=== PATIENT | female | born 1970 ===

== ENCOUNTER → 2021-08-04 15:43 | Outpatient (BNVA) | payer OTHER, SELFPAY | PROVIDERS: PCP Registered Nurse; Visit Provider Nurse Practitioner Family | DX: M79.7 Fibromyalgia (principal); M47.816 Spondylosis without myelopathy or radiculopathy, lumbar region; G89.4 Chronic pain syndrome; E66.01 Morbid (severe) obesity due to excess calories; Z68.41 Body mass index [BMI] 40.0-44.9, adult | CPT/HCPCS: 99202 ==

== ENCOUNTER 2022-01-05 15:53 | Outpatient (REF) | payer OTHER, SELFPAY ==
--- NOTE | ~2022-01-05 | XR_ITS ---
EXAMINATION: XR ABDOMEN CLINICAL INDICATION: Z01.818 - Encounter for other preprocedural examination COMPARISON: None TECHNIQUE: Supine x3 and upright x2 views of the abdomen are obtained for a total of 5 views. FINDINGS: There is no gaseous dilatation of bowel, differential air-fluid levels, or free air. The lung bases are clear. There is no pneumatosis or abnormal collections of gas. Moderate stool is present right colon. No rectal fecal impaction. No visible renal or abdominal ureteral calculi. There are a few calcified phleboliths in the pelvis. No acute bony abnormality. XR/XR abdomen w decubitus IMPRESSION: -No gaseous dilatation of bowel, differential air-fluid levels, or free air. -Moderate stool right colon. -Lung bases clear.
[2022-01-05 17:24] LABS: MANUAL DIFF FLAG NO
[2022-01-05 17:49] LABS: Basophils Percent Auto 0.5 % (0-2); Eosinophils Absolute Auto 0.1 X10*3/uL (0.0-0.4); Eosinophils Percent Auto 1.4 % (0-4); Hematocrit 42.6 % (37.0-47.0); Hemoglobin 13.7 g/dl (12.0-16.0); Imm Gran Abs Auto 0.02 X10*3/uL (0.00-0.03); Imm Gran Pct Auto 0.3 % (0.0-0.4); Lymphocytes Absolute Auto 2.1 X10*3/uL (1.2-4.9); Lymphocytes Percent Auto 34.3 % (20-40); Mean Corpuscular HGB Conc 32.2 g/dl (31.0-35.0); Mean Corpuscular Hemoglobin 27.9 pg (27.0-33.0); Mean Corpuscular Volume 86.8 fL (80.0-98.0); Mean Platelet Volume 9.1 fL (9.4-12.3); Monocytes Absolute Auto 0.4 X10*3/uL (0.1-1.2); Monocytes Percent Auto 7.1 % (2-11); Neutrophils Absolute Auto 3.5 x10*3/uL (2.0-8.3); Neutrophils Percent Auto 56.4 % (45-73); Platelet Count 301 X10*3/uL (160-400); Red Blood Count 4.91 X10*6/uL (4.20-5.50); Red Cell Distribution Width 12.7 % (11.0-16.0); White Blood Count 6.2 X10*3/uL (4.8-10.8)
[2022-01-05 18:11] LABS: Alanine Aminotransferase 19 U/L (0-31); Albumin Level 4.3 g/dL (3.5-5.0); Alkaline Phosphatase 82 U/L (39-117); Anion Gap 13 (12-20); Aspartate Amino Transferase 15 U/L (5-31); Bilirubin Total 0.7 mg/dL (0.0-1.0); Blood Urea Nitrogen 14 mg/dL (9-16); Calcium 9.5 mg/dL (8.4-10.2); Carbon Dioxide 26 mmol/L (22-29); Chloride 109 mmol/L (96-108); Estimated Glomerular Filt Rate 51; Glucose Random 80 mg/dL (60-115); Potassium 4.6 mmol/L (3.3-5.1); Sodium 143 mmol/L (135-145); Total Protein 7.5 g/dL (6.5-8.0)
[2022-01-05 18:31] LABS: TSH reflex Free T4 0.27 uIU/mL (0.32-4.0)
[2022-01-05 19:07] LABS: Free T4 (Free Thyroxine) 1.02 ng/dL (0.71-1.85)
== END 2022-01-05 15:54 | disposition home or self-care (01) ==
LOC: HO.XRAY 15:53
PROVIDERS: PCP Registered Nurse; Visit Provider Nurse Practitioner
DX: Z01.818 Encounter for other preprocedural examination (principal); K62.5 Hemorrhage of anus and rectum; K59.04 Chronic idiopathic constipation
CPT/HCPCS: 36415; 74021; 80053; 84439; 84443; 85025; 99202; 99212

== ENCOUNTER 2022-04-12 10:03 | Day surgery (SDC) | payer OTHER, SELFPAY ==
--- NOTE | 2022-04-11 10:20 | P.CONAN_ITS ---
HPI - Anesthesia Eval Consult details Narrative: 51yo F for Colonoscopy *Multiple Med Allergies* PMFSH Active Problems Active Problems: All Active Problems (Updated 04/09/22 @ 11:14 by Nichole Valencia RN) Lumbar spondylosis (Acute) Prolonged QT interval (Acute) Skin ulcer (Acute) Irritable bowel syndrome with diarrhea (Acute) Preop examination (Acute) Rectal bleeding (Acute) Chronic idiopathic constipation (Acute) Morbid obesity (Acute) Chronic pain syndrome (Acute) Fibromyalgia (Acute) Past Medical History Medical History (Updated 04/09/22 @ 11:14 by Nichole Valencia RN) Anxiety disorder Asthma Bipolar disorder Chronic pain syndrome Depression Drug allergy Fibromyalgia History of MRSA infection Kidney failure Mood disorder Morbid obesity Obstructive sleep apnea Psychosomatic pain Stress incontinence Suicide attempt Surgical History Surgical History (Updated 04/09/22 @ 11:13 by Nichole Valencia RN) H/O abdominoplasty H/O bilateral oophorectomy H/O colonoscopy H/O laparoscopy H/O: hysterectomy History of lumpectomy of left breast Hx of section Social History Social History Patient Tobacco Use Status: Former Tobacco user Quit Date: age 20's Substance Use Type: Marijuana Meds Allergies Allergy/AdvReac Type Severity Reaction Status Date / Time aluminum hydroxide Allergy Severe Anaphylaxis Verified 04/09/22 11:16 [From Mylanta] calcium carbonate Allergy Severe Anaphylaxis Verified 04/09/22 11:16 [From Mylanta] magnesium [From Mylanta] Allergy Severe Anaphylaxis Verified 04/09/22 11:16 magnesium hydroxide Allergy Severe Anaphylaxis Verified 04/09/22 11:16 [From Mylanta] magnesium hydroxide Allergy Severe Anaphylaxis Verified 04/09/22 11:16 [From Milk of Magnesia] simethicone [From Mylanta] Allergy Severe Anaphylaxis Verified 04/09/22 11:16 acetaminophen [From Tylenol] Allergy Unknown Unknown Verified 04/09/22 11:16 aspirin Allergy Unknown Unknown Verified 04/09/22 11:16 codeine Allergy Unknown Unknown Verified 04/09/22 11:16 morphine Allergy Unknown Unknown Verified 04/09/22 11:16 oxycodone [From Percocet] Allergy Unknown Unknown Verified 04/09/22 11:16 Penicillins Allergy Unknown Unknown Verified 04/09/22 11:16 pseudoephedrine Allergy Unknown Unknown Verified 04/09/22 11:16 [From Sudafed] propoxyphene Allergy Anaphylaxis Verified 04/12/22 11:08 [From [facility]-N 100] Home Medications Medication Instructions Recorded Confirmed Last Taken Type albuterol sulfate 90 mcg/actuation 0 mcg inhalation 08/04/21 Unknown History aerosol inhaler blood sugar diagnostic (FreeStyle #10 ea 08/04/21 Unknown History Test strips) bupropion HCl 300 mg 24 hr tablet, 300 mg PO BEDTIME 08/04/21 04/09/22 Unknown History extended release cetirizine 10 mg tablet 10 mg PO DAILY 08/04/21 04/09/22 Unknown History chlorhexidine gluconate 0.12 % ml PO 08/04/21 Unknown History mouthwash cholecalciferol (vitamin D3) 50 50 mcg PO DAILY 08/04/21 04/09/22 Unknown History mcg (2,000 unit) capsule (Vitamin D3) diclofenac sodium 1 % topical gel 4 g topical QID 08/04/21 04/09/22 Unknown History fluoxetine 20 mg capsule 20 mg PO DAILY 08/04/21 04/09/22 Unknown History hydroxyzine HCl 50 mg tablet 50 mg PO BID 08/04/21 04/09/22 Unknown History levalbuterol HCl 0.63 mg/3 mL mg inhalation 08/04/21 Unknown History solution for nebulization magnesium oxide 400 mg (241.3 mg 400 mg PO DAILY 08/04/21 04/09/22 Unknown History magnesium) tablet mometasone-formoterol HFA 100 2 puff inhalation BID 08/04/21 04/09/22 Unknown History mcg-5 mcg/actuation aerosol inhaler (Dulera) ondansetron HCl 4 mg tablet 4 mg PO TID PRN nausea 08/04/21 04/09/22 Unknown History oxybutynin chloride 15 mg 15 mg PO DAILY 08/04/21 04/09/22 Unknown History tablet,extended release 24 hr pen needle, diabetic 31 gauge x #1,200 ea 08/04/21 Unknown History 09/25 ([facility]acare Pen Needle) promethazine 25 mg tablet 25 mg PO BID PRN Nausea 08/04/21 04/09/22 Unknown History rosuvastatin 10 mg tablet 10 mg PO BEDTIME 08/04/21 04/09/22 Unknown History semaglutide 0.25 mg or 0.5 mg (2 mg subcut 08/04/21 Unknown History mg/1.5 mL) subcutaneous pen injector (Ozempic) bisacodyl 10 mg rectal suppository 10 mg MI DAILY 01/05/22 Unknown History buprenorphine HCl 300 mcg buccal 300 mcg buccal BID 01/05/22 04/09/22 Unknown History film (Belbuca) epinephrine 0.3 mg/0.3 mL IM DIRECTED anaphylaxis 01/05/22 Unknown History injection, auto-injector gabapentin 400 mg capsule 800 mg PO TID 01/05/22 04/09/22 Unknown History melatonin 5 mg tablet 5 mg PO BEDTIME 01/05/22 04/09/22 Unknown History mineral oil (Obmgo-Ex-Gwj Enema ml MI 01/05/22 Unknown History (mineral oil)) omeprazole 20 mg capsule,delayed 20 mg PO DAILY 01/05/22 04/09/22 Unknown History release sennosides 8.6 mg tablet (senna) 17.2 mg PO DAILY 01/05/22 04/09/22 Unknown History simethicone 80 mg chewable tablet 0 mg PO 01/05/22 Unknown History (Gas Relief (simethicone)) sodium phosphates 19 gram-7 ml MI 01/05/22 Unknown History gram/118 mL enema (Enema Disposable) topiramate 200 mg tablet 200 mg PO BEDTIME 01/05/22 04/09/22 Unknown History buprenorphine HCl 300 mcg buccal 1 strip buccal BID 04/12/22 04/12/22 Unknown History film (Belbuca) buprenorphine HCl 450 mcg buccal mcg buccal DAILY 04/12/22 04/12/22 Unknown History film (Belbuca) Exam Exam Date and Time: April 11, 2022 1020 Pertinent Lab Results Pertinent Lab Results: Laboratory Tests 01/05/22 01/05/22 17:23 17:23 WBC 6.2 Hgb 13.7 Hct 42.6 Plt Count 301 Sodium 143 Potassium 4.6 Chloride 109 H Carbon Dioxide 26 BUN 14 Creatinine 1.12 Assessment and Plan Assessment Anesthesia Assessment: Chart Reviewed
[2022-04-12 10:57] VITALS: BP 126/87; PULSE 88; RESP 18; TEMP 37.2; O2SAT 98; BMI 35.6
[2022-04-12] MEDS: Lactated Ringers 1,000 ML 100 ML IVCONT (11:29)
--- NOTE | 2022-04-12 11:46 | MHC.SHP ---
Pre-Procedural Eval Section A Date of Service: 04/12/22 Section B Chief Complaint: screening Details of Present Illness: Prev had issues with abd pain, constipation and rectal bleeding but that has all resolved per her report. Relevant Family History (Specify if Yes): No Present Medications: see Short Stay Collaborative assessment Medical History: Significant History (Morbid obesity, chronic pain, fibromyalgia ) Allergies: Allergies Allergy/AdvReac Type Severity Reaction Status Date / Time aluminum hydroxide Allergy Severe Anaphylaxis Verified 04/09/22 11:16 [From Mylanta] calcium carbonate Allergy Severe Anaphylaxis Verified 04/09/22 11:16 [From Mylanta] magnesium [From Mylanta] Allergy Severe Anaphylaxis Verified 04/09/22 11:16 magnesium hydroxide Allergy Severe Anaphylaxis Verified 04/09/22 11:16 [From Mylanta] magnesium hydroxide Allergy Severe Anaphylaxis Verified 04/09/22 11:16 [From Milk of Magnesia] simethicone [From Mylanta] Allergy Severe Anaphylaxis Verified 04/09/22 11:16 acetaminophen [From Tylenol] Allergy Unknown Unknown Verified 04/09/22 11:16 aspirin Allergy Unknown Unknown Verified 04/09/22 11:16 codeine Allergy Unknown Unknown Verified 04/09/22 11:16 morphine Allergy Unknown Unknown Verified 04/09/22 11:16 oxycodone [From Percocet] Allergy Unknown Unknown Verified 04/09/22 11:16 Penicillins Allergy Unknown Unknown Verified 04/09/22 11:16 pseudoephedrine Allergy Unknown Unknown Verified 04/09/22 11:16 [From Sudafed] propoxyphene Allergy Anaphylaxis Verified 04/12/22 11:08 [From Darvocet-N 100] Review of Systems Review of Systems Comment: 10 point ROS negative except as above Exam Exam Comment: Gen appear: No acute distress, well nourished HEENT: no icterus Chest: No overt resp distress Abd: soft, nontender, nondistended Psych: Stable affect, answering questions appropriately Neuro: A/Ox3 noted to move all extremities spontaneously Ext: no peripheral edema Plan Diagnosis/Plan: Unchanged I have reviewed the history and physical and performed a pertinent physical examination on my patient. No changes have occurred unless specified.
--- NOTE | 2022-04-12 11:59 | P.OP_ITS ---
Operative Note Operative Note Date of Service: 04/12/22 Narrative: Procedure: Colonoscopy Indication: Screening Endoscopist: Frances Pickens MD Anesthesia Provider: Dr Reji Lobo Anesthesia type: MAC Instrument: Olympus [id number]-H190L Consent: Indication, risks vs benefits, and alternatives were discussed with the patient who gave written informed consent to proceed. EKG, pulse, pulse oximetry and blood pressure were monitored throughout the procedure. Please see anesthesia flowsheet. Procedure: The patient was brought to the procedure room and placed in the left lateral decubitus position. IV medications were administered by the anesthesia provider in attendance. A digital rectal exam was performed which was normal. The colonoscope was then inserted through the anus and advanced through the colon to the cecum at 70 cm,and terminal ileum. Mucosa was carefully examined under high definition white light as the instrument was slowly withdrawn in a retrograde panoramic fashion. Retroflexion was performed in ascending colon and rectum. The procedure was not difficult. There were no immediate obvious complications. The quality of the prep was BBPS: 3+2+2 = adequate Withdrawal time 12 minutes. Limitations: No limitations. Findings: Mucosa: Normal to cecum and terminal ileum. Protruding lesions: * Medium internal hemorrhoids without stigmata of recent bleeding. Impression: 1. Normal colon and terminal ileum mucosa 2. Internal hemorrhoids Recommendations: - Repeat colonoscopy in 10 years for colorectal cancer screening
[2022-04-12 12:36] VITALS: BP 109/54; PULSE 78; RESP 16; TEMP 36.3; O2SAT 97
[2022-04-12 12:51] VITALS: BP 121/67; PULSE 70; RESP 16; TEMP 36.3; O2SAT 98
== END 2022-04-12 13:32 | disposition home or self-care (01) ==
PROVIDERS: PCP Registered Nurse; Visit Provider Internal Medicine
PROC: 0DJD8ZZ Inspection of Lower Intestinal Tract, Via Natural or Artificial Opening Endoscopic (ICD-10-PCS; CPT 45378; principal; 2022-04-12 11:20)
DX: Z12.11 Encounter for screening for malignant neoplasm of colon (principal); K64.8 Other hemorrhoids; K58.0 Irritable bowel syndrome with diarrhea; K59.04 Chronic idiopathic constipation; M79.7 Fibromyalgia; G89.29 Other chronic pain; R94.31 Abnormal electrocardiogram [ECG] [EKG]; E66.01 Morbid (severe) obesity due to excess calories; Z68.37 Body mass index [BMI] 37.0-37.9, adult; Z79.899 Other long term (current) drug therapy; Z88.0 Allergy status to penicillin; Z88.8 Allergy status to other drugs, medicaments and biological substances; Z87.891 Personal history of nicotine dependence; F12.90 Cannabis use, unspecified, uncomplicated
CPT/HCPCS: G0121

== ENCOUNTER 2022-05-03 12:41 | Outpatient (REF) | payer OTHER, SELFPAY | END 2022-05-03 12:42 | disposition home or self-care (01) | LOC: HO.LAB 12:41 | PROVIDERS: PCP Registered Nurse; Visit Provider Nurse Practitioner | DX: K86.89 Other specified diseases of pancreas (principal); K58.0 Irritable bowel syndrome with diarrhea | CPT/HCPCS: 36415; 86003; 99212 ==

== ENCOUNTER → 2022-08-14 08:56 | Outpatient (BNVA) | payer OTHER, SELFPAY | PROVIDERS: PCP Registered Nurse; Visit Provider Nurse Practitioner | DX: Z01.818 Encounter for other preprocedural examination (principal); K86.89 Other specified diseases of pancreas; K58.0 Irritable bowel syndrome with diarrhea; K04.7 Periapical abscess without sinus | CPT/HCPCS: 99212 ==

== ENCOUNTER 2022-08-22 09:53 | Outpatient (REF) | payer OTHER, SELFPAY ==
[2022-08-22 11:54] LABS: C Reactive Protein 0.11 mg/dL (< or = 0.50)
[2022-08-22 12:12] LABS: TSH reflex Free T4 0.69 uIU/mL (0.32-4.0)
== END 2022-08-22 09:54 | disposition home or self-care (01) ==
LOC: HO.LAB 09:53
PROVIDERS: Visit Provider Nurse Practitioner
DX: R19.7 Diarrhea, unspecified (principal)
CPT/HCPCS: 36415; 84443; 86140

== ENCOUNTER → 2023-06-19 13:50 | Outpatient (BNVA) | payer OTHER, SELFPAY | PROVIDERS: PCP Registered Nurse; Visit Provider Surgery ==

== ENCOUNTER 2023-07-11 10:06 | Outpatient (AMB) | payer OTHER, SELFPAY ==
[2023-07-11 10:12] VITALS: BP 99/62; PULSE 90; BMI 40.6
--- NOTE | 2023-07-11 10:12 | A.OFFVIS_ITS ---
Intake Vital Signs 3 07/11/23 10:12 Height 5 ft 5.5 in Weight 247 lb 12.793 oz BMI 40.6 BP 99/62 Blood Pressure Location Lt brachial Position Sitting Pulse 90 Intake Visit Reasons: Gastroesophageal reflux disease (GERD) Intake Note: Patient presents to the office today for a follow-up of GERD. CC: Patient c/o pain and pressure from her esophagus and something comes up and she feels like chocking because it states in her throat and she is not able to vomit or spit it out. She describes the pain as very intense and cramping pain from her esophagus. Her PCP did an EKG and it was normal. Neck and chest area sensitive and painful to the touch. She also c/o constipation and occasional blood when she wipes. She tried something natural off [employer] and was able to have a bowel movement but abdominal cramps were too strong. She also c/o lower mid abdominal pain. 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: No Accompanied by: security intern Allergies aluminum hydroxide [From Mylanta] Allergy (Severe, Verified 07/11/23 10:22) Anaphylaxis calcium carbonate [From Mylanta] Allergy (Severe, Verified 07/11/23 10:22) Anaphylaxis magnesium [From Mylanta] Allergy (Severe, Verified 07/11/23 10:22) Anaphylaxis magnesium hydroxide [From Mylanta] Allergy (Severe, Verified 07/11/23 10:22) Anaphylaxis magnesium hydroxide [From Milk of Magnesia] Allergy (Severe, Verified 07/11/23 10:22) Anaphylaxis simethicone [From Mylanta] Allergy (Severe, Verified 07/11/23 10:22) Anaphylaxis acetaminophen [From Tylenol] Allergy (Unknown, Verified 07/11/23 10:22) Unknown aspirin Allergy (Unknown, Verified 07/11/23 10:22) Unknown codeine Allergy (Unknown, Verified 07/11/23 10:22) Unknown dextromethorphan [From NyQuil] Allergy (Unknown, Verified 07/11/23 10:22) Anaphylaxis doxylamine [From NyQuil] Allergy (Unknown, Verified 07/11/23 10:22) Anaphylaxis morphine Allergy (Unknown, Verified 07/11/23 10:22) Unknown oxycodone [From Percocet] Allergy (Unknown, Verified 07/11/23 10:22) Unknown Penicillins Allergy (Unknown, Verified 07/11/23 10:22) Unknown pseudoephedrine [From Sudafed] Allergy (Unknown, Verified 07/11/23 10:22) Unknown propoxyphene [From Darvocet-N 100] Allergy (Verified 07/11/23 10:22) Anaphylaxis Medication List - Last Reconciled 07/11/23 by DENISE Lazo albuterol sulfate 90 mcg/actuation 2 inhalations inhalation blood sugar diagnostic (FreeStyle Test strips) As directed bupropion HCl (Wellbutrin XL) 300 mg PO QAM bupropion HCl (Wellbutrin XL) 150 mg PO QAM cholecalciferol (vitamin D3) (Vitamin D3) 50 mcg PO DAILY cyclobenzaprine 10 mg PO BEDTIME diclofenac sodium 1% 4 grams topical QID dicyclomine 40 mg (2 x 20 mg) PO QID 30 days epinephrine IM DIRECTED fluoxetine 40 mg PO DAILY gabapentin 800 mg PO TID hydroxyzine HCl 50 mg PO BID lancets (Pure Comfort Safety Lancets) As directed levalbuterol HCl mg inhalation mometasone-formoterol 100-5 mcg/actuation (Dulera) 2 puffs inhalation BID ondansetron HCl 4 mg PO TID PRN oxybutynin chloride ER 20 mg PO BEDTIME pen needle, diabetic (Ultracare Pen Needle) As directed rosuvastatin 10 mg PO DAILY semaglutide (Ozempic) mg subcut QWEEK sodium phosphates 19-7 gram/118 mL (Enema Disposable) mL [place] topiramate (Topamax) 200 mg PO BEDTIME [tramadol PO BEDTIME] zaleplon 10 mg PO BEDTIME PRN HPI Gastroesophageal reflux disease (GERD) 2 HPI0 Details Assessment & Plan (1) Irritable bowel syndrome with diarrh ea: ?Code(s): K58.0 - Irritable bowel syndrome with diarrhea ?Plan: She continues with severe diarrhea, it has taken over my life! She also has severe belching and explosive gas. She will have severe cramping and at times have a vasovagal response with sweating and near syncope. She admits that her sx are very driven by her emotional state as well. But in the past she had CIC alt with diarrhea, but now she has had straight diarrhea for a couple of months. She has fears of going into the constipation phase. Worse, she has 2 tooth infections and an upcoming root canal AND THE ER PUT HER ON CLINDAMYCIN!!? I wanted to stop this and will put her on Zithromax instead since she has a penicillin allergy. Hx of? being on xanax in the past but psych took her off and she does not feel her anxiety is being addressed. Sx all worse at night, interferes with sleep. No help with Zenpep and Bentyl at 20mg - not helping.? She is also on Belbuca sublingually for chronic pain but she feels that the taste of it also makes her vomit.? Apparently she is allergic to the adhesive patch. Will increase to 2 bentyl qid, and add carafate 2 tabs qhs and get blood for CRP, stool for GI panel and fecal calp, fecal pancreatic elastase.? We will stop the Zenpep since it did not help.? I tried it also because she has a history of pancreatitis and I was uncertain if there was an element of chronic pancreatitis contributing to her symptoms. She wants an EGD for PUD upper abd pain. There are no prior problems with anesthesia or sedation.? She has obstructive sleep apnea and denies any cardiac problems.? There are no infectious disease problems. RoV 2 weeks.? I will also see her after the endoscopy but that likely will be many months out. (2) Pancreatic insufficiency: ?Code(s): K86.89 - Other specified diseases of pancreas (3) Acute diarrhea: ?Code(s): R19.7 - Diarrhea, unspecified (4) Dental infection: ?Code(s): K04.7 - Periapical abscess without sinus (5) Preop examination: ?Code(s): Z01.818 - Encounter for other preprocedural examination ? ? ? Orders: Orders DC Reactive Protein A Today R19.7 - Diarrhea, unspecified ? DTSH reflex Free T4 A Today R19.7 - Diarrhea, unspecified ? DCDiff Gene PCR Today R19.7 - Diarrhea, unspecified ? DGI Panel Today R19.7 - Diarrhea, unspecified ? DCalprotectin, Feca l Today R19.7 - Diarrhea, unspecified ? Medications: New Cazithromycin 500 mg? PO DAILY 1 0 days 10 tabs 0RF K04.7 - Periapical abscess without s inus ? Csucralfate (Carafa te) 2 grams (2 x 1 gra m) PO BEDTIME 60 t abs 3RF K58.0 - Irritable bowel syndrome wit h diarrhea ? Cdicyclomine 40 mg (2 x 20 mg) PO QID 30 days 240 tabs 3RF ? ? Cpromethazine 25 mg? PO BID PRN 60 tabs 3RF Nausea ? ? Discontinued Ohgkmuh-jusjtkru-dg ylase 36,000-114,0 00- 180,000 unit ( Creon) ?? administ er with meals and/ or snacks ?? Disco ntinued Reason:? C hange Referral Typ e 1 cap? PO QID 120 caps 6RF ? ? Hdicyclomine ?? Dis continued Reason:? Doctor's Order 20 mg? PO QID 30 d ays 120 tabs 3RF K58.0 - Irritable bowel syndrome wit h diarrhea ? LABS: Laboratory Tests 08/22/22 10:01 C-Reactive Protein 0.11 TSH 0.69 STOOL TESTING NOT OBTAINED EGD NOT YET SCHEDULED BIOPSY CORRESPONDENCE On 07/05/22 @ 12:52 Prosper Posey Wrote To FrancoisAugust Patient states she will start dicyclomine today because it gets delivered to her today.? Denies getting fevers.? She states she was having diarrhea last night and her stomach was very irritable .? She was advise per message below to go to the ER if symptoms get worse but she stated she will give it some more time because her opioid medication has been adjusted d/t pharmacy giving her the wrong dosage. On 07/03/22 @ 12:12 Suzanne Parrish Wrote To Prosper Posey I am sending dicyclomine. Have any of her medications changed?? Does she have any fevers? If this gets worse she may need to go to the ER.... On 07/03/22 @ 11:57 Prosper Posey Wrote To Francois,August Patient called with c/o abdominal pain, diarrhea, nausea. and bloating. She states the abdominal cramps are horrible and similar to when she had her period. She is requesting something for pain and states is concerns for ulcers. She also states when she gets upset or very stressed that triggers her symptoms. Please adv TODAY'S VISIT Pt has not been seen since 08/2022. She paused some of her medications r/t pill burden. She has severe CIC, pain in the lower abdomen and distention.She has been having CP and has to sleep propped up. She is not feeling acid brash, she is feeling a twisting pain with pressure. It is sensitive to touch and radiates up to her throat/jaw. She has the feeling that she is limited in what she can eat because the food feels like it gets stuck in the upper pharyngeal area. She will have to hold her throat to facilitate swallowing and she has a constant globus sensation. The pain and swallowing is worse at night, and happens every night. She will have random times when she will be very hungry and then can only eat a couple of bites because of odynophagia and she will have to wait for this to pass somewhat. She had a normal EKG but no stress test and she does have high cholesterol and is under a lot of stress. I will refer her for cardiology assessment. She also has FMS and is being tx'ed by chiropractor for neck pain. She will be starting wt mgmt soon. She has strong FHX of cardiac disease. At this point it sounds like she is describing esophageal spasm but the spasm could be caused by untreated or undertreated GERD with acid splashing the distal esophagus. All this was explained to her. Because she has a problem with too much of a pill burden I will reinstate the dicyclomine and will try getting her Linzess for her severe constipation. She is agreeable to trying these 2 medications. I am also ordering a barium swallow and reordering the EGD. There are no prior problems with anesthesia or sedation. She denies any cardiac or respiratory problems. There are no infectious disease problems. Return office visit in 4 weeks to evaluate her response to the medications. [facility] Medical History (Updated 07/11/23 @ 11:16 by DENISE Lazo) Chronic idiopathic constipation Acute diarrhea Pancreatic insufficiency Irritable bowel syndrome with diarrhea Chronic pain syndrome Drug allergy Mood disorder Kidney failure History of MRSA infection Stress incontinence Psychosomatic pain Obstructive sleep apnea Anxiety disorder Morbid obesity Fibromyalgia Bipolar disorder Suicide attempt Depression Asthma Surgical History Hx of section H/O colonoscopy H/O abdominoplasty History of lumpectomy of left breast H/O bilateral oophorectomy H/O: hysterectomy H/O laparoscopy Social History Patient Tobacco Use Status: Former Tobacco user Quit Date: age 20's Substance Use Type: Marijuana Review of Systems Const Denies fatigue, Denies fever(s), Denies night sweats, Denies poor appetite and Denies weight loss ENT Reports Normal hearing present, Denies dental pain, Reports dysphagia, Denies hearing loss, Denies mouth pain, Reports neck pain, Reports odynophagia, Denies throat swelling, Denies tongue swelling and Reports other (Dentition adequate) Card Reports chest pain Resp Reports no additional complaints GI Details: Denies abdominal pain, Denies melena, Reports bloating, Denies hematochezia, Reports constipation, Denies GI cramping, Reports dysphagia, Denies excessive flatus, Denies early satiety, Denies heartburn, Denies diarrhea, Denies nausea, Reports odynophagia, Denies vomiting and Denies hematemesis Musc Reports neck pain Skin/Breast Denies pruritus, Denies lesions, Denies rash and Denies jaundice Neuro Reports Normal hearing present and Denies Abnormal speech present Psych Reports anxiety Endo Denies fatigue Aller/Immun Denies throat swelling and Denies tongue swelling Physical Exam Vital Signs: Last Vital Signs Pulse 90 07/11/23 10:12 BP 99/62 07/11/23 10:12 BMI result Body Mass Index 40.6 Const General: cooperative, no acute distress, well developed and well groomed Nutritional Appearance: well nourished and obese Orientation/consciousness: oriented to person, oriented to place and oriented to time Limitations: No language barrier HEENT Head: Yes normocephalic and Yes atraumatic Eyes General: appearance normal, both eyes and all related structures Pupils: Equal, round and reactive pupils present Neck Neck: Yes no lymphadenopathy Thyroid: diffusely enlarged Resp Effort & Inspection: normal respiratory effort and able to speak in complete sentences Auscultation: clear to auscultation bilaterally Cardio Rate: regular rate Rhythm: regular rhythm Heart sounds: Normal, physiologic split S2 sound present Peripheral pulses: radial pulses present and posterior tibial pulses present GI Inspection: No distended, Yes Abdominal panniculus present and Yes obesity Palpation (GI): Soft to palpation, nontender, no guarding, not rigid and No hepatosplenomegaly present Percussion: Yes normal to percussion Auscultation: normal bowel sounds Rectal Exam - Female: deferred Abdomen image: 2 1. surgical scar Skin General skin exam: turgor normal, dry skin (marshal on hands), Excoriation (scratching over upper abdomen), no jaundice, No spider nevi and no striae Rashes: no rashes Nails: normal Neuro General: oriented to person, oriented to place and oriented to time Cranial nerves: Yes Equal, round and reactive pupils present and Yes Normal hearing present Speech: No Abnormal speech present Extrem General: Yes normal to inspection, No clubbing, No cyanosis and No edema Psych Appearance: grossly normal and well kempt Mental Status: mental status grossly normal Speech and movement: Pressured speech present Affect: Anxious affect present Attitude: cooperative Thought process: Normal thought process present and not confabulating Thought content: Normal thought content present Insight: Limited insight present (Psych) Judgement: Limited judgement present (Psych) Assessment & Plan Assessment & Plan (1) Chronic idiopathic constipation: Code(s): K59.04 - Chronic idiopathic constipation (2) Esophageal spasm: Code(s): K22.4 - Dyskinesia of esophagus Plan Pt has not been seen since 08/2022. She paused some of her medications r/t pill burden. She has severe CIC, pain in the lower abdomen and distention.She has been having CP and has to sleep propped up. She is not feeling acid brash, she is feeling a twisting pain with pressure. It is sensitive to touch and radiates up to her throat/jaw. She has the feeling that she is limited in what she can eat because the food feels like it gets stuck in the upper pharyngeal area. She will have to hold her throat to facilitate swallowing and she has a constant globus sensation. The pain and swallowing is worse at night, and happens every night. She will have random times when she will be very hungry and then can only eat a couple of bites because of odynophagia and she will have to wait for this to pass somewhat. She had a normal EKG but no stress test and she does have high cholesterol and is under a lot of stress. I will refer her for cardiology assessment. She also has FMS and is being tx'ed by chiropractor for neck pain. She will be starting wt mgmt soon. She has strong FHX of cardiac disease. At this point it sounds like she is describing esophageal spasm but the spasm could be caused by untreated or undertreated GERD with acid splashing the distal esophagus. All this was explained to her. Because she has a problem with too much of a pill burden I will reinstate the dicyclomine and will try getting her Linzess for her severe constipation. She is agreeable to trying these 2 medications. I am also ordering a barium swallow and reordering the EGD. There are no prior problems with anesthesia or sedation. She denies any cardiac or respiratory problems. There are no infectious disease problems. Return office visit in 4 weeks to evaluate her response to the medications. BARIUM SWALLOW EGD NOT YET SCHEDULED BIOPSY Orders: Orders 2 FL barium swallow Today F39 - Unspecified mood [affective] disorder EGD with [facility] - GI Use Only Today F39 - Unspecified mood [affective] disorder Referrals 2 Cardiology Referral K22.4 - Dyskinesia of esophagus Medications: Changed 2 From dicyclomine 40 mg (2 x 20 mg) PO QID 30 days 240 tabs 3RF K22.4 - Dyskinesia of esophagus To dicyclomine 20 mg PO BID 30 days 60 tabs 3RF K22.4 - Dyskinesia of esophagus Discontinued 2 promethazine Discontinued Reason: Doctor's Order 25 mg PO BID PRN 60 tabs 3RF Nausea On Hold 2 linaclotide (Linzess) Hold Comment: Doctor's Order 72 mcg PO QAM 30 caps 6RF K59.04 - Chronic idiopathic constipation Coding Level of Care Code Est Pt Level 4 (79909) Diagnoses Chronic idiopathic constipation K59.04 Esophageal spasm K22.4
== END 2023-07-11 11:28 | disposition home or self-care (01) ==
PROVIDERS: PCP Registered Nurse; Visit Provider Nurse Practitioner
DX: K59.04 Chronic idiopathic constipation (principal); K22.4 Dyskinesia of esophagus
CPT/HCPCS: 99214

== ENCOUNTER → 2023-07-11 10:06 | Outpatient (BNVA) | payer OTHER, SELFPAY | PROVIDERS: PCP Registered Nurse; Visit Provider Nurse Practitioner | DX: K59.04 Chronic idiopathic constipation (principal); K22.4 Dyskinesia of esophagus | CPT/HCPCS: 99212 ==

== ENCOUNTER 2023-07-22 08:10 | Outpatient (AMB) | payer OTHER, SELFPAY ==
--- NOTE | 2023-07-22 13:24 | A.OFFVIS_ITS ---
Intake VS Expanded 07/22/23 14:02 Height 5 ft 5.5 in Weight 246 lb 2 oz BMI 40.3 Body Fat % 47.2 Body Fat Mass 116.2 Fat Free Mass 129.8 Visceral Fat Rating 14 Body Water % 37.5 Body Water Mass 92.4 Basal Metabolic Rate/Score 1,835 Intake Visit Reasons: [employer] SOFTWARE P[employer]ER SWL BMI 40.4 Allergies aluminum hydroxide [From Mylanta] Allergy (Severe, Verified 07/22/23 13:26) Anaphylaxis calcium carbonate [From Mylanta] Allergy (Severe, Verified 07/22/23 13:26) Anaphylaxis magnesium [From Mylanta] Allergy (Severe, Verified 07/22/23 13:26) Anaphylaxis magnesium hydroxide [From Mylanta] Allergy (Severe, Verified 07/22/23 13:26) Anaphylaxis magnesium hydroxide [From Milk of Magnesia] Allergy (Severe, Verified 07/22/23 13:26) Anaphylaxis simethicone [From Mylanta] Allergy (Severe, Verified 07/22/23 13:26) Anaphylaxis acetaminophen [From Tylenol] Allergy (Unknown, Verified 07/22/23 13:26) Unknown aspirin Allergy (Unknown, Verified 07/22/23 13:26) Unknown codeine Allergy (Unknown, Verified 07/22/23 13:26) Unknown dextromethorphan [From NyQuil] Allergy (Unknown, Verified 07/22/23 13:26) Anaphylaxis doxylamine [From NyQuil] Allergy (Unknown, Verified 07/22/23 13:26) Anaphylaxis morphine Allergy (Unknown, Verified 07/22/23 13:26) Unknown oxycodone [From Percocet] Allergy (Unknown, Verified 07/22/23 13:26) Unknown Penicillins Allergy (Unknown, Verified 07/22/23 13:26) Unknown pseudoephedrine [From Sudafed] Allergy (Unknown, Verified 07/22/23 13:26) Unknown propoxyphene [From Darvocet-N 100] Allergy (Verified 07/22/23 13:26) Anaphylaxis Medication List - Last Reconciled 07/22/23 by Prakash Adams MD albuterol sulfate 90 mcg/actuation 2 inhalations inhalation blood sugar diagnostic (FreeStyle Test strips) As directed bupropion HCl (Wellbutrin XL) 300 mg PO QAM bupropion HCl (Wellbutrin XL) 150 mg PO QAM cholecalciferol (vitamin D3) (Vitamin D3) 50 mcg PO DAILY cyclobenzaprine 10 mg PO BEDTIME diclofenac sodium 1% 4 grams topical QID dicyclomine 40 mg (2 x 20 mg) PO BID 30 days epinephrine IM DIRECTED fluoxetine 40 mg PO DAILY gabapentin 800 mg PO TID lancets (Pure Comfort Safety Lancets) As directed levalbuterol HCl mg inhalation mometasone-formoterol 100-5 mcg/actuation (Dulera) 2 puffs inhalation BID ondansetron HCl 4 mg PO TID PRN oxybutynin chloride ER 20 mg PO BEDTIME pen needle, diabetic (Ultracare Pen Needle) As directed rosuvastatin 10 mg PO DAILY semaglutide (Ozempic) mg subcut QWEEK sodium phosphates 19-7 gram/118 mL (Enema Disposable) mL [place] topiramate (Topamax) 200 mg PO BEDTIME [tramadol PO BEDTIME] zaleplon 10 mg PO BEDTIME PRN HPI [employer] SOFTWARE P[employer]ER SWL BMI 40.4 HPI Details Start time: 1.30pm, End time: 2.30pm ?I spent 50 minutes speaking with the patient on the phone plus an additional 10 minutes reviewing and updating records for a total of 60 minutes HPI Comments History of Present Illness Details Previous weight loss efforts: Latrellempic lost 75lbs Wakes up: 8.30am, Sleeps: 10pm Breakfast: skips Lunch: 3pm (sandwich or chicken salad) Dinner: 6.30pm (chicken, rice, beans) Snacks: 9pm (can nuts) Exercise: none Fluids: Coffee (none), tea: none, soda: Gingerale regular occasionally, juice: occasionally, ETOH: none PFSH Medical History (Updated 07/22/23 @ 13:43 by Prakash Adams MD) Hyperlipidemia Chronic idiopathic constipation Acute diarrhea Pancreatic insufficiency Irritable bowel syndrome with diarrhea Chronic pain syndrome Drug allergy Mood disorder Kidney failure History of MRSA infection Stress incontinence Psychosomatic pain Obstructive sleep apnea Anxiety disorder Morbid obesity Fibromyalgia Bipolar disorder Suicide attempt Depression Asthma Surgical History Hx of section H/O colonoscopy H/O abdominoplasty History of lumpectomy of left breast H/O bilateral oophorectomy H/O: hysterectomy H/O laparoscopy Social History Patient Tobacco Use Status: Former Tobacco user Quit Date: age 20's Substance Use Type: Marijuana Physical Exam Vital Signs: BMI result Body Mass Index 40.3 Assessment & Plan Assessment & Plan (1) Morbid obesity: Code(s): E66.01 - Morbid (severe) obesity due to excess calories Plan: 1.? Plan for lap sleeve gastrectomy. If diaphragmatic or ventral hernias are present at time of surgery, these will be repaired laparoscopically as well. Risks and complications were discussed in detail including possible conversion to an open procedure, anastomotic leak, bleeding requiring transfusion, small bowel obstruction, , DVT and pulmonary embolism, cardiac, or pulmonary complications, as shelter complications such as anastomotic ulcer, insufficient weight loss and vitamin deficiencies. I emphasized the importance of close follow-up, adherence to instructions and good communication. 2. Nutritional counseling. Start with 2 Isopure protein (buy at [employer]) shakes (HALF scoop EACH in 8oz water each) at 9am-11am and 12pm-2pm, 1 protein bar (Zone Perfect protein bars, buy at [employer], ?[employer], [facility], or [employer]) at 3pm-5pm, dinner at 6pm (8 forks of protein and 8 forks of salad/vegetables) and one more Zone Perfect protein bar after dinner at 8pm-10pm. So you do 2 protein shakes, 2.5 protein bars and one meal per day. Meal to include lean meat (beef, fish, pork, turkey, chicken), or occitan yogurt, or egg whites, or beans with a salad with olive oil and fruits (berries, pears, apples, kiwi). Avoid salt, breads, potatoes, rice, pasta, desserts. 3. Each shake would be drunk slowly, like coffee in a period of 2 hours. 4. Cut each bar in 4 pieces and eat each piece in 30min ?to make each bar last 2 hours. 5. I emphasized the importance of measuring accurately the food portion and measure it when serving the food in plate 6. The meal portions include 8 full-size forks of meat and 8 full-size forks of salad. You always eat the meat portion but you can replace up to 4 forks for salad/vegetables with rice, potatoes or pasta, or a fruit ?if you like. The less you do it the better weight loss will be. 7. One full-size fork is what it can be scooped on the fork without falling aside and not what can be bit with the fork. Use regular forks like those you find in a typical restaurant. 8.? Please send me weight measurements as soon as possible and then once a week. Always include your diet and exercise plan. 9. The best choice would be to purchase a stationary bike at home that can track calories. Let me know if you do so I can give you an exercise plan. 10.?Goal is to lose at least 1.5-2lbs per week 11. Goal to lose 10% of your weight before surgery, which is about 24lbs. Ultimate weight goal: 222lbs before surgery 12. Please follow the diet plan exactly without any change. If you don't like something about the plan or you feel hungry you need to communicate with me so I can help you revise the plan. You should not change the plan yourself. Telehealth Telehealth Location of provider rendering services: practice address Location of patient: address on file Patient Identification confirmed using: Name, : Yes Telehealth method: voice only Patient verbally consented to treatment: Yes Patient verbally consented to billing insurance company: Yes Patient informed of any privacy concerns related to visit: Yes Minutes spent on Phone/Video with Pt.: 60 Coding Level of Care Code Tele New Pt Level 5 (24582) Diagnoses Morbid obesity E66.01 Time Spent (min) 60
[2023-07-22 14:02] VITALS: BMI 40.3
== END 2023-07-22 16:47 | disposition home or self-care (01) ==
LOC: HO.HBS 08:10
PROVIDERS: PCP Registered Nurse; Visit Provider Surgery
DX: E66.01 Morbid (severe) obesity due to excess calories (principal); Z68.41 Body mass index [BMI] 40.0-44.9, adult
CPT/HCPCS: 99443

== ENCOUNTER → 2023-07-22 08:10 | Outpatient (BNVA) | payer OTHER, SELFPAY | PROVIDERS: PCP Registered Nurse; Visit Provider Surgery ==

== ENCOUNTER → 2023-08-09 12:48 | Outpatient (BNVA) | payer OTHER, SELFPAY | PROVIDERS: PCP Registered Nurse; Visit Provider Nurse Practitioner | DX: K22.4 Dyskinesia of esophagus (principal); K58.1 Irritable bowel syndrome with constipation; K59.04 Chronic idiopathic constipation; Z79.899 Other long term (current) drug therapy | CPT/HCPCS: 99212 ==

== ENCOUNTER 2023-08-09 12:49 | Outpatient (AMB) | payer OTHER, SELFPAY ==
--- NOTE | 2023-08-09 12:54 | MHC.OFFVIS ---
Intake Vital Signs 08/09/23 12:56 Height 5 ft 7 in Weight 239 lb BMI 37.4 BP 105/74 Blood Pressure Location Lt brachial Position Sitting Pulse 97 Intake Visit Reasons: 4 week folow up Intake Note: Agnes presents in the office as a 4 week follow up. CC: took of dicyclomine and then spasms came back. She wants to know about the weight loss program. She feels like underlying issues are not being taken care. Allergies aluminum hydroxide [From Mylanta] Allergy (Severe, Verified 08/09/23 12:57) Anaphylaxis calcium carbonate [From Mylanta] Allergy (Severe, Verified 08/09/23 12:57) Anaphylaxis magnesium [From Mylanta] Allergy (Severe, Verified 08/09/23 12:57) Anaphylaxis magnesium hydroxide [From Mylanta] Allergy (Severe, Verified 08/09/23 12:57) Anaphylaxis magnesium hydroxide [From Milk of Magnesia] Allergy (Severe, Verified 08/09/23 12:57) Anaphylaxis simethicone [From Mylanta] Allergy (Severe, Verified 08/09/23 12:57) Anaphylaxis acetaminophen [From Tylenol] Allergy (Unknown, Verified 08/09/23 12:57) Unknown aspirin Allergy (Unknown, Verified 08/09/23 12:57) Unknown codeine Allergy (Unknown, Verified 08/09/23 12:57) Unknown dextromethorphan [From NyQuil] Allergy (Unknown, Verified 08/09/23 12:57) Anaphylaxis doxylamine [From NyQuil] Allergy (Unknown, Verified 08/09/23 12:57) Anaphylaxis morphine Allergy (Unknown, Verified 08/09/23 12:57) Unknown oxycodone [From Percocet] Allergy (Unknown, Verified 08/09/23 12:57) Unknown Penicillins Allergy (Unknown, Verified 08/09/23 12:57) Unknown pseudoephedrine [From Sudafed] Allergy (Unknown, Verified 08/09/23 12:57) Unknown propoxyphene [From Darvocet-N 100] Allergy (Verified 08/09/23 12:57) Anaphylaxis Medication List - Last Reconciled 08/09/23 by DENISE Lazo albuterol sulfate 90 mcg/actuation 2 inhalations inhalation blood sugar diagnostic (FreeStyle Test strips) As directed bupropion HCl (Wellbutrin XL) 300 mg PO QAM bupropion HCl 150 mg PO DAILY cholecalciferol (vitamin D3) (Vitamin D3) 50 mcg PO DAILY cyclobenzaprine 10 mg PO BEDTIME diclofenac sodium 1% 4 grams topical QID dicyclomine 40 mg (2 x 20 mg) PO BID 30 days epinephrine IM DIRECTED fluoxetine 40 mg PO DAILY gabapentin 800 mg PO TID lancets (Pure Comfort Safety Lancets) As directed levalbuterol HCl mg inhalation mometasone-formoterol 100-5 mcg/actuation (Dulera) 2 puffs inhalation BID ondansetron HCl 4 mg PO TID PRN oxybutynin chloride ER 20 mg PO BEDTIME pen needle, diabetic (Ultracare Pen Needle) As directed plecanatide (Trulance) 3 mg PO DAILY rosuvastatin 20 mg PO BEDTIME semaglutide (Ozempic) mg subcut sodium phosphates 19-7 gram/118 mL (Enema Disposable) mL NV topiramate (Topamax) 200 mg PO BEDTIME [tramadol PO BEDTIME] zaleplon 10 mg PO BEDTIME PRN HPI 4 week folow up HPI Details Assessment & Plan (1) Chronic idiopathic constipation: Code(s): K59.04 - Chronic idiopathic constipation (2) Esophageal spasm: Code(s): K22.4 - Dyskinesia of esophagus Plan Pt has not been seen since 08/2022. She paused some of her medications r/t pill burden. She has severe CIC, pain in the lower abdomen and distention.She has been having CP and has to sleep propped up. She is not feeling acid brash, she is feeling a twisting pain with pressure. It is sensitive to touch and radiates up to her throat/jaw. She has the feeling that she is limited in what she can eat because the food feels like it gets stuck in the upper pharyngeal area. She will have to hold her throat to facilitate swallowing and she has a constant globus sensation. The pain and swallowing is worse at night, and happens every night. She will have random times when she will be very hungry and then can only eat a couple of bites because of odynophagia and she will have to wait for this to pass somewhat. She had a normal EKG but no stress test and she does have high cholesterol and is under a lot of stress. I will refer her for cardiology assessment. She also has FMS and is being tx'ed by chiropractor for neck pain. She will be starting wt mgmt soon. She has strong FHX of cardiac disease. At this point it sounds like she is describing esophageal spasm but the spasm could be caused by untreated or undertreated GERD with acid splashing the distal esophagus. All this was explained to her. Because she has a problem with too much of a pill burden I will reinstate the dicyclomine and will try getting her Linzess for her severe constipation. She is agreeable to trying these 2 medications. I am also ordering a barium swallow and reordering the EGD. There are no prior problems with anesthesia or sedation. She denies any cardiac or respiratory problems. There are no infectious disease problems. Return office visit in 4 weeks to evaluate her response to the medications. BARIUM SWALLOW EGD NOT YET SCHEDULED BIOPSY Orders: Orders FL barium swallow Today F39 - Unspecified mood [affective] d isorder EGD with [facility] - G I Use Only Today F39 - Unspecified mood [affective] d isorder Referrals Cardiology Referra l K22.4 - Dyskinesia of esophagus Medications: Changed From dicyclomine 40 mg (2 x 20 mg) PO QID 30 days 240 tabs 3RF K22.4 - Dyskinesia of esophagus To dicyclomine 20 mg PO BID 30 d ays 60 tabs 3RF K22.4 - Dyskinesia of esophagus Discontinued promethazine Di scontinued Reason: Doctor's Order 25 mg PO BID PRN 60 tabs 3RF Nausea On Hold linaclotide (Linze ss) Hold Commen t: Doctor's Order 72 mcg PO QAM 30 caps 6RF K59.04 - Chronic i diopathic constipa tion EGD ? does she have date yet? BIOPSY BARIUM SWALLOW She needs to rescheudle as won't be in 07/25 CORRESPONDENCE (Trulance and) On 07/11/23 @ 14:04 Prosper Posey Wrote To Preferred meds are Trulance and Amitiza. On 07/11/23 @ 11:18 ParrishAugust Wrote To Prosper Posey Please see what the preferred med is between Linzess, Trulance and AMitiza TODAY'S VISIT She is taking Trulance but still is not moving her bowels regularly. So this is clearly not working and we will try to progress to Linzess and start at 145mcg. She has many questions regarding a possible gastric sleeve, as she is feeling rushed by the surgeon. She is very fearful because she had severe sepsis after a hysterectomy in the past and she knows she has yet undiagnosed GI problems that we are working on. She has an upcoming EGD and a stress test pending. Her psychiatrist is not recommending it at this time r/t her anxiety and hx. She does not know if she can put off seeing wt [facility] for a time if she will lose her spot. He wanted her to stop the bentyl which was for dysphagia and was helping her. She still has the episodes of feeling choked and sensitive in seema upper throat and will wake up in the middle of the night and I feel afraid I will of a heart attack. She feels she has body wide inflammation and sensitivity. She feels like her mouth and tongue is swollen and sensitive. ROV 4 weeks. [facility] Medical History (Updated 07/22/23 @ 13:43 by Prakash Adams MD) Hyperlipidemia Chronic idiopathic constipation Acute diarrhea Pancreatic insufficiency Irritable bowel syndrome with diarrhea Chronic pain syndrome Drug allergy Mood disorder Kidney failure History of MRSA infection Stress incontinence Psychosomatic pain Obstructive sleep apnea Anxiety disorder Morbid obesity Fibromyalgia Bipolar disorder Suicide attempt Depression Asthma Surgical History Hx of section H/O colonoscopy H/O abdominoplasty History of lumpectomy of left breast H/O bilateral oophorectomy H/O: hysterectomy H/O laparoscopy Social History Patient Tobacco Use Status: Former Tobacco user Quit Date: age 20's Substance Use Type: Marijuana Review of Systems Const Denies fatigue, Denies fever(s), Denies night sweats, Denies poor appetite and Denies weight loss ENT Reports Normal hearing present, Denies dental pain, Reports dysphagia, Denies hearing loss, Denies mouth pain, Denies odynophagia, Denies throat swelling, Denies tongue swelling and Reports other (Dentition adequate) Card Reports orthopnea and Reports paroxysmal nocturnal dyspnea Resp Reports no additional complaints GI Details: Denies abdominal pain, Denies melena, Reports bloating, Denies hematochezia, Reports constipation, Denies GI cramping, Reports dysphagia, Denies excessive flatus, Denies early satiety, Reports heartburn, Denies diarrhea, Denies nausea, Denies odynophagia, Denies vomiting and Denies hematemesis Musc Reports back pain and Reports myalgias Skin/Breast Denies pruritus, Denies lesions, Denies rash and Denies jaundice Neuro Reports Normal hearing present and Denies Abnormal speech present Psych Reports anxiety Endo Denies fatigue Aller/Immun Denies throat swelling and Denies tongue swelling Physical Exam Vital Signs: Last Vital Signs Pulse 97 08/09/23 12:56 BP 105/74 08/09/23 12:56 BMI result Body Mass Index 37.4 Const General: cooperative, no acute distress, well developed and well groomed Nutritional Appearance: well nourished and obese Orientation/consciousness: oriented to person, oriented to place and oriented to time Limitations: No language barrier HEENT Head: Yes normocephalic and Yes atraumatic Eyes General: appearance normal, both eyes and all related structures Pupils: Equal, round and reactive pupils present Neck Neck: Yes normal visual inspection and Yes no lymphadenopathy Thyroid: Thyroid normal Resp Effort & Inspection: normal respiratory effort and able to speak in complete sentences Auscultation: clear to auscultation bilaterally Cardio Rate: regular rate Rhythm: regular rhythm Heart sounds: Normal, physiologic split S2 sound present Peripheral pulses: radial pulses present and posterior tibial pulses present GI Inspection: No distended, No Abdominal panniculus present and Yes obesity Palpation (GI): Soft to palpation, nontender, no guarding, not rigid and No hepatosplenomegaly present Percussion: Yes normal to percussion Auscultation: normal bowel sounds Rectal Exam - Female: deferred Skin General skin exam: no rashes or lesions noted, turgor normal, skin not dry, no jaundice, No spider nevi and no striae Rashes: no rashes Nails: normal Neuro General: oriented to person, oriented to place and oriented to time Cranial nerves: Yes Equal, round and reactive pupils present and Yes Normal hearing present Speech: No Abnormal speech present Extrem General: Yes normal to inspection, No clubbing, No cyanosis and No edema Psych Appearance: grossly normal and well kempt Mental Status: mental status grossly normal Speech and movement: Normal speech and movement present Affect: normal affect Attitude: cooperative Thought process: Normal thought process present and not confabulating Thought content: Normal thought content present Insight: Limited insight present (Psych) Judgement: Limited judgement present (Psych) Assessment & Plan Assessment & Plan (1) Chronic idiopathic constipation: Code(s): K59.04 - Chronic idiopathic constipation (2) Esophageal spasm: Code(s): K22.4 - Dyskinesia of esophagus Plan She is taking Trulance but still is not moving her bowels regularly. So this is clearly not working and we will try to progress to [facility] and start at 145mcg. She has many questions regarding a possible gastric sleeve, as she is feeling rushed by the surgeon. She is very fearful because she had severe sepsis after a hysterectomy in the past and she knows she has yet undiagnosed GI problems that we are working on. She has an upcoming EGD and a stress test pending. Her psychiatrist is not recommending it at this time r/t her anxiety and hx. She does not know if she can put off seeing wt mgmt for a time if she will lose her spot. He wanted her to stop the bentyl which was for dysphagia and was helping her. She still has the episodes of feeling choked and sensitive in seema upper throat and will wake up in the middle of the night and I feel afraid I will of a heart attack. She feels she has body wide inflammation and sensitivity. She feels like her mouth and tongue is swollen and sensitive. ROV 4 weeks. EGD ? does she have date yet? BIOPSY BARIUM SWALLOW She needs to rescheudle as won't be in 07/25 Medications: New linaclotide (Linzess) Take first thing in the morning with a full glass of water. 145 mcg PO QAM 30 caps 3RF K58.1 - Irritable bowel syndrome with constipation Coding Level of Care Code Est Pt Level 3 (21414) Diagnoses Chronic idiopathic constipation K59.04 Esophageal spasm K22.4
[2023-08-09 12:56] VITALS: BP 105/74; PULSE 97; BMI 37.4
== END 2023-08-09 14:05 | disposition home or self-care (01) ==
PROVIDERS: PCP Registered Nurse; Visit Provider Nurse Practitioner
DX: K59.04 Chronic idiopathic constipation (principal); K22.4 Dyskinesia of esophagus
CPT/HCPCS: 99213

== ENCOUNTER 2023-09-20 11:23 | Outpatient (AMB) | payer OTHER, SELFPAY ==
[2023-09-20 11:33] VITALS: BP 118/66; PULSE 90; BMI 38.0
--- NOTE | 2023-09-20 11:33 | A.OFFVIS_ITS ---
Vital Signs 09/20/23 11:33 Height 5 ft 7 in Weight 242 lb 15.19 oz BMI 38.0 BP 118/66 Blood Pressure Location Lt brachial Position Sitting Pulse 90 Intake Visit Reasons: Follow up Intake Note: Patient here for f/u stomach issues. Reports relief with Linzess. Patient c/o: abd pain, nausea, bloated, constant burping, esophagus spasms. 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 Accompanied by: Self / Same As Patient Allergies aluminum hydroxide [From Mylanta] Allergy (Severe, Verified 09/20/23 11:40) Anaphylaxis calcium carbonate [From Mylanta] Allergy (Severe, Verified 09/20/23 11:40) Anaphylaxis magnesium [From Mylanta] Allergy (Severe, Verified 09/20/23 11:40) Anaphylaxis magnesium hydroxide [From Mylanta] Allergy (Severe, Verified 09/20/23 11:40) Anaphylaxis magnesium hydroxide [From Milk of Magnesia] Allergy (Severe, Verified 09/20/23 11:40) Anaphylaxis simethicone [From Mylanta] Allergy (Severe, Verified 09/20/23 11:40) Anaphylaxis acetaminophen [From Tylenol] Allergy (Unknown, Verified 09/20/23 11:40) Unknown aspirin Allergy (Unknown, Verified 09/20/23 11:40) Unknown codeine Allergy (Unknown, Verified 09/20/23 11:40) Unknown dextromethorphan [From NyQuil] Allergy (Unknown, Verified 09/20/23 11:40) Anaphylaxis doxylamine [From NyQuil] Allergy (Unknown, Verified 09/20/23 11:40) Anaphylaxis morphine Allergy (Unknown, Verified 09/20/23 11:40) Unknown oxycodone [From Percocet] Allergy (Unknown, Verified 09/20/23 11:40) Unknown Penicillins Allergy (Unknown, Verified 09/20/23 11:40) Unknown pseudoephedrine [From Sudafed] Allergy (Unknown, Verified 09/20/23 11:40) Unknown propoxyphene [From Darvocet-N 100] Allergy (Verified 09/20/23 11:40) Anaphylaxis HPI HPI Follow up: Details: Assessment & Plan (1) Chronic idiopathic constipation: Code(s): K59.04 - Chronic idiopathic constipation (2) Esophageal spasm: Code(s): K22.4 - Dyskinesia of esophagus Plan She is taking Trulance but still is not moving her bowels regularly. So this is clearly not working and we will try to progress to Linzess and start at 145mcg. She has many questions regarding a possible gastric sleeve, as she is feeling rushed by the surgeon. She is very fearful because she had severe sepsis after a hysterectomy in the past and she knows she has yet undiagnosed GI problems that we are working on. She has an upcoming EGD and a stress test pending. Her psychiatrist is not recommending it at this time r/t her anxiety and hx. She does not know if she can put off seeing wt mgmt for a time if she will lose her spot. He wanted her to stop the bentyl which was for dysphagia and was helping her. She still has the episodes of feeling choked and sensitive in seema upper throat and will wake up in the middle of the night and I feel afraid I will of a heart attack. She feels she has body wide inflammation and sensitivity. She feels like her mouth and tongue is swollen and sensitive. ROV 4 weeks. Medications: New linaclotide (Linzess) Take first thing in the morning with a full glass of water. 145 mcg PO QAM 30 caps 3RF K58.1 - Irritable bowel syndrome with constipation EGD 11/06/2023 BIOPSY BARIUM SWALLOW 10/03/2023 TODAY'S VISIT She is now on Linzess 145mcg and famotidine. Alexia ramos. She feels the Linzess dose is appropriate. She still feels horrible with bloating, nausea, severe belching and a know over the suprepubic area. She notices that this increases with her personal stress and she has been stressed recently over financial issues. She is also having severe esophageal spasms. Her burps are foul. She also had an onset of asthma that she did not recognize as such because it was only as a cough, so she seems also susceptible to bronchial spasms. She also had severe lymphadema recently - a known problem. She missed the barium swallow because she was told to be here at 10am and then when she came said it was 8am! Appears to have been rescheduled to 10/02 I will also get an US to assess GB with the bloating Will get RUQ pain but uses a massage gun with some relief. Has FMS as well. Underlying agorophobia - uncertain what I can do to effect how anxiety is effecting the GI system. She sees psychiatry. On Wellbutrin and Prozac. Will increase bentyl 2 tabs qid (from bid) awaiting testing results. ROV after barium swallow 10/02 [facility] Medical History (Updated 09/20/23 @ 12:02 by DENISE Lazo) Hyperlipidemia Chronic idiopathic constipation Acute diarrhea Pancreatic insufficiency Chronic pain syndrome Drug allergy Mood disorder Kidney failure History of MRSA infection Stress incontinence Psychosomatic pain Obstructive sleep apnea Anxiety disorder Morbid obesity Fibromyalgia Bipolar disorder Suicide attempt Depression Asthma Surgical History Hx of section H/O colonoscopy H/O abdominoplasty History of lumpectomy of left breast H/O bilateral oophorectomy H/O: hysterectomy H/O laparoscopy Social History Patient Tobacco Use Status: Former Tobacco user Substance Use Type: Marijuana Review of Systems Const Denies fatigue, Denies fever(s), Denies night sweats, Denies poor appetite and Denies weight loss ENT Reports Normal hearing present, Denies dental pain, Denies dysphagia, Denies hearing loss, Denies mouth pain, Denies odynophagia, Denies throat swelling, Denies tongue swelling and Reports other (Dentition adequate) Card Reports no additional complaints and Reports dyspnea on exertion Resp Reports dyspnea on exertion GI Details: Reports abdominal pain, Denies melena, Reports bloating, Denies hematochezia, Reports constipation, Denies GI cramping, Denies dysphagia, Denies excessive flatus, Denies early satiety, Reports heartburn, Denies diarrhea, Reports nausea, Denies odynophagia, Denies vomiting and Denies hematemesis Musc Reports myalgias Skin/Breast Denies pruritus, Denies lesions, Denies rash and Denies jaundice Neuro Reports Normal hearing present and Denies Abnormal speech present Psych Reports anxiety Endo Denies fatigue Aller/Immun Denies throat swelling and Denies tongue swelling Physical Exam Vital Signs: Last Vital Signs Pulse 90 09/20/23 11:33 BP 118/66 09/20/23 11:33 BMI result Body Mass Index 38.0 Const General: cooperative, no acute distress, well developed and well groomed Nutritional Appearance: well nourished and obese Orientation/consciousness: oriented to person, oriented to place and oriented to time Limitations: No language barrier HEENT Head: Yes normocephalic and Yes atraumatic Eyes General: appearance normal, both eyes and all related structures Pupils: Equal, round and reactive pupils present Neck Neck: Yes normal visual inspection and Yes no lymphadenopathy Thyroid: Thyroid normal Resp Effort & Inspection: normal respiratory effort and able to speak in complete sentences Auscultation: clear to auscultation bilaterally Cardio Rate: regular rate Rhythm: regular rhythm Heart sounds: Normal, physiologic split S2 sound present Peripheral pulses: radial pulses present and posterior tibial pulses present GI Inspection: No distended, Yes Abdominal panniculus present and Yes obesity Palpation (GI): Soft to palpation, Tenderness to palpation present (GI) in the epigastrum and periumbilically, no guarding, not rigid and No hepatosplenomegaly present Percussion: Yes normal to percussion Auscultation: normal bowel sounds Rectal Exam - Female: deferred Skin General skin exam: no rashes or lesions noted, turgor normal, skin not dry, no jaundice, No spider nevi and no striae Rashes: no rashes Nails: normal Neuro General: oriented to person, oriented to place and oriented to time Cranial nerves: Yes Equal, round and reactive pupils present and Yes Normal hearing present Speech: No Abnormal speech present Extrem General: Yes normal to inspection, No clubbing, No cyanosis and Yes edema Psych Appearance: grossly normal and well kempt Mental Status: mental status grossly normal Speech and movement: Normal speech and movement present Affect: normal affect Attitude: cooperative Thought process: Normal thought process present and not confabulating Thought content: Normal thought content present Insight: Limited insight present (Psych) Judgement: Limited judgement present (Psych) Assessment & Plan Assessment & Plan (1) Chronic idiopathic constipation: Code(s): K59.04 - Chronic idiopathic constipation Category: Medical (2) GERD (gastroesophageal reflux disease): Code(s): K21.9 - Gastro-esophageal reflux disease without esophagitis Category: Medical (3) Upper abdominal pain: Code(s): R10.10 - Upper abdominal pain, unspecified Category: Medical Plan She is now on Linzess 145mcg and famotidine. Ans richard. She feels the Linzess dose is appropriate. She still feels horrible with bloating, nausea, severe belching and a knaw over the suprepubic area. She notices that this increases with her personal stre ss and she has been stressed recently over financial issues. She is also having severe esophageal spasms. Her burps are foul. She also had an onset of asthma that she did not recognize as such because it was only as a cough, so she seems also susceptible to bronchial spasms. She also had severe lymphadema recently - a known problem. She missed the barium swallow because she was told to be here at 10am and then when she came said it was 8am! Appears to have been rescheduled to 10/02 I will also get an US to assess GB with the bloating Will get RUQ pain but uses a massage gun with some relief. Has FMS as well. Underlying agoraphobia - uncertain what I can do to effect how anxiety is effecting the GI system. She sees psychiatry. On Wellbutrin and Prozac. Will increase bentyl 2 tabs qid (from bid) awaiting testing results. ROV after barium swallow 10/02 EGD 11/06/2023 BIOPSY BARIUM SWALLOW 10/03/2023 Orders: Orders US abdomen complete 09/26/23 R10.10 - Upper abdominal pain, unspecified Medications: Changed From dicyclomine 40 mg (2 x 20 mg) PO BID 30 days 120 tabs 3RF K22.4 - Dyskinesia of esophagus To dicyclomine 40 mg (2 x 20 mg) PO QID 240 tabs 3RF 30 days K22.4 - Dyskinesia of esophagus Coding Level of Care Code Est Pt Level 3 (16750) Diagnoses Chronic idiopathic constipation K59.04 GERD (gastroesophageal reflux disease) K21.9 Upper abdominal pain R10.10
== END 2023-09-20 12:08 | disposition home or self-care (01) ==
PROVIDERS: PCP Registered Nurse; Visit Provider Nurse Practitioner
DX: K59.04 Chronic idiopathic constipation (principal); K21.9 Gastro-esophageal reflux disease without esophagitis; R10.10 Upper abdominal pain, unspecified
CPT/HCPCS: 99213

== ENCOUNTER → 2023-09-20 11:23 | Outpatient (BNVA) | payer OTHER, SELFPAY | PROVIDERS: PCP Registered Nurse; Visit Provider Nurse Practitioner | DX: K59.04 Chronic idiopathic constipation (principal); K22.4 Dyskinesia of esophagus; K21.9 Gastro-esophageal reflux disease without esophagitis; R10.10 Upper abdominal pain, unspecified; Z79.899 Other long term (current) drug therapy | CPT/HCPCS: 99212 ==

== ENCOUNTER 2023-09-26 08:24 | Outpatient (REF) | payer OTHER, SELFPAY ==
--- NOTE | ~2023-09-26 | US_ITS ---
EXAMINATION: US ABDOMEN COMPLETE CLINICAL INFORMATION: Upper abdominal pain, unspecified. COMPARISON: X-ray abdomen 01/05/2022. TECHNIQUE: Real-time imaging of the abdominal viscera. FINDINGS: PANCREAS: The pancreas appears unremarkable, without masses or ductal dilatation, with the exception of the tail which is obscured by bowel gas. ABDOMINAL AORTA: The proximal, mid, and distal segments are normal in caliber. INFERIOR VENA CAVA: Visualized portions are normal. LIVER: Normal. The liver is normal in size. The liver contour is normal. Parenchymal echogenicity is normal. No focal hepatic lesion. There is no intrahepatic biliary duct dilatation seen. GALLBLADDER: Normal. The gallbladder is physiologically distended without evidence of stones, sludge, polyps, wall thickening or pericholecystic fluid. COMMON BILE DUCT: Normal in caliber measuring 0.3 cm in diameter. RIGHT KIDNEY: Normal. No hydronephrosis. No renal calculi or focal parenchymal lesions. The kidney measures 11.0 cm in maximum dimension. LEFT KIDNEY: Normal. No hydronephrosis. No renal calculi or focal parenchymal lesions. The kidney measures 10.4 cm in maximum dimension. SPLEEN: Normal. The spleen measures 10.6 cm in maximum dimension. FREE FLUID: None. US/US abdomen complete IMPRESSION: Negative exam. A cause for the patient's upper abdominal pain has not been found.
== END 2023-09-26 08:25 | disposition home or self-care (01) ==
LOC: HO.US 08:24
PROVIDERS: PCP Registered Nurse; Visit Provider Nurse Practitioner
DX: R10.10 Upper abdominal pain, unspecified (principal)
CPT/HCPCS: 76700

== ENCOUNTER 2023-11-06 11:07 | Day surgery (SDC) | payer OTHER, SELFPAY ==
[2023-11-05 08:24] VITALS: BMI 38.1
[2023-11-05 09:01] VITALS: BMI 39.0
--- NOTE | 2023-11-05 09:04 | HO.ANESPROP2 ---
Documented by User: Chelsi Naranjo NP 11/05/23 09:06 HPI - Anesthesia Eval Consult details Narrative: 53yo F for Upper Endoscopy *Multiple Med Allergies* Anesthesia Pre-Procedure Meds Is the patient on any of the following meds?: GLP1/DPP4 PMFSH Active Problems Active Problems: All Active Problems Upper abdominal pain (Acute) GERD (gastroesophageal reflux disease) (Acute) Paroxysmal nocturnal dyspnea (Acute) Hyperlipidemia (Acute) Obstructive sleep apnea (Acute) Anxiety disorder (Acute) Bipolar disorder (Acute) Depression (Acute) Stress incontinence (Acute) Esophageal spasm (Acute) Chronic idiopathic constipation (Acute) Mood disorder (Acute) Dental infection (Acute) Lumbar spondylosis (Acute) Prolonged QT interval (Acute) Skin ulcer (Acute) Preop examination (Acute) Rectal bleeding (Acute) Morbid obesity (Acute) Chronic pain syndrome (Acute) Fibromyalgia (Acute) Past Medical History Medical History Hyperlipidemia Acute diarrhea Pancreatic insufficiency Chronic idiopathic constipation Chronic pain syndrome Drug allergy Mood disorder Kidney failure History of MRSA infection (~2010) Stress incontinence Psychosomatic pain Obstructive sleep apnea Anxiety disorder Morbid obesity Fibromyalgia Bipolar disorder Suicide attempt Depression Asthma Surgical History Surgical History Hx of section H/O colonoscopy H/O abdominoplasty History of lumpectomy of left breast H/O bilateral oophorectomy H/O: hysterectomy H/O laparoscopy Social History Social History (Updated 11/05/23 @ 09:06 by Radha Perez RN) Patient Tobacco Use Status: Never used Tobacco Use of substances other than those prescribed or required for medical reasons: No Substance Use Frequency: Occasionally Have you been hit, kicked, punched, or otherwise hurt by someone within the past year? If so, by whom?: No Are you DNR?: No Advance Directives: No Advance Directives Information Provided: Yes Advance Directives on File: No Recently lost weight without trying: No Nutrition Risks: No Nutritional Risk Poor oral hygiene: No Meds Allergies Allergy/AdvReac Type Severity Reaction Status Date / Time acetaminophen [From Tylenol] Allergy Severe Anaphylaxis Verified 11/05/23 08:39 aluminum hydroxide Allergy Severe Anaphylaxis Verified 11/05/23 08:39 [From Mylanta] aspirin Allergy Severe Anaphylaxis Verified 11/05/23 08:39 calcium carbonate Allergy Severe Anaphylaxis Verified 11/05/23 08:39 [From Mylanta] codeine Allergy Severe Anaphylaxis Verified 11/05/23 08:39 dextromethorphan Allergy Severe Anaphylaxis Verified 11/05/23 08:39 [From NyQuil] doxylamine [From NyQuil] Allergy Severe Anaphylaxis Verified 11/05/23 08:39 magnesium [From Mylanta] Allergy Severe Anaphylaxis Verified 11/05/23 08:39 magnesium hydroxide Allergy Severe Anaphylaxis Verified 11/05/23 08:39 [From Mylanta] magnesium hydroxide Allergy Severe Anaphylaxis Verified 11/05/23 08:39 [From Milk of Magnesia] morphine Allergy Severe Anaphylaxis Verified 11/05/23 08:39 oxycodone [From Percocet] Allergy Severe Anaphylaxis Verified 11/05/23 08:39 Penicillins Allergy Severe Anaphylaxis Verified 11/05/23 08:39 propoxyphene Allergy Severe Anaphylaxis Verified 11/05/23 08:39 [From Darvocet-N 100] pseudoephedrine Allergy Severe Anaphylaxis Verified 11/05/23 08:39 [From Sudafed] simethicone [From Mylanta] Allergy Severe Anaphylaxis Verified 11/05/23 08:39 Home Medications ?Medication ?Instructions ?Recorded ?Confirmed ?Last Taken ?Type blood sugar diagnostic (FreeStyle #10 ea 08/04/21 08/09/23 Unknown History Test strips) cholecalciferol (vitamin D3) 50 50 mcg PO DAILY 08/04/21 11/05/23 Unknown History mcg (2,000 unit) capsule (Vitamin D3) diclofenac sodium 1 % topical gel 4 g topical QID 08/04/21 11/05/23 Unknown History levalbuterol HCl 0.63 mg/3 mL mg inhalation 08/04/21 08/09/23 Unknown History solution for nebulization mometasone-formoterol HFA 100 2 puff inhalation BID 08/04/21 11/05/23 Unknown History mcg-5 mcg/actuation aerosol inhaler (Dulera) ondansetron HCl 4 mg tablet 4 mg PO TID PRN nausea 08/04/21 11/05/23 Unknown History pen needle, diabetic 31 gauge x #1,200 ea 08/04/21 08/09/23 Unknown History 5/16 (Ultracare Pen Needle) epinephrine 0.3 mg/0.3 mL IM DIRECTED anaphylaxis 01/05/22 08/09/23 Unknown History injection, auto-injector gabapentin 400 mg capsule 800 mg PO TID 01/05/22 11/05/23 Unknown History sodium phosphates 19 gram-7 ml NV 01/05/22 08/09/23 Unknown History gram/118 mL enema (Enema Disposable) lancets 30 gauge (Pure Comfort #100 ea 05/03/22 08/09/23 Unknown History Safety Lancets) zaleplon 10 mg capsule 10 mg PO BEDTIME PRN Insomnia 05/03/22 11/05/23 Unknown History albuterol sulfate 90 mcg/actuation 2 inh inhalation 07/11/23 08/09/23 Unknown History aerosol inhaler bupropion HCl 300 mg 24 hr tablet, 300 mg PO QAM 07/11/23 11/05/23 Unknown History extended release (Wellbutrin XL) cyclobenzaprine 5 mg tablet 10 mg PO BEDTIME 07/11/23 11/05/23 Unknown History fluoxetine 20 mg capsule 40 mg PO DAILY 07/11/23 11/05/23 Unknown History oxybutynin chloride 10 mg 20 mg PO BEDTIME 07/11/23 11/05/23 Unknown History tablet,extended release 24 hr topiramate 200 mg tablet (Topamax) 200 mg PO BEDTIME 07/11/23 11/05/23 Unknown History tramadol PO BEDTIME 07/11/23 08/09/23 Unknown History bupropion HCl 150 mg tablet,12 hr 150 mg PO DAILY 08/09/23 11/05/23 Unknown History sustained-release rosuvastatin 20 mg tablet 20 mg PO BEDTIME 08/09/23 11/05/23 Unknown History semaglutide 2 mg/dose (8 mg/3 mL) mg subcut 08/09/23 08/09/23 Unknown History subcutaneous pen injector (Ozempic) Exam Height,Weight and Vital Signs: Height 5 ft 7 in Weight 110.223 kg Assessment and Plan Assessment Anesthesia Assessment: Chart Reviewed Documented by User: Sloane Campa MD 11/06/23 13:08 PMF Past Medical History Medical History Hyperlipidemia Acute diarrhea Pancreatic insufficiency Chronic idiopathic constipation Chronic pain syndrome Drug allergy Mood disorder Kidney failure History of MRSA infection (~2010) Stress incontinence Psychosomatic pain Obstructive sleep apnea Anxiety disorder Morbid obesity Fibromyalgia Bipolar disorder Suicide attempt Depression Asthma Family History Family history of problems with anesthesia: No Surgical History Surgical History Hx of section H/O colonoscopy H/O abdominoplasty History of lumpectomy of left breast H/O bilateral oophorectomy H/O: hysterectomy H/O laparoscopy History of Problems with Anesthesia: No Social History Social History (Updated 11/05/23 @ 09:06 by Radha Perez RN) Patient Tobacco Use Status: Never used Tobacco Use of substances other than those prescribed or required for medical reasons: No Substance Use Frequency: Occasionally Have you been hit, kicked, punched, or otherwise hurt by someone within the past year? If so, by whom?: No Are you DNR?: No Advance Directives: No Advance Directives Information Provided: Yes Advance Directives on File: No Recently lost weight without trying: No Nutrition Risks: No Nutritional Risk Poor oral hygiene: No Meds Allergies Allergy/AdvReac Type Severity Reaction Status Date / Time acetaminophen [From Tylenol] Allergy Severe Anaphylaxis Verified 11/05/23 08:39 aluminum hydroxide Allergy Severe Anaphylaxis Verified 11/05/23 08:39 [From Mylanta] aspirin Allergy Severe Anaphylaxis Verified 11/05/23 08:39 calcium carbonate Allergy Severe Anaphylaxis Verified 11/05/23 08:39 [From Mylanta] codeine Allergy Severe Anaphylaxis Verified 11/05/23 08:39 dextromethorphan Allergy Severe Anaphylaxis Verified 11/05/23 08:39 [From NyQuil] doxylamine [From NyQuil] Allergy Severe Anaphylaxis Verified 11/05/23 08:39 magnesium [From Mylanta] Allergy Severe Anaphylaxis Verified 11/05/23 08:39 magnesium hydroxide Allergy Severe Anaphylaxis Verified 11/05/23 08:39 [From Mylanta] magnesium hydroxide Allergy Severe Anaphylaxis Verified 11/05/23 08:39 [From Milk of Magnesia] morphine Allergy Severe Anaphylaxis Verified 11/05/23 08:39 oxycodone [From Percocet] Allergy Severe Anaphylaxis Verified 11/05/23 08:39 Penicillins Allergy Severe Anaphylaxis Verified 11/05/23 08:39 propoxyphene Allergy Severe Anaphylaxis Verified 11/05/23 08:39 [From Darvocet-N 100] pseudoephedrine Allergy Severe Anaphylaxis Verified 11/05/23 08:39 [From Sudafed] simethicone [From Mylanta] Allergy Severe Anaphylaxis Verified 11/05/23 08:39 Home Medications ?Medication ?Instructions ?Recorded ?Confirmed ?Last Taken ?Type blood sugar diagnostic (FreeStyle #10 ea 08/04/21 08/09/23 Unknown History Test strips) cholecalciferol (vitamin D3) 50 50 mcg PO DAILY 08/04/21 11/05/23 Unknown History mcg (2,000 unit) capsule (Vitamin D3) diclofenac sodium 1 % topical gel 4 g topical QID 08/04/21 11/05/23 Unknown History levalbuterol HCl 0.63 mg/3 mL mg inhalation 08/04/21 08/09/23 Unknown History solution for nebulization mometasone-formoterol HFA 100 2 puff inhalation BID 08/04/21 11/05/23 Unknown History mcg-5 mcg/actuation aerosol inhaler (Dulera) ondansetron HCl 4 mg tablet 4 mg PO TID PRN nausea 08/04/21 11/05/23 Unknown History pen needle, diabetic 31 gauge x #1,200 ea 08/04/21 08/09/23 Unknown History 5/16 (Ultracare Pen Needle) epinephrine 0.3 mg/0.3 mL IM DIRECTED anaphylaxis 01/05/22 08/09/23 Unknown History injection, auto-injector gabapentin 400 mg capsule 800 mg PO TID 01/05/22 11/05/23 Unknown History sodium phosphates 19 gram-7 ml NV 01/05/22 08/09/23 Unknown History gram/118 mL enema (Enema Disposable) lancets 30 gauge (Pure Comfort #100 ea 05/03/22 08/09/23 Unknown History Safety Lancets) zaleplon 10 mg capsule 10 mg PO BEDTIME PRN Insomnia 05/03/22 11/05/23 Unknown History albuterol sulfate 90 mcg/actuation 2 inh inhalation 07/11/23 08/09/23 Unknown History aerosol inhaler bupropion HCl 300 mg 24 hr tablet, 300 mg PO QAM 07/11/23 11/05/23 Unknown History extended release (Wellbutrin XL) cyclobenzaprine 5 mg tablet 10 mg PO BEDTIME 07/11/23 11/05/23 Unknown History fluoxetine 20 mg capsule 40 mg PO DAILY 07/11/23 11/05/23 Unknown History oxybutynin chloride 10 mg 20 mg PO BEDTIME 07/11/23 11/05/23 Unknown History tablet,extended release 24 hr topiramate 200 mg tablet (Topamax) 200 mg PO BEDTIME 07/11/23 11/05/23 Unknown History tramadol PO BEDTIME 07/11/23 08/09/23 Unknown History bupropion HCl 150 mg tablet,12 hr 150 mg PO DAILY 08/09/23 11/05/23 Unknown History sustained-release rosuvastatin 20 mg tablet 20 mg PO BEDTIME 08/09/23 11/05/23 Unknown History semaglutide 2 mg/dose (8 mg/3 mL) mg subcut 08/09/23 08/09/23 Unknown History subcutaneous pen injector (Ozempic) Exam Airway Mallampati Class: II TM Dist: >3cm Neck ROM: Full Heart: rrr Lungs: cta Assessment and Plan Assessment Anesthesia Assessment: Anesthesia Plan Discussed Final Anesthetic Review Family History of Problems with Anesthesia: No History of Problems with Anesthesia: No NPO: Yes ASA Class: III Final Preanesthetic Review: No Changes in Pt Med Stat, Meds/Allgs Chart Reviewed and Consent Obtained/Reviewed Patient Risk: Low Procedure Risk: Intermediate Anesthetic Plan Anesthetic Plan: MAC: Disposition: Standard PACU
[2023-11-06 12:30] LABS: Glucose, Whole Blood 78 mg/dL (60-115)
[2023-11-06 12:36] VITALS: BP 97/63; PULSE 79; RESP 18; TEMP 36.6; O2SAT 98
--- NOTE | 2023-11-06 13:45 | MHC.SHP ---
Pre-Procedural Eval Section A - 24 Hr Update-Section A only Date of Service: 11/06/23 Section B - Complete if H&P > 30 days Chief Complaint: Dyskinesia of esophagus Relevant Family History (Specify if Yes): No Relevant Social History: None Present Medications: see Short Stay Collaborative assessment Medical History: Significant History (Hyperlipidemia Acute diarrhea Pancreatic insufficiency Chronic idiopathic constipation Chronic pain syndrome Drug allergy Mood disorder Kidney failure History of MRSA infection (~2010) Stress incontinence Psychosomatic pain Obstructive sleep apnea Anxiety disorder Morbid obesity Fibromyalgia Bipolar) History of Previous Operations: Relevant previous surgery/procedure and date(s) (Hx of section H/O colonoscopy H/O abdominoplasty History of lumpectomy of left breast H/O bilateral oophorectomy H/O: hysterectomy H/O laparoscopy) Allergies: Allergies Allergy/AdvReac Type Severity Reaction Status Date / Time acetaminophen [From Tylenol] Allergy Severe Anaphylaxis Verified 11/05/23 08:39 aluminum hydroxide Allergy Severe Anaphylaxis Verified 11/05/23 08:39 [From Mylanta] aspirin Allergy Severe Anaphylaxis Verified 11/05/23 08:39 calcium carbonate Allergy Severe Anaphylaxis Verified 11/05/23 08:39 [From Mylanta] codeine Allergy Severe Anaphylaxis Verified 11/05/23 08:39 dextromethorphan Allergy Severe Anaphylaxis Verified 11/05/23 08:39 [From NyQuil] doxylamine [From NyQuil] Allergy Severe Anaphylaxis Verified 11/05/23 08:39 magnesium [From Mylanta] Allergy Severe Anaphylaxis Verified 11/05/23 08:39 magnesium hydroxide Allergy Severe Anaphylaxis Verified 11/05/23 08:39 [From Mylanta] magnesium hydroxide Allergy Severe Anaphylaxis Verified 11/05/23 08:39 [From Milk of Magnesia] morphine Allergy Severe Anaphylaxis Verified 11/05/23 08:39 oxycodone [From Percocet] Allergy Severe Anaphylaxis Verified 11/05/23 08:39 Penicillins Allergy Severe Anaphylaxis Verified 11/05/23 08:39 propoxyphene Allergy Severe Anaphylaxis Verified 11/05/23 08:39 [From Darvocet-N 100] pseudoephedrine Allergy Severe Anaphylaxis Verified 11/05/23 08:39 [From Sudafed] simethicone [From Mylanta] Allergy Severe Anaphylaxis Verified 11/05/23 08:39 Review of Systems Sugical H&P ROS: Negative: Constitution, Cardiovascular, Respiratory, Neurological, Psychiatric, Hem-Onc, Allergic/Immunologic, Gastrointestinal, Genitourinary, Musculoskeletal, Integumentary, Endocrine and Eyes/Ears/Nose/Throat Exam Surgical H&P Exam: Normal: HEENT, Normal: Heart, Normal: Lungs, Normal: Extremities, Normal: Abdomen, Normal: Skin and Normal: Neurological Plan Diagnosis/Plan: Unchanged I have reviewed the history and physical and performed a pertinent physical examination on my patient. No changes have occurred unless specified. Time Spent With Patient Time: Total time managing care of this patient today ____ minutes.
--- NOTE | 2023-11-06 14:09 | W.PM.OPN ---
Operative Note Operative Note Date of Service: 11/06/23 Narrative: Procedure Description: EGD Indication: dyskinesia and esophageal spasm Anesthesia: MAC FLEXIBLE TRANSORAL UPPER GASTROINTESTINAL ENDOSCOPY UPPER ENDOSCOPY Consent: Indications for the procedure and potential complications of bleeding, perforation, reaction to medications and missed diagnosis were discussed with the patient and informed consent was obtained. Instrument: Olympus GIF H 190 J mid size upper endoscope Monitoring: Vital signs and clinical assessment, continuous EKG monitoring, Pulse oximetry, Carbon Dioxide monitoring and blood pressure monitoring were done throughout the procedure. Procedure: The patient was placed in the left lateral decubitis position and pre-procedure medications were administered and a bite block was placed. The endoscope was inserted into the mouth and advanced under direct vision to the third part of duodenum. A careful inspection was made as the upper endoscope was withdrawn including a retroflexed examination of the proximal stomach; Findings and interventions are described below. Findings: Larynx:normal Esophagus: GE junction at 38 cm, diaphragm hiatus at 40 cm, with erosive esophagitis noted at GEJ with bogginess and swelling, schatzki ring noted with 2 cm sliding hiatal hernia and lax LES. Balloon dilation done to 18 mm, at UES and LEs, no tears seen Stomach: mild erythema . Biopsies were obtained. Grade 2 flap valve on retroflexed examination of the cardia. Duodenum: Normal bulb and descending duodenum, Intervention: Biopsies as noted above, balloon dilation Impression/Findings: erosive esophagitis patulous GEJ schatzki ring hiatal hernia PLAN: stop famotidine and use PPI, try to limit use of tramadol GERD precautions
[2023-11-06 14:20] VITALS: BP 99/65; PULSE 82; RESP 16; TEMP 36.1; O2SAT 95
[2023-11-06 14:35] VITALS: BP 115/59; PULSE 79; RESP 16; TEMP 36.3; O2SAT 98
== END 2023-11-06 15:03 | disposition home or self-care (01) ==
PROVIDERS: PCP Registered Nurse; Visit Provider Internal Medicine Gastroenterology
PROC: 0DJ08ZZ Inspection of Upper Intestinal Tract, Via Natural or Artificial Opening Endoscopic (ICD-10-PCS; CPT 43235; principal; 2023-11-06 13:20)
DX: K22.4 Dyskinesia of esophagus (principal); K20.80 Other esophagitis without bleeding; K22.2 Esophageal obstruction; R10.10 Upper abdominal pain, unspecified; K44.9 Diaphragmatic hernia without obstruction or gangrene; K21.9 Gastro-esophageal reflux disease without esophagitis; R14.2 Eructation; K86.89 Other specified diseases of pancreas; R14.0 Abdominal distension (gaseous); K59.04 Chronic idiopathic constipation; K58.1 Irritable bowel syndrome with constipation; G89.4 Chronic pain syndrome; M79.7 Fibromyalgia; F41.9 Anxiety disorder, unspecified; F31.9 Bipolar disorder, unspecified; I89.0 Lymphedema, not elsewhere classified; G47.33 Obstructive sleep apnea (adult) (pediatric); J45.909 Unspecified asthma, uncomplicated; Z79.899 Other long term (current) drug therapy; Z88.0 Allergy status to penicillin; Z88.5 Allergy status to narcotic agent; Z88.8 Allergy status to other drugs, medicaments and biological substances; Z98.890 Other specified postprocedural states; Z87.891 Personal history of nicotine dependence
CPT/HCPCS: 43249; 43239; 82947; 88305; 88313; 88342; C1726; J1100; J2704

== ENCOUNTER → 2023-11-06 11:07 | Outpatient (BNV) | payer OTHER, SELFPAY | PROVIDERS: PCP Registered Nurse; Visit Provider Internal Medicine Gastroenterology | DX: K22.4 Dyskinesia of esophagus (principal); K22.2 Esophageal obstruction; K20.90 Esophagitis, unspecified without bleeding | CPT/HCPCS: 43239; 43249 ==

== ENCOUNTER 2023-11-12 10:32 | Outpatient (AMB) | payer OTHER, SELFPAY ==
[2023-11-12 10:43] VITALS: BP 148/77; PULSE 90; BMI 39.1
--- NOTE | 2023-11-12 10:43 | A.OFFVIS_ITS ---
Vital Signs 11/12/23 10:43 Height 5 ft 7 in Weight 249 lb 9.012 oz BMI 39.1 BP 148/77 H Blood Pressure Location Lt brachial Position Sitting Pulse 90 Intake Visit Reasons: s/p EGD Intake Note: Agnes presents to in office visit today s/p EGD. CC: Patient states that at night the acid reflux comes up and the vomit comes out her nose. She also c/o abdominal distension. Per patient Dr. Patterson prescribed Pantoprazole but she never received it. She also c/o spasms from her throat. 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 Accompanied by: Self / Same As Patient Allergies acetaminophen [From Tylenol] Allergy (Severe, Verified 11/12/23 10:52) Anaphylaxis aspirin Allergy (Severe, Verified 11/12/23 10:52) Anaphylaxis codeine Allergy (Severe, Verified 11/12/23 10:52) Anaphylaxis dextromethorphan [From NyQuil] Allergy (Severe, Verified 11/12/23 10:52) Anaphylaxis doxylamine [From NyQuil] Allergy (Severe, Verified 11/12/23 10:52) Anaphylaxis magnesium hydroxide [From Milk of Magnesia] Allergy (Severe, Verified 11/12/23 10:52) Anaphylaxis morphine Allergy (Severe, Verified 11/12/23 10:52) Anaphylaxis oxycodone [From Percocet] Allergy (Severe, Verified 11/12/23 10:52) Anaphylaxis Penicillins Allergy (Severe, Verified 11/12/23 10:52) Anaphylaxis propoxyphene [From Darvocet-N 100] Allergy (Severe, Verified 11/12/23 10:52) Anaphylaxis pseudoephedrine [From Sudafed] Allergy (Severe, Verified 11/12/23 10:52) Anaphylaxis HPI HPI s/p EGD: Details: She is now on Linzess 145mcg and famotidine. Ans bentyhl. She feels the Linzess dose is good. She still feels horrible with bloating, nausea, severe belching and a know over seema suprepubic area. She notices that this increases with her personal stress and she has been stressed recently over financial issues. She is also having severe esophageal spasms. Her burps are foul. She also had an onset of asthma that she did not recongnize as such because it was only as a cough, so she seems also susceptible to bronchial spasms. SHe also had severe lymphadema recently - a known problem. She missed the barium swallow because she was told to be herer at 10am and then when she came said it was 8am! Appears to have been rescheduled to 10/02 I will also get an US to assess GB with the bloating Will get RUQ pain but uses a massage gun with some relief. Has FMS as well. Underlaying agorophobia - uncertain what I can do to effect how anxiety is effecting the GI system. She sees psychiatry. On well butrin, prozac. Will increase bentyl 2 tabs qid (from bid) awaiting testing results. ROV after barium swallow 10/02 EGD 11/07/23 Findings: Larynx:normal Esophagus: GE junction at 38 cm, diaphragm hiatus at 40 cm, with erosive esophagitis noted at GEJ with bogginess and swelling, schatzki ring noted with 2 cm sliding hiatal hernia and lax LES. Balloon dilation done to 18 mm, at UES and LEs, no tears seen Stomach: mild erythema . Biopsies were obtained. Grade 2 flap valve on retroflexed examination of the cardia. Duodenum: Normal bulb and descending duodenum, Intervention: Biopsies as noted above, balloon dilation Impression/Findings: erosive esophagitis patulous GEJ schatzki ring hiatal hernia PLAN: stop famotidine and use PPI, try to limit use of tramadol BIOPSY Received: 11/07/23 Diagnosis Stomach, biopsy: Oxyntic mucosa with mild chronic inactive inflammation; no Helicobacter organisms seen BARIUM SWALLOW Was scheduled for 10/03/2023 but not in the computer? CORRESPONDENCE On 09/20/23 @ 11:59 Mitul Waters Wrote To Francois,August certainly possible. She should just let Dr Adams know out of courtesy. On 09/20/23 @ 11:54 Suzanne Parrish Wrote To Mitul Waters This pt also sees me and your department, but she feels she needs to pause her wt loss journey because she is having worsening GI problems and lymphadema etc. Is this possible TODAY'S VISIT She had a horrible time after the EGD as she had perceived pain and swelling in the laryngeal area. She also had very severe acid reflux with acid coming up through her nose. The EGD showed a lax esophageal sphincter along with a sliding hiatal hernia and erosive esophagitis. Obviously this is very concerning. She had a conversation with Dr. Khan son and he advised that she would be a better candidate for gastric bypass rather than a gastric sleeve as a gastric sleeve likely would worsen her reflux problems. She also may need a fundoplication for repair of the hiatal hernia and the lax lower esophageal sphincter. With this in mind I will refer her again to bariatric so that Dr. Adams can consider going this route and helping her fix her problem with erosive esophagitis. She was changed to pantoprazole from omeprazole by Dr. Khan son however she has not received yet from the pharmacy. I am uncertain why but if she does not get the next couple days I want her to call me as it may need a prior approval through insurance. I would like for her to be on this twice a day. In the meantime I would also like to put her temporarily on Carafate because we really need to heal some of this erosion in her esophagus in order to promote comfort and to protect her against esophageal cancer. She does have esophageal cancer in her family. I cancel the barium swallow as this does not seem to be dyskinesia of the esophagus. MONIQUE quiroz 12/18 appt [facility] Medical History (Reviewed 11/12/23 @ 10:58 by Prosper Farrar [facility]) Hyperlipidemia Acute diarrhea Pancreatic insufficiency Chronic idiopathic constipation Chronic pain syndrome Drug allergy Mood disorder Kidney failure History of MRSA infection (~2010) Stress incontinence Psychosomatic pain Obstructive sleep apnea Anxiety disorder Morbid obesity Fibromyalgia Bipolar disorder Suicide attempt Depression Asthma Surgical History History of esophagogastroduodenoscopy (EGD) Hx of section H/O colonoscopy H/O abdominoplasty History of lumpectomy of left breast H/O bilateral oophorectomy H/O: hysterectomy H/O laparoscopy Social History Patient Tobacco Use Status: Never used Tobacco Review of Systems Const Denies fatigue, Denies fever(s), Denies night sweats, Denies poor appetite and Denies weight loss ENT Reports Normal hearing present, Denies dental pain, Denies dysphagia, Denies hearing loss, Denies mouth pain, Denies odynophagia, Reports throat swelling, Denies tongue swelling and Reports other (Dentition adequate) Card Reports no additional complaints Resp Reports no additional complaints GI Details: Denies abdominal pain, Denies melena, Denies bloating, Denies hematochezia, Reports constipation, Denies GI cramping, Denies dysphagia, Denies excessive flatus, Denies early satiety, Reports heartburn, Denies diarrhea, Denies nausea, Denies odynophagia, Denies vomiting and Denies hematemesis Musc Reports arthralgias Skin/Breast Denies pruritus, Denies lesions, Denies rash and Denies jaundice Neuro Reports Normal hearing present and Denies Abnormal speech present Endo Denies fatigue Aller/Immun Reports throat swelling and Denies tongue swelling Physical Exam Vital Signs: Last Vital Signs Pulse 90 11/12/23 10:43 BP 148/77 H 11/12/23 10:43 BMI result Body Mass Index 39.1 Const General: cooperative, no acute distress, well developed and well groomed Nutritional Appearance: well nourished and obese Orientation/consciousness: oriented to person, oriented to place and oriented to time Limitations: No language barrier HEENT Head: Yes normocephalic and Yes atraumatic Eyes General: appearance normal, both eyes and all related structures Pupils: Equal, round and reactive pupils present Neck Neck: Yes normal visual inspection and Yes no lymphadenopathy Thyroid: Thyroid normal Resp Effort & Inspection: normal respiratory effort and able to speak in complete sentences Auscultation: clear to auscultation bilaterally Cardio Rate: regular rate Rhythm: regular rhythm Heart sounds: Normal, physiologic split S2 sound present Peripheral pulses: radial pulses present and posterior tibial pulses present GI Inspection: No distended, Yes Abdominal panniculus present and Yes obesity Palpation (GI): Soft to palpation, nontender, no guarding, not rigid and No hepatosplenomegaly present Percussion: Yes normal to percussion Auscultation: normal bowel sounds Rectal Exam - Female: deferred Skin General skin exam: no rashes or lesions noted, turgor normal, skin not dry, no jaundice, No spider nevi and no striae Rashes: no rashes Nails: normal Neuro General: oriented to person, oriented to place and oriented to time Cranial nerves: Yes Equal, round and reactive pupils present and Yes Normal hearing present Speech: No Abnormal speech present Extrem General: Yes normal to inspection, No clubbing, No cyanosis and No edema Psych Appearance: grossly normal and well kempt Mental Status: mental status grossly normal Speech and movement: Normal speech and movement present Affect: normal affect Attitude: cooperative Thought process: Normal thought process present and not confabulating Thought content: Normal thought content present Insight: Fair insight present (Psych) and Limited insight present (Psych) Judgement: Fair judgement present (Psych) and Limited judgement present (Psych) Results Reviewed Results Reviewed: EGD 11/07/23 Findings: Larynx:normal Esophagus: GE junction at 38 cm, diaphragm hiatus at 40 cm, with erosive esophagitis noted at GEJ with bogginess and swelling, schatzki ring noted with 2 cm sliding hiatal hernia and lax LES. Balloon dilation done to 18 mm, at UES and LEs, no tears seen Stomach: mild erythema . Biopsies were obtained. Grade 2 flap valve on retroflexed examination of the cardia. Duodenum: Normal bulb and descending duodenum, Intervention: Biopsies as noted above, balloon dilation Impression/Findings: erosive esophagitis patulous GEJ schatzki ring hiatal hernia PLAN: stop famotidine and use PPI, try to limit use of tramadol BIOPSY Received: 11/07/23 Diagnosis Stomach, biopsy: Oxyntic mucosa with mild chronic inactive inflammation; no Helicobacter organisms seen BARIUM SWALLOW Was scheduled for 10/03/2023 but not in the computer? Assessment & Plan Assessment & Plan (1) GERD (gastroesophageal reflux disease): Code(s): K21.9 - Gastro-esophageal reflux disease without esophagitis Category: Medical (2) Upper abdominal pain: Code(s): R10.10 - Upper abdominal pain, unspecified Category: Medical (3) Esophageal spasm: Code(s): K22.4 - Dyskinesia of esophagus Category: Medical (4) Chronic idiopathic constipation: Code(s): K59.04 - Chronic idiopathic constipation Category: Medical (5) Erosive esophagitis: Code(s): K22.10 - Ulcer of esophagus without bleeding Category: Medical (6) Hiatal hernia: Code(s): K44.9 - Diaphragmatic hernia without obstruction or gangrene Category: Medical Plan She had a horrible time after the EGD as she had perceived pain and swelling in the laryngeal area. She also had very severe acid reflux with acid coming up th rough her nose. The EGD showed a lax esophageal sphincter along with a sliding hiatal hernia and erosive esophagitis. Obviously this is very concerning. She had a conversation with Dr. Erin hanson and he advised that she would be a better candidate for gastric bypass rather than a gastric sleeve as a gastric sleeve likely would worsen her reflux problems. She also may need a fundoplication for repair of the hiatal hernia and the lax lower esophageal sphincter. With this in mind I will refer her again to bariatric so that Dr. Adams can consider going this route and helping her fix her problem with erosive esophagitis. She was changed to pantoprazole from omeprazole by Dr. Khan son however she has not received yet from the pharmacy. I am uncertain why but if she does not get the next couple days I want her to call me as it may need a prior approval through insurance. I would like for her to be on this twice a day. In the meantime I would also like to put her temporarily on Carafate because we really need to heal some of this erosion in her esophagus in order to promote comfort and to protect her against esophageal cancer. She does have esophageal cancer in her family. I cancel the barium swallow as this does not seem to be dyskinesia of the esophagus. ROV keep 12/18 appt Orders: Referrals Bariatric Surgery Referral K22.10 - Ulcer of esophagus without bleeding, K44.9 - Diaphragmatic hernia without obstruction or gangrene Medications: New simethicone 125 mg PO QID 120 tabs 6RF abdominal distention sucralfate (Carafate) 20 mL PO QNOON 1,000 mL 1RF K22.10 - Ulcer of esophagus without bleeding Changed From pantoprazole 40 mg PO DAILY 60 tabs 2RF To pantoprazole 40 mg PO BID 60 tabs 2RF Discontinued dicyclomine Discontinued Reason: Doctor's Order 40 mg (2 x 20 mg) PO QID 30 days 240 tabs 3RF K22.4 - Dyskinesia of esophagus Coding Level of Care Code Est Pt Level 3 (62435) Diagnoses GERD (gastroesophageal reflux disease) K21.9 Upper abdominal pain R10.10 Esophageal spasm K22.4 Chronic idiopathic constipation K59.04 Erosive esophagitis K22.10 Hiatal hernia K44.9
== END 2023-11-12 11:42 | disposition home or self-care (01) ==
PROVIDERS: PCP Registered Nurse; Visit Provider Nurse Practitioner
DX: K21.9 Gastro-esophageal reflux disease without esophagitis (principal); R10.10 Upper abdominal pain, unspecified; K22.4 Dyskinesia of esophagus; K59.04 Chronic idiopathic constipation; K22.10 Ulcer of esophagus without bleeding; K44.9 Diaphragmatic hernia without obstruction or gangrene
CPT/HCPCS: 99213

== ENCOUNTER → 2023-11-12 10:32 | Outpatient (BNVA) | payer OTHER, SELFPAY | PROVIDERS: PCP Registered Nurse; Visit Provider Nurse Practitioner | DX: K21.9 Gastro-esophageal reflux disease without esophagitis (principal); R10.10 Upper abdominal pain, unspecified; K22.10 Ulcer of esophagus without bleeding; K22.4 Dyskinesia of esophagus; K59.04 Chronic idiopathic constipation; K44.9 Diaphragmatic hernia without obstruction or gangrene | CPT/HCPCS: 99212 ==

== ENCOUNTER 2023-12-17 10:02 | Outpatient (AMB) | payer OTHER, SELFPAY ==
[2023-12-17 10:22] VITALS: BP 90/60; PULSE 91; BMI 39.5
--- NOTE | 2023-12-17 10:22 | A.OFFVIS_ITS ---
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 (rs) Bead Inspector Required: No Accompanied by: Self / Same As Patient Allergies acetaminophen [From Tylenol] Allergy (Severe, Verified 11/12/23 10:52) Anaphylaxis aspirin Allergy (Severe, Verified 11/12/23 10:52) Anaphylaxis codeine Allergy (Severe, Verified 11/12/23 10:52) Anaphylaxis dextromethorphan [From NyQuil] Allergy (Severe, Verified 11/12/23 10:52) Anaphylaxis doxylamine [From NyQuil] Allergy (Severe, Verified 11/12/23 10:52) Anaphylaxis magnesium hydroxide [From Milk of Magnesia] Allergy (Severe, Verified 11/12/23 10:52) Anaphylaxis morphine Allergy (Severe, Verified 11/12/23 10:52) Anaphylaxis oxycodone [From Percocet] Allergy (Severe, Verified 11/12/23 10:52) Anaphylaxis Penicillins Allergy (Severe, Verified 11/12/23 10:52) Anaphylaxis propoxyphene [From Darvocet-N 100] Allergy (Severe, Verified 11/12/23 10:52) Anaphylaxis pseudoephedrine [From Sudafed] Allergy (Severe, Verified 11/12/23 10:52) Anaphylaxis Medication List - Last Reconciled 12/17/23 by Daryl Awad MD albuterol sulfate 90 mcg/actuation 2 inhalations inhalation blood sugar diagnostic (FreeStyle Test strips) As directed bupropion HCl SR 150 mg PO DAILY bupropion HCl XL (Wellbutrin XL) 300 mg PO QAM cholecalciferol (vitamin D3) (Vitamin D3) 50 mcg PO DAILY cyclobenzaprine 10 mg PO BEDTIME diclofenac sodium 1% 4 grams topical QID epinephrine IM DIRECTED fluoxetine 40 mg PO DAILY gabapentin 800 mg PO TID lancets (Pure Comfort Safety Lancets) As directed levalbuterol HCl mg inhalation linaclotide (Linzess) 145 mcg PO QAM mometasone-formoterol 100-5 mcg/actuation (Dulera) 2 puffs inhalation BID ondansetron HCl 4 mg PO TID PRN oxybutynin chloride ER 20 mg PO BEDTIME pantoprazole 40 mg PO BID pen needle, diabetic (Ultracare Pen Needle) As directed rosuvastatin 20 mg PO BEDTIME semaglutide (Ozempic) mg subcut QWEEK simethicone 125 mg PO QID sodium phosphates 19-7 gram/118 mL (Enema Disposable) mL NC sucralfate (Carafate) 20 mL PO QNOON topiramate (Topamax) 200 mg PO BEDTIME tramadol 50 mg PO TID PRN zaleplon 10 mg PO BEDTIME PRN HPI Comments Details: Agnes is here for consultation regarding chest pains. It seems that she gets chest pain frequently. Can happen any time. When I questioned her what provokes it, it seems sometimes exertion but can essentially happen any time. She is also known to have some esophageal issues. Per PCP note, LDL cholesterol was more than 200 and hence there is a concern for coronary disease. It also seems that she may need some orthopedic surgery in the future. Hence she has been referred here. Patient herself does not recall any history of cardiac issues in the past. Otherwise, she also gets short of breath and more so when lying down. Many comorbidities. [facility] Medical History Hyperlipidemia Acute diarrhea Pancreatic insufficiency Chronic idiopathic constipation Chronic pain syndrome Drug allergy Mood disorder Kidney failure History of MRSA infection (~2010) Stress incontinence Psychosomatic pain Obstructive sleep apnea Anxiety disorder Morbid obesity Fibromyalgia Bipolar disorder Suicide attempt Depression Asthma Surgical History History of esophagogastroduodenoscopy (EGD) Hx of section H/O colonoscopy H/O abdominoplasty History of lumpectomy of left breast H/O bilateral oophorectomy H/O: hysterectomy H/O laparoscopy Family History (Updated 12/17/23 @ 10:30 by Afia Bess CMA) Mother Stroke Social History (Updated 12/17/23 @ 10:30 by Afia Bess CMA) Alcohol intake: never Patient Tobacco Use Status: Never used Tobacco Review of Systems Const Denies chills, Denies daytime sleepiness, Reports fatigue, Denies fever(s), Denies poor appetite, Denies snoring, Denies stops breathing during sleep, Denies weakness, Denies weight gain and Denies weight loss Eyes Denies loss of vision ENT Denies dizziness and Denies hearing loss Card Denies chest pain, Denies irregular heart rhythm, Denies claudication, Reports leg edema, Denies lightheadedness, Denies palpitations, Denies dyspnea on exertion and Denies orthopnea Resp Denies cough, Denies excessive phlegm production, Denies dyspnea on exertion, Denies snoring and Denies wheezing GI Denies abdominal pain, Denies hematochezia, Denies change in bowel habits, Denies nausea and Denies vomiting Denies urinary frequency and Denies dysuria Musc Denies arthralgias, Denies muscle weakness, Denies numbness and Denies other Skin/Breast Denies nail changes and Denies rash Neuro Denies Abnormal speech present, Denies dizziness, Denies loss of vision, Denies memory loss, Denies numbness and Denies weakness Psych Denies depression and Denies memory loss Endo Reports fatigue and Denies palpitations Gerson/Lymph Denies easy bruising Aller/Immun Denies wheezing Physical Exam Vital Signs: Last Vital Signs Pulse 91 12/17/23 10:22 BP 90/60 12/17/23 10:22 BMI result Body Mass Index 39.5 Const General: comfortable and no acute distress Orientation/consciousness: patient oriented x3 HEENT Other: Unremarkable Head: Yes normal to inspection Neck Neck: Yes normal visual inspection Chest Chest palpation & inspection: normal inspection of the chest Resp Auscultation: clear to auscultation bilaterally Cardio Palpation: normal PMI Heart sounds: S1 normal heart sound present, S2 normal heart sound present, no gallops, no murmurs and no rubs GI Palpation (GI): Soft to palpation Back/Spine/Pelvis Other: unremarkable Skin General skin exam: no rashes or lesions noted Neuro General: patient oriented x3 Speech: No Abnormal speech present Extrem General: Yes normal to inspection Psych Mental Status: mental status grossly normal Assessment & Plan Assessment & Plan (1) Precordial chest pain: Code(s): R07.2 - Precordial pain Category: Medical Plan EKG from [facility] with underlying sinus rhythm at 80/Min; no significant ST-T changes and otherwise unremarkable. Normal NC and corrected QT. Myocardial perfusion imaging study from [facility], 10/31/2023 with a fixed anterior defect thought to be artifactual or scar. Looking at her body habitus, more so artifact. Due to continued chest pain symptoms, we will get a coronary CTA for further evaluation. Due to shortness of breath, obtain echocardiogram for cardiac function. Follow-up after the above. Orders: Orders CA echo transthoracic complete Today R07.2 - Precordial pain CT Cardiac Coronary Angio Today I25.10 - Atherosclerotic heart disease of [place]qu[place] coronary artery without angina pectoris, R07.2 - Precordial pain Basic Metabolic Panel Today R07.2 - Precordial pain Coding Level of Care Code New Pt Level 4 (66817) Diagnoses Precordial chest pain R07.2
== END 2023-12-17 10:56 | disposition home or self-care (01) ==
PROVIDERS: PCP Registered Nurse; Visit Provider Internal Medicine
DX: R07.2 Precordial pain (principal)
CPT/HCPCS: 99204

== ENCOUNTER → 2023-12-17 10:02 | Outpatient (BNVA) | payer OTHER, SELFPAY | PROVIDERS: PCP Registered Nurse; Visit Provider Internal Medicine | DX: R07.2 Precordial pain (principal); I25.10 Atherosclerotic heart disease of native coronary artery without angina pectoris | CPT/HCPCS: 99202 ==

== ENCOUNTER → 2024-02-05 14:03 | Outpatient (REF) | payer OTHER, SELFPAY ==
--- NOTE | 2024-02-05 14:08 | CA_ITS ---
Transthoracic Echocardiogram Patient (Last, First, Middle): Agnes Milligan S Gender: Female Date of : 1970 Age: 53 Procedure Date: 02/05/2024 Procedure Type: Transthoracic Echocardiogram Location: OP Height: 170.18 cm Weight: 109.77 kg BSA: 2.19 m2 Heart Rate: bpm BP: 110 / 72 mmHg Child Care Nurse: TO Referring MD: Daryl Awad MD Symptoms: R07.2 - Precordial pain Study Quality: Fair/unable to tolerate ECG Rhythm: Sinus Conclusions: - The left ventricular systolic function is normal. The calculated ejection fraction is 59% by biplane method. - No obvious valvular pathology seen on this study. - There is mild dilatation of the ascending aorta measuring 4.10 cm. Findings Procedure Information The study quality is limited by the patients inability to tolerate the test. Left Ventricle Normal left ventricular cavity size. There is normal left ventricular wall thickness. The left ventricular systolic function is normal. The calculated ejection fraction is 59% by biplane method. There is no evidence of regional wall motion abnormalities. Diastolic function is normal for age. Right Ventricle Normal right ventricular cavity size and systolic function. Atria Both atria are normal in size. Aortic Valve There is a normal trileaflet aortic valve. There is no aortic valve stenosis. There is no aortic valve regurgitation. Mitral Valve The mitral valve appears normal. There is trace mitral valve regurgitation. There is no mitral valve stenosis. Pulmonic Valve The pulmonic valve is likely normal. Tricuspid Valve There is trace tricuspid valve regurgitation. There is no evidence of pulmonary hypertension. Great Vessels There is mild dilatation of the ascending aorta measuring 4.10 cm. Venous The inferior vena cava is normal in size and collapses greater than 50% with inspiration. Pericardium/Pleural There is no evidence of pericardial effusion. Prior Study Comparison No prior study available for comparison. Recommendations, Care & Conclusions No obvious valvular pathology seen on this study. Measurements 2D Linear Measurements IVSd: 0.85 0.6-0.9/0.6-1.0 cm LVIDd: 4.56 3.9-5.3/4.2-5.9 cm LVIDd Index: 2.08 2.4-3.2/2.2-3.1 cm/m2 LVIDs: 3.01 2.0-3.6 cm LVPWd: 0.79 0.7-1.1 cm LA Diam: 3.70 2.7-3.8/3.0-4.0 cm LAIDs Index: 1.69 1.5-2.3 cm/m2 LV Mass: 148.41 67-162/88-224 g LV Mass Index: 67.77 43-95/49-115 g/m2 LVOT Diam: 2.30 3.0+(-)1.3 cm 2D Systolic Function EF 4C: 64.20 >55% EF 2C: 56.40 >55% EF BiP: 58.60 >55% Mitral Valve MV Pk E: 0.90 MV PK A: 0.64 MV Decel Time: 185.00 E/A: 1.40 E'Lateral: 8.38 E'Medial: 9.03 E/E' Med: 9.90 E/E' Lat: 10.70 PHT: 54.00 MVA PHT: 4.07 Decel [place]: 4.84 Aortic Valve AoV Pk Artur: 1.46 AoV Mn Artur: 1.02 AoV VTI: 0.29 AoV Pk Grad: 9.00 Aov Mn Grad: 5.00 ROSELINE Cont.VTI: 3.44 LVOT LVOT Pk Artur: 1.19 LVOT Mn Artur: 0.78 LVOT VTI: 0.24 LVOT Pk Grad: 6.00 LVOT Mn Grad: 3.00 LVOT Diam: 2.30 LVOT Area: 4.15 Diastolic Function MV Pk E: 0.90 MV Pk A: 0.64 E/A: 1.40 E'Medial: 9.03 E/E' Med: 9.90 E' Laterial: 8.38 E/E' Lat: 10.70 Right Ventricle TAPSE (mm): 26.20 TVS' Artur: 12.90 Tricuspid Valve RA Press: 3.00 Great Vessels Aorta Sinus of Valsalva: 3.44 2.0-3.5 cm Ao Asc: 4.10 2.1-3.4 cm Ao Arch: 3.20 Updated in Other Vendor System with Status of Final Daryl Awad MD electronically signed on 02/07/2024 8:42:34 AM with status of Final
== END ==
LOC: HO.CARD 14:03
PROVIDERS: PCP Registered Nurse; Visit Provider Internal Medicine
DX: R07.2 Precordial pain (principal)
CPT/HCPCS: 93306

== ENCOUNTER → 2024-02-05 14:08 | Outpatient (BNV) | payer OTHER, SELFPAY | PROVIDERS: PCP Registered Nurse; Visit Provider Internal Medicine | DX: R07.2 Precordial pain (principal); I77.810 Thoracic aortic ectasia | CPT/HCPCS: 93306 ==

== ENCOUNTER 2024-02-19 15:48 | Outpatient (AMB) | payer OTHER, SELFPAY ==
--- NOTE | 2024-02-19 16:02 | MHC.OFFVIS ---
Vital Signs 02/19/24 16:07 Height 5 ft 7 in Weight 249 lb 1.957 oz BMI 39.0 BP 141/90 H Blood Pressure Location Lt brachial Position Sitting Pulse 86 Intake Visit Reasons: Follow up Gerd Intake Note: Agnes presents to in office visit today in follow up of GERD. CC: Per patient she went to see cardio and had an echo done that showed dilation of the ascending aorta. Allergies acetaminophen [From Tylenol] Allergy (Severe, Verified 04/20/24 15:43) Anaphylaxis aspirin Allergy (Severe, Verified 04/20/24 15:43) Anaphylaxis codeine Allergy (Severe, Verified 04/20/24 15:43) Anaphylaxis dextromethorphan [From NyQuil] Allergy (Severe, Verified 04/20/24 15:43) Anaphylaxis doxylamine [From NyQuil] Allergy (Severe, Verified 04/20/24 15:43) Anaphylaxis magnesium hydroxide [From Milk of Magnesia] Allergy (Severe, Verified 04/20/24 15:43) Anaphylaxis morphine Allergy (Severe, Verified 04/20/24 15:43) Anaphylaxis oxycodone [From Percocet] Allergy (Severe, Verified 04/20/24 15:43) Anaphylaxis Penicillins Allergy (Severe, Verified 04/20/24 15:43) Anaphylaxis propoxyphene [From Darvocet-N 100] Allergy (Severe, Verified 04/20/24 15:43) Anaphylaxis pseudoephedrine [From Sudafed] Allergy (Severe, Verified 04/20/24 15:43) Anaphylaxis HPI HPI Follow up Gerd: Details: Assessment & Plan (1) GERD (gastroesophageal reflux disease): Code(s): K21.9 - Gastro-esophageal reflux disease without esophagitis Category: Medical (2) Upper abdominal pain: Code(s): R10.10 - Upper abdominal pain, unspecified Category: Medical (3) Esophageal spasm: Code(s): K22.4 - Dyskinesia of esophagus Category: Medical (4) Chronic idiopathic constipation: Code(s): K59.04 - Chronic idiopathic constipation Category: Medical (5) Erosive esophagitis: Code(s): K22.10 - Ulcer of esophagus without bleeding Category: Medical (6) Hiatal hernia: Code(s): K44.9 - Diaphragmatic hernia without obstruction or gangrene Category: Medical Plan She had a horrible time after the EGD as she had perceived pain and swelling in the laryngeal area. She also had very severe acid reflux with acid coming up through her nose. The EGD showed a lax esophageal sphincter along with a sliding hiatal hernia and erosive esophagitis. Obviously this is very concerning. She had a conversation with Dr. Khan son and he advised that she would be a better candidate for gastric bypass rather than a gastric sleeve as a gastric sleeve likely would worsen her reflux problems. She also may need a fundoplication for repair of the hiatal hernia and the lax lower esophageal sphincter. With this in mind I will refer her again to bariatric so that Dr. Adams can consider going this route and helping her fix her problem with erosive esophagitis. She was changed to pantoprazole from omeprazole by Dr. Khan son however she has not received yet from the pharmacy. I am uncertain why but if she does not get the next couple days I want her to call me as it may need a prior approval through insurance. I would like for her to be on this twice a day. In the meantime I would also like to put her temporarily on Carafate because we really need to heal some of this erosion in her esophagus in order to promote comfort and to protect her against esophageal cancer. She does have esophageal cancer in her family. I cancel the barium swallow as this does not seem to be dyskinesia of the esophagus. ROV keep 12/18 appt Orders: Referrals Bariatric Surgery Referral K22.10 - Ulcer of esophagus without bleeding, K44.9 - Diaphragmatic hernia without obstruction or gangrene Medications: New simethicone 125 mg PO QID 120 tabs 6RF abdominal distention sucralfate (Carafate) 20 mL PO QNOON 1,000 mL 1RF K22.10 - Ulcer of esophagus without bleeding Changed From pantoprazole 40 mg PO DAILY 60 tabs 2RF To pantoprazole 40 mg PO BID 60 tabs 2RF Discontinued dicyclomine Discontinued Reason: Doctor's Order 40 mg (2 x 20 mg) PO QID 30 days 240 tabs 3RF K22.4 - Dyskinesia of esophagus CORRESPONDENCE On 12/26/23 @ 17:53 Prosper Posey Wrote To Patient notified per message below, she is asking if you could send another medications in the meantime. On 12/23/23 @ 19:23 Suzanne Parrish Wrote To Prosper Posey THIS WOULD BE VERY UNUSUAL SO IF SHE FEELS LIKE she wants to she can stop it and we will discuss it at her next appointment On 12/19/23 @ 13:48 Prosper Posey Wrote To FrancoisAugust Please refer to message and advise. On 12/19/23 @ 07:52 Anupama Mireles Wrote To FrancoisAugust (2) Called to reschedule appt today she state that she has been having what she thinks is side effects to the protonix = she states she is having abdominal pains, very fatigued and nausea. TODAY'S VISIT She thanks me for referring her to cardiology, apparently the echo found a 4.2cm descending aortic aneurism. She had to put off her left knee surgery r/t the above, she will be h aving a CT to better assess the aneurism. She also needs to consider fundoplication for severe HH/GERD. She could not tolerate the pantoprazole as it seemed to cause her nausea and stomach pain. She stopped it and she felt better but now she is having severe burning and spasming feeling in the upper esophageal/laryngeal area. I think we need to get her on the appropriate acid reduction therapy. Clearly she did not processed the pantoprazole well and because she has chronic kidney disease with a mildly decreased GFR I think will move her to lansoprazole. She is concerned that she has had trouble in with her liver in the past so we will get a comprehensive metabolic panel and some other labs just to check her general state of health. She did not have any elevation of her transaminases about a year ago anyway. She continues with her mysterious and unexplained lymphedema. She really could not manage the compression stockings which is common and it could be that they were too aggressive a compression. She is trying to wear 2 pairs leg and this seems to help somewhat. She has difficulty getting up and down to the toilet because of her knee which will give out on her. She is right now using a walker. Of course it is difficult because when she elevates her leg she has to urinate more frequently as her body clears the edema and this causes her to have to get up and down more. They finally got her commode because apparently they are stairs involved in getting to her bathroom which is what caused her falls in the past. She continues on her LInzess, simethicone and carfate. ROV 6 weeks to evaluate her response to lansoprazole and review labs. [facility] Medical History Mood disorder Dental infection Preop examination Hyperlipidemia Acute diarrhea Pancreatic insufficiency Chronic idiopathic constipation Chronic pain syndrome Drug allergy Kidney failure History of MRSA infection (~2010) Stress incontinence Psychosomatic pain Obstructive sleep apnea Anxiety disorder Morbid obesity Fibromyalgia Bipolar disorder Suicide attempt Depression Asthma Surgical History History of esophagogastroduodenoscopy (EGD) Hx of section H/O colonoscopy H/O abdominoplasty History of lumpectomy of left breast H/O bilateral oophorectomy H/O: hysterectomy H/O laparoscopy Family History Mother Stroke Social History Alcohol intake: never Patient Tobacco Use Status: Never used Tobacco Review of Systems Const Denies fatigue, Denies fever(s), Denies night sweats, Denies poor appetite and Denies weight loss ENT Reports Normal hearing present, Denies dental pain, Denies dysphagia, Denies hearing loss, Denies mouth pain, Denies odynophagia, Denies throat swelling, Denies tongue swelling and Reports other (Dentition adequate) Card Reports no additional complaints Resp Reports no additional complaints GI Details: Denies abdominal pain, Denies melena, Denies bloating, Denies hematochezia, Reports constipation, Denies GI cramping, Denies dysphagia, Denies excessive flatus, Denies early satiety, Reports heartburn, Denies diarrhea, Denies nausea, Denies odynophagia, Denies vomiting and Denies hematemesis Skin/Breast Denies pruritus, Denies lesions, Denies rash and Denies jaundice Neuro Reports Normal hearing present and Denies Abnormal speech present Endo Denies fatigue Aller/Immun Denies throat swelling and Denies tongue swelling Physical Exam Vital Signs: Last Vital Signs Pulse 86 02/19/24 16:07 BP 141/90 H 02/19/24 16:07 BMI result Body Mass Index 39.0 Const General: cooperative, no acute distress, well developed and well groomed Nutritional Appearance: well nourished and obese Orientation/consciousness: oriented to person, oriented to place and oriented to time Limitations: No language barrier HEENT Head: Yes normocephalic and Yes atraumatic Eyes General: appearance normal, both eyes and all related structures Pupils: Equal, round and reactive pupils present Neck Neck: Yes normal visual inspection and Yes no lymphadenopathy Thyroid: Thyroid normal Resp Effort & Inspection: normal respiratory effort and able to speak in complete sentences Auscultation: clear to auscultation bilaterally Cardio Rate: regular rate Rhythm: regular rhythm Heart sounds: Normal, physiologic split S2 sound present Peripheral pulses: radial pulses present and posterior tibial pulses present GI Inspection: No distended and No Abdominal panniculus present Palpation (GI): Soft to palpation, nontender, no guarding, not rigid and No hepatosplenomegaly present Percussion: Yes normal to percussion Auscultation: normal bowel sounds Rectal Exam - Female: deferred Skin General skin exam: no rashes or lesions noted, turgor normal, skin not dry, no jaundice, No spider nevi and no striae Rashes: no rashes Nails: normal Neuro General: oriented to person, oriented to place and oriented to time Cranial nerves: Yes Equal, round and reactive pupils present and Yes Normal hearing present Speech: No Abnormal speech present Extrem General: Yes normal to inspection, No clubbing, No cyanosis and No edema Psych Appearance: grossly normal and well kempt Mental Status: mental status grossly normal Speech and movement: Normal speech and movement present Affect: normal affect Attitude: cooperative Thought process: Normal thought process present and not confabulating Thought content: Normal thought content present Insight: Limited insight present (Psych) Judgement: Limited judgement present (Psych) Assessment & Plan Assessment & Plan (1) GERD (gastroesophageal reflux disease): Code(s): K21.9 - Gastro-esophageal reflux disease without esophagitis Category: Medical (2) Upper abdominal pain: Code(s): R10.10 - Upper abdominal pain, unspecified Category: Medical (3) Erosive esophagitis: Code(s): K22.10 - Ulcer of esophagus without bleeding Category: Medical (4) Chronic idiopathic constipation: Code(s): K59.04 - Chronic idiopathic constipation Category: Medical (5) Esophageal spasm: Code(s): K22.4 - Dyskinesia of esophagus Category: Medical (6) Chronic kidney disease (CKD) stage G3a/A1, moderately decreased glomerular filtration rate (GFR) between 45-59 mL/min/1.73 square meter and albuminuria creatinine ratio less than 30 mg/g: Code(s): N18.31 - Chronic kidney disease, stage 3a Category: Medical (7) Hyperlipidemia: Code(s): E78.5 - Hyperlipidemia, unspecified Category: Medical Plan She thanks me for referring her to cardiology, apparently the echo found a 4.2cm descending aortic aneurism. She had to put off her left knee surgery r/t the above, she will be h aving a CT to better assess the aneurism. She also needs to consider fundoplication for severe HH/GERD. She could not tolerate the pantoprazole as it seemed to cause her nausea and stomach pain. She stopped it and she felt better but now she is having severe burning and spasming feeling in the upper esophageal/laryngeal area. I think we need to get her on the appropriate acid reduction therapy. Clearly she did not processed the pantoprazole well and because she has chronic kidney disease with a mildly decreased GFR I think will move her to lansoprazole. She is concerned that she has had trouble in with her liver in the past so we will get a comprehensive metabolic panel and some other labs just to check her general state of health. She did not have any elevation of her transaminases about a year ago anyway. She continues with her mysterious and unexplained lymphedema. She really could not manage the compression stockings which is common and it could be that they were too aggressive a compression. She is trying to wear 2 pairs leg and this seems to help somewhat. She has difficulty getting up and down to the toilet because of her knee which will give out on her. She is right now using a walker. Of course it is difficult because when she elevates her leg she has to urinate more frequently as her body clears the edema and this causes her to have to get up and down more. They finally got her commode because apparently they are stairs involved in getting to her bathroom which is what caused her falls in the past. She continues on her LInzess, simethicone and carfate. ROV 6 weeks to evaluate her response to lansoprazole and review labs. Orders: Orders Basic Metabolic Panel 02/19/24 R07.2 - Precordial pain, N18.31 - Chronic kidney disease, stage 3a, E78.5 - Hyperlipidemia, unspecified C Reactive Protein 02/19/24 E66.01 - Morbid (severe) obesity due to excess calories, E78.5 - Hyperlipidemia, unspecified, N18.31 - Chronic kidney disease, stage 3a Complete Blood Count Auto Diff 02/19/24 E66.01 - Morbid (severe) obesity due to excess calories, E78.5 - Hyperlipidemia, unspecified, N18.31 - Chronic kidney disease, stage 3a Comprehensive Met. Panel 02/19/24 N18.31 - Chronic kidney disease, stage 3a, E78.5 - Hyperlipidemia, unspecified Ferritin 02/19/24 E66.01 - Morbid (severe) obesity due to excess calories, E78.5 - Hyperlipidemia, unspecified, N18.31 - Chronic kidney disease, stage 3a TSH reflex Free T4 02/19/24 E66.01 - Morbid (severe) obesity due to excess calories, E78.5 - Hyperlipidemia, unspecified, N18.31 - Chronic kidney disease, stage 3a Lipid Panel 02/19/24 E66.01 - Morbid (severe) obesity due to excess calories, E78.5 - Hyperlipidemia, unspecified, N18.31 - Chronic kidney disease, stage 3a Medications: New lansoprazole 30 mg PO DAILY 30 caps 6RF K22.10 - Ulcer of esophagus without bleeding, N18.31 - Chronic kidney disease, stage 3a Discontinued pantoprazole Discontinued Reason: Doctor's Order 40 mg PO BID 60 tabs 2RF Coding Level of Care Code Est Pt Level 3 (26462) Diagnoses GERD (gastroesophageal reflux disease) K21.9 Upper abdominal pain R10.10 Erosive esophagitis K22.10 Chronic idiopathic constipation K59.04 Esophageal spasm K22.4 Chronic kidney disease (CKD) stage G3a/A1, moderately decreased glomerular filtration rate (GFR) between 45-59 mL/min/1.73 square meter and albuminuria creatinine ratio less than 30 mg/g N18.31 Hyperlipidemia E78.5
[2024-02-19 16:07] VITALS: BP 141/90; PULSE 86; BMI 39.0
== END 2024-02-19 17:27 | disposition home or self-care (01) ==
PROVIDERS: PCP Registered Nurse; Visit Provider Nurse Practitioner
DX: K21.9 Gastro-esophageal reflux disease without esophagitis (principal); R10.10 Upper abdominal pain, unspecified; K22.10 Ulcer of esophagus without bleeding; K59.04 Chronic idiopathic constipation; K22.4 Dyskinesia of esophagus; N18.31 Chronic kidney disease, stage 3a; E78.5 Hyperlipidemia, unspecified
CPT/HCPCS: 99213

== ENCOUNTER → 2024-02-19 15:48 | Outpatient (BNVA) | payer OTHER, SELFPAY | PROVIDERS: PCP Registered Nurse; Visit Provider Nurse Practitioner | DX: K21.9 Gastro-esophageal reflux disease without esophagitis (principal); K22.4 Dyskinesia of esophagus; K59.04 Chronic idiopathic constipation; K22.10 Ulcer of esophagus without bleeding; K44.9 Diaphragmatic hernia without obstruction or gangrene; R10.10 Upper abdominal pain, unspecified; E78.5 Hyperlipidemia, unspecified; R07.2 Precordial pain; E66.01 Morbid (severe) obesity due to excess calories; N18.31 Chronic kidney disease, stage 3a | CPT/HCPCS: 99212 ==

== ENCOUNTER 2024-02-28 13:30 | Outpatient (REF) | payer OTHER, SELFPAY ==
--- NOTE | ~2024-02-28 | XR_ITS ---
EXAMINATION: XR CHEST 2 VIEWS CLINICAL INFORMATION: Morbid (severe) obesity due to excess calories E66.01. COMPARISON: None available TECHNIQUE: 2 views of the chest were obtained. FINDINGS: The lungs are moderately expanded. No focal consolidation. No pleural effusion. Cardiac silhouette is within normal limits. XR/XR chest 2V IMPRESSION: No acute abnormality. Electronically signed by: Teddy Verma MD 04/23/2024 01:53 PM [facility]
--- NOTE | 2024-02-28 13:36 | ECG_ITS ---
Test Reason : E66.01 - Morbid (severe) obesity due to excess calories Blood Pressure : / mmHG Vent. Rate : 085 BPM Atrial Rate : 085 BPM P-R Int : 154 ms QRS Dur : 074 ms QT Int : 390 ms P-R-T Axes : 044 022 042 degrees QTc Int : 464 ms Normal sinus rhythm Normal ECG No previous ECGs available Referred By: Prakash Adams Electronically Signed By:JUSTYNA FERGUSON
[2024-02-28 14:58] LABS: Estimated Average Glucose 108 mg/dL; Hemoglobin A1C 125.9218 umol/L; Hemoglobin A1c % 5.4 % (<6.0); Total Hemoglobin (HGBA1C) 3548.6741 umol/L
[2024-02-28 15:23] LABS: Insulin 9 uU/mL (2-29); Iron 48 mcg/dL (30-160); Percent Iron Saturation 16 % (15-50); Total Iron Binding Capacity 301 mcg/dL (228-428); Unsaturated Iron Binding 253 ug/dL; Vitamin D 25-OH Total 26.9 ng/mL (>30)
[2024-02-28 16:10] LABS: Vitamin B12 374 pg/mL (200-900)
[2024-03-03 16:54] LABS: Zinc 67 mcg/dL (60-130)
[2024-03-05 16:23] LABS: Vitamin B1 13 nmol/L (8-30)
[2024-03-07 13:13] LABS: Vitamin A 57 mcg/dL (38-98)
== END 2024-02-28 13:31 | disposition home or self-care (01) ==
LOC: HO.XRAY 13:30
PROVIDERS: Surgery; Absent Provider Internal Medicine; PCP Registered Nurse; Visit Provider Nurse Practitioner
DX: E66.01 Morbid (severe) obesity due to excess calories (principal); E78.5 Hyperlipidemia, unspecified; Z13.1 Encounter for screening for diabetes mellitus
CPT/HCPCS: 36415; 71046; 82306; 82607; 82746; 83036; 83525; 83540; 84425; 84590; 84630; 93005

== ENCOUNTER → 2024-02-28 13:36 | Outpatient (BNV) | payer OTHER, SELFPAY | PROVIDERS: Absent Provider Internal Medicine; PCP Registered Nurse; Visit Provider Internal Medicine | DX: E78.5 Hyperlipidemia, unspecified (principal); E66.01 Morbid (severe) obesity due to excess calories | CPT/HCPCS: 93010 ==

== ENCOUNTER 2024-03-02 13:03 | Outpatient (REF) | payer OTHER, SELFPAY ==
[2024-03-02 13:49] LABS: MANUAL DIFF FLAG NO
[2024-03-02 14:05] LABS: Basophils Percent Auto 0.5 % (0-2); Eosinophils Absolute Auto 0.1 X10*3/uL (0.0-0.4); Eosinophils Percent Auto 0.8 % (0-4); Hematocrit 43.1 % (37.0-47.0); Imm Gran Abs Auto 0.04 X10*3/uL (0.00-0.03); Imm Gran Pct Auto 0.5 % (0.0-0.4); Lymphocytes Absolute Auto 1.7 X10*3/uL (1.2-4.9); Lymphocytes Percent Auto 22.9 % (20-40); Mean Corpuscular HGB Conc 32.5 g/dl (31.0-35.0); Mean Corpuscular Hemoglobin 28.5 pg (27.0-33.0); Mean Corpuscular Volume 87.6 fL (80.0-98.0); Mean Platelet Volume 8.9 fL (9.4-12.3); Monocytes Absolute Auto 0.4 X10*3/uL (0.1-1.2); Monocytes Percent Auto 5.1 % (2-11); Neutrophils Absolute Auto 5.1 x10*3/uL (2.0-8.3); Neutrophils Percent Auto 70.2 % (45-73); Platelet Count 307 X10*3/uL (160-400); Red Blood Count 4.92 X10*6/uL (4.20-5.50); Red Cell Distribution Width 12.9 % (11.0-16.0); White Blood Count 7.3 X10*3/uL (4.8-10.8)
[2024-03-02 15:22] LABS: Alanine Aminotransferase 21 U/L (0-31); Albumin Level 4.4 g/dL (3.5-5.0); Alkaline Phosphatase 86 U/L (39-117); Anion Gap 11 (12-20); Aspartate Amino Transferase 22 U/L (5-31); Blood Urea Nitrogen 14 mg/dL (9-16); C Reactive Protein 0.16 mg/dL (< or = 0.50); Calcium 9.7 mg/dL (8.4-10.2); Carbon Dioxide 25 mmol/L (22-29); Chloride 111 mmol/L (96-108); Cholesterol 211 mg/dL (<200); Estimated Glomerular Filt Rate 48; Glucose Random 94 mg/dL (60-115); HDL Cholesterol 67 mg/dL (>40); LDL Cholesterol Calculated 124 mg/dL (<100); Potassium 3.7 mmol/L (3.3-5.1); Sodium 143 mmol/L (135-145); Total Protein 7.8 g/dL (6.5-8.0); Triglycerides 104 mg/dL (<150)
[2024-03-02 15:26] LABS: Ferritin 163 ng/mL (10-250); TSH reflex Free T4 0.56 uIU/mL (0.32-4.0)
== END 2024-03-02 13:04 | disposition home or self-care (01) ==
LOC: HO.LAB 13:03
PROVIDERS: Absent Provider Nurse Practitioner; PCP Registered Nurse; Visit Provider Internal Medicine
DX: N18.31 Chronic kidney disease, stage 3a (principal); E66.01 Morbid (severe) obesity due to excess calories; E78.5 Hyperlipidemia, unspecified
CPT/HCPCS: 36415; 80053; 80061; 82728; 84443; 85025; 86140

== ENCOUNTER 2024-04-20 15:20 | Outpatient (AMB) | payer OTHER, SELFPAY ==
--- NOTE | 2024-04-20 15:39 | MHC.OFFVIS ---
Vital Signs 04/20/24 15:40 Height 5 ft 7 in Weight 236 lb 5.369 oz BMI 37.0 BP 90/62 Blood Pressure Location Lt brachial Position Sitting Pulse 98 Pulse Source Pulse Oximeter Intake Visit Reasons: Discuss CTA [employer] Leader Required: No Allergies acetaminophen [From Tylenol] Allergy (Severe, Verified 04/20/24 15:43) Anaphylaxis aspirin Allergy (Severe, Verified 04/20/24 15:43) Anaphylaxis codeine Allergy (Severe, Verified 04/20/24 15:43) Anaphylaxis dextromethorphan [From NyQuil] Allergy (Severe, Verified 04/20/24 15:43) Anaphylaxis doxylamine [From NyQuil] Allergy (Severe, Verified 04/20/24 15:43) Anaphylaxis magnesium hydroxide [From Milk of Magnesia] Allergy (Severe, Verified 04/20/24 15:43) Anaphylaxis morphine Allergy (Severe, Verified 04/20/24 15:43) Anaphylaxis oxycodone [From Percocet] Allergy (Severe, Verified 04/20/24 15:43) Anaphylaxis Penicillins Allergy (Severe, Verified 04/20/24 15:43) Anaphylaxis propoxyphene [From Darvocet-N 100] Allergy (Severe, Verified 04/20/24 15:43) Anaphylaxis pseudoephedrine [From Sudafed] Allergy (Severe, Verified 04/20/24 15:43) Anaphylaxis Medication List - Last Reconciled 04/20/24 by Mai Goins METALLURGICAL SPECIALIST-C albuterol sulfate 90 mcg/actuation 2 inhalations inhalation blood sugar diagnostic (FreeStyle Test strips) As directed bupropion HCl SR 150 mg PO DAILY bupropion HCl XL (Wellbutrin XL) 300 mg PO QAM cholecalciferol (vitamin D3) (Vitamin D3) 50 mcg PO DAILY cyclobenzaprine 10 mg PO BEDTIME diclofenac sodium 1% 4 grams topical QID epinephrine IM DIRECTED fluoxetine 40 mg PO DAILY gabapentin 800 mg PO TID lancets (Pure Comfort Safety Lancets) As directed lansoprazole 30 mg PO DAILY levalbuterol HCl mg inhalation linaclotide (Linzess) 145 mcg PO QAM mometasone-formoterol 100-5 mcg/actuation (Dulera) 2 puffs inhalation BID ondansetron HCl 4 mg PO TID PRN oxybutynin chloride ER 20 mg PO BEDTIME pen needle, diabetic (Ultracare Pen Needle) As directed rosuvastatin 40 mg PO BEDTIME semaglutide (Ozempic) mg subcut QWEEK simethicone 125 mg PO QID sodium phosphates 19-7 gram/118 mL (Enema Disposable) mL MI sucralfate (Carafate) 20 mL PO QNOON topiramate (Topamax) 200 mg PO BEDTIME tramadol 50 mg PO TID PRN zaleplon 10 mg PO BEDTIME PRN HPI HPI Discuss CTA: Details: Agnes is a 53-year-old female with past medical history morbid obesity, sleep apnea, hyperlipidemia, CKD who was recently evaluated for chest discomfort and now presents for follow-up after recent CTA of the coronary arteries. Today she reports that she does get intermittent episodes of squeezing in her chest. She now believes this is esophageal spasm. She describes having hiatal hernia and difficulty swallowing at times. He is following with GI and will be having an upper endoscopy in the near future. She has no chest discomfort brought on by physical activity. No shortness of breath, PND, orthopnea or edema. No lightheadedness, presyncope, syncope, falls. She is working on weight loss. She may be undergoing bariatric surgery in the future. She has issues with knee pain and ambulates with a cane. She is compliant with her medications. [facility] Medical History Mood disorder Dental infection Preop examination Hyperlipidemia Acute diarrhea Pancreatic insufficiency Chronic idiopathic constipation Chronic pain syndrome Drug allergy Kidney failure History of MRSA infection (~2010) Stress incontinence Psychosomatic pain Obstructive sleep apnea Anxiety disorder Morbid obesity Fibromyalgia Bipolar disorder Suicide attempt Depression Asthma Surgical History History of esophagogastroduodenoscopy (EGD) Hx of section H/O colonoscopy H/O abdominoplasty History of lumpectomy of left breast H/O bilateral oophorectomy H/O: hysterectomy H/O laparoscopy Family History Mother Stroke Social History Alcohol intake: never Patient Tobacco Use Status: Never used Tobacco Review of Systems Const All systems reviewed & are unremarkable except as noted in HPI and below ENT Denies dizziness Card Details: esophageal spasm Denies chest pain, Denies chest pain at rest, Denies chest pain with activity, Denies rapid heart rate, Denies pedal edema, Denies edema, Denies leg edema, Denies lightheadedness, Denies palpitations, Denies dyspnea, Denies dyspnea on exertion and Denies orthopnea Resp Denies cough, Denies dyspnea and Denies dyspnea on exertion GI Denies hematochezia and Denies change in stool character Musc Reports abnormal gait, Reports limited range of motion (knee pains), Reports muscle cramps, Denies muscle weakness, Denies numbness, Denies radiating pain into limb, Denies stiffness and Denies tingling Neuro Reports abnormal gait, Denies dizziness, Denies numbness and Denies tingling Endo Denies palpitations Physical Exam Vital Signs: Last Vital Signs Pulse 98 04/20/24 15:40 BP 90/62 04/20/24 15:40 BMI result Body Mass Index 37.0 Const General: cooperative, healthy appearing, comfortable and no acute distress Orientation/consciousness: patient oriented x3 HEENT Head: Yes normal to inspection Chest Chest palpation & inspection: normal inspection of the chest Resp Effort & Inspection: normal respiratory effort Auscultation: clear to auscultation bilaterally, no rales, no rhonchi and no wheezes Cardio Rate: regular rate Rhythm: regular rhythm Heart sounds: S1 normal heart sound present, S2 normal heart sound present, no murmurs and no rubs Peripheral pulses: Peripheral pulses 2+ throughout Neuro General: patient oriented x3 Extrem General: Yes normal to inspection, No no pedal edema and No calf tenderness Psych Appearance: grossly normal Mental Status: mental status grossly normal Speech and movement: Normal speech and movement present Assessment & Plan Assessment & Plan (1) Precordial chest pain: Code(s): R07.2 - Precordial pain Category: Medical Plan: Reports of nonexertional chest discomfort. Cardiac risk factors of obesity, hyperlipidemia, CKD. Nuclear stress test done at [facility] on 10/17/2023 shows a fixed defect, small in size, mild intensity in the anterior wall, likely secondary to artifact or scar. EKG done on 02/28/2024 showed sinus rhythm, no acute ST or T-wave abnormalities, rate 85. Echocardiogram done 02/05/2024 showed EF 59%, no valve abnormalities, ascending aorta 4.1 cm, no regional wall motion abnormalities. A CTA of the coronary arteries done on 03/05/2024 shows no evidence of hemodynamically significant coronary artery disease. Minimal proximal LAD stenosis, ascending aorta 4 cm. Test results reviewed with her in detail. She now believes her symptom is esophageal spasm and is undergoing GI evaluation. No evidence that her symptoms are cardiac in nature. Continue with risk factor modification. Benefits a weight loss reviewed. Continue with good cholesterol control and physical activity as tolerated. Signs and symptoms of true angina reviewed. (2) Ascending aorta dilation: Code(s): I77.810 - Thoracic aortic ectasia Category: Medical Plan: Echocardiogram and CTA of the coronaries do show dilated ascending aorta, 4.1 and 4.0 respectively. This finding was reviewed with her. Her blood pressure is normally well controlled. Today it is on the low side. Will plan for a repeat echocardiogram in 1 year followed by cardiology follow-up visit. (3) Hyperlipidemia: Code(s): E78.5 - Hyperlipidemia, unspecified Category: Medical Plan: [place] LDL goal less than 100. Continue rosuvastatin. Labs followed by PCP. (4) Morbid obesity: Code(s): E66.01 - Morbid (severe) obesity due to excess calories Category: Medical Plan: Following with the bariatric program. Plan Time spent on chart review, documentation, interview and assessment Orders: Orders CA echo transthoracic complete 1 Year I77.810 - Thoracic aortic ectasia, R07.2 - Precordial pain Coding Level of Care Code Est Pt Level 4 (46133) Complex EM visit Add On G2211 Diagnoses Precordial chest pain R07.2 Ascending aorta dilation I77.810 Hyperlipidemia E78.5 Morbid obesity E66.01 Time Spent (min) 30
[2024-04-20 15:40] VITALS: BP 90/62; PULSE 98; BMI 37.0
== END 2024-04-20 16:18 | disposition home or self-care (01) ==
PROVIDERS: PCP Registered Nurse; Visit Provider Nurse Practitioner Family
DX: R07.2 Precordial pain (principal); I77.810 Thoracic aortic ectasia; E78.5 Hyperlipidemia, unspecified; E66.01 Morbid (severe) obesity due to excess calories
CPT/HCPCS: 99214; G2211

== ENCOUNTER → 2024-04-20 15:20 | Outpatient (BNVA) | payer OTHER, SELFPAY | PROVIDERS: PCP Registered Nurse; Visit Provider Nurse Practitioner Family | DX: R07.2 Precordial pain (principal); I77.810 Thoracic aortic ectasia; E78.5 Hyperlipidemia, unspecified; E66.01 Morbid (severe) obesity due to excess calories; Z68.37 Body mass index [BMI] 37.0-37.9, adult | CPT/HCPCS: 99212 ==

== ENCOUNTER 2024-05-11 09:16 | Outpatient (AMB) | payer OTHER, SELFPAY ==
--- OUTSIDE RECORDS SUMMARY | 2024-05-11 09:20 | XMS_ITS | Continuity of Care Document ---
Author Organization [facility] [place] [facility] Address [address] [place] [phone] Care Team Providers Care Housing Director Name Role Phone HIM CCA OTHER Assessment Encounter Date Assessment Date Assessment LastModified by Organization Details LastModified Time 05/10/2024 05/10/2024 I provided real -time medical direction via phone for this encounter and was available for additional phone-based assistance as needed. I have reviewed and agree with the Assessment and Plan as documented by the Tax Services Manager. Patient given the opportunity to ask questions. Our service contacted for an assessment of: URI symptoms As per above, patient with approximately 24 hours of increasing nasal congestion, low-grade temperature, feeling very nauseated. Patient also with dry nonproductive cough. Feeling generally speaking unwell with myalgias and arthralgias. Wanted to be tested for COVID and flu. Per ultimate hoops scoreboard operator on the scene, vital signs are stable and patient has a low-grade temp of a 100??. Nontoxic in appearance. COVID is positive and flu is negative. Impression: COVID-19 Plan: Appears patient does have GI symptoms. She would like a prescription and to be treated for this. She has responded very well to Reglan. 10 mg given in the field and a short course called in to the pharmacy of her choice. Additionally the patient requested IV fluids and lactated Ringer's 500 cc was given x1. The patient requested or was interested in taking Paxlovid however medication list uploaded and patient is on 13 medications many with drug interactions. Additionally she has 9 medications that she states she is allergic to with anaphylaxis being her primary concern. After discussion with medic, we elected to forego treatment. Discussed that patient, if her symptoms progress, may be a candidate for IV remdesivir. Red flags discussed as to when to seek a higher level of care or recall this service. She can trial [id number] medications for the cold and flu-like symptoms. Can take Tylenol for myalgias and arthralgias. Allergies: Reviewed PCP f/u: We discussed the diagnostic uncertainty of home visits and the risk associated with this. In this case, the patient and I felt this to be an acceptable and reasonable amount of risk given the benefit of avoiding an ED visit. We discussed the need to seek care urgently/emergen tly in the setting of any new or worsening serious symptoms, particularly fever [place] [id number] Not available 05/10/2024 15:16:24 Plan of Treatment Reminders Order Date Submit Date Provider Last Modified By Organization Details Last Modified Time Details Appointments None recorded. Lab rapid SARS CoV 2 Ag, QL IA, respiratory specimen [address], [phone], 4 15:12:46 rapid flu (A+B) [address], [phone], 4 15:12:46 Referral None recorded. Procedures None recorded. Surgeries None recorded. Imaging None recorded. Medication Orders lactated Ringers intravenous solution [address] [facility], [address] [place] [address], [id number], 4 15:12:46 Reglan 10 mg tablet 2023 024 [id number], [address] [place], [id number], 4 15:12:47 Reglan 10 mg tablet [address], [address] [place] [address], [id number], 4 15:21:08 Patient TargetsNo targets recorded. Patient InstructionsNo instructions recorded. Reason for Referral None Reported. Results Created Date Observation Date Name Description Value Unit Range Abnormal Flag Note LastModifiedBy Organization Detail LastModifiedTime 05/10/20 24 05/10/2024 rapid flu (A+B) Flu negati ve Not Available [facility] ed [address] [place] [address], [phone], 05/10/2024 15:09:40 05/10/20 24 05/10/2024 rapid SARS CoV 2 Ag, QL IA, respi rator y speci men rapid SARS CoV 2 Ag, QL IA, respiratory specimen positi ve Not Available [facility] ed [address] [place] [address], [id number], 05/10/2024 15:09:38 Result Notes None recorded. Medical Equipment None Reported. Allergies Allergen ID Allergen Name Allergen Category Reaction Reaction Severity Criticality Documentation Date Start Date Code Code System Note Provider Name and Address Organization Details Recorded Time 57423 acetamino phen medicatio n Not available Not available Not available 05/10/2024 161 RxNorm Not Available [facility] - production 4 10:53:36 1596 Medicinal product containin g penicilli n and acting as antibacte rial agent (product) medicatio n Not available Not available Not available 05/04/2022 89087 05 SNOMED Not Available [facility] - [facility] 4 03:41:04 1597 acetamino phen / oxycodone medicatio n Not available Not available Not available 05/04/[address] MD [address] [place] [address],[address], [place], [phone] [place] [address] - [facility] 2 21:31:45 1598 codeine medicatio n Not available Not available Not available 05/04/2022 2670 RxNorm Not Available [facility] - production 4 10:53:36 1599 morphine medicatio n Not available Not available Not available 05/04/2022 7052 RxNorm Not Available [facility] - production 03:41:04 1600 Sudafed medicatio n Not available Not available Not available 05/04/2022 55767 2 RxNorm Not Available [facility] - production 4 10:53:36 1601 acetamino phen / dextromet horphan / doxylamin e / pseudoeph edrine medicatio n Not available Not available Not available 05/04/[address] MD [address] [facility],[address], [place], [phone], [facility] 2 21:32:45 1602 MILK OF MAGNESIA medicatio n Not available Not available Not available 05/04/[address] MD [address] [facility],[address], [place], [phone], [place] [facility] 2 21:33:01 7970 aspirin medicatio n Not available Not available Not available 03/10/2024 1191 RxNorm Not Available [facility] - production 4 03:41:04 Medications Name Sig Start Date Stop Date Status Note LastModified by Organization Details LastModified Time comfort tch mis lanc 30g active Not Available Not Available Not Available comfrt touch pad alc prep eaches USE DIRECTED NEEDED FOR 50 DAYS active Not Available Not Available No t Available comfrt touch pad alc prep active Not Available Not Available Not Available poise*pads active Not Available Not Av ailable Not Available med sync [facility] active Not Available Not Available Not Available hydroxyzine pamoate 100 mg capsule TAKE 1 CAPSULE (100 MG) BY MOUTH DAILY NEEDED active Not Available Not Available No t Available prednisone 10 mg tablet TAKE 4 TABS FOR 2 DAYS THEN 3 TABS FOR 2 DAYS THEN 2 TABS FOR 2 DAYS THEN 1 TABLET FOR 2 DAYS AND STOP ORALLY ONCE A DAY 8 DAY(S) active Not Available Not Available No t Available oxybutynin chloride ER 15 mg tablet,exten ded release 24 hr TAKE 1 TABLET ORALLY ONCE A DAY 28 active Not Available Not Available No t Available metocloprami de 5 mg/mL injection solution 10 mg iv slowly 2021 active Not Available Not Available Not Avai lable clindamycin HCl 300 mg capsule TAKE 1 CAPSULE BY MOUTH EVER 12 HOURS UNTILL FINISHED active Not Available Not Available No t Available cetirizine 10 mg tablet TAKE 1 TABLET BY MOUTH EVERY DAY active Not Available Not Available No t Available oxybutynin chloride ER 10 mg tablet,exten ded release 24 hr active Not Available Not Available Not Available levalbuterol 0.63 mg/3 mL solution for nebulization USE 1 VIAL NEBULIZER EVERY 8 HOURS active Not Available Not Available No t Available senna 8.6 mg tablet active Not Available Not Available Not Available ondansetron HCl 4 mg tablet TAKE 1 TABLET ORALLY THREE TIMES A DAY NEEDED FOR NAUSEA 5 DAYS active Not Available Not Available No t Available gabapentin 400 mg capsule TAKE 2 CAPSULES (800 MG) BY MOUTH 3 TIMES PER DAY active Not Available Not Available No t Available hydroxyzine HCl 50 mg tablet active Not Available Not Available Not Available Enema Disposable 19 gram-7 gram/118 mL active Not Available Not Available Not Available Reglan 10 mg tablet Take 1 tablet 4 times a day by oral route for 10 days. 2023 active Not Available Not Available Not Avai lable magnesium oxide 400 mg (241.3 mg magnesium) tablet TAKE 1 TABLET BY MOUTH EVERY DAY active Not Available Not Available No t Available dicyclomine 20 mg tablet active Not Available Not Available Not Available bisacodyl 10 mg rectal suppository active Not Available Not Available Not Available Gas Relief (simethicone ) 80 mg chewable tablet active Not Available Not Available Not Available promethazine 25 mg tablet TAKE 1 TABLET BY MOUTH EVERY 12 HOURS NEEDED active Not Available Not Available No t Available lidocaine HCl 2 % mucosal solution active Not Available Not Available Not Available omeprazole 20 mg capsule,yamilex yed release active Not Available Not Available Not Available topiramate 200 mg tablet TAKE 1 TABLET (200 MG) BY MOUTH DAILY AT BEDTIME active Not Available Not Available N ot Available mupirocin 2 % topical ointment APPLY TO AFFECTED AREA TWICE DAILY FOR 5 DAYS. active Not Available Not Available No t Available zaleplon 10 mg capsule TAKE 1 CAPSULE (10 MG) BY MOUTH DAILY AT BEDTIME NEEDED active Not Available Not Available No t Available sodium chloride 0.9 % intravenous solution 1 l iv infusion 2021 active Not Available Not Available Not Avai lable epinephrine 0.3 mg/0.3 mL injection, auto-injecto r USE DIRECTED INJECTION NEEDED FOR SIGNS OF ANAPHYLAXIS , CALL 911 IF USED active Not Available Not Available No t Available estradiol 0.01% (0.1 mg/gram) vaginal cream active Not Available Not Available Not Available albuterol sulfate HFA 90 mcg/actuatio n aerosol inhaler INHALE 2 PUFFS NEEDED INHALATION EVERY 6 HOURS active Not Available Not Available No t Available ondansetron 4 mg disintegrati ng tablet active Not Available Not Available No t Available fluoxetine 20 mg capsule TAKE 2 CAPSULES (40 MG) BY MOUTH DAILY active Not Available Not Available Not Available Txydl-Zv-Eae Enema (mineral oil) active Not Available Not Available Not Available dextrose 10 % in water (D10W) intravenous solution 250 ml iv infusion 2021 active Not Available Not Available Not Avai lable cyclobenzapr ine 5 mg tablet TAKE 1 TABLET BY MOUTH EVERY DAY AT BEDTIME NEEDED FOR 30 DAYS active Not Available Not Available No t Available Premarin 0.625 mg/gram vaginal cream active Not Available Not Available Not Available rosuvastatin 10 mg tablet TAKE 1 TABLET ONCE A DAY ORALLY 28 DAYS active Not Available Not Available No t Available bupropion HCl XL 300 mg 24 hr tablet, extended release TAKE 1 TABLET (300 MG) BY MOUTH DAILY IN THE MORNING active Not Available Not Available No t Available glycerin (adult) rectal suppository active Not Available Not Available Not Available pregabalin 100 mg capsule active Not Available Not Available Not Available chlorhexidin e gluconate 0.12 % mouthwash SWISH AND SPIT 15 ML (ONE TABLESPOON) UNDILUTED FOR 30 SECONDS AFTER BREAKFAST AND BEFORE BEDTIME active Not Available Not Available No t Available ondansetron HCl (PF) 4 mg/2 mL injection solution 4 mg iv x 1 2021 active Not Available Not Available Not Avai lable FreeStyle Lite Strips USE DIRECTED ONCE A DAY NEEDED active Not Available Not Available No t Available Tegaderm Frame Style 4 X 4 3/4 bandage active Not Available Not Available Not Available diclofenac 1 % topical gel 4 GRAMS TO AFFECTED AREA EXTERNALLY FOUR TIMES A DAY 30 DAYS active Not Available Not Available No t Available melatonin 5 mg tablet active Not Available Not Available No t Available GaviLyte-G 236 gram-22.74 gram-6.74 gram-5.86 gram oral solution MIX AND DRINK EVERY 10 MINUTES FOR 1 DAY; UNTIL FECAL EFFLUENT IS CLEAR; DO NOT EXCEED A TOTAL VOLUME OF 2,000 ML (1/2 JUG) active Not Available Not Available No t Available Creon 24,000-76,00 0-120,000 unit capsule,yamilex yed release active Not Available Not Available Not Available Dulera 100 mcg-5 mcg/actuatio n HFA aerosol inhaler INHALE 2 PUFFS INHALATION TWICE A DAY active Not Available Not Available Not Available buprenorphin e 2 mg-naloxone 0.5 mg sublingual film active Not Available Not Available Not Available Butrans 20 mcg/hour transdermal patch APPLY 1 PATCH TOPICALLY TO THE SKIN 1 TIME A WEEK FOR 7 DAYS active Not Available Not Available No t Available buprenorphin e 5 mcg/hour weekly transdermal patch active Not Available Not Available Not Available buprenorphin e 10 mcg/hour weekly transdermal patch active Not Available Not Available Not Available Vitamin D3 50 mcg (2,000 unit) capsule TAKE 1 CAPSULE ONCE A DAY 28 active Not Available Not Available No t Available Konsyl (sugar) 3.4 gram oral powder packet active Not Available Not Available Not Available Belbuca 300 mcg buccal film active Not Available Not Available Not Available Belbuca 450 mcg buccal film TAKE 1 FILM BUCALLY IN THE EVENING, 12 HOURS AFTER TAKING 300 MCG FILM IN THE MORNING 28 DAYS active Not Available Not Available No t Available Trulance 3 mg tablet active Not Available Not Available No t Available Ozempic 1 mg/dose (2 mg/1.5 mL) subcutaneous pen injector active Not Available Not Available Not Available Ozempic 0.25 mg or 0.5 mg (2 mg/1.5 mL) subcutaneous pen injector INJECT 0.5MG INTO THE SKIN ONCE A WEEK active Not Available Not Available Not Available Ultracare Pen Needle 31 gauge x 5/16 DIRECTED ONCE A DAY SUBCUTANEOU SLY 50 DAYS active Not Available Not Available Not Available Pure Comfort Safety Lancets 30 gauge USE DIRECTED NEEDED EVERY DAY FOR 90 DAYS active Not Available Not Available Not Available Ozempic 1 mg/dose (4 mg/3 mL) subcutaneous pen injector INJECT 1 MG SUBCUTANEOU S ONCE A WEEK active Not Available Not Available No t Available Flowflex COVID-19 Antigen Home Test kit REFER TO MANUFACTURE R INSTRUCTION S INCLUDED IN PACKAGING active Not Available Not Available No t Available Ozempic 2 mg/dose (8 mg/3 mL) subcutaneous pen injector INJECT 2MG SUBCUTANEOU SLY ONCE A WEEK active Not Available Not Available No t Available Vitals Date Recorded Body temperature Heart rate Oxygen saturation Oxygen saturation in Arterial blood by Pulse oximetry Respiratory rate Systolic blood pressure Diastolic blood pressure Systolic blood pressure Diastolic blood pressure Provider Name and Address Organization Details Last Updated DateTime 100.1 [degF] 93 /min 97 % 97 % 16 /min 120 mm[Hg] 74 mm[Hg] 117 mm[Hg] 80 mm[Hg] Not Available [facility] - production 13:26:47 Social History None recorded. Functional Status None recorded. Mental Status None recorded. Family History Nothing Reported. Medical History No medical history recorded. Gynecological HistoryNo gynecological history recorded. Obstetrics History GPAL:G 0 P 0 0 0 0 Past Encounters Encounter ID Performer Location Encounter Start Date Encounter Closed Date Diagnosis/Indication Diagnosis SNOMED-CT Code Diagnosis ICD10 Code [id number] Yari Gonzalez MD [facility] - [facility] [address] [place] [address] 05/10/2024 13:26:45 05/10/2024 15:17:14 COVID-19 288662386 U07.1 Nausea 659858108 R11.0 Health Concerns Section Related Observation LastModified by Organization Detai ls LastModified Time None Recorded Concern Status LastModified by Organization Details LastModified Time None Recorded Payers Encounter Date Sequence Insurance Name Policy Number Policy Kahn Covered Member ID Kahn Member ID Guarantor Name 05/10/2024 1 FORMERLY [facility] - DOS ON OR AFTER 2022 - DUAL ELIGIBLE - SKILLED NURSING OPTIONS AND ONE CARE (MEDICARE REPLACEMENT/ADV ANTAGE - HMO) Agnes Vilchis [id number] Agnes Vilchis Notes Date Note Type Note Provider Name and Address Organization Details Recorded Time 05/10/2024 text/html HPI: Call to patient, she was gagging on phone but able to discuss her symptoms. She states that she started feeling sick last night with a + cough, ear ache and sore throat. Her sister recently tested positive and recommended patient also test with her current sx. Patient test positive for COVID last night- 05/09/24. Today she has been nauseous and vomiting, increased coughing and starting to feel short of breath. She also reports feeling dizzy as though she might pass out.Reviewed patient's medical history- as follows- 53 year old female with chronic pain, fibromyalgia, osteoarthritis, chronic fatigue, obesity, prediabetes, HLD, stage 3a CKD, depression, anxiety, chronic PTSD, insomnia, GERD, IBS with constipation, asthma/COPD, DEBBI, skin-picking disorder, lymphedema, allergic rhinitis, overactive bladder, and recently discovered thoracic aortic ectasia. Advised patient present to the emergency room for further management of her symptoms. Patient did not feel her symptoms were severe enough to warrant the hospital and really prefers to stay home. During our conversation she was speaking in full sentences and did not sound short of breath. Patient feels she is stable enough to wait a few hours for ultimate hoops scoreboard operator visit to assess her current clinical presentation and ability to be managed as an outpatient. [facility] request submitted for urgent in home assessment. .................... .................... .................... .................... .................... .................... .................... . [facility] Nurse Triage Notes (Mark Hinojosa - RN): Chief Complaints: Cough, Earache, Vomiting PMH: Hypertension, COPD/Asthma Comments: Reviewed HPI .................... .................... .................... .................... .................... .................... .................... . Tax Services Manager Note From Edmund Blackwell: This 53-year-old female with a history including but not limited to chronic pain, fibromyalgia, OA, fatigue, obesity, prediabetes, HLD, stage III CKD, depression, PTSD, GERD, IBS, COPD, lymphedema, overactive bladder requested a visit today because she tested positive for COVID last night. Patient complains of dry cough, rhinorrhea, mild shortness of breath, mild dizziness and poor appetite. Patient also states she is nauseous and vomited twice last night. Patient states Reglan works best for her Zofran usually does not work. Patient states she's hydrating well and does not like to use any mine-kqz-omxiwcr's due to allergies.Patient presents awake and alert, in no acute distress, speaking full sentences. Her vital signs are stable, not orthostatic and temp is 100.1. Nonfocal neurological exam. Normal gait. Lungs are clear throughout auscultation. Abdomen is soft, nontender, nondistended. No lower extremity edema.Due to the patient? s medication list I explained that Paxlovid would not be a good option for her. I treated her with lactated ringers 500 ML IV and the metoclopramide 10 mg IVP. I recommend she follows up with her primary care physician tomorrow morning and continue to stay well hydrated. I instructed her to present to the emergency department for any new or worsening severe symptoms such as chest pain, severe shortness of breath, high fever, altered mental status. The patient was given the opportunity to ask questions and is agreeable to this plan. .................... .................... .................... .................... .................... .................... .................... . [facility] [place] Consulted: Yari Gonzalez .................... .................... .................... .................... .................... .................... .................... . Disposition: Fulfilled Yari Gonzalez MD [address] [place] [address],[address], [place], [address], [facility] - [facility] 05/10/2024 15:22:05 OBGyn Episode No OBEpisode recorded.
[2024-05-11 10:11] VITALS: BMI 36.2
--- NOTE | 2024-05-11 10:11 | A.OFFVIS_ITS ---
VS Expanded 05/11/24 10:11 Height 5 ft 7 in Weight 231 lb BMI 36.2 Intake Visit Reasons: TV Sliding Hiatal Hernia - Dr. Patterson Ref. Allergies acetaminophen [From Tylenol] Allergy (Severe, Verified 05/11/24 10:14) Anaphylaxis aspirin Allergy (Severe, Verified 05/11/24 10:14) Anaphylaxis codeine Allergy (Severe, Verified 05/11/24 10:14) Anaphylaxis dextromethorphan [From NyQuil] Allergy (Severe, Verified 05/11/24 10:14) Anaphylaxis doxylamine [From NyQuil] Allergy (Severe, Verified 05/11/24 10:14) Anaphylaxis magnesium hydroxide [From Milk of Magnesia] Allergy (Severe, Verified 05/11/24 10:14) Anaphylaxis morphine Allergy (Severe, Verified 05/11/24 10:14) Anaphylaxis oxycodone [From Percocet] Allergy (Severe, Verified 05/11/24 10:14) Anaphylaxis Penicillins Allergy (Severe, Verified 05/11/24 10:14) Anaphylaxis propoxyphene [From Darvocet-N 100] Allergy (Severe, Verified 05/11/24 10:14) Anaphylaxis pseudoephedrine [From Sudafed] Allergy (Severe, Verified 05/11/24 10:14) Anaphylaxis Medication List - Last Reconciled 05/11/24 by Prakash Adams MD albuterol sulfate 90 mcg/actuation 2 inhalations inhalation blood sugar diagnostic (FreeStyle Test strips) As directed bupropion HCl SR 150 mg PO DAILY bupropion HCl XL (Wellbutrin XL) 300 mg PO QAM cholecalciferol (vitamin D3) (Vitamin D3) 50 mcg PO DAILY cyclobenzaprine 10 mg PO BEDTIME diclofenac sodium 1% 4 grams topical QID epinephrine IM DIRECTED fluoxetine 40 mg PO DAILY gabapentin 800 mg PO TID lancets (Pure Comfort Safety Lancets) As directed lansoprazole 30 mg PO DAILY levalbuterol HCl mg inhalation linaclotide (Linzess) 145 mcg PO QAM mometasone-formoterol 100-5 mcg/actuation (Dulera) 2 puffs inhalation BID ondansetron HCl 4 mg PO TID PRN oxybutynin chloride ER 20 mg PO BEDTIME pen needle, diabetic (Ultracare Pen Needle) As directed rosuvastatin 40 mg PO BEDTIME semaglutide (Ozempic) mg subcut QWEEK simethicone 125 mg PO QID sodium phosphates 19-7 gram/118 mL (Enema Disposable) mL FL sucralfate (Carafate) 20 mL PO QNOON topiramate (Topamax) 200 mg PO BEDTIME tramadol 50 mg PO TID PRN zaleplon 10 mg PO BEDTIME PRN HPI HPI TV Sliding Hiatal Hernia - Dr. Patterson Ref.: Details: Start time: 10.01am, End time: 11.01am ?I spent 50 minutes speaking with the patient on the phone plus an additional 10 minutes reviewing and updating records for a total of 60 minutes HPI Comments Details: Was in the program a few months ago. Was told by Ms Parrish to discontinue the program due to the ongoing GERD, esophageal spasms and nausea. The patient has been on Ozempic for 3 years which is a long time. According to the [facility] [place] has lost 33lbs in 3 years on Ozempic. Is on several medications with unclear benefit and potential side-effects. Tests reviewed: EGD 11/03 (Leonardo: 2cm sliding HH, H pylori negative, no GEJ biopsies done) CTA 03/05 (Rakel: no CAD, small HH) adenosine stress test (03/05: normal with a fixed defect probably an artifact) Echo (02/03: normal) EKG: (03/05: normal) CXR: (03/05: normal) Abdominal US: (10/03: normal) [facility] Medical History Mood disorder Dental infection Preop examination Hyperlipidemia Acute diarrhea Pancreatic insufficiency Chronic idiopathic constipation Chronic pain syndrome Drug allergy Kidney failure History of MRSA infection (~2010) Stress incontinence Psychosomatic pain Obstructive sleep apnea Anxiety disorder Morbid obesity Fibromyalgia Bipolar disorder Suicide attempt Depression Asthma Surgical History History of esophagogastroduodenoscopy (EGD) Hx of section H/O colonoscopy H/O abdominoplasty History of lumpectomy of left breast H/O bilateral oophorectomy H/O: hysterectomy H/O laparoscopy Family History Mother Stroke Social History Alcohol intake: never Patient Tobacco Use Status: Never used Tobacco Telehealth Telehealth Telehealth Platform: Telephone Location of provider rendering services: practice address Location of patient: address on file Patient Identification confirmed using: Name, : Yes Telehealth method: voice only Patient verbally consented to treatment: Yes Patient verbally consented to billing insurance company: Yes Patient informed of any privacy concerns related to visit: Yes Minutes spent on Phone/Video with Pt.: 60 Assessment & Plan Assessment & Plan (1) Obesity: Code(s): E66.9 - Obesity, unspecified Category: Medical Qualifiers: Obesity type: due to excess calories Obesity classification: adult class 2 (BMI 35 - 39.9) Serious obesity comorbidity presence: with serious comorbidity Body mass index: BMI 37.0-37.9 Qualified Code(s): E66.812 - Obesity, class 2; E66.01 - Morbid (severe) obesity due to excess calories; Z68.37 - Body mass index [BMI] 37.0-37.9, adult Plan: We had an extensive discussion. My recommendation is to stop the Ozempic which maybe the cause of multiple of her symptoms. Hopefully she could be off the Zofran, Simethicone, Linzess). I would also stop the Cyclobenzaprine. We discussed about stopping the Gabapentin but she believes it helps her to be more mobile. I also told her that I don't think repairing the small hiatal hernia alone would solve her problems. Instead, besides stopping the above medications, I recommended that she stays in the program and work with me on a proper lifestyle intervention program and additionally begin the process for bariatric surgery, if she does not do well enough first with only the lifestyle program. If we decide to proceed with bariatric surgery, I would assess and possibly repair the hiatal hernia then. Also if she sees improvement with the lifestyle program but the GERD does not improve at all in a period of 2-3 months, which I doubt, we could then discuss the possibility of repairing only the hernia. She will consider all the above and I urged them to discuss them with Parrish and her PCP. She will get back to me after the speaks to them. She is in agreement with the plan.
== END 2024-05-11 11:02 | disposition home or self-care (01) ==
LOC: HO.HBS 09:16
PROVIDERS: PCP Registered Nurse; Visit Provider Surgery
DX: E66.812 Obesity, class 2 (principal); E66.01 Morbid (severe) obesity due to excess calories; Z68.37 Body mass index [BMI] 37.0-37.9, adult
CPT/HCPCS: 99205

== ENCOUNTER → 2024-05-11 09:16 | Outpatient (BNVA) | payer OTHER, SELFPAY | PROVIDERS: PCP Registered Nurse; Visit Provider Surgery ==

== ENCOUNTER 2024-06-23 10:06 | Outpatient (REF) | payer OTHER, SELFPAY ==
--- OUTSIDE RECORDS SUMMARY | 2024-06-23 12:42 | XMS_ITS | Continuity of Care Document ---
Author Organization [facility] Address [address] [place] [id number]- Care Team Providers Care Remnant Sorter Name Role Phone Anupama Felix MD Primary Care Physician Encounter [facility] [id number] Date(s): 06/04/24 - 06/11/24 [facility] [address] [place] [id number] Attending Physician: Anupama Felix MD Encounter Type: Office Visit Allergies, Adverse Reactions, Alerts Substance Criticality Severity Reaction Reaction Severity Status codeine Active aspirin Active morphine Active NyQuil D Difficulty abner thing Redness Hives Swelling of body structure Active Darvocet A500 Active penicillins Active Percocet 7.5/325 Act asya Zofran Active Tylenol Active Sudafed Redness Hives Difficulty breathing Active Immunizations Given and Recorded Vaccine Date Status Refusal Reason influenza virus vaccine, inactivated 03/19/19 Give n tetanus/diphtheria/pertussis, acel(Tdap) 09/05/17 Given Medications 1 each 1 each, See Instructions, # 1 each, Refills 0, Tot. Refills 0, Maintenance, Bilateral heating pad for legs, 03/30/19 8:33:25 PM EST, Compound Start Date: 03/30/19 Status: Ordered Quantity: 1.0 Unit: each Repeat number: 1 1 each 1 each, See Instructions, # 1 each, Refills 0, Tot. Refills 0, Maintenance, Cane, 03/30/19 8:34:55 PM EST, Compound Start Date: 03/30/19 Status: Ordered Quantity: 1.0 Unit: each Repeat number: 1 4 x 4 gauze 4 x 4 gauze, See Instructions, # 60 units, Refills 0, Tot. Refills 0, Maintenance, Apply to affected area 2 times daily., 06/20/18 10:10:25 AM EST, Can be exchanged for larger size if 4x4 is unavailable., Compound Start Date: 06/20/18 Status: Ordered Quantity: 60.0 Unit: Units Repeat number: 1 Abdominal binder Abdominal binder, See Instructions, # 1 units, Refills 0, Tot. Refills 0, Maintenance, Apply as needed for relief in symptoms., 09/10/17 6:50:56 AM EDT, Compound Start Date: 09/10/17 Status: Ordered Quantity: 1.0 Unit: Units Repeat number: 1 Aerochamber Spacer to be used with inahlers Aerochamber Spacer to be used with inahlers, See Instructions, # 1 each, Refills 0, Tot. Refills 0,Maintenance, use spacer with inhalers, 12/04/18 10:16:51 AM EDT, Asthma J45.90, Compound Start Date: 12/04/18 Status: Ordered Quantity: 1.0 Unit: each Repeat number: 1 albuterol 0.083% inhalation solution 3 mL = 2.5 mg, Inhalation, Every 6 hours, PRN for wheezing, # 25 each, 0 Refills, Maintenance, 02/25/19 3:11:16 PM EDT, [facility] Start Date: 02/25/19 Status: Ordered Quantity: 25.0 Unit: each Repeat number: 1 albuterol-ipratropium 3 mg-0.5 mg/3 ml inhalation solution 3 mL, Neb, 3 times a day, PRN Dyspnea, # 90 mL, 2 Refills, Maintenance, 02/20/19 10:35:15 AM EDT, [facility], asthma j45.90, 3 mL Neb 3 times a day,x30 days,PRN:Dyspnea Start Date: 02/20/19 Stop Date: 05/21/19 Status: Ordered Quantity: 90.0 Unit: mL Repeat number: 3 atorvastatin 80 mg oral tablet 1 tablet = 80 mg, By Mouth, Daily, # 30 tablet, 5 Refills, Maintenance, 02/20/19 10:31:26 AM EDT, Tablet, [facility] Start Date: 02/20/19 Stop Date: 08/19/19 Status: Ordered Quantity: 30.0 Unit: tablet Repeat number: 6 Bilateral knee brace Bilateral knee brace, See Instructions, # 2 each, Refills 0, Tot. Refills 0, Maintenance, b/l knee braces, 04/07/19 9:31:34 AM EST, Compound Start Date: 04/07/19 Status: Ordered Quantity: 2.0 Unit: each Repeat number: 1 Bilateral LE CC 2 custom thigh-high stockings Bilateral LE CC 2 custom thigh-high stockings, See Instructions, # 2 kit, Refills 2, Tot. Refills 2, Maintenance, Dx:: LE Edema. Venous insufficiency., 11/03/20 12:08:00 PM EDT, Compound Start Date: 11/03/20 Status: Ordered Quantity: 2.0 Unit: kit Repeat number: 3 Compression- Upper Extremity See Instructions, # 2 kit, Refills 3, Tot. Refills 3, Maintenance, Right cc1 compression sleeve without glove, 11/03/20 12:08:00 PM EDT, Supply Start Date: 11/03/20 Status: Ordered Quantity: 2.0 Unit: kit Repeat number: 4 CPAP Machine AutoCPAP 8-20, Maintenance, 07/03/17 6:25:44 PM EST, Compound Start Date: 07/03/17 Status: Ordered Repeat number: 1 Dulera 100 mcg-5 mcg/inh inhalation aerosol 0 Refills, Maintenance, 07/04/23 12:39:00 PM EST, Partial fill upon patient request if the prescription is for a schedule II opioid drug. Start Date: 07/04/23 Status: Ordered Repeat number: 1 Estrace Vaginal Cream 0.1 mg/g = 1 Gm, Vaginally, Every Saturday and , # 42.5 Gm, 4 Refills, Maintenance, 12/22/19 12:57:00 PM EDT, [facility], 167.64, cm, 10/19/19 10:36:00 EDT, Height, 123, kg, 10/06/19 14:12:00 EDT, Dry Weight Start Date: 12/22/19 Status: Ordered Quantity: 42.5 Unit: g Repeat number: 5 Flonase 50 mcg/inh nasal spray 1 sprays, Nares, Both, 2 times a day, # 16 Gm, 0 Refills, Maintenance, 10/27/18 3:19:50 PM EDT, [place], [facility], 1 sprays Nares, Both 2 times a day Start Date: 10/27/18 Status: Ordered Quantity: 16.0 Unit: g Repeat number: 1 Flovent HFA 110 mcg/inh inhalation aerosol 2 puffs, Inhalation, 2 times a day, Rinse mouth and throat after use. start after finishing the prednisone, # 12 Gm, 1 Refills, Maintenance, 02/25/19 3:11:24 PM EDT, Aerosol, [facility] Start Date: 02/25/19 Status: Ordered Quantity: 12.0 Unit: g Repeat number: 2 Indication: Unspecified asthma, uncomplicated gabapentin 300 mg oral capsule 900 mg, 3, capsule, By Mouth, 3 times a day, # 270 capsule, Refills 11, Tot. Refills 11, Maintenance, 06/20/18 10:17:10 AM EST, Route to Pharmacy Electronically, [facility] Start Date: 06/20/18 Stop Date: 06/15/19 Status: Ordered Quantity: 270.0 Unit: capsule Repeat number: 12 hydrOXYzine hydrochloride 10 mg oral tablet 1 tablet = 10 mg, By Mouth, Daily, PRN for panic attacks, # 20 tablet, 2 Refills, Maintenance, 02/25/19 3:11:11 PM EDT, Tablet, [facility] Start Date: 02/25/19 Status: Ordered Quantity: 20.0 Unit: tablet Repeat number: 3 Juzo Sensation, Marli Shorts Juzo Sensation, Marli Shorts, See Instructions, # 1 kit, Refills 0, Tot. Refills 0, Maintenance, Dx: Lyipoedema, Marli shorts, 06/04/24 10:55:00 AM EST, Supply Start Date: 06/04/24 Status: Ordered Quantity: 1.0 Unit: kit Repeat number: 1 Indication: Edema, unspecified Left Upper Extremity Compression sleeve, Class I (20-30mmHg) Left Upper Extremity Compression sleeve, Class I (20-30mmHg), See Instructions, # 2 kit, Refills 2,Tot. Refills 2, Maintenance, Dx: Lipoedema, 06/04/24 10:53:00 AM EST, Supply Start Date: 06/04/24 Status: Ordered Quantity: 2.0 Unit: kit Repeat number: 3 melatonin 10 mg oral capsule 1 capsule = 10 mg, By Mouth, Daily at bedtime, # 90 capsule, 1 Refills, Maintenance, 02/27/18 12:46:06 PM EDT, [facility] Start Date: 02/27/18 Status: Ordered Quantity: 90.0 Unit: capsule Repeat number: 2 Nebulizer to be used with inhaler Nebulizer to be used with inhaler, See Instructions, PRN Wheezing/Shortness of Breath, # 1 units, Refills 0, Tot. Refills 0, Maintenance, nebulizer, 01/05/19 10:00:27 PM EDT, Compound Start Date: 01/05/19 Status: Ordered Quantity: 1.0 Unit: Units Repeat number: 1 Nebulizer/Compressor See Instructions, # 1 units, Maintenance, Use up to 4x daily as needed for wheezing/shortness of breath. Dx Asthma, 09/24/18 10:14:00 AM EDT, Compound Start Date: 09/24/18 Status: Ordered Quantity: 1.0 Unit: Units Repeat number: 1 NIFEdipine (Eqv-Adalat CC) 30 mg oral tablet, extended release 1 tablet = 30 mg, By Mouth, Daily, # 30 tablet, 0 Refills, Maintenance, 07/04/23 12:44:00 PM EST, ERTablet, Partial fill upon patient request if the prescription is for a schedule II opioid drug. Start Date: 07/04/23 Status: Ordered Quantity: 30.0 Unit: tablet Repeat number: 1 OXcarbazepine 300 mg oral tablet 300 mg, 1, tablet, By Mouth, 2 times a day, # 60 tablet, Refills 2, Tot. Refills 2, Maintenance, 03/24/19 1:08:59 PM EST, Route to Pharmacy Electronically, [facility], Please discard oxcarbazepine 600mg BID. She should take 300mg BID. Start Date: 03/24/19 Status: Ordered Quantity: 60.0 Unit: tablet Repeat number: 3 oxybutynin 10 mg/24 hr oral tablet, extended release 1 tablet = 10 mg, By Mouth, Daily, 0 Refills, Maintenance, 09/29/19 11:02:00 AM EDT Start Date: 09/29/19 Status: Ordered Repeat number: 1 Ozempic 8 mg/3 mL (2 mg dose) subcutaneous solution 0 Refills, Maintenance, 07/04/23 12:39:00 PM EST, Partial fill upon patient request if the prescription is for a schedule II opioid drug. Start Date: 07/04/23 Status: Ordered Repeat number: 1 Premarin Vaginal 0.625 mg/gm cream with applicator = 1 Gm, Vaginally, Every Saturday and Saturday, # 30 Gm, 2 Refills, Maintenance, 10/06/19 1:34:00 PM EDT, [facility], 1 Gm Vaginally Every Saturday and Saturday,x120 days, 167.64, cm, 03/30/19 9:25:00 EST, Height, 128.63, kg, 12/30/18 13:31:00 EDT, Dry Weight Start Date: 10/06/19 Stop Date: 09/30/20 Status: Ordered Quantity: 30.0 Unit: g Repeat number: 3 promethazine 25 mg oral tablet 0 Refills, Maintenance, 07/04/23 12:45:00 PM EST, Partial fill upon patient request if the prescription is for a schedule II opioid drug. Start Date: 07/04/23 Status: Ordered Repeat number: 1 PROzac 40 mg oral capsule 1 capsule = 40 mg, By Mouth, 2 times a day, # 60 capsule, 11 Refills, Maintenance, 09/04/18 8:37:05 AM EDT, Capsule, [facility] Start Date: 09/04/18 Status: Ordered Quantity: 60.0 Unit: capsule Repeat number: 12 Right Upper Extremity Compression sleeve, Class I (20-30mmHg) Right Upper Extremity Compression sleeve, Class I (20-30mmHg), See Instructions, # 2 kit, Refills 2, Tot. Refills 2, Maintenance, Dx: Lipoedema, 06/04/24 10:52:00 AM EST, Supply Start Date: 06/04/24 Status: Ordered Quantity: 2.0 Unit: kit Repeat number: 3 See instructions See instructions, See Instructions, # 1 each, Refills 0, Tot. Refills 0, Maintenance, Air purifier,01/09/19 9:09:55 PM EDT, Compound Start Date: 01/09/19 Status: Ordered Quantity: 1.0 Unit: each Repeat number: 1 silver sulfADIAZINE 1% topical cream 1 application, Topically, 2 times a day, # 85 Gm, 0 Refills, Maintenance, 07/04/18 10:01:12 AM EST, Cream, [facility], substitution allowed for mininmum co-pay, 1 application Topically 2 times a day Start Date: 07/04/18 Status: Ordered Quantity: 85.0 Unit: g Repeat number: 1 tegaderm 4x4 tegaderm 4x4, See Instructions, # 60 film, Refills 0, Tot. Refills 0, Maintenance, Larger size can be substituted if 4x4 is not available., 06/20/18 10:06:59 AM EST, Compound Start Date: 06/20/18 Status: Ordered Quantity: 60.0 Unit: film Repeat number: 1 topiramate 100 mg oral capsule, extended release 1 capsule = 100 mg, By Mouth, Daily, # 30 capsule, 3 Refills, Maintenance, 05/22/19 2:38:00 PM EST, ER Capsule, [facility], 167.64, cm, 03/30/19 9:25:00 EST, Height, 128.63, kg, 12/30/18 13:31:00 EDT, Dry Weight Start Date: 05/22/19 Stop Date: 09/19/19 Status: Ordered Quantity: 30.0 Unit: capsule Repeat number: 4 Ventolin HFA 108 mcg/inh inhalation aerosol with adapter 1 puffs, Inhalation, 4 times a day, PRN for wheezing, # 18 Gm, 0 Refills, Maintenance, 02/25/19 3:11:19 PM EDT, Aerosol, [facility] Start Date: 02/25/19 Status: Ordered Quantity: 18.0 Unit: g Repeat number: 1 Wellbutrin By Mouth, 0 Refills, Maintenance, 11/03/20 10:57:00 AM EDT, Partial fill upon patient request if theprescription is for a schedule II opioid drug. Start Date: 11/03/20 Status: Ordered Repeat number: 1 Wheelchair See Instructions, # 1 each, Maintenance, manual wheelchair dx Fibromyalgia body stiffness Lifetime Ht:5'7 Wt:285.12 lbs, 07/15/17 11:37:27 AM EST, Compound Start Date: 07/15/17 Status: Ordered Quantity: 1.0 Unit: each Repeat number: 1 Zofran 4 mg oral tablet 1 tablet = 4 mg, By Mouth, Every 8 hours, PRN as needed for nausea/vomiting, # 10 tablet, 0 Refills, Maintenance, 12/08/18 1:52:05 PM EDT, Tablet, [facility], please confirm that patient does not have an allergy to this. listed as side effect but says she has tolerated in the past. Start Date: 12/08/18 Status: Ordered Quantity: 10.0 Unit: tablet Repeat number: 1 Problem List Condition Confirmation Course Effective Dates Status H ealth Status Informant Atrophy of ear Confirmed Active Bipolar disorder Confirmed Active Morbid obesity with BMI of 40.0-44.9, adult Confirmed Active COVID-19 1 Confirmed 05/17/24 Active Fibromyalgia Confirmed Active Generalized anxiety disorder Confirmed Active HH (hiatus hernia) Confirmed Active HLD (hyperlipidemia) Confirmed Active Lymphedema Confirmed Active Mixed incontinence Confirmed Active Obstructive sleep apnea Confirmed Active *[id number]- 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 Nataliya Henry Confirmed Active Depression, major, recurrent Confirmed Active Severe obesity (BMI 35.0-39.9) with comorbidity Confirmed Active Psychosomatic pain Confirmed Active Arm swelling Confirmed Active Vulvovaginal pain Confirmed Active 1Problem added by Discern Expert Vital Signs Most recent to oldest [Reference Range]: 1 Height 170 cm (06/04/24 10:22 AM) Weight 103.1 kg (06/04/24 10:22 AM) Oxygen Saturation [94-100 %] 98 % (06/04/24 10:22 AM) Pulse Rate [55-90 bpm] 99 bpm *H* (06/04/24 10:22 AM) Body Mass Index [18.5-24.99 kg/m2] 35.67 kg/m2 *>HHI* (06/04/24 10:22 AM) Blood Pressure [90-138/55-84 mm Hg] 91/5 9mm Hg (06/04/24 10:22 AM) Mode of Delivery (Oxygen) Room air (06/04/24 10:22 AM) Blood pressure sites Arm, left (06/04/24 10:22 AM) Social History Social History Type Response Smoking Status Never (less than 100 in lifetime) entered on: 09/29/19 Sex Sex Representation Female (finding) Patient Care team information Care Team Personnel Name: Anupama Felix MD Position: S Physician - Primary Care Member Role: PCP Address: [address] [place] [address] Telecom: Care Team Related Persons Name: JOY BANEGAS Name: PATRICE RICHARD Name: ANUPAMA JOSEPH Insurance Providers Guarantor name: CHERYL CROUCH Health Plan Information #: 1 Payer: [facility] [employer] Member Number: [id number] Policy Number: NA Group Number: [facility] Health Plan Information #: 2 Payer: [facility] Member Number: [id number] Policy Number: NA Group Number: NA
[2024-06-23 12:57] LABS: Alanine Aminotransferase 21 U/L (0-31); Albumin Level 4.4 g/dL (3.5-5.0); Alkaline Phosphatase 83 U/L (39-117); Aspartate Amino Transferase 32 U/L (5-31); Bilirubin Direct 0.2 mg/dL (0.0-0.5); Bilirubin Total 0.9 mg/dL (0.0-1.0); Lipase 26 U/L (8-78); Total Protein 8.7 g/dL (6.5-8.0)
[2024-06-23 13:11] LABS: Folate 8.6 ng/mL (> or = 4.0); Vitamin B12 295 pg/mL (200-900)
[2024-06-23 13:15] LABS: TSH reflex Free T4 1.01 uIU/mL (0.32-4.0)
[2024-06-26 18:28] LABS: Transglutaminase IgA <1.0 U/mL
[2024-06-28 14:44] LABS: Vitamin D 25-OH, D2 <4 ng/mL; Vitamin D 25-OH, D3 33 ng/mL; Vitamin D 25-OH, Total 33 ng/mL (30-100)
== END 2024-06-23 10:07 | disposition home or self-care (01) ==
LOC: HO.LAB 10:06
PROVIDERS: PCP Registered Nurse; Visit Provider Nurse Practitioner Family
DX: R74.01 Elevation of levels of liver transaminase levels (principal); E55.9 Vitamin D deficiency, unspecified; R10.10 Upper abdominal pain, unspecified; K21.9 Gastro-esophageal reflux disease without esophagitis; K59.01 Slow transit constipation; K52.9 Noninfective gastroenteritis and colitis, unspecified; R14.0 Abdominal distension (gaseous); R10.13 Epigastric pain
CPT/HCPCS: 36415; 80076; 82306; 82607; 82746; 83690; 84443; 86364; 99212

== ENCOUNTER 2024-08-28 11:33 | Outpatient (AMB) | payer OTHER, SELFPAY ==
[2024-08-28 11:36] VITALS: BP 112/72; PULSE 92; O2SAT 97; BMI 35.4
--- NOTE | 2024-08-28 11:36 | MHC.OFFVIS ---
Vital Signs 08/28/24 11:36 Height 5 ft 7 in Weight 226 lb BMI 35.4 BP 112/72 Blood Pressure Location Rt brachial Position Sitting Pulse 92 Pulse Source Pulse Oximeter Pulse Oximetry (%) 97 Oxygen Delivery Method Room Air Intake Visit Reasons: 2 mo f/u Intake Note: ESTABLISHED PATIENT for mgmt of fecal abn + GERD. Labs done. Imaging scheduled. Chief Complaint; C/O diarrhea frequency. Pt recently discovered that she believes her emotions have a strong influence on her BMs. Pt has been switching medications lately for weight management and has been dealing with frequency regardless of which medications she has been on. Pt denies any signs of hemorrhoids or additional sx at this time. Pt has surgery planned next week (knee). Fixed Capital Clerk Required: No Accompanied by: Self / Same As Patient Allergies acetaminophen [From Tylenol] Allergy (Severe, Verified 09/04/24 14:36) Anaphylaxis aspirin Allergy (Severe, Verified 09/04/24 14:36) Anaphylaxis codeine Allergy (Severe, Verified 09/04/24 14:36) Anaphylaxis dextromethorphan [From NyQuil] Allergy (Severe, Verified 09/04/24 14:36) Anaphylaxis doxylamine [From NyQuil] Allergy (Severe, Verified 09/04/24 14:36) Anaphylaxis magnesium hydroxide [From Milk of Magnesia] Allergy (Severe, Verified 09/04/24 14:36) Anaphylaxis morphine Allergy (Severe, Verified 09/04/24 14:36) Anaphylaxis oxycodone [From Percocet] Allergy (Severe, Verified 09/04/24 14:36) Anaphylaxis Penicillins Allergy (Severe, Verified 09/04/24 14:36) Anaphylaxis propoxyphene [From Darvocet-N 100] Allergy (Severe, Verified 09/04/24 14:36) Anaphylaxis pseudoephedrine [From Sudafed] Allergy (Severe, Verified 09/04/24 14:36) Anaphylaxis HPI HPI 2 mo f/u: Details: LAST VISIT Upper abdominal pain GERD (gastroesophageal reflux disease) Constipation Postprandial diarrhea Postprandial abdominal bloating Postprandial epigastric pain Plan Patient will hold off on taking Linzess. Discussed with patient to try to get [id number] Benefiber with pre and probiotic. Patient will start taking Dulcolax at bedtime. Increase fluid intake and activity to promote better bowel motility. Will check for celiac, check liver panel. Will stop sucralfate as that is constipating and is not helping her. She can start famotidine in addition to lansoprazole. Take it at night time. Will rule out malabsorption, thyroid study. Patient will be sent for upper GI with barium swallow. I recommend that patient stops Ozempic as this is mostly causing her symptoms. Lost 30 lb in 3 years which is not that significant. Patient can be tried on Zepbound however we have to rule out any family history of thyroid cancer. Patient is on multiple medications that could be slowing down her motility. Continue lansoprazole. Avoid dietary triggers and late night snacking. Discussed with patient low FODMAP diet. List of food recommended as well as list of food to avoid given to patient. Patient will follow-up in 2 months, sooner on as needed basis. She is agreeable to this plan and verbalizes understanding of instructions. She was given the opportunity to ask questions and all questions answered. Patient will be booked for upper endoscopy to re-evaluate treatment. ? Thank you for allowing me to participate in her care Orders Orders Transglutaminase IgA Today R10.9 Vitamin B12 and Folate Today R19.7 Liver Panel Today R74.01 FL upper GI w Ba Swallow Today K21.9 Vitamin D 25-OH (D2 and D3) Today E55.9 Lipase Today R10.9 TSH reflex Free T4 Today K59.00 Medications New bisacodyl (Dulcolax (bisacodyl)) 10 mg (2 x 5 mg) PO BEDTIME 180 tabs 4RF famotidine 40 mg PO BEDTIME 30 tabs 3RF K21.9 Discontinued sucralfate (Carafate) Discontinued Reason: Doctor's Order 20 mL PO QNOON 1,000 mL 1RF K22.10 On Hold linaclotide (Linzess) Hold Comment: Doctor's Order 145 mcg PO QAM 28 caps 3RF K58.1 TODAY'S VISIT Patient is here today for follow-up and to discuss lab results. Patient has upper GI series scheduled for September 10 and upper endoscopy is scheduled end of September. Patient continues to have epigastric pain, however she reports that her symptoms are suppressed for the most part with management of lansoprazole and famotidine combination. Patient is taking lansoprazole in the morning and famotidine at bedtime. For the most part patient reports that she is trying to avoid dietary triggers. Trying to avoid eating late at night. Patient reports that she change her diet. However patient still is struggling with postprandial loose stools. Patient does not believe that it is related to Linzess as when she was holding Linzess for few weeks she continued with symptoms. She noticed that her symptoms are worse when she is under stress and upset. Patient reports it is hard to control that as she is dealing with personal issues sometimes and is hard for her to control her emotions. Lab results discussed with patient. [facility] Medical History Mood disorder Dental infection Preop examination Hyperlipidemia Acute diarrhea Pancreatic insufficiency Chronic idiopathic constipation Chronic pain syndrome Drug allergy Kidney failure History of MRSA infection (~2010) Stress incontinence Psychosomatic pain Obstructive sleep apnea Anxiety disorder Morbid obesity Fibromyalgia Bipolar disorder Suicide attempt Depression Asthma Surgical History History of esophagogastroduodenoscopy (EGD) Hx of section H/O colonoscopy H/O abdominoplasty History of lumpectomy of left breast H/O bilateral oophorectomy H/O: hysterectomy H/O laparoscopy Family History Mother Stroke Social History Alcohol intake: never Patient Tobacco Use Status: Never used Tobacco Review of Systems Const Denies weight gain and Denies weight loss ENT Reports no additional complaints, Denies dysphagia and Denies odynophagia Card Reports no additional complaints Resp Reports no additional complaints GI Reports abdominal pain, Denies belching, Denies melena, Reports bloating, Denies change in bowel habits, Reports constipation, Denies dysphagia, Denies excessive flatus, Denies dyspepsia, Reports heartburn, Denies diarrhea, Reports loose stools, Denies nausea, Denies odynophagia and Denies vomiting Reports no additional complaints Musc Reports no additional complaints Neuro Reports no additional complaints Psych Reports no additional complaints Endo Reports no additional complaints Physical Exam Vital Signs: Last Vital Signs Pulse 92 08/28/24 11:36 BP 112/72 08/28/24 11:36 Pulse Ox 97 08/28/24 11:36 Oxygen Delivery Method Room Air 08/28/24 11:36 BMI result Body Mass Index 35.4 Const General: healthy appearing and no acute distress Nutritional Appearance: obese Orientation/consciousness: patient oriented x3 Neck Neck: Yes normal visual inspection, Yes full ROM and Yes trachea midline Thyroid: Thyroid normal Resp Effort & Inspection: normal respiratory effort, able to speak in complete sentences, no tracheal deviation and symmetric chest movement Auscultation: clear to auscultation bilaterally Cardio Rate: regular rate GI Inspection: Yes normal to inspection, No distended and Yes obesity Palpation (GI): Soft to palpation, not firm, nontender and No hepatosplenomegaly present Auscultation: normal bowel sounds General: Yes no CVA tenderness Back/Spine/Pelvis Back: no CVA tenderness Skin General skin exam: elasticity normal, turgor normal and dry skin Neuro General: patient oriented x3 Psych Appearance: grossly normal Mental Status: mental status grossly normal Results Reviewed Results Reviewed: Laboratory Tests 06/23/24 11:34 AST 32 H ALT 21 Alkaline Phosphatase 83 Lipase 26 Vitamin B12 295 25-OH Vitamin D Total 33 Folate 8.6 TSH 1.01 Tiss Transglutamin IgA <1.0 Assessment & Plan Assessment & Plan (1) Upper abdominal pain: Code(s): R10.10 - Upper abdominal pain, unspecified Category: Medical (2) GERD (gastroesophageal reflux disease): Code(s): K21.9 - Gastro-esophageal reflux disease without esophagitis Category: Medical Qualifiers: Esophagitis presence: esophagitis presence not specified Qualified Code(s): K21.9 - Gastro-esophageal reflux disease without esophagitis (3) Constipation: Code(s): K59.00 - Constipation, unspecified Qualifiers: Constipation type: slow transit constipation Qualified Code(s): K59.01 - Slow transit constipation (4) Postprandial diarrhea: Code(s): K52.9 - Noninfective gastroenteritis and colitis, unspecified (5) Postprandial abdominal bloating: Code(s): R14.0 - Abdominal distension (gaseous) (6) Postprandial epigastric pain: Code(s): R10.13 - Epigastric pain Plan Patient can continue taking lansoprazole every morning half an hour before breakfast. Avoid dietary triggers and late night snacking. Continue working on diet and weight loss. Patient was encouraged to increase fiber intake in the morning and take Linzess to help with bowel movement. Encouraged patient trying stress reduction techniques. Patient has been following up with her therapist. Continue to do so. Patient will return to the office after her procedure. Patient has upper endoscopy scheduled for October 08. Patient will call our office if she will have any GI concerning symptoms. She is agreeable to this plan and verbalizes understanding of instructions. She was given the opportunity to ask questions and all questions answered. 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
--- OUTSIDE RECORDS SUMMARY | 2024-08-28 12:39 | XMS_ITS | Data Portability ---
Author Organization [email or web address] Address [address] [place] [phone] Care Team Providers Care Technical Sales Support Manager Name Role Phone HIM CCA OTHER Assessment Encounter Date Assessment Date Assessment LastModified by Organization Details LastModified Time 05/04/2022 05/04/2022 I provided real -time medical direction via phone for this encounter, and was available for additional phone based assistance as needed. I have reviewed and agree with the Assessment and Plan as documented by the Poultry Grader. Patient given the opportunity to ask questions. reassured labs/ ekg look excellent- not dehydrated hypokalemic and BS is nl- patient c/o dizziness felt her sugar was going to drop again- given small amt D10 to prevent hypoglycemia over night- reassure ok that FS was sl high s/p-reinforce po hydration- clear liquids for 24 hrs- should have some carbohydrates- toast/ crackers- apple juice to prevent hypoglycemia- will RX reglan although patient wanted 1 more dose of zofran before medic left- felt somewhat better after ivf and meds Advised if develops recurrent CP/SOB/turning blue/uncontrolled n/v or black/bloody emesis or stool/ AMS/ syncope/ hi fever un responsive to APAP to call 911- verbalized understanding of instructions- also aware [facility]- Patient would benefit from having a continuous glucose monitor- she is very frustrated / anxious with multiple sticks to check BS daily and concern for reported recurrent hypoglycemia- would be able to better follow sugars and prevent hypoglycemia with CGM- would reduce anxiety and stress over this issue- pat requested I rx CGM- I explained that it would require a PA and I do not have the ability to do PAs/ should f/u with pcp re same. [email or web address] Not available 05/04/2022 22:38:57 03/04/2023 03/04/2023 52 yo F with recent COVID exposure, called for COVID testing. VSS. Asymptomatic. Rapid COVID neg. Pt has precautions for callback vs ED. Has PCP visit tomorrow for chronic pain f/up. [email or web address] Not available 03/04/2023 22:11:38 09/13/2023 09/13/2023 service called f or asymmetric LE edema found 53 william with obesity, asthma, depression c/o acute onset LLE swelling, engorgement of veins in setting of travel denies trauma VS: elev BP, borderline tachycardiac, O2sat maintained reported exam LLE enlarged, increased temp compared to right #Asymmetric LE edema very concerning for acute DVT refer to ED for assessment [email or web address] Not available 09/13/2023 18:52:38 05/10/2024 05/10/2024 I provided real -time medical direction via phone for this encounter and was available for additional phone-based assistance as needed. I have reviewed and agree with the Assessment and Plan as documented by the Poultry Grader. Patient given the opportunity to ask questions. Our service contacted for an assessment of: URI symptoms As per above, patient with approximately 24 hours of increasing nasal congestion, low-grade temperature, feeling very nauseated. Patient also with dry nonproductive cough. Feeling generally speaking unwell with myalgias and arthralgias. Wanted to be tested for COVID and flu. Per artificial leather calender operator on the scene, vital signs are stable and patient has a low-grade temp of a 100? ? ?. Nontoxic in appearance. COVID is positive and [...] or recall this service. She can trial [id number] medications for the cold and flu-like symptoms. [...] We discussed the need to seek care urgently/emergentl y in the setting of any new or worsening serious symptoms, particularly fever chills [email or web address] Not available 05/10/2024 15:16:24 05/11/2024 05/11/2024 Evaluation in th e field was performed by my artificial leather calender operator colleague, as noted above, I provided real-time direction and supervision for this visit. This is a 53yo F with asthma/COPD presenting at the request of her PCP for evaluation. Pt was seen yesterday and diagnosed with COVID. She is not a candidate for Paxlovid. She checked in with her PCP today who requested we come out to give her a neb treatment, refill her neb prescription, and perhaps give her Toradol (per triage note). Pt states she is still coughing and feels the same as yesterday. She doesn't currently have any of her neb medications. She reports allergy to tylenol and also that she can't take NSAIDs due to CKD. PE: General: Awake & alert, NAD Respiratory: CTAB. Chest rise equal bilat, no increased wob CV: Regular rate, normal peripheral perfusion Impression: COVID 19 virus infection Plan: -VSS, afebrile, O2 97% on room air -Appears well. No new complaints. -Lungs are clear but she would like a neb treatment. She says she usually has levalbuterol at home but has taken albuterol in the past. Does not have afib or other cardiac arrhythmia that she knows of. -Will give one albuterol neb on scene as medics don't carry levalbuterol. -I have sent a refill prescription for levalbuterol. -Toradol contraindicated in this case of pt with CKD. Disposition: Remain at home We discussed the diagnostic uncertainty of home visits and the risk associated with this. In this case, the patient and I felt this to be an acceptable and reasonable amount of risk given the benefit of avoiding an ED visit. We discussed the need to seek care urgently/emergentl y in the setting of any new or worsening serious symptoms. [email or web address] Not available 05/11/2024 20:55:41 Plan of Treatment Reminders Order Date Submit Date Provider Last Modified By Organization Details Last Modified Time Details Appointments None recorded. Lab rapid SARS CoV 2 Ag, QL IA, respiratory specimen 2023 [email or web address] Main - [facility], [address] [place] [address], [address] [place] [address] 4 15:12:46 rapid flu (A+B) 2023 [email or web address] Main - [facility], [address] [place] [address], [address] [place] [address] 4 15:12:46 rapid flu (A+B) 2021 022 [email or web address] 0 Main - [facility], [address] [place] [address], [address] [place] [address] 2 22:39:07 rapid SARS CoV 2 Ag, QL IA, respiratory specimen 2021 [email or web address] Main - [facility], [address] [place] [address], [address] [place] [address] 2 22:39:07 BMP, serum or plasma 2021 022 [email or web address] 0 Main - [facility], [address] [place] [address], [address] [place] [address] 2 22:39:06 glucose, fingerstick , blood 2021 [email or web address] Main - [facility], [address] [place] [address], [address] [place] [address] 2 22:39:07 Referral None recorded. Procedures None recorded. Surgeries None recorded. Imaging electrocard iogram 2021 [email or web address] 0 Main - [facility], [address] [place] [address] 2 22:39:07 Medication Orders albuterol sulfate 2.5 mg/3 mL (0.083 %) solution for nebulizatio n 2023 024 [email or web address] [id number], [address] [place], [address], 4 20:31:38 levalbutero l 0.63 mg/3 mL solution for nebulizatio n 2023 024 [id number] [address] [place], [address], 4 20:33:44 lactated Ringers intravenous solution [address] [facility], [address] [place] [address], [id number], 4 15:12:46 Reglan 10 mg tablet 2023 024 [id number] [address] [place], [address], 4 15:12:47 Reglan 10 mg tablet [address] [facility], [address] [place] [address], [id number], 4 15:21:08 sodium chloride 0.9 % intravenous solution 2021 022 [email or web address] 0 Not available 2 22:39:07 ondansetron HCl (PF) 4 mg/2 mL injection solution 2021 022 [email or web address] 0 Not available 2 22:39:07 metoclopram ladonna 5 mg/mL injection solution 2021 022 [email or web address] 0 Not available 2 22:39:07 metoclopram ladonna 10 mg tablet 2021 022 [facility], [address] [place] [address], [id number], 2 22:43:22 dextrose 10 % in water (D10W) intravenous solution 2021 022 [email or web address] 0 Not available 22:39:07 Patient TargetsNo targets recorded. Patient Instructions Encounter Date Encounter Id Patient Instructions Last Modified By Organization Details Last Modified Time 05/04/2022 [id number] orthostatic vitals* [email or web address] Not available 05/04/2022 22:39:07 IV lock, initiate* [email or web address] Not available 05/04/2022 22:39:07 Reason for Referral None Reported. Results Created Date Observation Date Name Description Value Unit Range Abnormal Flag Note LastModifiedBy Organization Detail LastModifiedTime 05/04/20 22 05/04/2022 BMP, serum or plasm a BUN 18 Not Available Main - [facility] [address], [address] 05/04/2022 22:25:46 05/04/20 22 05/04/2022 BMP, serum or plasm a Ca I Ca 1.27 Not Available Main - [address], [address] 05/04/2022 22:25:46 05/04/20 22 05/04/2022 BMP, serum or plasm a CI- 104 Not Available Main - [facility] [address], [address] 05/04/2022 22:25:46 05/04/20 22 05/04/2022 BMP, serum or plasm a CRE 1 Not Available [facility] - [facility] [address], [address] 05/04/2022 22:25:46 05/04/20 22 05/04/2022 BMP, serum or plasm a GLU 113 Not Available Main - [facility] [address], [address] 05/04/2022 22:25:46 05/04/20 22 05/04/2022 BMP, serum or plasm a K+ 3.7 Not Available Main - [facility] [address], [address] 05/04/2022 22:25:46 05/04/20 22 05/04/2022 BMP, serum or plasm a Na+ 140 Not Available Main - [facility] [address], [address] 05/04/2022 22:25:46 05/04/20 22 05/04/2022 BMP, serum or plasm a tCO2 26 Not Available Main - [facility] [address] [place] [address], [phone] 05/04/2022 22:25:46 05/04/20 22 05/04/2022 gluco se, corriee rstic k, blood Blood Glucose: mg/dl [address] [facility] [address] [place] [address], [phone] 05/04/2022 22:29:47 05/04/20 22 05/04/2022 rapid SARS CoV 2 Ag, QL IA, respi rator y speci men rapid SARS CoV 2 Ag, QL IA, respiratory specimen negati ve Not Available [facility] [address] [place] [address], [phone] 05/04/2022 22:22:42 05/04/20 22 05/04/2022 rapid flu (A+B) Flu negati ve Not Available [facility] [address] [place] [address], [phone] 05/04/2022 22:22:40 05/10/20 24 05/10/2024 rapid flu (A+B) Flu negati ve Not Available Main - [facility] [address] [place] [address], [phone] 05/10/2024 15:09:40 05/10/20 24 05/10/2024 rapid SARS CoV 2 Ag, QL IA, respi rator y speci men rapid SARS CoV 2 Ag, QL IA, respiratory specimen positi ve Not Available [facility] [address] [place] [address], [phone] 05/10/2024 15:09:38 05/04/20 22 05/04/2022 cynthia [email or web address] am No observ ation record ed. [email or web address] [address], [address] 05/04/2022 22:39:12 Result Notes None recorded. Procedures Surgical History None recorded. Imaging Results Imaging Date Name Status LastModified by Organization Details LastModified Time 05/04/2022 electrocardiogram completed [email or web address] [address], [address] 05/04/2022 22:39:12 Procedure Notes None recorded. Medical Equipment None Reported. Allergies Allergen ID Allergen Name Allergen Category Reaction Reaction Severity Criticality Documentation Date Start Date Code Code System Note Provider Name and Address Organization Details Recorded Time 01907 acetamino phen medicatio n Not available Not available Not available 05/10/2024 161 RxNorm Not Available [facility] 4 10:53:36 11408 Tylenol medicatio n Not available Not available Not available 05/11/2024 52075 3 RxNorm Not Available [facility] 4 12:59:50 1596 Product containin g penicilli n (product) medicatio n Not available Not available Not available 05/04/2022 23266 8001 SNOMED Not Available [facility] 4 03:41:04 1597 acetamino phen / oxycodone medicatio n Not available Not available Not available 05/04/2022 38634 3 RxNorm Not Available [facility] 4 12:59:50 1598 codeine medicatio n Not available Not available Not available 05/04/2022 2670 RxNorm Not Available [facility] 4 10:53:36 1599 morphine medicatio n Not available Not available Not available 05/04/2022 7052 RxNorm Not Available [facility] 4 03:41:04 1600 Sudafed medicatio n Not available Not available Not available 05/04/202247494 2 RxNorm Not Available [facility] 4 10:53:36 1601 acetamino phen / dextromet horphan / doxylamin e / pseudoeph edrine medicatio n Not available Not available Not available 05/04/[address] MD [address] [facility],[address], [place], [phone], [place] [employer] [facility] [employer] 2 21:32:45 1602 MILK OF MAGNESIA medicatio n Not available Not available Not available 05/04/[address] MD [address] [facility],[address], [place], [address], [place] [employer] [facility] 2 21:33:01 7970 aspirin medicatio n Not available Not available Not available 03/10/2024 1191 RxNorm Not Available [facility] - [facility] 4 03:41:04 Medications Name Sig Start Date Stop Date Status Note LastModified by Organization Details LastModified Time comfort tch mis lanc 30g active Not Available Not Available Not Available comfrt touch pad alc prep active Not Available Not Available Not Available poise*pads active Not Available Not Av ailable Not Available comfrt touch pad alc prep eaches USE DIRECTED NEEDED FOR 50 DAYS active Not Available Not Available No t Available med sync [place] active Not Available Not Available Not Available hydroxyzine pamoate 100 mg capsule TAKE 1 CAPSULE (100 MG) BY MOUTH DAILY NEEDED active Not Available Not Available No t Available bupropion HCl SR 150 mg tablet,12 hr sustained-re lease TAKE 1 TABLET BY MOUTH EVERY DAY IN THE MORNING active Not Available Not [...] Not Available Not Available No t Available albuterol sulfate 2.5 mg/3 mL (0.083 %) solution for nebulization Inhale 3 mL by nebulizatio n route. 2023 active Not Available Not Available Not Avai lable cetirizine 10 mg tablet TAKE 1 TABLET BY MOUTH EVERY DAY active Not Available Not Available No t Available oxybutynin chloride ER 10 mg tablet,exten ded release 24 hr TAKE 2 TABLETS BY MOUTH EVERY DAY active Not Available Not Available No t Available azithromycin 250 mg tablet TAKE 2 TABLETS ON THE FIRST DAY THEN TAKE 1 TABLET EVERY DAY FOR 5 DAYS active Not Available Not Available N ot Available levalbuterol 0.63 mg/3 mL solution for nebulization INHALE 3 ML BY NEBULIZATIO N EVERY 4 HOURS NEEDED FOR 30 DAYS active Not Available Not Available No t Available senna 8.6 mg tablet active Not Available Not Available Not Available sucralfate 100 mg/mL oral suspension active Not Available Not Available N ot Available meloxicam 15 mg tablet active Not Available Not Available No t Available sucralfate 1 gram tablet active Not Available Not Available Not Available ondansetron HCl 4 mg tablet TAKE 1 TABLET ORALLY THREE TIMES A DAY NEEDED FOR NAUSEA 5 DAYS active Not Available Not Available No t Available famotidine 40 mg tablet active Not Available Not Available Not Available gabapentin 400 mg capsule TAKE 2 CAPSULES BY MOUTH 3 TIMES A DAY active Not Available Not Available Not Available hydroxyzine HCl 50 mg tablet active Not Available Not Available Not Available Enema Disposable 19 gram-7 gram/118 mL active Not Available Not Available Not Available nifedipine ER 30 mg tablet,exten ded release active Not Available Not Available Not Available sulfamethoxa zole 800 mg-trimethop rim 160 mg tablet TAKE 1 TABLET BY MOUTH TWICE A DAY FOR 3 DAYS active Not Available Not Available No t Available tramadol 50 mg tablet TAKE 1 TABLET NEEDED FOR PAIN ORALLY TWICE A DAY 28 DAYS active Not Available Not Available No t Available hydromorphon e 2 mg tablet TAKE 1-2 TABLETS EVERY 6 HOURS NEEDED (3 DAY SCRIPT) active Not Available Not Available Not Available magnesium oxide 400 mg (241.3 mg magnesium) tablet TAKE 1 TABLET BY MOUTH EVERY DAY active Not Available Not Available No t Available dicyclomine 20 mg tablet TAKE 2 TABLETS BY MOUTH 4 TIMES A DAY active Not Available Not Available Not Available bisacodyl 10 mg rectal suppository active Not Available Not Available Not Available pantoprazole 40 mg tablet,delay ed release active Not Available Not Available N ot Available Gas Relief (simethicone ) 80 mg chewable tablet active Not Available Not Available Not Available lansoprazole 30 mg capsule,yamilex yed release TAKE 1 CAPSULE BY MOUTH EVERY DAY active Not Available Not Available No t Available promethazine 25 mg tablet TAKE 1 TABLET BY MOUTH EVERY 12 HOURS NEEDED FOR 30 DAYS active Not Available Not Available No t Available oxybutynin chloride ER 5 mg tablet,exten ded release 24 hr TAKE 1 TABLET (5 MG) BY MOUTH DAILY WITH TWO 10 MG TABLETS FOR A TOTAL DAILY DOSE OF 25 MG. active Not Available Not Available No t Available lidocaine HCl 2 % mucosal solution active Not Available Not Available Not Available omeprazole 20 mg capsule,yamilex yed release active Not Available Not Available Not Available topiramate 200 mg tablet TAKE 2 TABLETS BY MOUTH EVERY DAY AT BEDTIME active Not Available Not Available No t Available mupirocin 2 % topical ointment APPLY [...] Not Available Not Available Not Avai lable lorazepam 1 mg tablet active Not Available Not Available No t Available epinephrine 0.3 mg/0.3 mL injection, auto-injecto r USE DIRECTED INJECTION NEEDED FOR SIGNS OF ANAPHYLAXIS , CALL 911 IF USED active Not Available Not Available No t Available estradiol 0.01% (0.1 mg/gram) vaginal cream active Not Available Not Available Not Available albuterol sulfate HFA 90 mcg/actuatio n aerosol inhaler INHALE 2 PUFFS NEEDED INHALATION EVERY 6 HOURS 30 DAYS active Not Available Not Available No t Available ondansetron 4 mg disintegrati ng tablet active Not Available Not Available No t Available fluoxetine 20 mg capsule TAKE 2 CAPSULES BY MOUTH AFTER BREAKFAST active Not Available Not Available No t Available metocloprami de 10 mg tablet TAKE 1 TABLET BY MOUTH FOUR TIMES A DAY FOR 10 DAYS active Not Available Not Available Not Available Jnzal-Hg-Utr Enema (mineral oil) active Not Available Not Available Not Available dextrose 10 % in water (D10W) intravenous solution 250 ml iv infusion 2021 active Not Available Not Available Not Avai lable cyclobenzapr ine 5 mg tablet TAKE 1 TABLET BY MOUTH EVERY DAY AT BEDTIME NEEDED active Not Available Not Available No t Available Premarin 0.625 mg/gram vaginal cream active Not Available Not Available Not Available rosuvastatin 10 mg tablet TAKE 1 TABLET ONCE A DAY ORALLY 28 DAYS active Not Available Not Available No t Available rosuvastatin 20 mg tablet TAKE 1 TABLET BY MOUTH EVERY DAY active Not Available Not Available No t Available rosuvastatin 40 mg tablet TAKE 1 TABLET BY MOUTH EVERY DAY FOR 30 DAYS active Not Available Not Available No t Available bupropion HCl XL 300 mg 24 hr tablet, extended release TAKE 1 TABLET BY MOUTH EVERY DAY IN THE MORNING active Not Available Not Available No t Available glycerin (adult) rectal suppository active Not Available Not Available Not Available Gas Relief Extra Strength 125 mg chewable tablet CHEW 1 TABLET ORALLY FOUR TIMES A DAY FOR ABOMDINAL DISTENSION active Not Available Not Available N ot Available pregabalin 100 mg capsule active Not [...] Not Available Not Available No t Available cholecalcife rol (vitamin D3) 50 mcg (2,000 unit) capsule TAKE 1 CAPSULE BY MOUTH EVERY DAY active Not Available [...] active Not Available Not Available Not Available Linzess 145 mcg capsule TAKE 1 CAPSULE BY MOUTH FIRST THING IN THE MORNING WITH A FULL GLASS OF WATER. active Not Available Not Available No t Available Konsyl (sugar) 3.4 gram oral powder packet active Not Available Not Available Not Available Belbuca 300 mcg buccal film active Not Available Not Available Not Available Belbuca 150 mcg buccal film active Not Available Not Available Not Available Belbuca 75 mcg buccal film active Not Available Not Available Not Available Belbuca 450 mcg buccal film TAKE 1 FILM BUCALLY IN THE EVENING, 12 HOURS AFTER TAKING 300 MCG FILM IN THE MORNING 28 DAYS active Not Available Not Available No t Available OneTouch Verio Flex Meter DIRECTED active Not Available Not Available Not Available Trulance 3 mg tablet active Not [...] INJECT 2MG SUBCUTANEOU SLY ONCE A WEEK 28 DAYS active Not Available Not Available No t Available OneTouch UltraSoft 2 Lancet 30 gauge DIRECTED TO SKIN ONCE DAILY NEEDED active Not Available Not Available No t Available Vitals Date Recorded Body temperature Oxygen saturation Oxygen saturation in Arterial blood by Pulse oximetry Heart rate Respiratory rate Systolic blood pressure Diastolic blood pressure Provider Name and Address Organization Details Last Updated DateTime 3 98.8 [degF] 98 % 98 % 84 /min 16 /min 121 mm[Hg] 79 mm[Hg] Not Available [facility] 3 20:00:54 Date Recorded Body temperature Respiratory rate Oxygen saturation Oxygen saturation in Arterial blood by Pulse oximetry Heart rate Systolic blood pressure Diastolic blood pressure Provider Name and Address Organization Details Last Updated DateTime 4 98.3 [degF] 20 /min 99 % 99 % 98 /min 180 mm[Hg] 115 mm[Hg] Not Available [facility] [employer] 4 18:45:53 Date Recorded Body temperature Heart rate Oxygen saturation Oxygen saturation in Arterial blood by Pulse oximetry Respiratory rate Systolic blood pressure Diastolic blood pressure Systolic blood pressure Diastolic blood pressure Provider Name and Address Organization Details Last Updated DateTime 4 100.1 [degF] 93 /min 97 % 97 % 16 /min 120 mm[Hg] 74 mm[Hg] 117 mm[Hg] 80 mm[Hg] Not Available [employer] 4 13:26:47 Date Recorded Respiratory rate Body temperature Heart rate Oxygen saturation Oxygen saturation in Arterial blood by Pulse oximetry Systolic blood pressure Diastolic blood pressure Provider Name and Address Organization Details Last Updated DateTime 4 16 /min 98 [degF] 84 /min 97 % 97 % 107 mm[Hg] 68 mm[Hg] Not Available [facility] [employer] 4 20:24:24 Date Recorded Body temperature Oxygen saturation Oxygen saturation in Arterial blood by Pulse oximetry Respiratory rate Heart rate Systolic blood pressure Diastolic blood pressure Provider Name and Address Organization Details Last Updated DateTime 2 98.1 [degF] 99 % 99 % 16 /min 85 /min 119 mm[Hg] 66 mm[Hg] Not Available [employer] 2 19:11:38 Date Recorded Body height Body mass index (BMI) Body weight Provider Name and Address Organization Details Last Updated DateTime 05/04/2022 170.18 cm 35.7 kg/m2 610389.[address] MD [address] [place] [address],[address], [place], [address] [address] [facility] 05/04/2022 19:33:34 Social History None recorded. Functional Status None recorded. Mental Status None recorded. Family History Nothing Reported. Medical History No medical history recorded. Gynecological HistoryNo gynecological history recorded. Obstetrics History GPAL:G 0 P 0 0 0 0 Past Encounters Encounter ID Performer Location Encounter Start Date Encounter Closed Date Diagnosis/Indication Diagnosis SNOMED-CT Code Diagnosis ICD10 Code Diagnosis Note [id number] [facility]kel Armstrong [facility] [address] [place] [phone] 08/26/2021 10:13:05 01/12/2022 14:53:52 Abdominal pain 49708893 R10.9 [id number] Mykel Armstrong MD [facility] - [facility] [address] [place] [phone] 09/27/2021 16:35:43 01/12/2022 15:32:12 Malaise and fatigue [id number] R53.81 [id number] Kishan Yin MD [facility] - [facility] [address] [place] [phone] 10/19/2021 20:40:34 10/20/2021 17:52:41 [id number] Anjel Roberts MD [facility] - [facility] [address] [place] [phone] 11/10/2021 10:39:03 02/13/2022 11:15:10 Nausea [id number] R11.0 Diarrhea [id number] R19.7 2522 Mykel Armstrong MD Main - [facility] [address] [place] [address] [phone] 11/14/2021 09:25:02 01/16/2022 12:16:38 Low blood pressure [id number] I95.9 3310 Starr Gutierrez MD Main - [facility] [address] [place] [address] [phone] 12/22/2021 19:52:11 01/11/2022 12:05:12 Abdominal pain [id number] R10.[address] MD Main - [facility] [address] [place] [address] [phone] 05/04/2022 19:11:29 05/07/2022 14:16:26 Nausea, vomiting and diarrhea [id number] R19.7 R11.2 declined loperamide or any antidiarrh eal - does not want to be over constipate d- advised need to f/u with GI and PCP after Nirali- beginning next week [id number] KELSEA PURVIS MD Main - [facility] [address] [place] [address] [phone] 03/04/2023 20:00:52 03/05/2023 09:44:33 Exposure to SARS-CoV-2 [id number] Z20.822 [id number] Nga Escalona MD Main - [facility] [address] [place] [address] [phone] 09/13/2023 18:45:46 09/15/2023 12:31:39 Edema of left lower limb [id number] R60.0 [id number] Yari Gonzalez MD Main - [facility] [address] [place] [address] [phone] 05/10/2024 13:26:45 05/12/2024 21:02:20 COVID-19 [id number] U07.1 [facility] [id number] R11.0 60138 Maribell Bernardo MD Main - [facility] [address] [place] [address] [phone] 05/11/2024 20:24:22 05/12/2024 21:50:15 COVID-19 [id number] U07.1 Health Concerns Section Related Observation LastModified by Organization Detai ls LastModified Time None Recorded Concern Status LastModified by Organization Details LastModified Time None Recorded Advance Directives Directive None Recorded Payers Encounter Date Sequence Insurance Name Policy Number Policy Kahn Covered Member ID Kahn Member ID Guarantor Name 05/04/2022 1 [facility] [employer] - DOS PRIOR TO 2022 - DUAL ELIGIBLE (MEDICARE REPLACEMENT/ADV ANTAGE - HMO) Agnes Vilchis [id number] Agnes Milligan 03/04/2023 1 [employer] - DOS ON OR AFTER 2022 - DUAL ELIGIBLE - SENIOR LIVING OPTIONS AND ONE CARE (MEDICARE REPLACEMENT/ADV ANTAGE - HMO) Agnse Milligan [id number] Agnes Milligan 09/13/2023 [facility] AFTER [facility]22 - DUAL ELIGIBLE - SENIOR LIVING OPTIONS AND ONE CARE (MEDICARE REPLACEMENT/ADV ANTAGE - HMO) Agnes Milligan [id number] Agnes Milligan 05/10/2024 1 [facility] CARE ALLI[employer] - DOS ON OR AFTER 2022 - DUAL ELIGIBLE - SENIOR LIVING OPTIONS AND ONE CARE (MEDICARE REPLACEMENT/ADV ANTAGE - HMO) Agnes Milligan [id number] Agnes Milligan 05/11/2024 1 [facility] DOS ON OR AFTER 2022 - DUAL ELIGIBLE - SENIOR LIVING OPTIONS AND ONE CARE (MEDICARE REPLACEMENT/ADV ANTAGE - HMO) Agnes Milligan [id number] Agnes Milligan Notes Date Note Type Note Provider Name and Address Organization Details Recorded Time 05/04/2022 text/html HPI: mbr with complaints of Dizziness/lightheaded/ weakness/diaphoretic, has been experiencing symptoms all day. states Blood sugar have been fluctuating, POC 50-180 currently 120. Poor PO intake. requesting [facility] visit Protocol Used: Vomiting Protocol-Based Disposition: Consider instED, TECHNICAL SERVICE REPRESENTATIVE, MD/REGIONAL AIRLINE PILOT triage, PCP, or ED /Urgent Care Visit now Positive Triage Questions: * [1] MODERATE vomiting (e.g., 3 - 5 times/day) AND [2] age > 60 years * High-risk adult (e.g., diabetes mellitus, brain tumor, V-P shunt, hernia) * [1] Drinking very little AND [2] dehydration suspected (e.g., no urine > 12 hours, very dry mouth, very lightheaded) Negative Triage Question: * Shock suspected (e.g., cold/pale/clammy skin, too weak to stand, low BP, rapid pulse) ...................... ...................... ...................... ...................... ...................... ...................... ......... CRC Nursing Assessment: Comments: CRC RN attempted to contact requestor @ [phone] regarding member's condition- no answer. Left message for member @ [phone] SEGMD: Pat recently had colonoscopy for IBS- gets diarrhea alternating w/ constipation. Supposed to be taking medication to prevent that and prevent the bloating RX by GI, but having issue as insurance has reportedly refused to cover the meds. Has hematochezia after having BM- states GI is aware. Had 2 BM yesterday- soft/loose /not black- sl blood after defecation- no BM today. Patient reports she has vomited everything she has tried to eat- denies hematemesis. Pat. reports she feels too weak and dizzy to sit up.Pat feels all her s/s are due to hypoglycemia- BS dropped to 50 earlier- only got diaphoretic w/ hypoglycemia/ BS bouncing up and down all day. She also states had some lower CP after vomiting- none now- is on ozempic weekly for her DM- has been on it for > 1 yr- states her physicians have ruled the drug as a cause of her GI s/s. Had 1 dose zofran this am- last pill- states only works partially would like something else.................. ...................... ...................... ...................... ...................... ...................... .............. Poultry Grader Note: Called to home for N/V. Patient had hypoglycemic episode earlier today and has since had N/v. Pt has also had IBS with diarrhea for the past couple days. Doctor ordered orthostatic V/S, EKG, POC, labs, 1 L NS, 250 ML D 10%, 25 mg , 20 mg Reglan and 4 mg Zofran. ...................... ...................... ...................... ...................... ...................... ...................... ......... Disposition: Fulfilled Tonia Lane MD [address] [facility],[address], [place], [phone], [employer] 05/04/2022 22:39:24 03/04/2023 text/html HPI: 52 y.o. F reports exposure to a person tested positive for COVID-19 yesterday, 03/03. The affected person was staying overnight w/ mbr in her room from 02/25-03/03 before this test result. Mbr is c/o severe body aches making it hard to get upstairs to the attic where she stays. She also c/o extreme fatigue and intermittent sob in the past few days, causing her to use her asthma pump more than usual. Resps unlabored w/ prolonged speech during call and no audible wheezing or stridor. No known fevers or recent cough. Mbr c/o swelling in hands and knees worse than usual x 4 days. She c/o waking w/ hands and feet feeling numb recently. Mbr has virtual appt w/ Dr Felix tomorrow about increased pain and new numbness. She would like [facility] muniz for COVID testing, stating she is trying to limit exposure to her elderly parents who live in the house, because her siblings from COVID and they are afraid to contract it. Mbr was encouraged to rest, stay conscious of hydration and to call the CRU back for worsening s/sx. PMHx includes DEBBI, fibromyalgia, borderline personality disorder. ...................... ...................... ...................... ...................... ...................... ...................... ......... CRC Nursing Assessment: Comments: CRC RN did not require any additional information to process this visit. ...................... ...................... ...................... ...................... ...................... ...................... ......... Poultry Grader Note From Edmund Blackwell: Pt reports ongoing joint pain s/t fibromyalgia. Pt has PCP appointment in the AM to address pain management because of her vast allergy list. Pt was concerned that she may have covid because someone who was staying with her tested positive yesterday. Pt is alert, NAD, speaking full sentences with no dyspnea. VSS. Afebrile. Neuro exam and gait normal. Lungs CTA. Benign ABD exam. No JUSTYNA. Rapid covid and flu negative. Pt reassured and encouraged to keep PCP appointment. Pt advised to retest in 48 hours. ...................... ...................... ...................... ...................... ...................... ...................... ......... Disposition: Fulfilled KELSEA PURVIS MD [address] [facility],[address], [place], [phone], [employer] 03/04/2023 22:11:51 09/13/2023 text/html HPI: 53 yo female w chronic pain and perceived inflammation, HLD, depression, PTSD, insomnia, migraine, DEBBI, obesity, asthma, allergies, osteoarthritis, CKD 3, IBS with constipation and diarrhea, prediabetes, and low blood sugars. Agnes states she was in [place] when a friend's daughter who is a nurse noticed she had bulging leg veins, the left more than the right . She said this happened a few days ago but is calling now for an apt. I am sending [employer] for pictures of her leg and to eval in person if she needs to go to the ER for R/O DVT/PE. She states when she goes upstairs she gets short of breath and she las pain in her left calf more so than her right and is elevating her legs. She denies redness and can move/flex/extend her toes. She said she will send pictures that her friends daughter took to [facility] images ...................... ...................... ...................... ...................... ...................... ...................... ......... 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 [facility] request submitted for urgent in home assessment. ...................... ...................... ...................... ...................... ...................... ...................... ......... CRC Nurse Triage Notes (Mark Hinojosa - RN): Chief Complaints: Cough, Earache, Vomiting PMH: Hypertension, COPD/Asthma Comments: Reviewed HPI ...................... ...................... ...................... ...................... ...................... ...................... ......... Poultry Grader Note From Edmund Blackwell: This 53-year-old female [...] and does not like to use any [id number]-lwm-rumroiq's due to allergies.Patient presents awake and alert, [...] questions and is agreeable to this plan. ...................... ...................... ...................... ...................... ...................... ...................... ......... [facility] Consulted: Yari Gonzalez ...................... ...................... ...................... ...................... ...................... ...................... ......... Disposition: Fulfilled Yari Gonzalez MD [address] [facility],[address], [place], [phone], [employer] 05/10/2024 15:22:05 05/11/2024 text/html HPI: 53 year old female with chronic pain, fibromyalgia, osteoarthritis, chronic fatigue, obesity, prediabetes, HLD, stage 3a CKD, depression, anxiety, chronic PTSD, insomnia, GERD, IBS with constipation, asthma/COPD, DEBBI, skin-picking disorder, lymphedema, allergic rhinitis, overactive bladder, and recently discovered thoracic aortic ectasia. She is COVID+, not a Paxlovid candidate. She has been having abd pain from coughing so hard, and she fell yesterday from going to the bathroom. Sending insted for a neb treatment and Toradol inj per pcp recommendation. If she responds well to neb, please send rx for neb if she responds well ...................... ...................... ...................... ...................... ...................... ...................... ......... CRC Nurse Triage Notes (Megan Sam - RN): Chief Complaints: Abdominal pain, Cough PMH: Hypertension, COPD/Asthma, Chronic Pain, Fibromyalgia, Post-Traumatic Stress Disorder (PTSD), Gastroesophageal Reflux Disease (GERD), Irritable Bowel Syndrome (IBS), Sleep Apnea Comments: CRC RN did not require any additional information to process this visit. ...................... ...................... ...................... ...................... ...................... ...................... ......... Poultry Grader Note From Edmund Blackwell: This 53-year-old female with a history including but not limited to chronic pain, fibromyalgia, OA, fatigue, obesity, prediabetes, HLD, stage III CKD, depression, PTSD, GERD, IBS, COPD, lymphedema, overactive bladder. I visited this pt yesterday because she tested positive for COVID the night before. The patient states she contacted her primary care office this morning and they sent a referral to [facility] to have us come out and prescribed more nebulizer medication and to give her a Toradol injection. The patient states she is allergic to aspirin and has been told numerous times to avoid NSAIDs such as ibuprofen due to her CKD.The patient presents awake and alert, in no acute distress. Her vital signs are reasonably stable and she is afebrile. Nonfocal neurological exam. Normal gait. Lungs are clear throughout auscultation. Abdomen is soft, nontender, nondistended. No lower extremity edema.I explained to the patient that Toradol is in NSAID and it would be inappropriate to treat her with Toradol. I contacted the [facility] who will send nebulizer solution to her pharmacy and I left her with an albuterol nebulizer to this evening. I recommend that she continue with her tramadol for pain and to follow up with her primary care office in the morning to discuss tonight's visit. I instructed her to present to the emergency department for any new or worsening severe symptoms such as chest pain, shortness of breath, high fever, altered mental status. The patient was given the opportunity to ask questions and is agreeable to this plan. ...................... ...................... ...................... ...................... ...................... ...................... ......... [facility] Consulted: Maribell Bernardo ...................... ...................... ...................... ...................... ...................... ...................... ......... Disposition: Fulfilled Maribell Bernardo MD [address] [facility],[address] [facility], [place], [address], [employer] [facility] 05/11/2024 20:57:54 OBGyn Episode No OBEpisode recorded.
== END 2024-08-28 12:38 | disposition home or self-care (01) ==
LOC: HO.HGI 11:33
PROVIDERS: PCP Registered Nurse; Visit Provider Nurse Practitioner Family
DX: R10.10 Upper abdominal pain, unspecified (principal); K21.9 Gastro-esophageal reflux disease without esophagitis; K59.01 Slow transit constipation; K52.9 Noninfective gastroenteritis and colitis, unspecified; R14.0 Abdominal distension (gaseous); R10.13 Epigastric pain
CPT/HCPCS: 99214; G2211

== ENCOUNTER → 2024-08-28 11:33 | Outpatient (BNVA) | payer OTHER, SELFPAY | PROVIDERS: PCP Registered Nurse; Visit Provider Nurse Practitioner Family | DX: K21.9 Gastro-esophageal reflux disease without esophagitis (principal); K59.01 Slow transit constipation; K52.9 Noninfective gastroenteritis and colitis, unspecified; K58.1 Irritable bowel syndrome with constipation; R10.10 Upper abdominal pain, unspecified; R14.0 Abdominal distension (gaseous); R10.13 Epigastric pain; N18.31 Chronic kidney disease, stage 3a | CPT/HCPCS: 99212 ==

== ENCOUNTER 2024-09-04 14:28 | Outpatient (AMB) | payer OTHER, SELFPAY ==
[2024-09-04 14:32] VITALS: BP 112/72; PULSE 84; BMI 36.3
--- NOTE | 2024-09-04 14:32 | A.OFFVIS_ITS ---
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 Allergies acetaminophen [From Tylenol] Allergy (Severe, Verified 09/04/24 14:36) Anaphylaxis aspirin Allergy (Severe, Verified 09/04/24 14:36) Anaphylaxis codeine Allergy (Severe, Verified 09/04/24 14:36) Anaphylaxis dextromethorphan [From NyQuil] Allergy (Severe, Verified 09/04/24 14:36) Anaphylaxis doxylamine [From NyQuil] Allergy (Severe, Verified 09/04/24 14:36) Anaphylaxis magnesium hydroxide [From Milk of Magnesia] Allergy (Severe, Verified 09/04/24 14:36) Anaphylaxis morphine Allergy (Severe, Verified 09/04/24 14:36) Anaphylaxis oxycodone [From Percocet] Allergy (Severe, Verified 09/04/24 14:36) Anaphylaxis Penicillins Allergy (Severe, Verified 09/04/24 14:36) Anaphylaxis propoxyphene [From Darvocet-N 100] Allergy (Severe, Verified 09/04/24 14:36) Anaphylaxis pseudoephedrine [From Sudafed] Allergy (Severe, Verified 09/04/24 14:36) Anaphylaxis Medication List - Last Reconciled 09/04/24 by Deric Carmona NP albuterol sulfate 90 mcg/actuation 2 inhalations inhalation bisacodyl (Dulcolax (bisacodyl)) 10 mg (2 x 5 mg) PO BEDTIME blood sugar diagnostic (FreeStyle Test strips) As directed bupropion HCl SR 150 mg PO DAILY bupropion HCl XL (Wellbutrin XL) 300 mg PO QAM cholecalciferol (vitamin D3) (Vitamin D3) 50 mcg PO DAILY cyclobenzaprine 10 mg PO BEDTIME diclofenac sodium 1% 4 grams topical QID epinephrine IM DIRECTED famotidine 40 mg PO BEDTIME fluoxetine 40 mg PO DAILY gabapentin 800 mg PO TID lancets (Pure Comfort Safety Lancets) As directed lansoprazole 30 mg PO DAILY levalbuterol HCl mg inhalation linaclotide (Linzess) 145 mcg PO QAM mometasone-formoterol 100-5 mcg/actuation (Dulera) 2 puffs inhalation BID ondansetron HCl 4 mg PO TID PRN oxybutynin chloride ER mg PO pen needle, diabetic ([facility]tracare Pen Needle) As directed rosuvastatin mg PO DAILY simethicone (Gas Relief Extra Strength) 125 mg PO QID sodium phosphates 19-7 gram/118 mL (Enema Disposable) mL WA tirzepatide (weight loss) (Zepbound) 2.5 mg subcut topiramate (Topamax) 200 mg PO BEDTIME tramadol 50 mg PO TID PRN zaleplon 10 mg PO BEDTIME PRN HPI Comments Details: This is a 54-year-old female patient presenting for a preoperative cardiovascular evaluation prior to her upcoming meniscal tear repair scheduled for next week. Patient with a history of hyperlipidemia, obesity, and esophageal spasms for which she is currently being followed by Gastroenterology. She was previously evaluated in the office for intermittent chest discomfort. Patient had undergone a myocardial perfusion study back at [facility] in October of 2023 which revealed a fixed anterior defect thought to be either artifactual or consistent with a scar. Given her ongoing reports of symptoms at the time, she subsequently underwent a coronary CTA and an echocardiogram for further evaluati on. Today, the patient reports feeling well overall. Patient denies any current cardiac symptoms including exertional chest pain, shortness of breath, palpitations, dizziness, orthopnea, PND, leg edema, presyncope, or syncope. Patient affirms with the urines to all her prescribed medications and expresses eagerness for her upcoming procedure. [facility] Medical History Mood disorder Dental infection Preop examination Hyperlipidemia Acute diarrhea Pancreatic insufficiency Chronic idiopathic constipation Chronic pain syndrome Drug allergy Kidney failure History of MRSA infection (~2010) Stress incontinence Psychosomatic pain Obstructive sleep apnea Anxiety disorder Morbid obesity Fibromyalgia Bipolar disorder Suicide attempt Depression Asthma Surgical History History of esophagogastroduodenoscopy (EGD) Hx of section H/O colonoscopy H/O abdominoplasty History of lumpectomy of left breast H/O bilateral oophorectomy H/O: hysterectomy H/O laparoscopy Family History Mother Stroke Social History Alcohol intake: never Patient Tobacco Use Status: Never used Tobacco Review of Systems ENT Reports dizziness Card Denies chest pain, Denies chest pain at rest, Denies chest pain with activity, Denies rapid heart rate, Denies pedal edema, Denies edema, Denies leg edema, Denies lightheadedness, Denies palpitations, Denies dyspnea, Denies dyspnea on exertion and Denies orthopnea Resp Denies cough, Denies dyspnea and Denies dyspnea on exertion GI Denies hematochezia and Denies change in stool character Musc Denies abnormal gait, Reports limited range of motion, Reports muscle cramps, Denies muscle weakness, Denies numbness, Denies radiating pain into limb, Denies stiffness and Denies tingling Neuro Denies abnormal gait, Reports dizziness, Denies numbness and Denies tingling Endo Denies palpitations Physical Exam Vital Signs: Last Vital Signs Pulse 84 09/04/24 14:32 BP 90/72 09/04/24 14:32 BMI result Body Mass Index 36.3 Const General: cooperative, healthy appearing, comfortable and no acute distress Orientation/consciousness: patient oriented x3 HEENT Head: Yes normal to inspection Neck Neck: Yes normal visual inspection, Yes trachea midline and Yes supple Chest Chest palpation & inspection: normal inspection of the chest Resp Effort & Inspection: normal respiratory effort Auscultation: clear to auscultation bilaterally, no crackles, no rales, no rhonchi and no wheezes Cardio Jugular venous distension: no JVD Palpation: normal PMI Rate: regular rate Rhythm: regular rhythm Heart sounds: S1 normal heart sound present, S2 normal heart sound present, no click, no gallops, no murmurs and no rubs Peripheral pulses: Peripheral pulses 2+ throughout GI Inspection: Yes normal to inspection Palpation (GI): Soft to palpation Auscultation: normal bowel sounds Skin General skin exam: no rashes or lesions noted Neuro General: patient oriented x3 Extrem Other: Brace to the left knee, walking with a cane General: Yes normal to inspection, No no pedal edema and No calf tenderness Psych Appearance: grossly normal Mental Status: mental status grossly normal Speech and movement: Normal speech and movement present Office Procedures EKG Details: EKG today showed normal sinus rhythm, rate 84 beats per minute, normal [place], [place]. [id number], Complete Assessment & Plan Assessment & Plan (1) Ascending aorta dilation: Code(s): I77.810 - Thoracic aortic ectasia Category: Medical Plan: 02/05/2024-patient underwent a echo study that showed a normal EF at 59% with m ild dilation of the ascending aorta measuring 4.1 cm. This will be monitored with periodic echoes. Clinically stable and without any cardiac symptoms. Advised management of her vascular risk factors such as blood pressure goal under 130/80, LDL goal less than 70. (2) Hyperlipidemia: Code(s): E78.5 - Hyperlipidemia, unspecified Category: Medical Plan: 03/11/2024-patient underwent a coronary CTA that showed no significant coronary artery disease. Minimal proximal LAD stenosis. Dilation of the ascending thoracic aorta at 4 cm. Most recent LDL on our records is from February of 2024 showing LDL of 124. Patient states it is being followed by her PCP and is stable now. Continue statin therapy, with an LDL goal closer to 70s. (3) Obesity: Code(s): E66.9 - Obesity, unspecified Category: Medical Qualifiers: Obesity type: due to excess calories Obesity classification: adult class 2 (BMI 35 - 39.9) Serious obesity comorbidity presence: with serious comorbidity Body mass index: BMI 37.0-37.9 Qualified Code(s): E66.812 - Obesity, class 2; E66.01 - Morbid (severe) obesity due to excess calories; Z68.37 - Body mass index [BMI] 37.0-37.9, adult Plan: Advised heart healthy diet, exercise as tolerated, losing weight, med compliance, and management of vascular risk factors. (4) Pre-operative cardiovascular examination: Code(s): Z01.810 - Encounter for preprocedural cardiovascular examination Plan: EKG today showed normal sinus rhythm. Based on the results of the prior cardiac testing, no evidence of active or significant coronary artery disease. Patient has intermittent chest discomfort therefore less likely to be cardiac origin and more likely related to esophageal spasms for which she is actively being followed by Gastroenterology. Patient has a an upcoming EGD planned for further evaluation. From a cardiac standpoint, the patient is considered to be at low cardiac risk and is cleared to proceed with the scheduled left meniscal tear repair. Patient already has a scheduled for follow-up in April. The interim, advised patient to call the office with any concerns or change in symptoms. This note was generated using voice recognition software. While every effort has been made to ensure accuracy and proper automated weaver, there may be occasional errors that could affect the content or meaning of the described symptoms. Orders: Orders AMB EKG-In Office Today Z01.810 - Encounter for preprocedural cardiovascular examination Coding Level of Care Code Est Pt Level 4 (82729) Complex EM visit Add On G2211 Diagnoses Ascending aorta dilation I77.810 Hyperlipidemia E78.5 Class 2 severe obesity due to excess calories with serious comorbidity and body mass index (BMI) of 37.0 to 37.9 in adult E66.812; E66.01; Z68.37 Obesity type: due to excess calories Obesity classification: adult class 2 (BMI 35 - 39.9) Serious obesity comorbidity presence: with serious comorbidity Body mass index: BMI 37.0-37.9 Pre-operative cardiovascular examination Z01.810 CPT Codes EKG - CPT: 25121-[id number], Complete ([id number]) Time Spent (min) 31 Comment Time spent in reviewing the chart, test results, assessment, counseling and documentation.
--- OUTSIDE RECORDS SUMMARY | 2024-09-04 15:11 | XMS_ITS | Continuity of Care Document ---
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 Name Role Phone Isidro OLIVA, Anupama York Primary Care Physician Encounter [facility] Date(s): 08/26/24 - 09/02/24 [facility] [address], [place] [address] Attending Physician: Jean-Paul Davalos MD Referring Physician: Harrison Benton MD Encounter Type: Office Visit Allergies, Adverse Reactions, Alerts Substance Criticality Severity Reaction Reaction Severity Status codeine Active aspirin Active Zofran Active NyQuil D Difficulty abner thing Redness Hives Swelling of body structure Active morphine Active penicillins Active Percocet 7.5/325 Act asya Tylenol Active Sudafed Redness Hives Difficulty breathing Active Darvocet A500 Active Immunizations Given and Recorded Vaccine Date Status Refusal Reason influenza virus vaccine, inactivated 03/19/19 Give n tetanus/diphtheria/pertussis, acel(Tdap) 09/05/17 Given Medications albuterol-ipratropium 3 mg-0.5 mg/3 ml inhalation solution 3 mL, Neb, 3 times a day, PRN Dyspnea, # 90 mL, 2 Refills, Maintenance, 02/20/19 10:35:15 AM EDT, [facility] j45.90, 3 mL Neb 3 times a day,x30 days,PRN:Dyspnea Start Date: 02/20/19 Stop Date: 05/21/19 Status: Ordered Quantity: 90.0 Unit: mL Repeat number: 3 bisacodyl 5 mg oral delayed release tablet TAKE 2 TABLETS BY MOUTH EVERY DAY AT BEDTIME Start Date: 08/26/24 Status: Ordered Repeat number: 1 buPROPion 150 mg/12 hours (SR) oral tablet, extended release 1 tablet = 150 mg, By Mouth, 2 times a day, 0 Refills, Maintenance, 08/26/24 10:51:00 AM EDT, Partial fill upon patient request if the prescription is for a schedule II opioid drug. Start Date: 08/26/24 Status: Ordered Repeat number: 1 buPROPion 300 mg/24 hours (XL) oral tablet, extended release TAKE 1 TABLET BY MOUTH EVERY DAY IN THE MORNING Start Date: 08/26/24 Status: Ordered Repeat number: 1 cyclobenzaprine 5 mg oral tablet TAKE 1 TABLET BY MOUTH EVERY DAY AT BEDTIME NEEDED Start Date: 08/26/24 Status: Ordered Repeat number: 1 Dulera 100 mcg-5 mcg/inh inhalation aerosol 0 Refills, Maintenance, 07/04/23 12:39:00 PM EST, Partial fill upon patient request if the prescription is for a schedule II opioid drug. Start Date: 07/04/23 Status: Ordered Repeat number: 1 famotidine 40 mg oral tablet 1 tablet = 40 mg, By Mouth, 2 times a day, # 60 tablet, 0 Refills, Maintenance, 08/26/24 10:48:00 AMEDT, Tablet, Partial fill upon patient request if the prescription is for a schedule II opioid drug. Start Date: 08/26/24 Status: Ordered Quantity: 60.0 Unit: tablet Repeat number: 1 gabapentin 400 mg oral capsule TAKE 2 CAPSULES BY MOUTH 3 TIMES A DAY Start Date: 08/26/24 Status: Ordered Repeat number: 1 Gas Relief Extra Strength 125 mg oral tablet, chewable CHEW 1 TABLET 4 TIMES A DAY Start Date: 08/26/24 Status: Ordered Repeat number: 1 lansoprazole 30 mg oral enteric coated capsule TAKE 1 CAPSULE BY MOUTH EVERY DAY Start Date: 08/26/24 Status: Ordered Repeat number: 1 Linzess 145 mcg oral capsule 1 capsule = 145 mcg, By Mouth, Daily, # 30 capsule, 0 Refills, Maintenance, 08/26/24 10:48:00 AM EDT, Capsule, Partial fill upon patient request if the prescription is for a schedule II opioid drug. Start Date: 08/26/24 Status: Ordered Quantity: 30.0 Unit: capsule Repeat number: 1 promethazine 25 mg oral tablet 0 Refills, Maintenance, 07/04/23 12:45:00 PM EST, Partial fill upon patient request if the prescription is for a schedule II opioid drug. Start Date: 07/04/23 Status: Ordered Repeat number: 1 PROzac 40 mg oral capsule 1 capsule = 40 mg, By Mouth, 2 times a day, # 60 capsule, 11 Refills, Maintenance, 09/04/18 8:37:05 AM EDT, Capsule, [facility] Start Date: 09/04/18 Status: Ordered Quantity: 60.0 Unit: capsule Repeat number: 12 rosuvastatin 40 mg oral tablet TAKE 1 TABLET BY MOUTH EVERY DAY FOR 30 DAYS Start Date: 08/26/24 Status: Ordered Repeat number: 1 topiramate 200 mg oral tablet TAKE 2 TABLETS BY MOUTH EVERY DAY AT BEDTIME Start Date: 08/26/24 Status: Ordered Repeat number: 1 Ventolin HFA 108 mcg/inh inhalation aerosol with adapter 1 puffs, Inhalation, 4 times a day, PRN for wheezing, # 18 Gm, 0 Refills, Maintenance, 02/25/19 3:11:19 PM EDT, Aerosol, [facility] Start Date: 02/25/19 Status: Ordered Quantity: 18.0 Unit: g Repeat number: 1 zaleplon 10 mg oral capsule TAKE 1 CAPSULE (10 MG) BY MOUTH DAILY AT BEDTIME NEEDED Start Date: 08/26/24 Status: Ordered Repeat number: 1 Zepbound Pen 2.5 mg/0.5 mL subcutaneous solution INJECT 1 PEN SUBCUTANEOUSLY ONCE WEEKLY ON THE SAME DAY Start Date: 08/26/24 Status: Ordered Repeat number: 1 Problem List Condition Confirmation [...] Confirmed Active Obstructive sleep apnea Confirmed Active *[phone] Global Marketing Coordinator Nataliya Henry Confirmed Active Depression, major, recurrent Confirmed Active Severe obesity (BMI 35.0-39.9) with comorbidity Confirmed Active Psychosomatic pain Confirmed Active Arm swelling Confirmed Active Blood transfusion declined because patient is Yazdanism Confirmed Active Vulvovaginal pain Confirmed Active 1Problem added by Discern Expert Vital Signs Most recent to oldest [Reference Range]: 1 Height 170 cm (08/26/24 10:10 AM) Weight 102.8 kg (08/26/24 10:10 AM) Oxygen Saturation [94-100 %] 98 % (08/26/24 10:10 AM) Pulse Rate [55-90 bpm] 77 bpm (08/26/24 10:10 AM) Body Mass Index [18.5-24.99 kg/m2] 35.57 kg/m2 *>HHI* (08/26/24 10:10 AM) Blood Pressure [90-138/55-84 mm Hg] 123/ 81mm Hg (08/26/24 10:10 AM) Respiratory Rate [16-30 br/min] 16 br/mi n (08/26/24 10:10 AM) Mode of Delivery (Oxygen) Room air (08/26/24 10:10 AM) Blood pressure sites Arm, right (08/26/24 10:10 AM) Weight Obtained Via Standing scale (08/26/24 10:10 AM) Social History Social History Type Response Smoking Status Never (less than 100 in lifetime) entered on: 09/29/19 Sex Sex Representation Female (finding) Patient Care team information Care Team Personnel Name: Anupama Felix MD Position: S Physician - Primary Care Member Role: PCP Address: [address] Telecom: Care Team Related Persons Name: JOY BANEGAS Name: PATRICE RICHARD Name: ANUPAMA JOSEPH Insurance Providers Guarantor name: CHEYRLJeannine CROUCH Health Plan Information #: 1 [facility] Member Number: [id number] Policy Number: NA Group Number: [facility] Health Plan Information #: 2 Payer: [employer] Member Number: [id number] Policy Number: NA Group Number: NA
--- OUTSIDE RECORDS SUMMARY | 2024-09-04 15:11 | XMS_ITS | Data Portability ---
Author Organization [employer] Address [address] [place] [address] Care Team Providers Care Steam Plant Records Clerk Name Role Phone HIM CCA OTHER Assessment Encounter Date Assessment Date Assessment LastModified by Organization Details LastModified Time 05/04/2022 05/04/2022 I provided real -time medical direction via phone for this encounter, and was available for additional phone based assistance as needed. I have reviewed and agree with the Assessment and Plan as documented by the Wood Web Weaving Machine Operator. Patient given the opportunity to ask questions. [...] instructions- also aware [facility]- Patient would benefit [...] PAs/ should f/u with pcp re same. [email or web address] Not available 05/04/2022 22:38:57 03/04/2023 03/04/2023 52 yo F with recent COVID exposure, called for COVID testing. VSS. Asymptomatic. Rapid COVID neg. Pt has precautions for callback vs ED. Has PCP visit tomorrow for chronic pain f/up. [email or web address] Not available 03/04/2023 22:11:38 09/13/2023 09/13/2023 service [...] Assessment and Plan as documented by the Wood Web Weaving Machine Operator. Patient given the opportunity to ask questions. Our service contacted for an assessment of: URI symptoms As per above, patient with approximately 24 hours of increasing nasal congestion, low-grade temperature, feeling very nauseated. Patient also with dry nonproductive cough. Feeling generally speaking unwell with myalgias and arthralgias. Wanted to be tested for COVID and flu. Per car pusher on the scene, vital signs are stable [...] or recall this service. She can trial [id number] medications for the cold and flu-like symptoms. [...] th e field was performed by my car pusher colleague, as noted above, I provided real-time [...] IA, respiratory specimen 2023 [email or web address] Main - [facility], [address] [place] [address], [address] [place] [address] 4 15:12:46 rapid flu (A+B) 2023 [email or web address] Main [facility], [address] [place] [address], [address] [place] [address] 4 15:12:46 rapid flu (A+B) 2021 022 [email or web address] 0 Main [facility], [address] [place] [address], [address] [place] [address] 2 22:39:07 rapid SARS CoV 2 Ag, QL IA, respiratory specimen 2021 [email or web address] Main - [facility], [address] [place] [address], [address] [place] [address] 2 22:39:07 BMP, serum or plasma 2021 022 [email or web address] 0 Main - [facility], [address] [place] [address], [address] [place] [address] 2 22:39:06 glucose, fingerstick , blood 2021 [email or web address] 0 Main - [facility], [address] [place] [address], [address] [place] [address] 2 22:39:07 Referral None recorded. Procedures None recorded. Surgeries None recorded. Imaging electrocard iogram 2021 [email or web address] 0 Main [facility], [address] [place] [address] 2 22:39:07 Medication Orders albuterol sulfate 2.5 mg/3 mL (0.083 %) solution for nebulizatio n 2023 024 [email or web address] [facility] #[id number], [address] [place], [address], 4 20:31:38 levalbutero l 0.63 mg/3 mL solution for nebulizatio n 2023 024 [id number] [address] [place], [address], 4 20:33:44 lactated Ringers intravenous solution [address] [facility] [address] [facility], [address] [place] [address], [id number], 4 15:12:46 Reglan 10 mg tablet 2023 024 [id number] [address] [place], [address], 4 15:12:47 Reglan 10 mg tablet [address] [facility], [address] [place] [address], [id number], 4 15:21:08 sodium chloride 0.9 % intravenous solution 2021 022 [email or web address] 0 Not available 2 22:39:07 ondansetron HCl (PF) 4 mg/2 mL injection solution 2021 022 [email or web address] 0 Not available 2 22:39:07 metoclopram ladonna 5 mg/mL injection solution 2021 022 [email or web address] 0 Not available 2 22:39:07 metoclopram ladonna 10 mg tablet 2021 022 [facility], [address] [place] [address], [id number], 2 22:43:22 dextrose 10 % in water (D10W) intravenous solution 2021 022 [email or web address] 0 Not available 22:39:07 Patient TargetsNo targets recorded. Patient Instructions Encounter Date Encounter Id Patient Instructions Last Modified By Organization Details Last Modified Time 05/04/2022 [id number] orthostatic vitals* [email or web address] Not available 05/04/2022 22:39:07 IV lock, initiate* [email or web address] Not available 05/04/2022 22:39:07 Reason for Referral None Reported. Results Created Date Observation Date Name Description Value Unit Range Abnormal Flag Note LastModifiedBy Organization Detail LastModifiedTime 05/04/20 22 05/04/2022 BMP, serum or plasm a BUN 18 Not Available Main - [facility] [address], [address] 05/04/2022 22:25:46 05/04/20 22 05/04/2022 BMP, serum or plasm a Ca I Ca 1.27 Not Available Main - [address], [address] 05/04/2022 22:25:46 05/04/20 22 05/04/2022 BMP, serum or plasm a CI- 104 Not Available Main - [facility] [address], [address] 05/04/2022 22:25:46 05/04/20 22 05/04/2022 BMP, serum or plasm a CRE 1 Not Available Main - [facility] [address], [address] 05/04/2022 22:25:46 05/04/20 22 05/04/2022 BMP, serum or plasm a GLU 113 Not Available Main - [facility] [address], [address] 05/04/2022 22:25:46 05/04/20 22 05/04/2022 BMP, serum or plasm a K+ 3.7 Not Available Main - [facility] [address], [address] 05/04/2022 22:25:46 05/04/20 22 05/04/2022 BMP, serum or plasm a Na+ 140 Not Available Main - [facility] [address], [address] 05/04/2022 22:25:46 05/04/20 22 05/04/2022 BMP, serum or plasm a tCO2 26 Not Available Main - [facility] caron [address] [place] [address], [phone] 05/04/2022 22:25:46 05/04/20 22 05/04/2022 gluco se, corriee rstic k, blood Blood Glucose: mg/dl 196 Not Available [facility] [address] [place] [address], [phone] 05/04/2022 22:29:47 05/04/20 22 05/04/2022 rapid SARS CoV 2 Ag, QL IA, respi rator y speci men rapid SARS CoV 2 Ag, QL IA, respiratory specimen negati ve Not Available [facility] - [facility] ed [address] [place] [address], [phone] 05/04/2022 22:22:42 05/04/20 22 05/04/2022 rapid flu (A+B) Flu negati ve Not Available [facility] - [facility] ed [address] [place] [address], [phone] 05/04/2022 22:22:40 05/10/20 24 05/10/2024 rapid flu (A+B) Flu negati ve Not Available Main - [facility] ed [address] [place] [address], [phone] 05/10/2024 15:09:40 05/10/20 24 05/10/2024 rapid SARS CoV 2 Ag, QL IA, respi rator y speci men rapid SARS CoV 2 Ag, QL IA, respiratory specimen positi ve Not Available [facility] - [facility] ed [address] [place] [address], [phone] 05/10/2024 15:09:38 05/04/20 22 05/04/2022 cynthia [email or web address] am No observ ation record ed. [email or web address] [address], [address] 05/04/2022 22:39:12 Result Notes None recorded. Procedures Surgical History None recorded. Imaging Results Imaging Date Name Status LastModified by Organization Details LastModified Time 05/04/2022 electrocardiogram completed [email or web address] [address], [address] 05/04/2022 22:39:12 Procedure Notes None recorded. Medical Equipment None Reported. Allergies Allergen ID Allergen Name Allergen Category Reaction Reaction Severity Criticality Documentation Date Start Date Code Code System Note Provider Name and Address Organization Details Recorded Time 89469 acetamino phen medicatio n Not available Not available Not available 05/10/2024 161 RxNorm Not Available [facility] 4 10:53:36 48160 Tylenol medicatio n Not available Not available Not available 05/11/2024 25151 3 RxNorm Not Available [facility] 4 12:59:50 1596 Product containin g penicilli n (product) medicatio n Not available Not available Not available 05/04/2022 02168 8001 SNOMED Not Available [facility] 4 03:41:04 1597 acetamino phen / oxycodone medicatio n Not available Not available Not available 05/04/2022 42599 3 RxNorm Not Available [facility] 4 12:59:50 1598 codeine medicatio n Not available Not available Not available 05/04/2022 2670 RxNorm Not Available [facility] 4 10:53:36 1599 morphine medicatio n Not available Not available Not available 05/04/2022 7052 RxNorm Not Available [facility] 4 03:41:04 1600 Sudafed medicatio n Not available Not available Not available 05/04/202266997 2 RxNorm Not Available [facility] 4 10:53:36 1601 acetamino phen / dextromet horphan / doxylamin e / pseudoeph edrine medicatio n Not available Not available Not available 05/04/[address] MD [address] [facility],[address], [place], [address], [place] [employer], [employer] 2 21:32:45 1602 MILK OF MAGNESIA medicatio n Not available Not available Not available 05/04/[address] MD [address] [facility],[address], [place], [address], [place] [employer] 2 21:33:01 7970 aspirin [...] active Not Available Not Available Not Available [facility] Enema (mineral oil) active Not Available Not [...] 180 mm[Hg] 115 mm[Hg] Not Available [facility] [employer] 4 18:45:53 Date Recorded Body temperature Heart rate Oxygen saturation Oxygen saturation in Arterial blood by Pulse oximetry Respiratory rate Systolic blood pressure Diastolic blood pressure Systolic blood pressure Diastolic blood pressure Provider Name and Address Organization Details Last Updated DateTime 4 100.1 [degF] 93 /min 97 % 97 % 16 /min 120 mm[Hg] 74 mm[Hg] 117 mm[Hg] 80 mm[Hg] Not Available [employer] 4 13:26:47 Date Recorded Respiratory rate Body temperature Heart rate Oxygen saturation Oxygen saturation in Arterial blood by Pulse oximetry Systolic blood pressure Diastolic blood pressure Provider Name and Address Organization Details Last Updated DateTime 4 16 /min 98 [degF] 84 /min 97 % 97 % 107 mm[Hg] 68 mm[Hg] Not Available [employer] [employer] 4 20:24:24 Date Recorded Body temperature Oxygen saturation Oxygen saturation in Arterial blood by Pulse oximetry Respiratory rate Heart rate Systolic blood pressure Diastolic blood pressure Provider Name and Address Organization Details Last Updated DateTime 2 98.1 [degF] 99 % 99 % 16 /min 85 /min 119 mm[Hg] 66 mm[Hg] Not Available [employer] 2 19:11:38 Date Recorded Body height Body mass index (BMI) Body weight Provider Name and Address Organization Details Last Updated DateTime 05/04/2022 170.18 cm 35.7 kg/m2 474651.[address] MD [address] [place] [address],[address], [place], [address] 05/04/2022 19:33:34 Social History None recorded. Functional Status None recorded. Mental Status None recorded. Family History Nothing Reported. Medical History No medical history recorded. Gynecological HistoryNo gynecological history recorded. Obstetrics History GPAL:G 0 P 0 0 0 0 Past Encounters Encounter ID Performer Location Encounter Start Date Encounter Closed Date Diagnosis/Indication Diagnosis SNOMED-CT Code Diagnosis ICD10 Code Diagnosis Note [id number] [facility] [address] [place] [phone] 08/26/2021 10:13:05 01/12/2022 14:53:52 Abdominal pain 01598659 R10.9 [id number] Mykel Armstrong MD Main - [facility] [address] [place] [phone] 09/27/2021 16:35:43 01/12/2022 15:32:12 Malaise and fatigue 940544578 R53.81 [id number] Kishan Yin MD Main - [facility] [address] [place] [address] 10/19/2021 20:40:34 10/20/2021 17:52:41 [id number] Anjel Roberts MD Main - [facility] [address] [place] [phone] 11/10/2021 10:39:03 02/13/2022 11:15:10 Nausea 907110992 R11.0 Diarrhea 94594197 R19.7 [id number] Mykel Armstrong MD Main - [facility] [address] [place] [id number] 11/14/2021 09:25:02 01/16/2022 12:16:38 Low blood pressure 92705512 I95.9 [id number] Starr Gutierrez MD Main - [facility] [address] [place] [phone] 12/22/2021 19:52:11 01/11/2022 12:05:12 Abdominal pain 78280992 R10.[id number] MD Main - [facility] [address] [place] [phone] 05/04/2022 19:11:29 05/07/2022 14:16:26 Nausea, vomiting and diarrhea 1208633 R19.7 R11.2 declined loperamide or any antidiarrh eal - does not want to be over constipate d- advised need to f/u with GI and PCP after Nirali- beginning next week [id number] KELSEA PURVIS MD Main - [facility] [address] [place] [id number] 03/04/2023 20:00:52 03/05/2023 09:44:33 Exposure to SARS-CoV-2 172454832 Z20.822 [id number] Nga Escalona MD Main - [facility] [address] [place] [phone] 09/13/2023 18:45:46 09/15/2023 12:31:39 Edema of left lower limb 652763255 R60.0 [id number] Yari Gonzalez MD Main - [facility] [address] [place] [phone] 05/10/2024 13:26:45 05/12/2024 21:02:20 COVID-19 934634611 U07.1 [facility] 480633407 R11.0 [id number] Maribell Bernardo MD Main - [facility] [address] [place] [id number] 05/11/2024 20:24:22 05/12/2024 21:50:15 COVID-19 545385969 U07.1 Health Concerns Section Related Observation LastModified by Organization Detai ls LastModified Time None Recorded Concern Status LastModified by Organization Details LastModified Time None Recorded Advance Directives Directive None Recorded Payers Encounter Date Sequence Insurance Name Policy Number Policy Kahn Covered Member ID Kahn Member ID Guarantor Name 05/04/2022 1 [facility] ALLIANCE - DOS PRIOR TO 2022 - DUAL ELIGIBLE (MEDICARE REPLACEMENT/ADV ANTAGE - HMO) Agnes Vilchis [id number] Agnes Milligan 03/04/2023 1 [employer] C[employer] - DOS ON OR AFTER 2022 - DUAL ELIGIBLE - RETIREMENT OPTIONS AND ONE CARE (MEDICARE REPLACEMENT/ADV ANTAGE - HMO) Agnes Milligan [id number] Agnes Milligan 09/13/2023 1 [facility] ON OR AFTER 2022 - DUAL ELIGIBLE - RETIREMENT OPTIONS AND ONE CARE (MEDICARE REPLACEMENT/ADV ANTAGE - HMO) Agnes Milligan [id number] Agnes Milligan 05/10/2024 1 [facility] CARE ALLIANCE - DOS ON OR AFTER 2022 - DUAL ELIGIBLE - RETIREMENT OPTIONS AND ONE CARE (MEDICARE REPLACEMENT/ADV ANTAGE - HMO) Agnes Milligan [id number] Agnes Milligan 05/11/2024 1 [facility] - DOS ON OR AFTER 2022 - DUAL ELIGIBLE - RETIREMENT OPTIONS AND ONE CARE (MEDICARE REPLACEMENT/ADV ANTAGE - HMO) Agnes Milligan [id number] Agnes Milligan Notes Date Note Type Note Provider Name and Address Organization Details Recorded Time 05/04/2022 text/html HPI: mbr with complaints of Dizziness/lightheaded/ weakness/diaphoretic, has been experiencing symptoms all day. states Blood sugar have been fluctuating, POC 50-180 currently 120. Poor PO intake. requesting [facility] visit Protocol Used: Vomiting Protocol-Based Disposition: Consider [facility], MECHANICS SUPERVISOR, MD/HVAC DESIGN ENGINEER triage, PCP, or ED /Urgent Care Visit [...] CRC RN attempted to contact requestor @ [phone] regarding member's condition- no answer. Left message for member @ [phone] SEGMD: Pat recently had colonoscopy for IBS- [...] else.................. ...................... ...................... ...................... ...................... ...................... .............. Wood Web Weaving Machine Operator Note: Called to home for N/V. Patient [...] ......... Disposition: Fulfilled Tonia Lane MD [address] [facility],[address], [place], [address], [employer] 05/04/2022 22:39:24 03/04/2023 text/html HPI: 52 y.o. [...] ...................... ...................... ...................... ...................... ...................... ...................... ......... Wood Web Weaving Machine Operator Note From Edmund Blackwell: Pt reports ongoing [...] ......... Disposition: Fulfilled KELSEA PURVIS MD [address] [facility],[address], [place], [address], [employer] 03/04/2023 22:11:51 09/13/2023 text/html HPI: 53 yo female w chronic pain and perceived inflammation, HLD, depression, PTSD, insomnia, migraine, DEBBI, obesity, asthma, allergies, osteoarthritis, CKD 3, IBS with constipation and diarrhea, prediabetes, and low blood sugars. Agnes states she was in [place] when a friend's daughter who is a nurse noticed she had bulging leg veins, the left more than the right . She said this happened a few days ago but is calling now for an apt. I am sending [employer] for pictures of her leg and to [...] pictures that her friends daughter took to [facility] images ...................... ...................... ...................... ...................... ...................... ...................... ......... CRC Nurse Triage Notes (Monet Lancaster): Comments: CRC RN DID NOT NEED FURTHER INFO Nga Escalona MD [address] [facility],[address], [place], [address], [employer] 09/13/2023 18:53:12 05/10/2024 text/html HPI: Call to [...] enough to wait a few hours for car pusher visit to assess her current clinical presentation and ability to be managed as an outpatient. [facility] request submitted for urgent in home assessment. ...................... ...................... ...................... ...................... ...................... ...................... ......... CRC Nurse Triage Notes (Mark Hinojosa - RN): Chief Complaints: Cough, Earache, Vomiting PMH: Hypertension, COPD/Asthma Comments: Reviewed HPI ...................... ...................... ...................... ...................... ...................... ...................... ......... Wood Web Weaving Machine Operator Note From Edmund Blackwell: This 53-year-old female [...] and does not like to use any [id number]-wji-[id number]'s due to allergies.Patient presents awake and alert, [...] ...................... ...................... ...................... ...................... ...................... ...................... ......... [facility] Consulted: Yari Gonzalez ...................... ...................... ...................... ...................... ...................... ...................... ......... Disposition: Fulfilled Yari Gonzalez MD [address] [facility],[address], [place], [address], [employer] 05/10/2024 15:22:05 05/11/2024 text/html HPI: 53 year [...] ...................... ...................... ...................... ...................... ...................... ...................... ......... Wood Web Weaving Machine Operator Note From Edmund Blackwell: This 53-year-old female [...] they sent a referral to [facility] to have us come out and prescribed [...] treat her with Toradol. I contacted the [facility] who will send nebulizer solution to her [...] ...................... ...................... ...................... ...................... ...................... ...................... ......... [facility] Consulted: Maribell Bernardo ...................... ...................... ...................... ...................... ...................... ...................... ......... Disposition: Fulfilled Maribell Bernardo MD [address] [facility],[address] [facility], [place], [phone], [employer] [facility] 05/11/2024 20:57:54 OBGyn Episode No OBEpisode recorded.
== END 2024-09-04 14:54 | disposition home or self-care (01) ==
LOC: HO.HCS 14:29
PROVIDERS: PCP Registered Nurse
DX: I77.810 Thoracic aortic ectasia (principal); E78.5 Hyperlipidemia, unspecified; E66.812 Obesity, class 2; E66.01 Morbid (severe) obesity due to excess calories; Z68.37 Body mass index [BMI] 37.0-37.9, adult; Z01.810 Encounter for preprocedural cardiovascular examination
CPT/HCPCS: 93010; 99214; G2211

== ENCOUNTER → 2024-09-04 14:28 | Outpatient (BNVA) | payer OTHER, SELFPAY | PROVIDERS: PCP Registered Nurse | DX: Z01.810 Encounter for preprocedural cardiovascular examination (principal); I77.810 Thoracic aortic ectasia; E78.5 Hyperlipidemia, unspecified; E66.812 Obesity, class 2; Z68.37 Body mass index [BMI] 37.0-37.9, adult | CPT/HCPCS: 93005; 99212 ==

== ENCOUNTER 2024-10-08 08:20 | Day surgery (SDC) | payer OTHER, SELFPAY ==
--- OUTSIDE RECORDS SUMMARY | 2024-09-01 14:38 | XMS_ITS | Data Portability ---
Author Organization [employer] [facility] in [facility] Address [address] [place] [phone] Care Team Providers Care Case Preparer And Liner Name Role Phone HIM CCA OTHER Assessment Encounter Date Assessment Date Assessment LastModified by Organization Details LastModified Time 05/04/2022 05/04/2022 I provided real -time medical direction via phone for this encounter, and was available for additional phone based assistance as needed. I have reviewed and agree with the Assessment and Plan as documented by the End Trimmer. Patient given the opportunity to ask questions. [...] instructions- also aware [facility]- Patient would benefit [...] PAs/ should f/u with pcp re same. [email or web address] Not available 05/04/2022 22:38:57 03/04/2023 03/04/2023 52 yo F with recent COVID exposure, called for COVID testing. VSS. Asymptomatic. Rapid COVID neg. Pt has precautions for callback vs ED. Has PCP visit tomorrow for chronic pain f/up. Not available 03/04/2023 22:11:38 09/13/2023 09/13/2023 service [...] Assessment and Plan as documented by the End Trimmer. Patient given the opportunity to ask questions. Our service contacted for an assessment of: URI symptoms As per above, patient with approximately 24 hours of increasing nasal congestion, low-grade temperature, feeling very nauseated. Patient also with dry nonproductive cough. Feeling generally speaking unwell with myalgias and arthralgias. Wanted to be tested for COVID and flu. Per transitional nurse on the scene, vital signs are stable [...] or recall this service. She can trial jebz-pfd-[id number] medications for the cold and flu-like symptoms. [...] th e field was performed by my transitional nurse colleague, as noted above, I provided real-time [...] IA, respiratory specimen 2023 [email or web address] Main - On License Of [facility], [address] [place] [address], [address] [place] [address] 4 15:12:46 rapid flu (A+B) 2023 [email or web address] Main - [facility], [address] [place] [address], [address] [place] [address] 4 15:12:46 rapid flu (A+B) 2021 022 [email or web address] 0 Main - [facility], [address] [place] [address], [address] [place] [address] 2 22:39:07 rapid SARS CoV 2 Ag, QL IA, respiratory specimen 2021 [email or web address] 0 Main - [facility], [address] [place] [address], [address] [place] [address] 2 22:39:07 BMP, serum or plasma 2021 022 [email or web address] 0 Main - [facility], [address] [place] [address], [address] [place] [address] 2 22:39:06 glucose, fingerstick , blood 2021 [email or web address] 0 Main - [facility], [address] [place] [address], [address] [place] [address] 2 22:39:07 Referral None recorded. Procedures None recorded. Surgeries None recorded. Imaging electrocard iogram 2021 [email or web address] 0 Main [facility], [address] [place] [address] 2 22:39:07 Medication Orders albuterol sulfate 2.5 mg/3 mL (0.083 %) solution for nebulizatio n 2023 024 [email or web address] [facility] #[id number], [address] [place], [address], 4 20:31:38 levalbutero l 0.63 mg/3 mL solution for nebulizatio n 2023 024 [id number] [address] [place], [address], 4 20:33:44 lactated Ringers intravenous solution [address] [facility], [address] [place] [address], [id number], 4 15:12:46 Reglan 10 mg tablet 2023 024 [id number], [address] [place], [address], 4 15:12:47 Reglan 10 mg tablet [address] [facility] [address] [facility], [address] [place] [address], [id number], 4 15:21:08 sodium chloride 0.9 % intravenous solution 2021 022 [email or web address] 0 Not available 2 22:39:07 ondansetron HCl (PF) 4 mg/2 mL injection solution 2021 022 [email or web address] 0 Not available 2 22:39:07 metoclopram ladonna 5 mg/mL injection solution 2021 022 [email or web address] 0 Not available 2 22:39:07 metoclopram ladonna 10 mg tablet 2021 022 [facility], [address] [place] [address], [id number], 2 22:43:22 dextrose 10 % in water (D10W) intravenous solution 2021 022 [email or web address] 0 Not available 22:39:07 Patient TargetsNo targets recorded. Patient Instructions Encounter Date Encounter Id Patient Instructions Last Modified By Organization Details Last Modified Time 05/04/2022 [id number] orthostatic vitals* [email or web address] Not available 05/04/2022 22:39:07 IV lock, initiate* [email or web address] Not available 05/04/2022 22:39:07 Reason for Referral None Reported. Results Created Date Observation Date Name Description Value Unit Range Abnormal Flag Note LastModifiedBy Organization Detail LastModifiedTime 05/04/20 22 05/04/2022 BMP, serum or plasm a BUN 18 Not Available Main - [facility] [address], [address] 05/04/2022 22:25:46 05/04/20 22 05/04/2022 BMP, serum or plasm a Ca I Ca 1.27 Not Available Main - [address], [address] 05/04/2022 22:25:46 05/04/20 22 05/04/2022 BMP, serum or plasm a CI- 104 Not Available Main - [facility] [address], [address] 05/04/2022 22:25:46 05/04/20 22 05/04/2022 BMP, serum or plasm a CRE 1 Not Available Main - [facility] [address], [address] 05/04/2022 22:25:46 05/04/20 22 05/04/2022 BMP, serum or plasm a GLU 113 Not Available Main - [facility] [address], [address] 05/04/2022 22:25:46 05/04/20 22 05/04/2022 BMP, serum or plasm a K+ 3.7 Not Available Main - [facility] [address], [address] 05/04/2022 22:25:46 05/04/20 22 05/04/2022 BMP, serum or plasm a Na+ 140 Not Available Main - [facility] [address], [address] 05/04/2022 22:25:46 05/04/20 22 05/04/2022 BMP, serum or plasm a tCO2 26 Not Available Main - Ins [facility]on [address] [place] [address], [address] 05/04/2022 22:25:46 05/04/20 22 05/04/2022 gluco se, corriee rstic k, blood Blood Glucose: mg/dl 196 Not Available [facility] [address] [place] [address], [phone] 05/04/2022 22:29:47 05/04/20 22 05/04/2022 rapid SARS CoV 2 Ag, QL IA, respi rator y speci men rapid SARS CoV 2 Ag, QL IA, respiratory specimen negati ve Not Available [facility] - [facility] [address] [place] [address], [phone] 05/04/2022 22:22:42 05/04/20 22 05/04/2022 rapid flu (A+B) Flu negati ve Not Available [facility] - [facility] [address] [place] [address], [address] 05/04/2022 22:22:40 05/10/20 24 05/10/2024 rapid flu (A+B) Flu negati ve Not Available Main - [facility] [address] [place] [address], [phone] 05/10/2024 15:09:40 05/10/20 24 05/10/2024 rapid SARS CoV 2 Ag, QL IA, respi rator y speci men rapid SARS CoV 2 Ag, QL IA, respiratory specimen positi ve Not Available [facility] [address] [place] [address], [phone] 05/10/2024 15:09:38 05/04/20 22 05/04/2022 cynthia [email or web address] am No observ ation record ed. [email or web address] [address], [address] 05/04/2022 22:39:12 Result Notes None recorded. Procedures Surgical History None recorded. Imaging Results Imaging Date Name Status LastModified by Organization Details LastModified Time 05/04/2022 electrocardiogram completed [email or web address] [address], [address] 05/04/2022 22:39:12 Procedure Notes None recorded. Medical Equipment None Reported. Allergies Allergen ID Allergen Name Allergen Category Reaction Reaction Severity Criticality Documentation Date Start Date Code Code System Note Provider Name and Address Organization Details Recorded Time 72490 acetamino phen medicatio n Not available Not available Not available 05/10/2024 161 RxNorm Not Available [facility] 4 10:53:36 85949 Tylenol medicatio n Not available Not available Not available 05/11/2024 96285 3 RxNorm Not Available [facility] 4 12:59:50 1596 Product containin g penicilli n (product) medicatio n Not available Not available Not available 05/04/2022 61585 8001 SNOMED Not Available [facility] 4 03:41:04 1597 acetamino phen / oxycodone medicatio n Not available Not available Not available 05/04/2022 52010 3 RxNorm Not Available [facility] 4 12:59:50 1598 codeine medicatio n Not available Not available Not available 05/04/2022 2670 RxNorm Not Available [facility] 4 10:53:36 1599 morphine medicatio n Not available Not available Not available 05/04/2022 7052 RxNorm Not Available [facility] 4 03:41:04 1600 Sudafed medicatio n Not available Not available Not available 05/04/202210378 2 RxNorm Not Available [facility] 4 10:53:36 1601 acetamino phen / dextromet horphan / doxylamin e / pseudoeph edrine medicatio n Not available Not available Not available 05/04/[address] MD [address], [place], [address], [place] [employer] [facility] [employer] 2 21:32:45 1602 MILK OF MAGNESIA medicatio n Not available Not available Not available 05/04/[address] MD [address], [place], [address], [place] [employer] [facility] 2 21:33:01 7970 aspirin [...] active Not Available Not Available Not Available Mam[facility]Ys-Ycn Enema (mineral oil) active Not Available Not [...] 180 mm[Hg] 115 mm[Hg] Not Available [facility] [employer] 4 18:45:53 Date Recorded Body temperature Heart rate Oxygen saturation Oxygen saturation in Arterial blood by Pulse oximetry Respiratory rate Systolic blood pressure Diastolic blood pressure Systolic blood pressure Diastolic blood pressure Provider Name and Address Organization Details Last Updated DateTime 4 100.1 [degF] 93 /min 97 % 97 % 16 /min 120 mm[Hg] 74 mm[Hg] 117 mm[Hg] 80 mm[Hg] Not Available [employer] 4 13:26:47 Date Recorded Respiratory rate Body temperature Heart rate Oxygen saturation Oxygen saturation in Arterial blood by Pulse oximetry Systolic blood pressure Diastolic blood pressure Provider Name and Address Organization Details Last Updated DateTime 4 16 /min 98 [degF] 84 /min 97 % 97 % 107 mm[Hg] 68 mm[Hg] Not Available [employer] [employer] 4 20:24:24 Date Recorded Body temperature Oxygen saturation Oxygen saturation in Arterial blood by Pulse oximetry Respiratory rate Heart rate Systolic blood pressure Diastolic blood pressure Provider Name and Address Organization Details Last Updated DateTime 2 98.1 [degF] 99 % 99 % 16 /min 85 /min 119 mm[Hg] 66 mm[Hg] Not Available [employer] 2 19:11:38 Date Recorded Body height Body mass index (BMI) Body weight Provider Name and Address Organization Details Last Updated DateTime 05/04/2022 170.18 cm 35.7 kg/m2 105447.[address] MD [address] [place] [address],[address], [place], [address] 05/04/2022 19:33:34 Social History None recorded. Functional Status None recorded. Mental Status None recorded. Family History Nothing Reported. Medical History No medical history recorded. Gynecological HistoryNo gynecological history recorded. Obstetrics History GPAL:G 0 P 0 0 0 0 Past Encounters Encounter ID Performer Location Encounter Start Date Encounter Closed Date Diagnosis/Indication Diagnosis SNOMED-CT Code Diagnosis ICD10 Code Diagnosis Note [id number] [facility] [address] [place] [phone] 08/26/2021 10:13:05 01/12/2022 14:53:52 Abdominal pain 11250563 R10.9 [id number] Mykel Armstrong MD Main - [facility] [address] [place] [phone] 09/27/2021 16:35:43 01/12/2022 15:32:12 Malaise and fatigue 062374853 R53.81 [id number] Kishan Yin MD Main - [facility] [address] [place] [phone] 10/19/2021 20:40:34 10/20/2021 17:52:41 [id number] Anjel Roberts MD Main - [facility] [address] [place] [phone] 11/10/2021 10:39:03 02/13/2022 11:15:10 Nausea 983095834 R11.0 Diarrhea 68492659 R19.7 [id number] Mykel Armstrong MD Main - [facility] [address] [place] [phone] 11/14/2021 09:25:02 01/16/2022 12:16:38 Low blood pressure 74816799 I95.9 [id number] Starr Gutierrez MD Main - [facility] [address] [place] [phone] 12/22/2021 19:52:11 01/11/2022 12:05:12 Abdominal pain 81476051 R10.[id number] MD Main - [facility] [address] [place] [phone] 05/04/2022 19:11:29 05/07/2022 14:16:26 Nausea, vomiting and diarrhea 4996591 R19.7 R11.2 declined loperamide or any antidiarrh eal - does not want to be over constipate d- advised need to f/u with GI and PCP after Nirali- beginning next week [id number] KELSEA PURVIS MD Main - [facility] [address] [place] [phone] 03/04/2023 20:00:52 03/05/2023 09:44:33 Exposure to SARS-CoV-2 419240727 Z20.822 [id number] Nga Escalona MD Main - [facility] [address] [place] [phone] 09/13/2023 18:45:46 09/15/2023 12:31:39 Edema of left lower limb 987106627 R60.0 [id number] Yari Gonzalez MD Main - [facility] [address] [place] [phone] 05/10/2024 13:26:45 05/12/2024 21:02:20 COVID-19 533076293 U07.1 [facility] 318922299 R11.0 [id number] Maribell Bernardo MD Main - [facility] [address] [place] [phone] 05/11/2024 20:24:22 05/12/2024 21:50:15 COVID-19 614335345 U07.1 Health Concerns Section Related Observation LastModified by Organization Detai ls LastModified Time None Recorded Concern Status LastModified by Organization Details LastModified Time None Recorded Advance Directives Directive None Recorded Payers Encounter Date Sequence Insurance Name Policy Number Policy Kahn Covered Member ID Kahn Member ID Guarantor Name 05/04/2022 1 [facility] [employer] - DOS PRIOR TO 2022 - DUAL ELIGIBLE (MEDICARE REPLACEMENT/ADV ANTAGE - HMO) Agnes Vilchis [id number] Agnes Milligan 03/04/2023 1 [employer] - DOS ON OR AFTER 2022 - DUAL ELIGIBLE - CUSTODIAL OPTIONS AND ONE CARE (MEDICARE REPLACEMENT/ADV ANTAGE - HMO) Agnes Milligan [id number] Agnes Milligan 09/13/2023 1 [facility] - DOS ON OR AFTER 2022 - DUAL ELIGIBLE - CUSTODIAL OPTIONS AND ONE CARE (MEDICARE REPLACEMENT/ADV ANTAGE - HMO) Agnes Milligan [id number] Agnes Milligan 05/10/2024 1 [facility] - DOS ON OR AFTER 2022 - DUAL ELIGIBLE - CUSTODIAL OPTIONS AND ONE CARE (MEDICARE REPLACEMENT/ADV ANTAGE - HMO) Agnes Milligan [id number] Agnes Milligan 05/11/2024 1 [facility] - DOS ON OR AFTER 2022 - DUAL ELIGIBLE - CUSTODIAL OPTIONS AND ONE CARE (MEDICARE REPLACEMENT/ADV ANTAGE - HMO) Agnes Milligan [id number] Agnes Milligan Notes Date Note Type Note Provider Name and Address Organization Details Recorded Time 05/04/2022 text/html HPI: mbr with complaints of Dizziness/lightheaded/ weakness/diaphoretic, has been experiencing symptoms all day. states Blood sugar have been fluctuating, POC 50-180 currently 120. Poor PO intake. requesting [facility] visit Protocol Used: Vomiting Protocol-Based Disposition: Consider [facility], CAFE SERVER, MD/LSW triage, PCP, or ED /Urgent Care Visit [...] CRC RN attempted to contact requestor @ [phone] regarding member's condition- no answer. Left message for member @ [phone] SEGMD: Pat recently had colonoscopy for IBS- [...] else.................. ...................... ...................... ...................... ...................... ...................... .............. End Trimmer Note: Called to home for N/V. Patient [...] ......... Disposition: Fulfilled Tonia Lane MD [address], [place], [address], [employer] 05/04/2022 22:39:24 03/04/2023 text/html HPI: 52 y.o. [...] ...................... ...................... ...................... ...................... ...................... ...................... ......... End Trimmer Note From Edmund Blackwell: Pt reports ongoing [...] ......... Disposition: Fulfilled KELSEA PURVIS MD [address], [place], [address], [employer] 03/04/2023 22:11:51 09/13/2023 text/html HPI: 53 yo female w chronic pain and perceived inflammation, HLD, depression, PTSD, insomnia, migraine, DEBBI, obesity, asthma, allergies, osteoarthritis, CKD 3, IBS with constipation and diarrhea, prediabetes, and low blood sugars. Agnes states she was in [place] when a friend's daughter who is a nurse noticed she had bulging leg veins, the left more than the right . She said this happened a few days ago but is calling now for an apt. I am sending [employer] for pictures of her leg and to [...] pictures that her friends daughter took to [facility] images ...................... ...................... ...................... ...................... ...................... ...................... ......... CRC Nurse Triage Notes (Monet Lancaster): Comments: CRC RN DID NOT NEED FURTHER INFO Nga Escalona MD [address], [place], [address], [employer] 09/13/2023 18:53:12 05/10/2024 text/html HPI: Call to [...] enough to wait a few hours for transitional nurse visit to assess her current clinical presentation and ability to be managed as an outpatient. [facility] request submitted for urgent in home assessment. ...................... ...................... ...................... ...................... ...................... ...................... ......... CRC Nurse Triage Notes (Mark Hinojosa - RN): Chief Complaints: Cough, Earache, Vomiting PMH: Hypertension, COPD/Asthma Comments: Reviewed HPI ...................... ...................... ...................... ...................... ...................... ...................... ......... End Trimmer Note From Edmund Blackwell: This 53-year-old female [...] and does not like to use any vpus-xcw-zqogwwh's due to allergies.Patient presents awake and alert, [...] ...................... ...................... ...................... ...................... ...................... ...................... ......... [facility] Consulted: Yari Gonzalez ...................... ...................... ...................... ...................... ...................... ...................... ......... Disposition: Fulfilled Yari Gonzalez MD [address], [place], [address], [employer] 05/10/2024 15:22:05 05/11/2024 text/html HPI: 53 year [...] ...................... ...................... ...................... ...................... ...................... ...................... ......... End Trimmer Note From Edmund Blackwell: This 53-year-old female [...] morning and they sent a referral to [facility] to have us come out [...] treat her with Toradol. I contacted the [facility] who will send nebulizer solution to her [...] ...................... ...................... ...................... ...................... ...................... ...................... ......... [facility] Consulted: Maribell Bernardo ...................... ...................... ...................... ...................... ...................... ...................... ......... Disposition: Fulfilled Maribell Bernardo MD [address] [facility], [place], [address], [employer] [facility] 05/11/2024 20:57:54 OBGyn Episode No OBEpisode recorded.
--- NOTE | 2024-10-07 12:25 | HO.ANESPROP2 ---
Documented by User: Chelsi Naranjo NP 10/07/24 12:30 HPI - Anesthesia Eval Consult details Narrative: 54yo F for Upper Endoscopy Multiple anaphylactic allergies Recent eval by [facility] [place] Cardiology for preop knee scope - deemed optimized to proceed. Atypical CP likely r/t esophageal spasms (aware of EGD) Anesthesia Pre-Procedure Meds Is the patient on any of the following meds?: GLP1/DPP4 PMFSH Active Problems Active Problems: All Active Problems BMI 37.0-37.9, adult (Acute) Obesity (Acute) Ascending aorta dilation (Acute) Chronic kidney disease (CKD) stage G3a/A1, moderately decreased glomerular filtration rate (GFR) between 45-59 mL/min/1.73 square meter and albuminuria creatinine ratio less than 30 mg/g (Acute) Precordial chest pain (Acute) Hiatal hernia (Acute) Erosive esophagitis (Acute) Upper abdominal pain (Acute) GERD (gastroesophageal reflux disease) (Acute) Paroxysmal nocturnal dyspnea (Acute) Esophageal spasm (Acute) Rectal bleeding (Acute) Skin ulcer (Acute) Prolonged QT interval (Acute) Lumbar spondylosis (Acute) Hyperlipidemia (Acute) Obstructive sleep apnea (Acute) Anxiety disorder (Acute) Bipolar disorder (Acute) Depression (Acute) Stress incontinence (Acute) Chronic idiopathic constipation (Acute) Morbid obesity (Acute) Chronic pain syndrome (Acute) Fibromyalgia (Acute) Past Medical History Medical History Mood disorder Dental infection Preop examination Hyperlipidemia Acute diarrhea Pancreatic insufficiency Chronic idiopathic constipation Chronic pain syndrome Drug allergy Kidney failure History of MRSA infection (~2010) Stress incontinence Psychosomatic pain Obstructive sleep apnea Anxiety disorder Morbid obesity Fibromyalgia Bipolar disorder Suicide attempt Depression Asthma Family History Family History Mother Stroke Family history of problems with anesthesia: No Surgical History Surgical History History of esophagogastroduodenoscopy (EGD) Hx of section H/O colonoscopy H/O abdominoplasty History of lumpectomy of left breast H/O bilateral oophorectomy H/O: hysterectomy H/O laparoscopy History of Problems with Anesthesia: No Social History Social History Household Members Other:: parents Are you a primary home health caregiver to a significant other at home: No Do you presently have visiting nurse or other home services: No Alcohol intake: never Patient Tobacco Use Status: Never used Tobacco Have you been hit, kicked, punched, or otherwise hurt by someone within the past year? If so, by whom?: No Are you DNR?: No Advance Directives: No Advance Directives Information Provided: Yes Poor oral hygiene: No Meds Allergies Allergy/AdvReac Type Severity Reaction Status Date / Time acetaminophen [From Tylenol] Allergy Severe Anaphylaxis Verified 10/08/24 09:44 aspirin Allergy Severe Anaphylaxis Verified 10/08/24 09:44 codeine Allergy Severe Anaphylaxis Verified 10/08/24 09:44 dextromethorphan Allergy Severe Anaphylaxis Verified 10/08/24 09:44 [From NyQuil] doxylamine [From NyQuil] Allergy Severe Anaphylaxis Verified 10/08/24 09:44 magnesium hydroxide Allergy Severe Anaphylaxis Verified 10/08/24 09:44 [From Milk of Magnesia] morphine Allergy Severe Anaphylaxis Verified 10/08/24 09:44 oxycodone [From Percocet] Allergy Severe Anaphylaxis Verified 10/08/24 09:44 Penicillins Allergy Severe Anaphylaxis Verified 10/08/24 09:44 propoxyphene Allergy Severe Anaphylaxis Verified 10/08/24 09:44 [From Darvocet-N 100] pseudoephedrine Allergy Severe Anaphylaxis Verified 09/04/24 14:36 [From Sudafed] Home Medications ?Medication ?Instructions ?Recorded ?Confirmed ?Last Taken ?Type blood sugar diagnostic (FreeStyle #10 ea 08/04/21 09/04/24 Unknown History Test strips) cholecalciferol (vitamin D3) 50 50 mcg PO DAILY 08/04/21 09/04/24 Unknown History mcg (2,000 unit) capsule (Vitamin D3) diclofenac sodium 1 % topical gel 4 g topical QID 08/04/21 09/04/24 Unknown History levalbuterol HCl 0.63 mg/3 mL mg inhalation 08/04/21 09/04/24 Unknown History solution for nebulization mometasone-formoterol HFA 100 2 puff inhalation BID 08/04/21 09/04/24 Unknown History mcg-5 mcg/actuation aerosol inhaler (Dulera) ondansetron HCl 4 mg tablet 4 mg PO TID PRN nausea 08/04/21 09/04/24 Unknown History pen needle, diabetic 31 gauge x #1,200 ea 08/04/21 09/04/24 Unknown History 5/16 (Ultracare Pen Needle) epinephrine 0.3 mg/0.3 mL IM DIRECTED anaphylaxis 01/05/22 09/04/24 Unknown History injection, auto-injector gabapentin 400 mg capsule 800 mg PO TID 01/05/22 09/04/24 Unknown History sodium phosphates 19 gram-7 ml DE 01/05/22 09/04/24 Unknown History gram/118 mL enema (Enema Disposable) lancets 30 gauge (Pure Comfort #100 ea 05/03/22 09/04/24 Unknown History Safety Lancets) zaleplon 10 mg capsule 10 mg PO BEDTIME PRN Insomnia 05/03/22 09/04/24 Unknown History albuterol sulfate 90 mcg/actuation 2 inh inhalation 07/11/23 09/04/24 Unknown History aerosol inhaler bupropion HCl 300 mg 24 hr tablet, 300 mg PO QAM 07/11/23 09/04/24 Unknown History extended release (Wellbutrin XL) cyclobenzaprine 5 mg tablet 10 mg PO BEDTIME 07/11/23 09/04/24 Unknown History fluoxetine 20 mg capsule 40 mg PO DAILY 07/11/23 09/04/24 Unknown History topiramate 200 mg tablet (Topamax) 200 mg PO BEDTIME 07/11/23 09/04/24 Unknown History bupropion HCl 150 mg tablet,12 hr 150 mg PO DAILY 08/09/23 09/04/24 Unknown History sustained-release tramadol 50 mg tablet 50 mg PO TID PRN Mild Pain (Scale 11/12/23 09/04/24 Unknown History Score 1-4) rosuvastatin 40 mg tablet mg PO DAILY 06/23/24 09/04/24 Unknown History tirzepatide (weight loss) 5 mg/0.5 2.5 mg subcut 08/28/24 09/04/24 09/30/24 History mL subcutaneous pen injector (Zepbound) oxybutynin chloride 10 mg mg PO 09/04/24 09/04/24 Unknown History tablet,extended release 24 hr Exam Pertinent Lab Results Pertinent Lab Results: Laboratory Tests 03/02/24 13:47 WBC 7.3 Hgb 14.0 Hct 43.1 Plt Count 307 Sodium 143 Potassium 3.7 Chloride 111 H Carbon Dioxide 25 BUN 14 Creatinine 1.17 Narrative Narrative: EKG 08/2024 EKG Details: EKG today showed normal sinus rhythm, rate 84 beats per minute, normal DE, and corrected QT. 02/05/2024-patient underwent a echo study that showed a normal EF at 59% with mild dilation of the ascending aorta measuring 4.1 cm. This will be monitored with periodic echoes. 03/11/2024-patient underwent a coronary CTA that showed no significant coronary artery disease. Minimal proximal LAD stenosis. Dilation of the ascending thoracic aorta at 4 cm. Assessment and Plan Assessment Anesthesia Assessment: Chart Reviewed Final Anesthetic Review Family History of Problems with Anesthesia: No History of Problems with Anesthesia: No Documented by User: Jhonny Dial MD 10/08/24 11:17 PMFSH Past Medical History Medical History Mood disorder Dental infection Preop examination Hyperlipidemia Acute diarrhea Pancreatic insufficiency Chronic idiopathic constipation Chronic pain syndrome Drug allergy Kidney failure History of MRSA infection (~2010) Stress incontinence Psychosomatic pain Obstructive sleep apnea Anxiety disorder Morbid obesity Fibromyalgia Bipolar disorder Suicide attempt Depression Asthma Family History Family History Mother Stroke Surgical History Surgical History History of esophagogastroduodenoscopy (EGD) Hx of section H/O colonoscopy H/O abdominoplasty History of lumpectomy of left breast H/O bilateral oophorectomy H/O: hysterectomy H/O laparoscopy Social History Social History Household Members Other:: parents Are you a primary home health caregiver to a significant other at home: No Do you presently have visiting nurse or other home services: No Alcohol intake: never Patient Tobacco Use Status: Never used Tobacco Have you been hit, kicked, punched, or otherwise hurt by someone within the past year? If so, by whom?: No Are you DNR?: No Advance Directives: No Advance Directives Information Provided: Yes Poor oral hygiene: No Meds Allergies Allergy/AdvReac Type Severity Reaction Status Date / Time acetaminophen [From Tylenol] Allergy Severe Anaphylaxis Verified 10/08/24 09:44 aspirin Allergy Severe Anaphylaxis Verified 10/08/24 09:44 codeine Allergy Severe Anaphylaxis Verified 10/08/24 09:44 dextromethorphan Allergy Severe Anaphylaxis Verified 10/08/24 09:44 [From NyQuil] doxylamine [From NyQuil] Allergy Severe Anaphylaxis Verified 10/08/24 09:44 magnesium hydroxide Allergy Severe Anaphylaxis Verified 10/08/24 09:44 [From Milk of Magnesia] morphine Allergy Severe Anaphylaxis Verified 10/08/24 09:44 oxycodone [From Percocet] Allergy Severe Anaphylaxis Verified 10/08/24 09:44 Penicillins Allergy Severe Anaphylaxis Verified 10/08/24 09:44 propoxyphene Allergy Severe Anaphylaxis Verified 10/08/24 09:44 [From Darvocet-N 100] pseudoephedrine Allergy Severe Anaphylaxis Verified 09/04/24 14:36 [From Sudafed] Home Medications ?Medication ?Instructions ?Recorded ?Confirmed ?Last Taken ?Type blood sugar diagnostic (FreeStyle #10 ea 08/04/21 09/04/24 Unknown History Test strips) cholecalciferol (vitamin D3) 50 50 mcg PO DAILY 08/04/21 09/04/24 Unknown History mcg (2,000 unit) capsule (Vitamin D3) diclofenac sodium 1 % topical gel 4 g topical QID 08/04/21 09/04/24 Unknown History levalbuterol HCl 0.63 mg/3 mL mg inhalation 08/04/21 09/04/24 Unknown History solution for nebulization mometasone-formoterol HFA 100 2 puff inhalation BID 08/04/21 09/04/24 Unknown History mcg-5 mcg/actuation aerosol inhaler (Dulera) ondansetron HCl 4 mg tablet 4 mg PO TID PRN nausea 08/04/21 09/04/24 Unknown History pen needle, diabetic 31 gauge x #1,200 ea 08/04/21 09/04/24 Unknown History 5/16 (Ultracare Pen Needle) epinephrine 0.3 mg/0.3 mL IM DIRECTED anaphylaxis 01/05/22 09/04/24 Unknown History injection, auto-injector gabapentin 400 mg capsule 800 mg PO TID 01/05/22 09/04/24 Unknown History sodium phosphates 19 gram-7 ml DE 01/05/22 09/04/24 Unknown History gram/118 mL enema (Enema Disposable) lancets 30 gauge (Pure Comfort #100 ea 05/03/22 09/04/24 Unknown History Safety Lancets) zaleplon 10 mg capsule 10 mg PO BEDTIME PRN Insomnia 05/03/22 09/04/24 Unknown History albuterol sulfate 90 mcg/actuation 2 inh inhalation 07/11/23 09/04/24 Unknown History aerosol inhaler bupropion HCl 300 mg 24 hr tablet, 300 mg PO QAM 07/11/23 09/04/24 Unknown History extended release (Wellbutrin XL) cyclobenzaprine 5 mg tablet 10 mg PO BEDTIME 07/11/23 09/04/24 Unknown History fluoxetine 20 mg capsule 40 mg PO DAILY 07/11/23 09/04/24 Unknown History topiramate 200 mg tablet (Topamax) 200 mg PO BEDTIME 07/11/23 09/04/24 Unknown History bupropion HCl 150 mg tablet,12 hr 150 mg PO DAILY 08/09/23 09/04/24 Unknown History sustained-release tramadol 50 mg tablet 50 mg PO TID PRN Mild Pain (Scale 11/12/23 09/04/24 Unknown History Score 1-4) rosuvastatin 40 mg tablet mg PO DAILY 06/23/24 09/04/24 Unknown History tirzepatide (weight loss) 5 mg/0.5 2.5 mg subcut 08/28/24 09/04/24 09/30/24 History mL subcutaneous pen injector (Zepbound) oxybutynin chloride 10 mg mg PO 09/04/24 09/04/24 Unknown History tablet,extended release 24 hr Exam Airway Mallampati Class: II TM Dist: <=3cm Neck ROM: Full Loose/Missing/Broken Teeth: No Heart: ok Lungs: ok Assessment and Plan Assessment Anesthesia Assessment: Anesthesia Plan Discussed Final Anesthetic Review NPO: Yes ASA Class: III Final Preanesthetic Review: No Changes in Pt Med Stat, Meds/Allgs Chart Reviewed, Consent Obtained/Reviewed and Anes Risks/Benef Reviewed Patient Risk: Intermediate Procedure Risk: Intermediate Anesthetic Plan Anesthetic Plan: Agree w/ Assess. and Plan and TIVA Disposition: Standard PACU
[2024-10-08 09:41] VITALS: BMI 35.4
[2024-10-08] MEDS: Lactated Ringers 1,000 ML 100 ML IVCONT (10:20)
[2024-10-08 10:27] VITALS: BP 113/68; PULSE 83; RESP 18; TEMP 36.7; O2SAT 99
--- NOTE | 2024-10-08 11:06 | P.HPSUR_ITS ---
Pre-Procedural Eval Section A - 24 Hr Update-Section A only Date of Service: 10/08/24 Section B - Complete if H&P > 30 days Chief Complaint: gerd, Relevant Family History (Specify if Yes): No Relevant Social History: None Present Medications: see Short Stay Collaborative assessment Medical History: Significant History (Mood disorder Dental infection Preop examination Hyperlipidemia Acute diarrhea Pancreatic insufficiency Chronic idiopathic constipation Chronic pain syndrome Drug allergy Kidney failure History of MRSA infection (~2010) Stress incontinence Psychosomatic pain Obstructive sleep apnea Anxiety disorder ) History of Previous Operations: Relevant previous surgery/procedure and date(s) (History of esophagogastroduodenoscopy (EGD) Hx of section H/O colono scopy H/O abdominoplasty History of lumpectomy of left breast H/O bilateral oophorectomy H/O: hysterectomy H/O laparoscopy) Allergies: Allergies Allergy/AdvReac Type Severity Reaction Status Date / Time acetaminophen [From Tylenol] Allergy Severe Anaphylaxis Verified 10/08/24 09:44 aspirin Allergy Severe Anaphylaxis Verified 10/08/24 09:44 codeine Allergy Severe Anaphylaxis Verified 10/08/24 09:44 dextromethorphan Allergy Severe Anaphylaxis Verified 10/08/24 09:44 [From NyQuil] doxylamine [From NyQuil] Allergy Severe Anaphylaxis Verified 10/08/24 09:44 magnesium hydroxide Allergy Severe Anaphylaxis Verified 10/08/24 09:44 [From Milk of Magnesia] morphine Allergy Severe Anaphylaxis Verified 10/08/24 09:44 oxycodone [From Percocet] Allergy Severe Anaphylaxis Verified 10/08/24 09:44 Penicillins Allergy Severe Anaphylaxis Verified 10/08/24 09:44 propoxyphene Allergy Severe Anaphylaxis Verified 10/08/24 09:44 [From Darvocet-N 100] pseudoephedrine Allergy Severe Anaphylaxis Verified 09/04/24 14:36 [From Sudafed] Plan I have reviewed the history and physical and performed a pertinent physical examination on my patient. No changes have occurred unless specified. Time Spent With Patient Time: Total time managing care of this patient today ____ minutes.
--- NOTE | 2024-10-08 11:44 | W.PM.OPN ---
Operative Note Operative Note Date of Service: 10/08/24 Narrative: Procedure Description: EGD Indication: GERD Anesthesia: MAC FLEXIBLE TRANSORAL UPPER GASTROINTESTINAL ENDOSCOPY UPPER ENDOSCOPY Consent: Indications for the procedure and potential complications of bleeding, perforation, reaction to medications and missed diagnosis were discussed with the patient and informed consent was obtained. Instrument: Olympus GIF H 190 J mid size upper endoscope Monitoring: Vital signs and clinical assessment, continuous EKG monitoring, Pulse oximetry, Carbon Dioxide monitoring and blood pressure monitoring were done throughout the procedure. Procedure: The patient was placed in the left lateral decubitis position and pre-procedure medications were administered and a bite block was placed. The endoscope was inserted into the mouth and advanced under direct vision to the third part of duodenum. A careful inspection was made as the upper endoscope was withdrawn including a retroflexed examination of the proximal stomach; Findings and interventions are described below. Findings: Larynx:normal Esophagus: GE junction at 38 cm, diaphragm hiatus at 41 cm, consistent with 3 cm fixed hiatal hernia, schatzki ring noted with LA grade erosive esophagitis at the GEj with boggy mucosa - bx taken and one clip applied for hemostasis. Balloon dilation done to 20 mm and 19 mm at LES and UES respectively, no tears seen. Stomach: mild erythema . Biopsies were obtained. Grade 2 flap valve on retroflexed examination of the cardia. Duodenum: Normal bulb and descending duodenum, Intervention: Biopsies as noted above, balloon dilation Impression/Findings: gastritis erosive esophagitis schatzki ring hiatal hernia PLAN: refer for eval for surgical repair of hernia GERD precautions cont with PPi for the moment, can consider low dose baclofen as well
[2024-10-08 11:52] VITALS: BP 125/72; PULSE 87; RESP 18; TEMP 36.1; O2SAT 99
[2024-10-08 12:07] VITALS: BP 118/80; PULSE 83; RESP 16; TEMP 36.1; O2SAT 100
== END 2024-10-08 12:43 | disposition home or self-care (01) ==
PROVIDERS: PCP Registered Nurse; Visit Provider Internal Medicine Gastroenterology
PROC: (CPT 43249; principal; 2024-10-08 11:30)
DX: R10.13 Epigastric pain (principal); K21.9 Gastro-esophageal reflux disease without esophagitis; R13.10 Dysphagia, unspecified; K29.50 Unspecified chronic gastritis without bleeding; K20.80 Other esophagitis without bleeding; K22.2 Esophageal obstruction; K44.9 Diaphragmatic hernia without obstruction or gangrene; K52.9 Noninfective gastroenteritis and colitis, unspecified; G47.33 Obstructive sleep apnea (adult) (pediatric); E55.9 Vitamin D deficiency, unspecified; M79.7 Fibromyalgia; K59.04 Chronic idiopathic constipation; J45.909 Unspecified asthma, uncomplicated; F31.9 Bipolar disorder, unspecified; Z88.0 Allergy status to penicillin; Z88.5 Allergy status to narcotic agent; Z88.6 Allergy status to analgesic agent; Z88.8 Allergy status to other drugs, medicaments and biological substances
CPT/HCPCS: 43249; 43239; 88305; 88313; 88342; C1726; J2003; J2704

== ENCOUNTER → 2024-10-08 08:20 | Outpatient (BNV) | payer OTHER, SELFPAY | PROVIDERS: PCP Registered Nurse; Visit Provider Internal Medicine Gastroenterology | DX: K21.00 Gastro-esophageal reflux disease with esophagitis, without bleeding (principal); K22.2 Esophageal obstruction; K29.70 Gastritis, unspecified, without bleeding | CPT/HCPCS: 43239; 43249 ==

== ENCOUNTER 2024-11-10 14:27 | Outpatient (AMB) | payer OTHER, SELFPAY ==
--- NOTE | 2024-11-10 14:28 | A.OFFVIS_ITS ---
Vital Signs 11/10/24 14:33 Height 5 ft 7 in Weight 237 lb BMI 37.1 BP 132/78 Blood Pressure Location Rt brachial Position Sitting Pulse 88 Pulse Source Pulse Oximeter Pulse Oximetry (%) 97 Oxygen Delivery Method Room Air Intake Visit Reasons: S/P EGD; Dr. Patterson Intake Note: ESTABLISHED PATIENT for mgmt of fecal abn + GERD. Labs done. Imaging appt n/s'd. S/P EGD. Chief Complaint; C.O. concerns pertaining to hernia diagnosis, recent weight gain with starting zepbound GLP 1. Pt also mentioned H Pylori Testing? Community Nutrition Educator Required: No Accompanied by: Self / Same As Patient Allergies acetaminophen (From Tylenol) Allergy (Severe, Verified 11/10/24 14:32) Anaphylaxis aspirin Allergy (Severe, Verified 11/10/24 14:32) Anaphylaxis codeine Allergy (Severe, Verified 11/10/24 14:32) Anaphylaxis dextromethorphan (From NyQuil) Allergy (Severe, Verified 11/10/24 14:32) Anaphylaxis doxylamine (From NyQuil) Allergy (Severe, Verified 11/10/24 14:32) Anaphylaxis magnesium hydroxide (From Milk of Magnesia) Allergy (Severe, Verified 11/10/24 14:32) Anaphylaxis morphine Allergy (Severe, Verified 11/10/24 14:32) Anaphylaxis oxycodone (From Percocet) Allergy (Severe, Verified 11/10/24 14:32) Anaphylaxis Penicillins Allergy (Severe, Verified 11/10/24 14:32) Anaphylaxis propoxyphene (From Darvocet-N 100) Allergy (Severe, Verified 11/10/24 14:32) Anaphylaxis pseudoephedrine (From Sudafed) Allergy (Severe, Verified 11/10/24 14:32) Anaphylaxis HPI HPI S/P EGD; Dr. Patterson: Details: LAST VISIT: Upper abdominal pain GERD (gastroesophageal reflux disease) Constipation Postprandial diarrhea Postprandial abdominal bloating Postprandial epigastric pain Plan Patient can continue taking lansoprazole every morning half an hour before breakfast. Avoid dietary triggers and late night snacking. Continue working on diet and weight loss. Patient was encouraged to increase fiber intake in the morning and take Linzess to help with bowel movement. Encouraged patient trying stress reduction techniques. Patient has been following up with her therapist. Continue to do so. Patient will return to the office after her procedure. Patient has upper endoscopy scheduled for October 08. Patient will call our office if she will have any GI concerning symptoms. She is agreeable to this plan and verbalizes understanding of instructions. She was given the opportunity to ask questions and all questions answered. ? Thank you for allowing me to participate in her care Refilled lansoprazole 30 mg PO DAILY 90 caps 2RF Angela D Gail, MOLD FINISHER-BC K22.10, N18.31 linaclotide (Linzess) 145 mcg PO QAM 90 caps 3RF Angela D Gail, MOLD FINISHER-BC K58.1 Resumed linaclotide 145 mcg PO QAM 28 caps 3RF August Francois, ANP-C K58.1 linaclotide (Linzess) 145 mcg PO QAM 90 caps 3RF Angela D Gail, MOLD FINISHER-BC K58.1 UPPER ENDOSCOPY: Findings: Larynx:normal Esophagus: GE junction at 38 cm, diaphragm hiatus at 41 cm, consistent with 3 cm fixed hiatal hernia, schatzki ring noted with LA grade erosive esophagitis at the GEj with boggy mucosa - bx taken and one clip applied for hemostasis. Balloon dilation done to 20 mm and 19 mm at LES and UES respectively, no tears seen. Stomach: mild erythema . Biopsies were obtained. Grade 2 flap valve on retroflexed examination of the cardia. Duodenum: Normal bulb and descending duodenum, Intervention: Biopsies as noted above, balloon dilation Impression/Findings: gastritis erosive esophagitis schatzki ring hiatal hernia PATHOLOGY Diagnosis A. Stomach, biopsy: Antral-type and oxyntic mucosa with moderate chronic inactive inflammation; no Helicobacter organisms seen. B. GE junction, biopsy: - Cardiac-type mucosa with moderate chronic active inflammation; no intestinal metaplasia seen. - Erosive esophagitis. C. Esophagus, distal, biopsy: Squamous epithelium within normal limits; no inflammation seen. D. Esophagus, proximal, biopsy: Squamous epithelium within normal limits; no inflammation seen TODAY'S VISIT Is here today for follow-up and to discuss upper endoscopy results. Patient has worsening esophagitis. Now erosive esophagitis. Patient is on lansoprazole and is taking it as prescribed. Not on it in the past 2 weeks as she was getting ready for H pylori testing in the office today. Patient still reports to have acid reflux in the past was taking sucralfate which was making her symptoms worse. Currently she is taking famotidine at bedtime. Patient reports dyspepsia without dysphagia or odynophagia. Reports occasional abdominal pain. Moving her bowels better after starting Linzess. Patient is taking tirzepatide, however due to her procedure she had to stop and was unable to increase the dose. Does not feel like she is losing any weight. Patient is concerned about her hernia. 3 cm fixed hernia found on endoscopy. I have ordered back in June upper GI series which has not been scheduled yet for patient REPLACED BY [facility] Medical History Mood disorder Dental infection Preop examination Hyperlipidemia Acute diarrhea Pancreatic insufficiency Chronic idiopathic constipation Chronic pain syndrome Drug allergy Kidney failure History of MRSA infection (~2010) Stress incontinence Psychosomatic pain Obstructive sleep apnea Anxiety disorder Morbid obesity Fibromyalgia Bipolar disorder Suicide attempt Depression Asthma Surgical History History of esophagogastroduodenoscopy (EGD) Hx of section H/O colonoscopy H/O abdominoplasty History of lumpectomy of left breast H/O bilateral oophorectomy H/O: hysterectomy H/O laparoscopy Family History Mother Stroke Social History Household Members Other:: parents Are you a primary animal care taker to a significant other at home: No Do you presently have visiting nurse or other home services: No Alcohol intake: never Patient Tobacco Use Status: Never used Tobacco Review of Systems Const Denies weight gain and Denies weight loss ENT Reports no additional complaints, Denies dysphagia and Denies odynophagia Card Reports no additional complaints Resp Reports no additional complaints GI Reports abdominal pain, Denies belching, Denies melena, Reports bloating, Denies change in bowel habits, Reports constipation, Denies dysphagia, Denies excessive flatus, Denies dyspepsia, Reports heartburn, Denies diarrhea, Reports loose stools, Denies nausea, Denies odynophagia and Denies vomiting Reports no additional complaints Musc Reports no additional complaints Neuro Reports no additional complaints Psych Reports no additional complaints Endo Reports no additional complaints Physical Exam Vital Signs: Last Vital Signs Pulse 88 11/10/24 14:33 BP 132/78 11/10/24 14:33 Pulse Ox 97 11/10/24 14:33 Oxygen Delivery Method Room Air 11/10/24 14:33 BMI result Body Mass Index 37.1 Const General: healthy appearing and no acute distress Nutritional Appearance: obese Orientation/consciousness: patient oriented x3 Neck Neck: Yes normal visual inspection, Yes full ROM and Yes trachea midline Thyroid: Thyroid normal Resp Effort & Inspection: normal respiratory effort, able to speak in complete sentences, no tracheal deviation and symmetric chest movement Auscultation: clear to auscultation bilaterally Cardio Rate: regular rate GI Inspection: Yes normal to inspection, No distended and Yes obesity Palpation (GI): Soft to palpation, not firm, nontender and No hepatosplenomegaly present Auscultation: normal bowel sounds General: Yes no CVA tenderness Back/Spine/Pelvis Back: no CVA tenderness Skin General skin exam: elasticity normal, turgor normal and dry skin Neuro General: patient oriented x3 Psych Appearance: grossly normal Mental Status: mental status grossly normal Assessment & Plan Assessment & Plan (1) Esophageal spasm: Code(s): K22.4 - Dyskinesia of esophagus Category: Medical (2) GERD (gastroesophageal reflux disease): Code(s): K21.9 - Gastro-esophageal reflux disease without esophagitis Category: Medical Qualifiers: Esophagitis presence: esophagitis presence not specified Qualified Code(s): K21.9 - Gastro-esophageal reflux disease without esophagitis (3) Erosive esophagitis: Code(s): K22.10 - Ulcer of esophagus without bleeding Category: Medical (4) Rectal bleeding: Code(s): K62.5 - Hemorrhage of anus and rectum Category: Medical (5) Chronic idiopathic constipation: Code(s): K59.04 - Chronic idiopathic constipation Category: Medical (6) Hiatal hernia: Code(s): K44.9 - Diaphragmatic hernia without obstruction or gangrene Category: Medical (7) Upper abdominal pain: Code(s): R10.10 - Upper abdominal pain, unspecified Category: Medical Plan New order for upper GI with barium swallow. workforce development assistant called the department and was able to schedule patient for this month. H pylori breath test in the office today. We will try to start patient on Voquezna. Erosive esophagitis found on biopsy. Will hold lansoprazole for now. May take famotidine at bedtime. Avoid dietary triggers and late night snacking. Staying upright for minimum 3 hours after meals discussed with patient. Patient will follow-up in 2-3 months, sooner on as needed basis. She is agreeable to this plan and verbalizes understanding of instructions. She was given the opportunity to ask questions and all questions answered. Thank you for allowing me to participate in her care Orders: Orders [place] upper GI w Ba Swallow Today K21.9 - Gastro-esophageal reflux disease without esophagitis H Pylori Breath Test Today K21.9 - Gastro-esophageal reflux disease without esophagitis Medications: New vonoprazan (Voquezna) 20 mg PO DAILY 30 tabs 2RF On Hold lansoprazole Hold Comment: Doctor's Order 30 mg PO DAILY 90 caps 2RF K22.10 - Ulcer of esophagus without bleeding, N18.31 - Chronic kidney disease, stage 3a Coding Level of Care Code Est Pt Level 4 (83093) Complex EM visit Add On G2211 Diagnoses Esophageal spasm K22.4 Gastroesophageal reflux disease, unspecified whether esophagitis present K21.9 Esophagitis presence: esophagitis presence not specified Erosive esophagitis K22.10 Rectal bleeding K62.5 Chronic idiopathic constipation K59.04 Hiatal hernia K44.9 Upper abdominal pain R10.10 Time Spent (min) 40 Comment 25 minutes spent with patient and additional 15 minutes spent reviewing her records
[2024-11-10 14:33] VITALS: BP 132/78; PULSE 88; O2SAT 97; BMI 37.1
--- OUTSIDE RECORDS SUMMARY | 2024-11-10 15:37 | XMS_ITS | Data Portability ---
Author Organization [facility], [facility] Address [address] [place] [address] Care Team Providers Care Food Preparation Worker Name Role Phone HIM CCA OTHER Assessment Encounter Date Assessment Date Assessment LastModified by Organization Details LastModified Time 03/04/2023 03/04/2023 52 yo F with recent COVID exposure, called for COVID testing. VSS. Asymptomatic. Rapid COVID neg. Pt has precautions for callback vs ED. Has PCP visit tomorrow for chronic pain f/up. [email or web address] Not available 03/04/2023 22:11:38 09/13/2023 09/13/2023 service [...] Assessment and Plan as documented by the Code Number Stamper. Patient given the opportunity to ask questions. Our service contacted for an assessment of: URI symptoms As per above, patient with approximately 24 hours of increasing nasal congestion, low-grade temperature, feeling very nauseated. Patient also with dry nonproductive cough. Feeling generally speaking unwell with myalgias and arthralgias. Wanted to be tested for COVID and flu. Per sizing machine and drier operator on the scene, vital signs are stable and patient has a low-grade temp of a 100 . Nontoxic in appearance. COVID is positive and [...] or recall this service. She can trial [id number] medications for the cold and flu-like symptoms. [...] available 05/10/2024 15:16:24 05/11/2024 05/11/2024 Evaluation in [facility] was performed by my sizing machine and drier operator colleague, as noted above, I provided [...] serious symptoms. [email or web address] Not available 05/11/2024 20:55:41 09/29/2024 09/29/2024 I have reviewed and agree with the assessment and plan as documented by the sizing machine and drier operator. I provided real time medical direction for this encounter and was immediately available to provide additional phone based assistance as needed. History as noted by sizing machine and drier operator. Pt with history of chronic pain, fibromyalgia, osteoarthritis, chronic fatigue, obesity, prediabetes, HLD, stage 3a CKD, depression, anxiety, chronic PTSD, insomnia, GERD, IBS with constipation, asthma/COPD, DEBBI, skin-picking disorder, lymphedema, allergic rhinitis, overactive bladder, and recently discovered thoracic aortic ectasia. Pt reports that she went out to lunch with a friend yesterday and last evening both of them developed nausea and recurrent episodes of NB vomiting and NB diarrhea. No abdominal pain or fevers. Pt does endorse a LEONARD but no vision changes or dizziness. BP reportedly low last night at 69/48 but recheck this AM was 103/63. On exam, pt alert, no distress. VS with BP 90/60 and HR 110. Abdomen soft and non tender. Neuro exam: non focal. POC BMP normal with normal Cr and K+ and anion gap 12. H/H normal Lactate normal. Rapid Covid and Flu negative Impression: Pt with onset of nausea with NB vomiting and diarrhea yesterday evening after eating lunch with a friend who also developed the same symptoms. Pt reports that her friend needed to go to the ED for IV fluids. Pt appears well with low BP and mild tachycardia. Abdomen soft and non tender. Pt's electrolytes and renal function normal. Pt is medicated with IV LR x1000, reglan 10mg, and toradol 15mg (for LEONARD). After treatment, pt not feeling any improvement and BP remains low at 93/60 with tachycardia. Pt is given a 2nd L of IV LR, after which pt reports no improvement in her symptoms and nausea. BP is now lower at 80/50. Given pt's persistent symptoms and hypotension after 2L of IV fluid resuscitation, the pt will be sent via ambulance to the [facility] ED for further evaluation and fluid resuscitation. Code Number Stamper arranges EMS transfer to the [facility] ED and I call an expect to the ED cfa. [email or web address] Not available 09/29/2024 11:26:10 Plan of Treatment Reminders Order Date Submit Date Provider Last Modified By Organization Details Last Modified Time Details Appointments None recorded. Lab BMP, serum or plasma [address], [id number] 5 12:00:20 rapid SARS CoV 2 Ag, QL IA, respiratory specimen [address], [id number] 5 12:00:21 rapid flu (A+B) [address], [id number] 5 12:00:21 rapid SARS CoV 2 Ag, QL IA, respiratory specimen [email or web address], [id number] 4 15:12:46 rapid flu (A+B) [email or web address], [id number] 4 15:12:46 Referral None recorded. Procedures None recorded. Surgeries None recorded. Imaging None recorded. Medication Orders metoclopram ladonna 5 mg/mL injection solution [address] [facility], [address] [place] [address], [id number], 5 09:31:45 lactated Ringers intravenous solution [address] [facility], [address] [place] [address], [id number], 5 09:31:45 lactated Ringers intravenous solution [address] [facility], [address] [place] [address], [id number], 5 10:12:40 ketorolac 15 mg/mL injection solution [address] [facility], [address] [place] [address], [id number], 5 11:27:00 albuterol sulfate 2.5 mg/3 mL (0.083 %) solution for nebulizatio n 2023 024 [email or web address] [id number], [address] [place], [address], 4 20:31:38 levalbutero l 0.63 mg/3 mL solution for nebulizatio n 2023 024 [id number] [address] [place], [address], 4 20:33:44 lactated Ringers intravenous solution 2023 024 [email or web address] [facility], [address] [place] [address], [id number], 4 15:12:46 Reglan 10 mg tablet 2023 024 [facility] #[id number], [address] [place], [address], 4 15:12:47 Reglan 10 mg tablet 2023 024 [email or web address] [facility], [address] [place] [address], [id number], 15:21:08 Patient TargetsNo targets recorded. Patient InstructionsNo instructions recorded. Reason for Referral None Reported. Results Created Date Observation Date Name Description Value Unit Range Abnormal Flag Note LastModifiedBy Organization Detail LastModifiedTime 05/10/20 24 05/10/2024 rapid flu (A+B) Flu negati ve Not Available [facility] [address] [place] [address], [id number] 05/10/2024 15:09:40 05/10/20 24 05/10/2024 rapid SARS CoV 2 Ag, QL IA, respi rator y speci men rapid SARS CoV 2 Ag, QL IA, respiratory specimen positi ve Not Available [facility] [address] [place] [address], [id number] 05/10/2024 15:09:38 Result Notes None recorded. Medical Equipment None Reported. Allergies Allergen ID Allergen Name Allergen Category Reaction Reaction Severity Criticality Documentation Date Start Date Code Code System Note Provider Name and Address Organization Details Recorded Time 25712 acetamino phen medicatio n Not available Not available Not available 05/10/2024 161 RxNorm Not Available [facility] 4 10:53:36 30243 Tylenol medicatio n Not available Not available Not available 05/11/202414552 3 RxNorm Not Available [facility] - production 4 12:59:50 1596 Product containin g penicilli n (product) medicatio n Not available Not available Not available 05/04/2022 58023 8001 SNOMED Not Available [facility] 4 03:41:04 1597 acetamino phen / oxycodone medicatio n Not available Not available Not available 05/04/2022 10867 3 RxNorm Not Available [facility] 4 12:59:50 1598 codeine medicatio n Not available Not available Not available 05/04/2022 2670 RxNorm Not Available [facility] - production 4 10:53:36 1599 morphine medicatio n Not available Not available Not available 05/04/2022 7052 RxNorm Not Available [facility] 4 03:41:04 1600 Sudafed medicatio n Not available Not available Not available 05/04/2022 42213 2 RxNorm Not Available [facility] - production 4 10:53:36 1601 acetamino phen / dextromet horphan / doxylamin e / pseudoeph edrine medicatio n Not available Not available Not available 05/04/[address] MD [address] [place] [address],[address], [place], [phone], [employer] 2 21:32:45 1602 MILK OF MAGNESIA medicatio n Not available Not available Not available 05/04/[address] MD [address] [place] [address],[address], [place], [address], [employer] 2 21:33:01 7970 aspirin medicatio n Not available Not available Not available 03/10/2024 1191 RxNorm Not Available [facility] 4 03:41:04 Medications Name Sig [...] active Not Available Not Available Not Available Lrhsh-Ok-Ckj Enema (mineral oil) active Not Available Not [...] t Available Vitals Date Recorded Body temperature Respiratory rate Oxygen saturation Oxygen saturation in Arterial blood by Pulse oximetry Heart rate Systolic blood pressure Diastolic blood pressure Provider Name and Address Organization Details Last Updated DateTime 4 98.3 [degF] 20 /min 99 % 99 % 98 /min 180 mm[Hg] 115 mm[Hg] Not Available [facility] - production 4 18:45:53 Date Recorded Respiratory rate Body temperature Heart rate Oxygen saturation Oxygen saturation in Arterial blood by Pulse oximetry Systolic blood pressure Diastolic blood pressure Provider Name and Address Organization Details Last Updated DateTime 5 16 /min 98.2 [degF] 110 /min 99 % 99 % 90 mm[Hg] 60 mm[Hg] Not Available [facility] - production 5 09:20:39 Date Recorded Body temperature Oxygen saturation Oxygen saturation in Arterial blood by Pulse oximetry Heart rate Respiratory rate Systolic blood pressure Diastolic blood pressure Provider Name and Address Organization Details Last Updated DateTime 3 98.8 [degF] 98 % 98 % 84 /min 16 /min 121 mm[Hg] 79 mm[Hg] Not Available [facility] - production 3 20:00:54 Date Recorded Body temperature Heart rate Oxygen saturation Oxygen saturation in Arterial blood by Pulse oximetry Respiratory rate Systolic blood pressure Diastolic blood pressure Systolic blood pressure Diastolic blood pressure Provider Name and Address Organization Details Last Updated DateTime 4 100.1 [degF] 93 /min 97 % 97 % 16 /min 120 mm[Hg] 74 mm[Hg] 117 mm[Hg] 80 mm[Hg] Not Available [facility] - production 4 13:26:47 Date Recorded Respiratory rate Body temperature Heart rate Oxygen saturation Oxygen saturation in Arterial blood by Pulse oximetry Systolic blood pressure Diastolic blood pressure Provider Name and Address Organization Details Last Updated DateTime 4 16 /min 98 [degF] 84 /min 97 % 97 % 107 mm[Hg] 68 mm[Hg] Not Available [facility] - production 4 20:24:24 Social History None recorded. Functional Status None recorded. Mental Status None recorded. Family History Nothing Reported. Medical History No medical history recorded. Gynecological HistoryNo gynecological history recorded. Obstetrics History GPAL:G 0 P 0 0 0 0 Past Encounters Encounter ID Performer Location Encounter Start Date Encounter Closed Date Diagnosis/Indication Diagnosis SNOMED-CT Code Diagnosis ICD10 Code Diagnosis Note [id number] Mykel Armstrong MD [facility] [address] [place] [id number] 08/26/2021 10:13:05 01/12/2022 14:53:52 Abdominal pain 44936947 R10.9 [id number] Mykel Armstrong MD [facility] [address] [place] [id number] 09/27/2021 16:35:43 01/12/2022 15:32:12 Malaise and fatigue 748775427 R53.81 [id number] Kishan Yin MD [facility] [address] [place] [id number] 10/19/2021 20:40:34 10/20/2021 17:52:41 [id number] Anjel Roberts MD [facility] [address] [place] [id number] 11/10/2021 10:39:03 02/13/2022 11:15:10 Nausea 893422458 R11.0 Diarrhea 93282654 R19.7 [id number] Mykel Armstrong MD [facility] [address] [place] [id number] 11/14/2021 09:25:02 01/16/2022 12:16:38 Low blood pressure 13688592 I95.9 [id number] Starr Gutierrez MD [facility] [address] [place] [id number] 12/22/2021 19:52:11 01/11/2022 12:05:12 Abdominal pain 08329813 R10.[id number] MD [facility] [address] [place] [id number] 05/04/2022 19:11:29 05/07/2022 14:16:26 Nausea, vomiting and diarrhea 6388662 R19.7 R11.2 declined loperamide or any antidiarrh eal - does not want to be over constipate d- advised need to f/u with GI and PCP after [place]- beginning next week [id number] KELSEA PURVIS MD [facility] [address] [place] [id number] 03/04/2023 20:00:52 03/05/2023 09:44:33 Exposure to SARS-CoV-2 056308956 Z20.822 [id number] Nga Escalona MD [facility] [address] [place] [id number] 09/13/2023 18:45:46 09/15/2023 12:31:39 Edema of left lower limb 714930365 R60.0 [id number] Yari Gonzalez MD [facility] [address] [place] [id number] 05/10/2024 13:26:45 05/12/2024 21:02:20 COVID-19 719942013 U07.1 Nausea 665773474 R11.0 [id number] Maribell Bernardo MD [facility] [address] [place] [id number] 05/11/2024 20:24:22 05/12/2024 21:50:15 COVID-19 712519372 U07.1 [id number] Anjel Roberts MD [facility] [address] [place] [id number] 09/29/2024 09:20:36 09/29/2024 11:28:06 Nausea and vomiting 80546090 R11.2 Health Concerns Section Related Observation LastModified by Organization Detai ls LastModified Time None Recorded Concern Status LastModified by Organization Details LastModified Time None Recorded Advance Directives Directive None Recorded Payers Insurance Date Sequence Insurance Name Policy Number Policy Kahn Covered Member ID Kahn Member ID Guarantor Name 09/15/2023 1 [facility] - DOS PRIOR TO 2022 - DUAL ELIGIBLE (MEDICARE REPLACEMENT/ADV ANTAGE - HMO) Agnes Vilchis [id number] Agnes Milligan 09/29/2024 1 [facility] - DOS ON OR AFTER 2022 - DUAL ELIGIBLE - RETIREMENT OPTIONS AND ONE CARE (MEDICARE REPLACEMENT/ADV ANTAGE - HMO) Agnes Milligan [id number] Agnesguillaume Milligan Notes Date Note Type Note Provider Name and Address Organization Details Recorded Time 03/04/2023 text/html HPI: 52 y.o. F reports [...] new numbness. She would like [facility] randolph [email or web address] for COVID testing, stating she is trying [...] ...................... ...................... ...................... ...................... ...................... ...................... ......... Code Number Stamper Note From Edmund Blackwell: Pt reports ongoing [...] ......... Disposition: Fulfilled KELSEA PURVIS MD [address] [facility],[address], [place], [address], [employer] 03/04/2023 22:11:51 09/13/2023 text/html HPI: 53 yo female w chronic pain and perceived inflammation, HLD, depression, PTSD, insomnia, migraine, DEBBI, obesity, asthma, allergies, osteoarthritis, CKD 3, IBS with constipation and diarrhea, prediabetes, and low blood sugars. Agnes states she was in [place] when a friend's daughter who is a nurse noticed she had bulging leg veins, the left more than the right . She said this happened a few days ago but is calling now for an apt. I am sending [employer] for pictures of her leg and to [...] pictures that her friends daughter took to [facility] images ...................... ...................... ...................... ...................... ...................... ...................... ......... CRC Nurse Triage Notes (Monet Lancaster): Comments: CRC RN DID NOT NEED FURTHER INFO Nga Escalona MD [address] [facility],[address], [place], [address], [employer] 09/13/2023 18:53:12 05/10/2024 text/html HPI: Call to [...] enough to wait a few hours for sizing machine and drier operator visit to assess her current clinical presentation and ability to be managed as an outpatient. [facility] request submitted for urgent in home assessment. ...................... ...................... ...................... ...................... ...................... ...................... ......... CRC Nurse Triage Notes (Mark Hinojosa - RN): Chief Complaints: Cough, Earache, Vomiting PMH: Hypertension, COPD/Asthma Comments: Reviewed HPI ...................... ...................... ...................... ...................... ...................... ...................... ......... Code Number Stamper Note From Edmund Blackwell: This 53-year-old female [...] and does not like to use any saop-wsp-jxiovkt's due to allergies.Patient presents awake and alert, in no acute distress, speaking full sentences. Her vital signs are stable, not orthostatic and temp is 100.1. Nonfocal neurological exam. Normal gait. Lungs are clear throughout auscultation. Abdomen is soft, nontender, nondistended. No lower extremity edema.Due to the patient s medication list I explained that Paxlovid [...] ...................... ...................... ...................... ...................... ...................... ...................... ......... [facility] Consulted: Yari Gonzalez ...................... ...................... ...................... ...................... ...................... ...................... ......... Disposition: Julio Gonzalez MD [address] [facility],[address], [place], [address], [employer] 05/10/2024 15:22:05 05/11/2024 text/html HPI: 53 year [...] ...................... ...................... ...................... ...................... ...................... ...................... ......... Code Number Stamper Note From Edmund Blackwell: This 53-year-old female [...] morning and they sent a referral to [facility] to have us come out and prescribed [...] treat her with Toradol. I contacted the [facility] who will send nebulizer solution to her [...] ...................... ...................... ...................... ...................... ...................... ...................... ......... [facility] Consulted: Maribell Bernardo ...................... ...................... ...................... ...................... ...................... ...................... ......... Disposition: Fulfilled Maribell Bernardo MD [address] [place] [address],[address] [facility], [place], [address], [employer] 05/11/2024 20:57:54 09/29/2024 text/html This was a super vised home visit with sizing machine and drier operator Edmund Blackwell. HPI: spoke with member, she reports multiple episodes of vomiting and diarrhea last night. She reports BP 69/48 with HR 113 last night, also notes she was very anxious at this time. This AM BP recheck 103/63 , HR 113. Still only tolerating sips of water. No CP . She believes her symptoms are worsening due to anxiety. She is requesting [facility] for possible IVF. Will call back sooner for any new/worsening symptoms. ...................... ...................... ...................... ...................... ...................... ...................... ......... [facility] Nurse Triage Notes (Megan Sam): Reason For Request: N/V Chief Complaints: Nausea / Vomiting, Diarrhea, Low Blood Pressure PMH: Hypertension, COPD/Asthma, Chronic Pain, Fibromyalgia, Post-Traumatic Stress Disorder (PTSD), Gastroesophageal Reflux Disease (GERD), Irritable Bowel Syndrome (IBS), Sleep Apnea PMH Reviewed at 09/29/2024 Allergies Reviewed at 09/29/2024:58 Comments: HPI reviewed Code Number Stamper [facility] Address: [address] [place] [address] Sheet Metal Erector: Rodriguez Mejia MD CLIA No.: [id number] Code Number Stamper POC Test Results from Edmund Blackwell [facility] (:37) pH: 7.38 pH units pCO2: 37.5 mmHg pO2: 27.3 mmHg Na: 143 mmol/L K: 4.2 mmol/L iCa: 1.10 mmol/L Cl: 110 mmol/L TCO2: 21.2 mEq/L Hct: 49 % Hb: 16.7 g/dL Glu: 116 mg/dL Lac: 1.43 mmol/L Cr: 0.91 mg/dL BUN: 20 mg/dL A mmol/L HCO3: 22.0 mmol/L Rapid COVID antigen (::40) COVID: - Rapid influenza antigen () Flu: - ...................... ...................... ...................... ...................... ...................... ...................... ......... Code Number Stamper Note From Edmund Blackwell: This 54-year-old female with history including but not limited to HTN, COPD, fibromyalgia, PTSD, GERD, IBS, anxiety/depression requested a visit today to address nausea, vomiting, diarrhea and headache since yesterday evening. Patient states she was out to lunch with a friend yesterday and they ate the same thing, both have had symptoms since last night. Patient states she is unable to keep anything down and has had at least 15 episodes of vomiting and diarrhea. Patient denies any chest pain, shortness of breath, black/bloody stools or emesis, fevers. Patient presents awake and alert, visibly uncomfortable and speaking full sentences. Her initial blood pressure is 90/60 and pulses 110. She is afebrile. Nonfocal neurological exam. Lungs are clear throughout auscultation. Abdomen is soft, nontender, nondistended. No lower extremity edema. Unremarkable POC labs are uploaded. Rapid COVID testing are both negative. I treated with lactated ringers 2 L IV, metoclopramide 10 mg IVP and Ketorolac 15 mg IVP. I reassessed her blood pressure post treatment at 80/40 and pulse 108. We discussed the diagnostic uncertainty of home visits and the risk associated with this. In this case I feel that because the patient did not improve with IV fluid administration she would benefit from an emergency department valuation. Patient is agreeable for ambulance transport to [facility] emergency department. 911 was initiated and SBAR was given to JUNG LEVINE. [facility] Lab Orders: BMP, serum or plasma: Performed rapid SARS CoV 2 Ag, QL IA, respiratory specimen: Performed rapid flu (A+B): Performed [facility] Medication Orders: metoclopramide 5 mg/mL injection solution: Administered lactated Ringers intravenous solution: Administered lactated Ringers intravenous solution: Administered ...................... ...................... ...................... ...................... ...................... ...................... ......... [facility] Consulted: Anjel Roberts ...................... ...................... ...................... ...................... ...................... ...................... ......... Disposition: Fulfilled Anjel Roberts MD [address] [facility],[address] [facility], [place], [address], [facility] [place] 09/29/2024 11:27:32 OBGyn Episode No OBEpisode recorded.
== END 2024-11-10 15:09 | disposition home or self-care (01) ==
LOC: HO.HGI 14:28
PROVIDERS: PCP Registered Nurse; Visit Provider Nurse Practitioner Family
DX: K22.4 Dyskinesia of esophagus (principal); K21.9 Gastro-esophageal reflux disease without esophagitis; K22.10 Ulcer of esophagus without bleeding; K62.5 Hemorrhage of anus and rectum; K59.04 Chronic idiopathic constipation; K44.9 Diaphragmatic hernia without obstruction or gangrene; R10.10 Upper abdominal pain, unspecified
CPT/HCPCS: 99214; G2211

== ENCOUNTER 2024-11-10 14:27 | Outpatient (REF) | payer OTHER, SELFPAY | END 2024-11-10 14:28 | disposition home or self-care (01) | LOC: HO.LNP 14:27 | PROVIDERS: PCP Registered Nurse; Visit Provider Nurse Practitioner Family | DX: K21.9 Gastro-esophageal reflux disease without esophagitis (principal) | CPT/HCPCS: 83013; 99212 ==

== ENCOUNTER 2024-11-30 07:56 | Outpatient (REF) | payer OTHER, SELFPAY ==
--- NOTE | ~2024-11-30 | FL_ITS ---
EXAMINATION: XR UPPER GI SERIES CLINICAL INFORMATION: GERD without esophagitis . Patient complaining of severe reflux type symptoms. COMPARISON: None TECHNIQUE: Fluoroscopic air contrast upper GI examination was performed utilizing standard techniques with thin and thick barium and effervescent granules. Numerous spot images were obtained. Several fluoroscopic image hold cine sequences were also obtained. FINDINGS: Study is somewhat limited as the patient was unable to tolerate appropriate positioning for a complete examination due to knee pain and flank pain she is currently experiencing. The patient was also retching during the examination. This limits the sensitivity of the study. UPPER GI SERIES: Lateral cine images of the oropharynx and hypopharynx demonstrate normal swallow mechanism with normal epiglottic inversion and soft palate elevation. There was transient laryngeal penetration. No glottic or subglottic aspiration identified. No nasopharyngeal reflux present. Hypopharyngeal structures appear normal without evidence of mass or diverticulum. 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 Dual and single contrast images of the esophagus demonstrate normal caliber, contour, and mucosal pattern. No evidence of stricture, mass, or ulcerations identified. Esophageal peristalsis was mild to moderately disordered. Feline contraction pattern seen. Small type I hiatus hernia present. There was gastroesophageal reflux present episodically to the level of the thoracic inlet. Dual contrast and single contrast images of the stomach demonstrated normal contour and rugal fold pattern. There was diffuse prominence of the area gastricae. There were numerous small foci of contrast pooling in keeping with small submucosal abscess type ulcers. Findings suggest gastritis. In addition there are numerous small filling defects suggestive of underlying small hyperplastic polyps. Delayed contrast progression into the duodenum was noted. Single and air-contrast images of the duodenal bulb and imaged duodenum demonstrate no abnormality. FLUOROSCOPY TIME: 3 minutes, 28 seconds Number of Spot Images:10 Number of cines obtained: 12 DOSE AREA PRODUCT: [id number] uGy-m2 (microgray-meter squared) FL/FL upper GI w air w Ba Swallow IMPRESSION: 1. Mildly limited examination as discussed above. 2. Transient laryngeal penetration without subglottic aspiration. 3. Moderate cricopharyngeal achalasia. 4. Mild to moderately disordered esophageal peristalsis. Feline contraction pattern seen in keeping with chronic reflux. 5. There is a small type I hiatus hernia present. 6. Gastroesophageal reflux present to the level of the thoracic inlet. 7. Findings in keeping with gastritis. 8. Slow egress of contrast from the gastric antrum into the duodenum, a finding which may represent gastroparesis/poor gastric peristalsis. Electronically signed by: Delmar Darnell MD 11/30/2024 09:29 AM EDT
--- OUTSIDE RECORDS SUMMARY | 2024-11-30 08:00 | XMS_ITS | Encounter Summary ---
Author Organization [facility] Address [address] [place] [address] Encounters * CPT with Jasiel Cadena at [employer] on 2024-11-28 54 y/o female Called PCP office with worsening lower abdominal pressure, lower back pain and burning with urination over the last 24 hours. Patient denies fever/chills. Unable to go to walk in urgent care. { reasonForRequest : UTI , patientReports : , denies& quot;:[], chiefComplaints : Urinary Symptoms , pmh : Hypertension, COPD/Asthma, Chronic Pain, Fibromyalgia, Post-Traumatic Stress Disorder (PTSD), Gastroesophageal Reflux Disease (GERD), Irritable Bowel Syndrome (IBS), Sleep Apnea , allergies : Penicillins, Aspirin, Morphine, Acetaminophen, Codeine, Sudafed, Percocet, Tylenol , other Allergies :null, painAssessment : , visitOutcome : ,& quot;additionalComments : HPI reviewed } Arrived to find female in her apartment. Patient AOx4, GCS 15 skin pink warm and dry. Patient experiencing urinary symptoms x2 days. + burning with urination, does not feel like she is urinating completely. + back pain. -CVA tenderness. VS as noted. UA as noted. + for blood. Protein and leuk. Cultural drawn. [facility] contacted. [facility] advised she is going to send over a script for bactrim. Patient in agreement. No red flag symptoms. ORAL_MEDICATION, EKG, POC_BLOODWORK, GLUCOSE Written by Jasiel Cadena on 2024-11-28
--- OUTSIDE RECORDS SUMMARY | 2024-11-30 08:00 | XMS_ITS | Data Portability ---
Author Organization [facility], [facility] Address [address] [place] [phone] Care Team Providers Care Cafe Aide Name Role Phone HIM CCA OTHER Assessment Encounter Date Assessment Date Assessment LastModified by Organization Details LastModified Time 05/10/2024 05/10/2024 I provided real -time medical direction via phone for this encounter and was available for additional phone-based assistance as needed. I have reviewed and agree with the Assessment and Plan as documented by the Joiners Supervisor. Patient given the opportunity to ask questions. Our service contacted for an assessment of: URI symptoms As per above, patient with approximately 24 hours of increasing nasal congestion, low-grade temperature, feeling very nauseated. Patient also with dry nonproductive cough. Feeling generally speaking unwell with myalgias and arthralgias. Wanted to be tested for COVID and flu. Per building contractor on the scene, vital signs are stable [...] or recall this service. She can trial nxfx-hkk-[id number] medications for the cold and flu-like symptoms. [...] th e field was performed by my building contractor colleague, as noted above, I provided real-time [...] assessment and plan as documented by the building contractor. I provided real time medical direction for this encounter and was immediately available to provide additional phone based assistance as needed. History as noted by building contractor. Pt with history of chronic pain, fibromyalgia, [...] will be sent via ambulance to the [facility] ED for further evaluation and fluid resuscitation. Joiners Supervisor arranges EMS transfer to the [facility] ED and I call an expect to the ED engineering faculty. [email or web address] Not available 09/29/2024 11:26:10 11/28/2024 11/28/2024 I provided real -time medical direction via phone for this encounter, and was available for additional phone based assistance as needed. I have reviewed and agree with the Assessment and Plan as documented by the Joiners Supervisor. We discussed the diagnostic uncertainty of home visits and the risk associated with this. In this case the patient and I felt this to be an acceptable and reasonable amount of risk given the benefit of avoiding an ED visit. The patient given the opportunity to ask questions. Patient presents with symptoms of UTI. Advised to drink clear fluids, Tylenol for pain and take prescribed medications as instructed. Reviewed allergy list, reports she has tolerated Bactrim in the past. Patient encouraged to follow up within 1 week if not improving. We will call with culture results and may stop antibiotics at that time. Advised if develops increase in abdominal discomfort, flank pain or hi fever unresponsive to APAP to call for re eval or be seen in ED. Patient verbalized understanding. [email or web address] Not available 11/28/2024 13:17:34 Plan of Treatment Reminders Order Date Submit Date Provider Last Modified By Organization Details Last Modified Time Details Appointments None recorded. Lab urinalysis, dipstick 2024 025 [facility], [address] [place] [address], [id number] 16:11:32 culture, urine 2024 025 [place] [facility] (Centralized Electronic Ordering - All Locations), Patient Can Go To The Location Of Their Choice, [id number] 5 06:05:33 BMP, serum or plasma [address], [address] 5 12:00:20 rapid SARS CoV 2 Ag, QL IA, respiratory specimen [address], [id number] 5 12:00:21 rapid flu (A+B) [address] [place], [address] 5 12:00:21 rapid SARS CoV 2 Ag, QL IA, respiratory specimen [email or web address], [address] [place] [address], [id number] 4 15:12:46 rapid flu (A+B) [email or web address], [address] [place] [address], [id number] 4 15:12:46 Referral None recorded. Procedures None recorded. Surgeries None recorded. Imaging None recorded. Medication Orders Macrobid 100 mg capsule 2024 025 [id number], [address] [place] [address], [id number], 5 10:57:21 Bactrim DS 800 mg-160 mg tablet 2024 025 [facility], [address] [place] [address], [id number], 5 12:24:37 metoclopram ladonna 5 mg/mL injection solution 2024 025 [facility], [address] [place] [address], [id number], 5 09:31:45 lactated Ringers intravenous solution 2024 025 [facility], [address] [place] [address], [id number], 5 09:31:45 lactated Ringers intravenous solution 2024 025 [facility], [address] [place] [address], [id number], 5 10:12:40 ketorolac 15 mg/mL injection solution 2024 025 [facility], [address] [place] [address], [id number], 5 11:27:00 albuterol sulfate 2.5 mg/3 mL (0.083 %) solution for nebulizatio n 2023 024 [email or web address] [facility] #[id number], [address] [place], [address], 4 20:31:38 levalbutero l 0.63 mg/3 mL solution for nebulizatio n 2023 024 [id number], [address] [place], [address], 4 20:33:44 lactated Ringers intravenous solution [address] [facility], [address] [place] [address], [id number], 4 15:12:46 Reglan 10 mg tablet 2023 024 [id number], [address] [place], [address], 4 15:12:47 Reglan 10 mg tablet [address] [facility], [address] [place] [address], [id number], 4 15:21:08 Patient TargetsNo targets recorded. Patient InstructionsNo instructions recorded. Reason for Referral None Reported. Results Created Date Observation Date Name Description Value Unit Range Abnormal Flag Note LastModifiedBy Organization Detail LastModifiedTime 05/10/20 24 05/10/2024 rapid flu (A+B) Flu negati ve Not Available [facility] ed [address] [place] [address], [id number] 05/10/2024 15:09:40 05/10/20 24 05/10/2024 rapid SARS CoV 2 Ag, QL IA, respi rator y speci men rapid SARS CoV 2 Ag, QL IA, respiratory specimen positi ve Not Available [facility] ed [address] [place], [address] 05/10/2024 15:09:38 Result Notes None recorded. Medical Equipment None Reported. Allergies Allergen ID Allergen Name Allergen Category Reaction Reaction Severity Criticality Documentation Date Start Date Code Code System Note Provider Name and Address Organization Details Recorded Time 43527 acetamino phen medicatio n Not available Not available Not available 05/10/2024 161 RxNorm Not Available [facility] - production 4 10:53:36 86438 Tylenol medicatio n Not available Not available Not available 05/11/202404063 3 Rx[facility] Available [facility] 4 12:59:50 1596 Product containin g penicilli n (product) medicatio n Not available Not available Not available 05/04/2022 55349 8001 SNOMED Not Available [facility] 4 03:41:04 1597 acetamino phen / oxycodone medicatio n Not available Not available Not available 05/04/2022 73667 3 RxNorm Not Available [facility] 4 12:59:50 1598 codeine medicatio n Not available Not available Not available 05/04/2022 2670 RxNorm Not Available [facility] 4 10:53:36 1599 morphine medicatio n Not available Not available Not available 05/04/2022 7052 RxNorm Not Available [facility] 4 03:41:04 1600 Sudafed medicatio n Not available Not available Not available 05/04/2022 86463 2 RxNorm Not Available [facility] - production 4 10:53:36 1601 acetamino phen / dextromet horphan / doxylamin e / pseudoeph edrine medicatio n Not available Not available Not available 05/04/[address] MD [address] [facility],[address], [place], [address], [facility] [employer] [facility] 2 21:32:45 1602 MILK OF MAGNESIA medicatio n Not available Not available Not available 05/04/[address] MD [address] [facility],[address], [place], [address], [place] - [employer], [employer] 2 21:33:01 7970 aspirin medicatio n Not [...] active Not Available Not Available Not Available tramadol 50 mg tablet TAKE 1 TABLET NEEDED FOR PAIN ORALLY TWICE A DAY 28 DAYS active Not Available Not Available No t Available Macrobid 100 mg capsule Take 1 capsule every 12 hours by oral route for 5 days. 2024 active Not Available Not Available Not Avai lable hydromorphon e 2 mg tablet TAKE 1-2 [...] active Not Available Not Available Not Available Bactrim DS 800 mg-160 mg tablet Take 1 tablet every 12 hours by oral route for 5 days. 2024 active Not Available Not Available Not Avai lable Dcahn-Ub-Jfh Enema (mineral oil) active Not Available Not [...] Available No t Available Vitals Date Recorded Respiratory rate Body temperature Heart rate Oxygen saturation Oxygen saturation in Arterial blood by Pulse oximetry Systolic And Diastolic Provider Name and Address Organization Details Last Updated DateTime 5 16 /min 98.2 [degF] 110 /min 99 % 99 % 90/60 mm[Hg] Not Available [facility] - production 5 09:20:39 Date Recorded Body temperature Oxygen saturation Oxygen saturation in Arterial blood by Pulse oximetry Respiratory rate Heart rate Systolic And Diastolic Provider Name and Address Organization Details Last Updated DateTime 5 97.7 [degF] 98 % 98 % 18 /min 79 /min 146/97 mm[Hg] Not Available [facility] - production 5 11:19:33 Date Recorded Body temperature Heart rate Oxygen saturation Oxygen saturation in Arterial blood by Pulse oximetry Respiratory rate Systolic And Diastolic Systolic And Diastolic Provider Name and Address Organization Details Last Updated DateTime 4 100.1 [degF] 93 /min 97 % 97 % 16 /min 120/74 mm[Hg] 117/80 mm[Hg] Not Available [employer] - production 4 13:26:47 Date Recorded Respiratory rate Body temperature Heart rate Oxygen saturation Oxygen saturation in Arterial blood by Pulse oximetry Systolic And Diastolic Provider Name and Address Organization Details Last Updated DateTime 4 16 /min 98 [degF] 84 /min 97 % 97 % 107/68 mm[Hg] Not Available [employer] [facility] 4 20:24:24 Social History None recorded. Functional [...] Note 1025 Mykel Armstrong MD Main - [address] [address] 08/26/2021 10:13:05 01/12/2022 14:53:52 Abdominal pain [id number] R10.9 1650 Mykel Armstrong MD [facility] - [address] [phone] 09/27/2021 16:35:43 01/12/2022 15:32:12 Malaise and fatigue [id number] R53.81 2048 Kishan Yin MD Main - [address] [address] 10/19/2021 20:40:34 10/20/2021 17:52:41 2454 Anjel Roberts MD Main - [facility] [address] [place] [address] 11/10/2021 10:39:03 02/13/2022 11:15:10 Nausea [id number] R11.0 Diarrhea 48031182 R19.7 2522 Mykel Armstrong MD Main - [facility] [address] [place] [address] 11/14/2021 09:25:02 01/16/2022 12:16:38 Low blood pressure 11056469 I95.9 3310 Starr Gutierrez MD Main - [facility] [address] [place] [address] 12/22/2021 19:52:11 01/11/2022 12:05:12 Abdominal pain 13396540 R10.[address] MD Main - [facility] [address] [place] [address] 05/04/2022 19:11:29 05/07/2022 14:16:26 Nausea, vomiting and diarrhea 5509029 R19.7 R11.2 declined loperamide or any antidiarrh eal - does not want to be over constipate d- advised need to f/u with GI and PCP after [place]- beginning next week [id number] KELSEA PURVIS MD Main - [facility] [address] [place] [phone] 03/04/2023 20:00:52 03/05/2023 09:44:33 Exposure to SARS-CoV-2 [id number] Z20.822 [id number] Nga Escalona MD Main - [facility] [address] [place] [address] 09/13/2023 18:45:46 09/15/2023 12:31:39 Edema of left lower limb 937340356 R60.0 16116 Yari Gonzalez MD Main - [facility] [address] [place] [address] 05/10/2024 13:26:45 05/12/2024 21:02:20 COVID-19 [id number] U07.1 Nausea 103221772 R11.0 28059 Maribell Bernardo MD Main - [facility] [address] [place] [address] 05/11/2024 20:24:22 05/12/2024 21:50:15 COVID-19 242834019 U07.1 [id number] Anjel Roberts MD [address] [address] 09/29/2024 09:20:36 09/29/2024 11:28:06 Nausea and vomiting 82122844 R11.2 34077 DANIEL SARKAR NP, S [facility] [address] [phone] 11/28/2024 11:19:28 11/28/2024 17:14:02 Acute urinary tract infection 525997073 N39.0 [id number] Spike Gallegos MD [address] [address] 11/29/2024 10:56:08 11/29/2024 21:58:25 Urinary tract infectious disease 13275497 N39.0 Sent Macrobid to the pharmacy Health Concerns Section Related Observation LastModified by Organization Detai ls LastModified Time None Recorded Concern Status LastModified by Organization Details LastModified Time None Recorded Advance Directives Directive None Recorded Payers Insurance Date Sequence Insurance Name Policy Number Policy Kahn Covered Member ID Kahn Member ID Guarantor Name 09/15/2023 1 [facility] - DOS PRIOR TO 2022 - DUAL ELIGIBLE (MEDICARE REPLACEMENT/ADV ANTAGE - HMO) Agnes Vilchis [id number] Agnes Milligan 11/29/2024 1 [facility] - DOS ON OR AFTER 2022 - DUAL ELIGIBLE - PENITENTIARY OPTIONS AND ONE CARE (MEDICARE REPLACEMENT/ADV ANTAGE - HMO) Agnes Milligan [id number] Agnes Milligan Notes Date Note Type Note [...] enough to wait a few hours for building contractor visit to assess her current clinical presentation and ability to be managed as an outpatient. [facility] request submitted for urgent in home assessment. ...................... ...................... ...................... ...................... ...................... ...................... ......... [facility] Nurse Triage Notes (Mark Hinojosa - RN): Chief Complaints: Cough, Earache, Vomiting PMH: Hypertension, COPD/Asthma Comments: Reviewed HPI ...................... ...................... ...................... ...................... ...................... ...................... ......... Joiners Supervisor Note From Edmund Blackwell: This 53-year-old female [...] and does not like to use any blta-kyc-llyeqdy's due to allergies.Patient presents awake and alert, [...] ...................... ...................... ...................... ...................... ...................... ...................... ......... [facility] Consulted: Carlos, Yari ...................... ...................... ...................... ...................... ...................... ...................... ......... Disposition: Fulfilled Yari Gonzalez MD [address] [facility],[address], [place], [address], [employer] 05/10/2024 15:22:05 05/11/2024 text/html HPI: 53 year [...] yesterday from going to the bathroom. Sending [facility] for a neb treatment and Toradol inj [...] ...................... ...................... ...................... ...................... ...................... ...................... ......... Joiners Supervisor Note From Edmund Blackwell: This 53-year-old female [...] morning and they sent a referral to [facility] to have us come out and prescribed [...] treat her with Toradol. I contacted the [facility] who will send nebulizer solution to her [...] ...................... ...................... ...................... ...................... ...................... ...................... ......... [facility] Consulted: Maribell Bernardo ...................... ...................... ...................... ...................... ...................... ...................... ......... Disposition: Fulfilled Maribell Bernardo MD [address] [place] [address],[address], [place], [phone], [employer] 05/11/2024 20:57:54 09/29/2024 text/html This was a super vised home visit with building contractor Edmund Blackwell. HPI: spoke with member, she reports multiple episodes of vomiting and diarrhea last night. She reports BP 69/48 with HR 113 last night, also notes she was very anxious at this time. This AM BP recheck 103/63 , HR 113. Still only tolerating sips of water. No CP . She believes her symptoms are worsening due to anxiety. She is requesting [employer] for possible IVF. Will call back sooner [...] Allergies Reviewed at 09/29/2024:58 Comments: HPI reviewed Joiners Supervisor Organization [facility] Name: [facility] Address: [address] [place] [address], [place] [address], [employer] T[employer]: Rodriguez Mejia MD [place] No.: [id number] Joiners Supervisor POC Test Results from Edmund Blackwell [facility] (:) pH: 7.38 pH units pCO2: 37.5 mmHg pO2: 27.3 mmHg Na: 143 mmol/L K: 4.2 mmol/L iCa: 1.10 mmol/L Cl: 110 mmol/L TCO2: 21.2 mEq/L Hct: 49 % Hb: 16.7 g/dL Glu: 116 mg/dL Lac: 1.43 mmol/L Cr: 0.91 mg/dL BUN: 20 mg/dL A mmol/L HCO3: 22.0 mmol/L Rapid COVID antigen (:) COVID: - Rapid influenza antigen () Flu: - ...................... ...................... ...................... ...................... ...................... ...................... ......... Joiners Supervisor Note From Edmund Blackwell: This 54-year-old female [...] Patient is agreeable for ambulance transport to [facility] emergency department. 911 was initiated and SBAR was given to JUNG LEVINE. [facility] Lab Orders: BMP, serum or plasma: Performed rapid SARS CoV 2 Ag, QL IA, respiratory specimen: Performed rapid flu (A+B): Performed [facility] Medication Orders: metoclopramide 5 mg/mL injection solution: Administered lactated Ringers intravenous solution: Administered lactated Ringers intravenous solution: Administered ...................... ...................... ...................... ...................... ...................... ...................... ......... [facility] Consulted: Anjel Roberts ...................... ...................... ...................... ...................... ...................... ...................... ......... Disposition: Fulfilled Anjel Roberts MD [address] [place] [address],[address] [facility], [place], [address], [employer] 09/29/2024 11:27:32 11/28/2024 text/html HPI: 54 y/o femaleCalled PCP office with worsening lower abdominal pressure, lower back pain and burning with urination over the last 24 hours. Patient denies fever/chills. Unable to go to walk in urgent care. ...................... ...................... ...................... ...................... ...................... ...................... ......... [facility] Nurse Triage Notes (Monet Lancaster): Reason For Request: UTI Chief Complaints: Urinary Symptoms PMH: Hypertension, COPD/Asthma, Chronic Pain, Fibromyalgia, Post-Traumatic Stress Disorder (PTSD), Gastroesophageal Reflux Disease (GERD), Irritable Bowel Syndrome (IBS), Sleep Apnea PMH Reviewed at 11/27/202450 Allergies Reviewed at 11/27/2024:50 Comments: HPI reviewed Joiners Supervisor Organization Information for [employer] Legal Name: [facility] Address: [address] [place] [address], [place] [address], [employer]: Rodriguez Mejia MD [place] No.: [id number] Joiners Supervisor POC Test Results from [facility] Urine Dipstick (11:12:18) Urine leukocytes: 125 ISMA Urine nitrites: - NIT Urine urobilinogen: 0.2 URO Urine protein: 15 PRO Urine pH: 7.0 pH Urine blood: + BLO Urine specific gravity: 1.010 SG Urine ketones: - KET Urine bilirubin: - AMANDA Urine glucose: - GLU Attachments uploaded as part of this test result can be found under Documents section. ...................... ...................... ...................... ...................... ...................... ...................... ......... Joiners Supervisor Note From [facility]: Arrived to find female in her apartment. Patient AOx4, GCS 15 skin pink warm and dry. Patient experiencing urinary symptoms x2 days. + burning with urination, does not feel like she is urinating completely. + back pain. -CVA tenderness. VS as noted. UA as noted. + for blood. Protein and leuk. Cultural drawn. [facility] contacted. [facility] advised she is going to send over a script for bactrim. Patient in agreement. No red flag symptoms. ...................... ...................... ...................... ...................... ...................... ...................... ......... [facility] Consulted: Daniel Sarkar ...................... ...................... ...................... ...................... ...................... ...................... ......... Disposition: Fulfilled DANIEL SARKAR NP, S [address] [place] [address],[address] [place] [address], [place], [address], [employer] 11/28/2024 13:17:40 11/29/2024 text/html Follow up on UTI . Recieved call from [facility] that patient not tolerating Bactrim. Recent Hypoid Gear Generator from visit 2 months prior normal. Will start on Macrobid. Spike Gallegos MD [address] [place] [address],[address] [facility], [place], [address], [employer] 11/29/2024 10:58:02 OBGyn Episode No OBEpisode recorded.
== END 2024-11-30 07:57 | disposition home or self-care (01) ==
LOC: HO.XRAY 07:56
PROVIDERS: PCP Registered Nurse; Visit Provider Nurse Practitioner Family
DX: K21.9 Gastro-esophageal reflux disease without esophagitis (principal)
CPT/HCPCS: 74246

== ENCOUNTER → 2024-11-30 07:57 | Outpatient (BNV) | payer OTHER, SELFPAY | PROVIDERS: PCP Registered Nurse; Visit Provider Radiology Diagnostic Radiology | DX: K21.9 Gastro-esophageal reflux disease without esophagitis (principal) | CPT/HCPCS: 74246 ==

== ENCOUNTER 2025-04-19 15:27 | Outpatient (AMB) | payer OTHER, SELFPAY ==
--- NOTE | 2025-04-19 15:28 | A.OFFVIS_ITS ---
Vital Signs 04/19/25 15:37 Height 5 ft 7 in Weight 217 lb BMI 34.0 BP 104/66 Blood Pressure Location Rt brachial Position Sitting Pulse 82 Pulse Source Pulse Oximeter Pulse Oximetry (%) 99 Oxygen Delivery Method Room Air Intake Visit Reasons: Sooner appt. Constipation exacerbation. Intake Note: ESTABLISHED PATIENT for mgmt of fecal abn + GERD. Chief Complaint; C/O exacerbation of CIC + hemorrhoids. Pt reports having severe rectal bleeding, abd distention, and abd cramping within the last week. Pt did see her PCP per these concerns. She also reports persistence of RUQ pain and R flank pain which she reported at her last OV. Assignment Clerk Required: No Accompanied by: Self / Same As Patient Allergies acetaminophen (From Tylenol) Allergy (Severe, Verified 04/19/25 15:44) Anaphylaxis aspirin Allergy (Severe, Verified 04/19/25 15:44) Anaphylaxis codeine Allergy (Severe, Verified 04/19/25 15:44) Anaphylaxis dextromethorphan (From NyQuil) Allergy (Severe, Verified 04/19/25 15:44) Anaphylaxis doxylamine (From NyQuil) Allergy (Severe, Verified 04/19/25 15:44) Anaphylaxis magnesium hydroxide (From Milk of Magnesia) Allergy (Severe, Verified 04/19/25 15:44) Anaphylaxis morphine Allergy (Severe, Verified 04/19/25 15:44) Anaphylaxis oxycodone (From Percocet) Allergy (Severe, Verified 04/19/25 15:44) Anaphylaxis Penicillins Allergy (Severe, Verified 04/19/25 15:44) Anaphylaxis propoxyphene (From Darvocet-N 100) Allergy (Severe, Verified 04/19/25 15:44) Anaphylaxis pseudoephedrine (From Sudafed) Allergy (Severe, Verified 04/19/25 15:44) Anaphylaxis HPI HPI Sooner appt. Constipation exacerbation.: Details: LAST VISIT 11/10/2024 Esophageal spasm GERD (gastroesophageal reflux disease) Erosive esophagitis Rectal bleeding Chronic idiopathic constipation Hiatal hernia Upper abdominal pain Plan New order for upper GI with barium swallow. certified pathology assistant called the department and was able to schedule patient for this month. H pylori breath test in the office today. We will try to start patient on Voquezna. Erosive esophagitis found on biopsy. Will hold lansoprazole for now. May take famotidine at bedtime. Avoid dietary triggers and late night snacking. Staying upright for minimum 3 hours after meals discussed with patient. Patient will follow-up in 2- 3 months, sooner on as needed basis. She is agreeable to this plan and verbalizes understanding of instructions. She was given the opportunity to ask questions and all questions answered. ? Thank you for allowing me to participate in her care Orders FL upper GI w Ba Swallow Today K21.9 H Pylori Breath Test Today K21.9 New vonoprazan (Voquezna) 20 mg PO DAILY 30 tabs 2RF On Hold lansoprazole Hold Comment: Doctor's Order 30 mg PO DAILY 90 caps 2RF K22.10, N18.31 TODAY'S VISIT Patient is here today for requested visit. Patient reports that her symptoms are exacerbated, not sure it to to stress. Patient reports that she has not changed her diet. Still eating same. Lots of stress in the family in the past month or so. Patient reports abdominal pain right upper quadrant. Denies any nausea or vomiting. Patient also reports pain in her chest denies shortness of breath. Denies any upper respiratory symptoms like cough, rhinitis. Denies any fever. Patient does see cardiology and has appointment with them next week. Patient denies dyspepsia, dysphagia or odynophagia. Denies melena, hematochezia, unintentional weight loss or ribbon like stools. Patient reports still constipated. Currently patient is taking Voquezna in the morning and sucr alfate at bedtime. Patient is taking Linzess to help with bowel movements. Patient reports that she is not moving her bowels daily and does not feel like she empties completely. Patient is on Zepbound for weight loss [facility] Medical History Mood disorder Dental infection Preop examination Hyperlipidemia Acute diarrhea Pancreatic insufficiency Chronic idiopathic constipation Chronic pain syndrome Drug allergy Kidney failure History of MRSA infection (~2010) Stress incontinence Psychosomatic pain Obstructive sleep apnea Anxiety disorder Morbid obesity Fibromyalgia Bipolar disorder Suicide attempt Depression Asthma Surgical History H/O lateral meniscus repair of left knee History of esophagogastroduodenoscopy (EGD) Hx of section H/O colonoscopy H/O abdominoplasty History of lumpectomy of left breast H/O bilateral oophorectomy H/O: hysterectomy H/O laparoscopy Family History Mother Stroke Social History Household Members Other:: parents Are you a primary direct care staffer to a significant other at home: No Do you presently have visiting nurse or other home services: No Alcohol intake: never Patient Tobacco Use Status: Never used Tobacco Review of Systems Const Denies weight gain and Denies weight loss ENT Reports no additional complaints, Denies dysphagia and Denies odynophagia Card Reports no additional complaints Resp Reports no additional complaints GI Reports abdominal pain, Denies belching, Denies melena, Reports bloating, Denies change in bowel habits, Reports constipation, Denies dysphagia, Denies excessive flatus, Denies dyspepsia, Reports heartburn, Denies diarrhea, Reports loose stools, Denies nausea, Denies odynophagia and Denies vomiting Reports no additional complaints Musc Reports no additional complaints Neuro Reports no additional complaints Psych Reports no additional complaints Endo Reports no additional complaints Physical Exam Vital Signs: Last Vital Signs Pulse 82 04/19/25 15:37 BP 104/66 04/19/25 15:37 Pulse Ox 99 04/19/25 15:37 Oxygen Delivery Method Room Air 04/19/25 15:37 BMI result Body Mass Index 34.0 Const General: healthy appearing and no acute distress Nutritional Appearance: obese Orientation/consciousness: patient oriented x3 Neck Neck: Yes normal visual inspection, Yes full ROM and Yes trachea midline Thyroid: Thyroid normal Resp Effort & Inspection: normal respiratory effort, able to speak in complete sentences, no tracheal deviation and symmetric chest movement Auscultation: clear to auscultation bilaterally Cardio Rate: regular rate GI Inspection: Yes normal to inspection, No distended and Yes obesity Palpation (GI): Soft to palpation, not firm, nontender and No hepatosplenomegaly present Auscultation: normal bowel sounds General: Yes no CVA tenderness Back/Spine/Pelvis Back: no CVA tenderness Skin General skin exam: elasticity normal, turgor normal and dry skin Neuro General: patient oriented x3 Psych Appearance: grossly normal Mental Status: mental status grossly normal Assessment & Plan Assessment & Plan (1) Esophageal spasm: Code(s): K22.4 - Dyskinesia of esophagus Category: Medical (2) GERD (gastroesophageal reflux disease): Code(s): K21.9 - Gastro-esophageal reflux disease without esophagitis Category: Medical Qualifiers: Esophagitis presence: esophagitis presence not specified Qualified Code (s): K21.9 - Gastro-esophageal reflux disease without esophagitis (3) Erosive esophagitis: Code(s): K22.10 - Ulcer of esophagus without bleeding Category: Medical (4) Chronic idiopathic constipation: Code(s): K59.04 - Chronic idiopathic constipation Category: Medical (5) Hiatal hernia: Code(s): K44.9 - Diaphragmatic hernia without obstruction or gangrene Category: Medical (6) Upper abdominal pain: Code(s): R10.10 - Upper abdominal pain, unspecified Category: Medical (7) Chest pain: Code(s): R07.9 - Chest pain, unspecified Qualifiers: Chest pain type: intercostal pain Qualified Code(s): R07.82 - Intercostal pain Plan Patient will continue treatment for GERD, however she can increase sucralfate to twice a day. She reports sharp chest pain will send her for CT scan. Patient also reports right upper quadrant pain postprandially, will send her for HIDA scan. Patient will be sent for upper endoscopy and colonoscopy. Patient was encouraged to go to ED if her pain persists. She does have appointment on the with her geodetic technician. This pain in her chest looks more like intercostal pain, no pain or pressure with exertion or deep breathing. Unlikely PE, however due to patient's body habitus as well the ruperto menopausal state this should be evaluated. I will see patient after testing so we can discuss going for upper endoscopy colonoscopy then. Patient is agreeable to current plan of care and verbalizes understanding of instructions. He was given the opportunity to ask questions and all questions answered. Thank you for allowing me to participate in her care Orders: Orders CT chest wo IV con 04/19/25 R07.9 - Chest pain, unspecified NM hepatobiliary w pharm 04/19/25 R10.11 - Right upper quadrant pain Referrals GI Procedure Notification Z12.11 - Encounter for screening for malignant neoplasm of colon, K21.9 - Gastro-esophageal reflux disease without esophagitis, K62.5 - Hemorrhage of anus and rectum, R19.4 - Change in bowel habit Medications: Changed From sucralfate 1 g PO BEDTIME 30 tabs 4RF R19.7 - Diarrhea, unspecified To sucralfate 1 g PO BID 60 tabs 4RF R19.7 - Diarrhea, unspecified Coding Level of Care Code Est Pt Level 4 (31325) Add On Problem Visit Only Diagnoses Esophageal spasm K22.4 Gastroesophageal reflux disease, unspecified whether esophagitis present K21.9 Esophagitis presence: esophagitis presence not specified Erosive esophagitis K22.10 Chronic idiopathic constipation K59.04 Hiatal hernia K44.9 Upper abdominal pain R10.10 Intercostal pain R07.82 Chest pain type: intercostal pain Time Spent (min) 35 Comment 25 minutes spent with patient and additional 10 minutes spent reviewing her records
[2025-04-19 15:37] VITALS: BP 104/66; PULSE 82; O2SAT 99; BMI 34.0
--- OUTSIDE RECORDS SUMMARY | 2025-04-20 01:01 | XMS_ITS | Data Portability ---
Author Organization [facility] [place] 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 Plan: Continue PT @ 2x/wk for 4 weeks to decrease pain, optimize motion, increase strength, and foster independence with functional ADL's. [email or web address] Not available 09/21/2024 13:00:26 09/24/2024 09/24/2024 Assessment: Decreased quad strength, fatigues quickly. AD used during gait, slight antalgic gait. Plan: Continue PT @ 2x/wk for 4 weeks to decrease pain, optimize motion, increase strength, and foster independence with functional ADL's. Not available 09/27/2024 16:15:11 10/02/2024 10/02/2024 Assessment: Improved ROM. Decreased quad strength, pt unable to complete active SLR. AA required. Plan: Continue PT @ 2x/wk for 4 weeks to decrease pain, optimize motion, increase strength, and foster independence with functional ADL's. Not available 10/03/2024 15:20:09 Plan of Treatment Reminders Order Date Submit Date Provider Last Modified By Organization Details Last Modified Time Details Appointments None record ed. Lab None record ed. Referral physic al therap ist referr al - VMO Streng thenin g, Hip Abduct or, Glute Med Streng thenin g, Quad & Hamstr ing Stretc hola, Christian a Mobili zation , McConn ell Taping at your discre tion. 2024 025 semaj [facility] (Bassem Rolle), [address], [place], [address], 5 11:51:39 Procedures None record ed. Surgeries None record ed. Imaging None record ed. Medication Orders None record ed. Patient TargetsNo targets recorded. Patient InstructionsNo instructions recorded. Reason for Referral Physical Therapist Referral for History of arthroscopy of knee joint VMO Strengthening, Hip Abductor, Glute Med Strengthening, Quad & Hamstring Stretching, Patella Mobilization, Lopez Taping at your discretion. Referring Physician: Mitul Montana, Orthopedic Surgery, Encounter Date: 09/16/2024 Problems Name Problem SNOMED Code Status Onset Date Resolution Date Notes Provider Name and Address Organization Details Recorded Time Osteoarthri tis of knee 921161785 Active 2023 Mitul Montana PA-C [address], [place], [address], [facility] 4 06:08:44 Acute tear of medial meniscus of left knee 7401713028725 9107 Active 2023 Mitul Montana PA-C [address], [place], [address], [facility] 4 09:03:24 Derangement of left knee 4202426869282 9108 Active 2023 Mitul Montana PA-C [address], [place], [address], [facility] 4 09:03:53 Acute meniscal tear, medial 274532207 Active 2024 Harrison Benton MD [address], [place], [address], [facility] 5 10:31:04 Pain of left knee joint 8813668333428 07 Active 2024 Kateryna Stover, MAINTENANCE CLERK [address], [place], [address], [facility] 17:32:30 Postoperati ve pain 895446277 Active 2024 Kateryna Stover, MAINTENANCE CLERK [address], [place], [address], [facility] 17:38:40 Problem Notes None recorded. Procedures Surgical History Date Name Laterality Status Provider Name and Address Organization Details Recorded Time 11/19/19 81960 Therapeutic Exercise (1:1) cancelled Viral Avery, PT [address], [place], [address], [facility] 11/17/2024 17:09:27 11/19/19 65148: Hot or Cold Pack cancelled Viral Avery, PT [address], [place], [address], [facility] 11/17/2024 17:09:27 11/19/19 54435: Manual therapy cancelled Viral Avery, PT [address], [place], [address], [facility] 11/17/2024 17:09:27 10/24/19 56579 Therapeutic Exercise (1:1) cancelled Chapo Bhatt, STUDIO DIRECTOR [address], [place], [address], [facility] 10/23/2024 14:03:25 10/24/19 25 50800: Hot or Cold Pack cancelled Chapo Bhatt, STUDIO DIRECTOR [address], [place], [address], [facility] 10/23/2024 14:03:25 10/24/19 10157: Manual therapy cancelled Chapo Bhatt, STUDIO DIRECTOR [address], [place], [address], [facility] 10/23/2024 14:03:25 10/03/19 35955 Therapeutic Exercise (1:1) completed Chapo Bhatt, STUDIO DIRECTOR [address], [place], [address], [facility] 10/02/2024 11:27:08 10/03/19 58235: Hot or Cold Pack completed Chapo Bhatt, STUDIO DIRECTOR [address], [place], [address], [facility] 10/03/2024 15:20:41 10/03/19 84960: Manual therapy completed Chapo Bhatt, STUDIO DIRECTOR [address], [place], [address], [facility] 10/02/2024 11:27:08 09/30/19 32080 Therapeutic Exercise (1:1) cancelled Viral Avery, PT [address], [place], [address], [facility] 09/29/2024 06:34:07 09/30/19 83649: Manual therapy cancelled Viral Avery, PT [address], [place], [address], [facility] 09/29/2024 06:34:07 09/25/19 69669 Therapeutic Exercise (1:1) completed Chapo Bhatt, STUDIO DIRECTOR [address], [place], [address], [facility] 09/27/2024 16:01:24 09/25/19 85096: Manual therapy completed Chapo Bhatt, STUDIO DIRECTOR [address], [place], [address], [facility] 09/27/2024 16:01:31 09/22/19 55539 Therapeutic Exercise (1:1) completed Viral Avery, PT [address], [place], [address], [facility] 09/21/2024 12:58:41 09/22/19 43047: Low complexity PT Eval completed Viral Avery, PT [address], [place], [address], [facility] 09/21/2024 12:58:45 07/15/19 25 Sports Knee 4&1 completed Harrison Benton MD [address], [place], [address], [facility] 07/14/2024 16:17:23 04/03/20 24 Carpal Tunnel Kenalog 1cc injection, L/R completed Fany Najera PA-C [address], [place], [address], [facility] 04/03/2024 10:31:37 03/09/20 24 Epicondylitis Celestone 1cc Injection, L/R completed DEBORAH Jang-Saeid [address], [place], [address], [facility] 03/09/2024 09:52:30 03/09/20 24 Carpal Tunnel Kenalog 1cc injection, L/R completed Fany Najera PA-C [address], [place], [address], [facility] 03/09/2024 09:52:17 11/08/19 24 Knee Kenalog 40 1cc Injection, Bilateral completed Mitul Montana PA-C [address], [place], [address], [facility] 11/08/2023 06:24:15 10/09/19 24 Knee Kenalog 40 1cc Injection, Bilateral completed Mitul Montana PA-C [address], [place], [address], [facility] 10/09/2023 06:08:38 Imaging Results None recorded. Procedure Notes None recorded. Medical Equipment None Reported. Allergies Allergen ID Allergen Name Allergen Category Reaction Reaction Severity Criticality Documentation Date Start Date Code Code System Note Provider Name and Address Organization Details Recorded Time 751702 codeine medicatio n Not available Not available Not available 10/28/2023 2670 RxNorm CYNTHIA nleson, [facility] 4 12:40:36 369195 aspirin medicatio n Not available Not available Not available 10/28/2023 1191 [facility] 4 12:40:45 979210 acetamino phen / oxycodone medicatio n Not available Not available Not available 10/28/2023 33274 3 [facility] 4 13:36:48 407576 Fioricet medicatio n Not available Not available Not available 10/28/2023 04368 4 [facility] 4 13:37:10 518381 ibuprofen medicatio n Not available Not available Not available 11/05/20232023 5640 RxNorm Not Available [facility] 4 09:08:04 03802 Tylenol medicatio n Not available Not available Not available 07/15/2023201943 3 RxNorm Not Available [facility] 4 11:09:28 69348 Product containin g penicilli n (product) medicatio n Not available Not available Not available 07/15/20232019 09535 8001 SNOMED Not Available [facility] 4 11:09:28 Medications Name Sig Start Date Stop Date Status Note LastModified by Organization Details LastModified Time bupropion HCl SR 150 mg tablet,12 hr sustained-re lease TAKE 1 TABLET BY MOUTH EVERY DAY IN THE MORNING active Not Available Not Available No t Available oxybutynin chloride ER 15 mg tablet,exten ded release 24 hr active Not Available Not Available Not Available cetirizine 10 mg tablet active Not Available Not Available Not Available oxybutynin chloride ER 10 mg tablet,exten [...] Available Not Available No t Available sucralfate 100 mg/mL oral suspension active Not Available Not Available N ot Available meloxicam 15 mg tablet Take 1 tablet every day by oral route as needed for 30 days. active Not Available Not Available No t Available sucralfate 1 gram tablet active Not Available Not Available Not Available famotidine 40 mg tablet TAKE 1 TABLET BY MOUTH AT BEDTIME active Not Available Not Available [...] No t Available tramadol 50 mg tablet active Not Available Not Available No t Available hydromorphon e 2 mg tablet TAKE 1-2 TABLETS EVERY 6 HOURS NEEDED (3 DAY SCRIPT) active Not Available Not Available Not Available magnesium oxide 400 mg (241.3 mg magnesium) tablet active Not Available Not Available Not Available dicyclomine 20 mg tablet TAKE 2 TABLETS BY MOUTH 4 TIMES A DAY active Not Available Not Available Not Available baclofen 10 mg tablet TAKE HALF OF A TABLET (5 MG) BY MOUTH 2 TIMES PER DAY active Not Available Not Available No t Available pantoprazole 40 mg tablet,delay ed release active Not Available Not Available N ot Available lansoprazole 30 mg capsule,yamilex yed release TAKE 1 CAPSULE BY MOUTH EVERY DAY active Not Available Not Available No t Available promethazine 25 mg tablet TAKE 1 TABLET BY MOUTH EVERY 12 HOURS NEEDED FOR 30 DAYS active Not Available Not Available No t Available oxybutynin chloride ER 5 mg tablet,exten ded release 24 hr TAKE 1 TABLET BY MOUTH TAKE ALONG WITH 2 10MG FOR TOTAL DAILY DOSE OF 25MG DAILY active Not Available Not Available No t Available topiramate 200 mg tablet TAKE 2 TABLETS BY MOUTH EVERY DAY AT BEDTIME active Not Available Not Available No t Available mupirocin 2 % topical ointment active Not Available Not Available Not Available zaleplon 10 mg capsule TAKE 1 CAPSULE (10 MG) BY MOUTH DAILY AT BEDTIME NEEDED active Not Available Not Available No t Available lorazepam 1 mg tablet active Not Available Not Available No t Available albuterol sulfate HFA 90 mcg/actuatio n aerosol inhaler INHALE 2 PUFFS BY MOUTH EVERY 6 HOURS NEEDED active Not Available Not Available No t Available hydromorphon e 4 mg tablet TAKE 1/2-1 TABLET EVERY 6 HOURS NEEDED . 3 DAY RX. active Not Available Not Available No t Available fluoxetine 20 mg capsule TAKE 2 CAPSULE (40 MG) BY MOUTH DAILY AFTER BREAKFAST active Not Available Not Available No t Available fluticasone propionate 50 mcg/actuatio n nasal spray,suspen tai 1 SPRAY INTO INTO EACH NOSTRIL TWICE A DAY active Not Available Not Available Not Available metocloprami de 10 mg tablet TAKE 1 TABLET BY MOUTH 2 TIMES A DAY NEEDED FOR NAUSEA/VOMI TING active Not Available Not Available No t Available simethicone 80 mg chewable tablet active Not Available Not Available Not Available Laxative (bisacodyl) 5 mg tablet,delay ed release TAKE 2 TABLETS BY MOUTH EVERY DAY AT BEDTIME active Not Available Not Available No t Available cyclobenzapr ine 5 mg tablet TAKE 1 TABLET BY MOUTH EVERY DAY AT BEDTIME NEEDED active Not Available Not Available No t Available rosuvastatin 10 mg tablet active Not Available Not Available Not Available rosuvastatin 20 mg tablet TAKE 1 [...] Not Available Not Available No t Available Gas Relief Extra Strength 125 mg chewable tablet CHEW 1 TABLET BY MOUTH 4 TIMES A DAY active Not Available Not Available Not Available FreeStyle Lite Strips active Not Available Not Available Not Available diclofenac 1 % topical gel active Not Available Not Available Not Available cholecalcife rol (vitamin D3) 50 mcg (2,000 unit) capsule TAKE 1 CAPSULE BY MOUTH EVERY DAY FOR 28 DAYS active Not Available Not Available No t Available cholecalcife rol (vitamin D3) 50 mcg (2,000 unit) tablet active Not Available Not Available Not Available Savella 25 mg tablet active Not Available Not Available No t Available Savella 100 mg tablet active Not Available Not Available No t Available Dulera 100 mcg-5 mcg/actuatio n HFA aerosol inhaler active Not Available Not Available Not Available Linzess 145 mcg capsule TAKE 1 CAPSULE BY MOUTH IN THE MORNING active Not Available Not Available Not Available Creon 36,000 unit-114,000 unit-180,000 unit capsule,yamilex yed release active Not Available Not Available Not Available Belbuca 300 mcg buccal film active Not Available Not Available Not Available Belbuca 150 mcg buccal film active Not Available Not Available Not Available Belbuca 75 mcg buccal film active Not Available Not Available Not Available OneTouch Verio Flex Meter DIRECTED active Not Available Not Available Not Available Trulance 3 mg tablet active Not Available Not Available No t Available Ozempic 1 mg/dose (4 mg/3 mL) subcutaneous pen injector active Not Available Not Available Not Available Flowflex COVID-19 Antigen Home Test kit DIRECTED IN VITRO EVERY 48 HOURS NEEDED 30 DAYS active Not Available Not Available No t Available Ozempic 2 mg/dose (8 mg/3 mL) subcutaneous pen injector INJECT 2MG SUBCUTANEOU SLY ONCE A WEEK 28 DAYS active Not Available Not Available No t Available OneTouch UltraSoft 2 Lancet 30 gauge DIRECTED TO SKIN ONCE DAILY NEEDED active Not Available Not Available No t Available Voquezna 20 mg tablet TAKE 1 TABLET BY MOUTH EVERY DAY active Not Available Not Available No t Available Zepbound 5 mg/0.5 mL subcutaneous pen injector INJECT 1 PEN SUBCUTANEOU SLY ONCE WEEKLY active Not Available Not Available No t Available Zepbound 2.5 mg/0.5 mL subcutaneous pen injector INJECT 1 PEN SUBCUTANEOU SLY ONCE WEEKLY ON THE SAME DAY active Not Available Not Available No t Available Zepbound 7.5 mg/0.5 mL subcutaneous pen injector INJECT 7.5 MG (0.5 ML) SUBCUTANEOU S ONCE A WEEK 28 DAYS active Not Available Not Available No t Available Vitals Date Recorded Body height Body mass index (BMI) Body weight Provider Name and Address Organization Details Last Updated DateTime 2024 152.4 cm 49 kg/m2 721547.68 g NANCY MCFARLAND [place] - [facility] 2024 10:15:01 Date Recorded Body height Body mass index (BMI) Body weight Body temperature Provider Name and Address Organization Details Last Updated DateTime 09/16/2024 152.4 cm 49 kg/m2 950535.68 g 98 [degF] Mitul Montana PA-C [address], [place], [address] , [place] - [place] [facility] 09/16/2024 11:18:33 Social History None recorded. Functional Status Question Answer Note LastModified by Organizat ion Details LastModified Time What is your level of alcohol consumption? Occasional [email or web address] Information not available 2024 Mental Status None recorded. Family History Nothing Reported. Medical History Condition Response Circulation Problems Y Diabetes Y Anxiety/Depression Y Kidney/Bladder Problems Y Seizures/Epilepsy Y Sleep Apnea Y Headaches Y Cholesterol Y Gynecological HistoryNo gynecological history recorded. Obstetrics History GPAL:G 0 P 0 0 0 0 Past Encounters Encounter ID Performer Location Encounter Start Date Encounter Closed Date Diagnosis/Indication Diagnosis SNOMED-CT Code Diagnosis ICD10 Code Diagnosis IMO Codes Diagnosis Note [id number] JOSE Gauthier [address] [place] [address] 10/09/2023 08:33:27 10/21/2023 09:24:41 Osteoarthritis of knee 663194118 M17.9 Acute tear of medial meniscus of left knee 8957073527 5697041 S83.242A Derangemen t of left knee 9667891023 0341423 M23.92 [id number] Mitul Montana PA-C [place] [address] [place] [address] 10/25/2023 09:56:50 11/15/2023 12:57:07 Acute tear of medial meniscus of left knee 3183580723 6959124 S83.242A [id number] JOSE Gauthier [address] [place] [address] 11/08/2023 10:06:38 11/28/2023 12:06:35 Osteoarthritis of knee 094431756 M17.9 Acute tear of medial meniscus of left knee 3927384102 2672361 S83.242A [id number] JOSE Gauthier [address] [place] [address] 12/31/2023 10:05:58 01/16/2024 15:45:13 Osteoarthritis of knee 673235678 M17.9 Acute tear of medial meniscus of left knee 2246827092 2169204 S83.242A [id number] Mitul Montana PA-C [place] [address] [place] [address] 01/15/2024 08:41:49 01/29/2024 08:32:22 Osteoarthritis of knee 032175942 M17.9 Acute tear of medial meniscus of left knee 3811550410 2250624 S83.242A [id number] Fany Najera PA-C [place] [address] [place] [address] 03/09/2024 09:07:19 03/25/2024 17:00:16 [id number] Fany Najera PA-C [place] [address] [place] [address] 04/03/2024 09:16:49 04/23/2024 15:22:17 [id number] MD [facility] Balderr[facility] - [place] [address] [place] [address] 07/14/2024 15:51:14 07/28/2024 08:29:52 Acute tear of medial meniscus of left knee 6743929059 6591203 S83.242A [id number] MD TERRANCE Balderrama - [place] [address] [place] [address] 2024 10:02:08 08/26/2024 15:43:15 Acute meniscal tear, medial 035755903 S83.232D [id number] [id number] Mitul Montana PA-C [facility] [place] [address] [place] [address] 09/16/2024 11:08:35 09/18/2024 11:51:38 History of arthroscopy of knee joint 518032610 Z98.890 [id number] Viral Avery, PT [facility] [address] [place] [address] 09/21/2024 10:12:50 09/21/2024 10:45:52 Tear of medial meniscus of right knee joint 2128788956 7102 S83.241D [id number] Chapo Bhatt STUDIO DIRECTOR [facility] [address] [place] [address] 09/24/2024 13:37:26 09/24/2024 14:28:56 Tear of medial meniscus of right knee joint 8601737715 7102 S83.241D [id number] [id number] Chapo Bhatt STUDIO DIRECTOR [facility] [address] [place] [address] 10/02/2024 10:50:38 10/02/2024 13:04:31 Tear of medial meniscus of right knee joint 2543116811 7102 S83.241D [id number] Health Concerns Section Related Observation LastModified by Organization Detai ls LastModified Time None Recorded Concern Status LastModified by Organization Details LastModified Time None Recorded Advance Directives Directive None Recorded Payers Insurance Date Sequence Insurance Name Policy Number Policy Kahn Covered Member ID Kahn Member ID Guarantor Name 11/16/2024 1 [facility] - DOS ON OR AFTER 2022 - ONE CARE (MEDICARE REPLACEMENT/ADV ANTAGE - HMO) Agnes Milligan [id number] Agnes Milligan Notes Date Note Type Note Provider Name and Address Organization Details Recorded Time 5 text/htm l HPI: Patient is seen today for follow-up evaluation of their knee MRI. They have been modifying their activity and working on range of motion. Patient reports intermittent sharp mechanical pain still in the knee despite initial treatment. Patient complains of occasional moderate/severe amounts of pain with ADL and frustrated by his lack of improvement wants to discuss possibility surgery at this time. Patient has previously been through a dedicated course of physical therapy as well as receiving a corticosteroid injection. Scheduled for surgery and approved in November 2023. She ultimately declined to pursue that surgery but presents today with worsening left knee pain. MRI findings: Independently reviewed today in our office findings include complex tear undersurface medial meniscus, minimal medial compartment arthrosis, mild chondromalacia/Early PF arthropathy intact cruciate and collateral ligaments. PMH: Anxiety, bipolar, fibromyalgia, depression Family Hx: Negative Meds: Baclofen, Belbuca, bupropion, cetirizine, diclofenac gel, fluoxetine, lorazepam, nifedipine, Ozempic Allergies: Patient reportsanaphylaxisto penicillin, aspirin, Tylenol, codeine ROS: Negative Social Hx: Negative PHYSICAL EXAMINATION: The patient is well appearing and in no apparent distress. Alert and oriented x3. Gait is symmetric. EXAM:HEENT is unremarkableHeart regular rate and rhythm without murmurs rubs gallopsAbdomen soft nontender nondistended positive bowel sounds.Lungs are clear bilaterally without rales rhonchi or wheezesPeripheral, vascular, lymphatic examination, skin, neurological, coordination, reflexes, sensation are within normal limits. Left knee ROM is full, stability intact both anterior, posterior, and varus/valgus stress at both 0 and 30 degrees of flexion. 2+ Medial and lateral joint line tenderness. Positive Semaj's maneuver. Moderate crepitus,1+ effusion, 4/5 strength. IMPRESSION: Left knee medial meniscus tear PLAN: Patient remains frustrated by his lack of improvement like to proceed with left knee arthroscopy, partial medial meniscectomy . Risks benefits expectation short-term goals long-term goals all of which were discussed today. No physical exam findings that would prevent patient from going for surgery this time. Expectations length of time of recovery and time to miss from work were discussed in detail today. The patient like proceed as outlined at this time. [facility] speech recognition licensed final expense agents software was used to create portions of this document. An attempt at proofreading has been made to minimize errors. Please call for corrections Harrison Benton MD [address] [place] [address] [address] [facility], [place], [address], [facility] - [facility] 2024 10:44:07 5 text/htm l I am seeing the patient today under the supervision of Dr. Osuna who was available but who did not see the patient.HISTORY OF PRESENT ILLNESSThe patient returns for initial postop evaluation status post :eft Knee Arthroscopy. Patient reports no initial adverse complications during the perioperative/postoperative course. They are pleased with their initial progress. Operative findings: Complex tear medial meniscus, grade 3 changes medial compartment of the patella, intact lateral meniscus, intact cruciate ligaments. Grade 4 changes troclea.PHYSICAL FINDINGS The patient ambulates with crutches, mild antalgic gait, 1+ effusion. Incision is healing well. Sutures Removed, steri's applied. No sign of infection or DVT. ASSESSMENTStatus post Left Knee ArthroscopyPLANDiscussed plans for slow return to normal activities over 4-6 weeks. Continue modifications activities utilizing ice, oral NSAIDs as clinically indicated. Benefits of home physical therapy described and outlined in detail for the patient today. Recommendation is made for follow-up care in 6 weeks' time if patient remains symptomatic. Mitul Montana PA-C [address], [place], [address], [facility] 09/16/2024 11:37:35 5 text/htm l Patient is 54 year old female, with history of knee pain, reporting falling down the stairs for mechanism of injury. Presents today s/p knee AAA, stating 5/10 pain and swelling. Arrives today ambulating with cane, demonstrating antalgic gait mechanics. Has begun to wean off of crutches at this time. Current vocational status is unemployed. Functional limitations include restricted knee ROM, difficulty ambulating community distances, and navigating stairs reciprocally. Patient goal is to have no pain, and climb stairs again. Viral Avery, PT [address], [place], [address], [facility] 09/21/2024 13:01:49 5 text/htm l Patient reports 5/10 pain, fatigued after walking distances. Chapo Bhatt PTA [address], [place], [address], [facility] 09/27/2024 16:15:30 5 text/htm l Patient reports 6/10 pain upon entering therapy. Pt reports increased pain and swelling last night due to rain. Chapo Bhatt PTA [address], [place], [address], [facility] 10/03/2024 15:21:14 OBGyn Episode No OBEpisode recorded.
--- OUTSIDE RECORDS SUMMARY | 2025-04-20 01:02 | XMS_ITS | Data Portability ---
Author Organization [employer] [facility], [facility] Address [address] [place] [address] Care Team Providers Care Mineral Wool Insulation Supervisor Name Role Phone HIM CCA OTHER Assessment Encounter Date Assessment Date Assessment LastModified by Organization Details LastModified Time 05/10/2024 05/10/2024 I provided real -time medical direction via phone for this encounter and was available for additional phone-based assistance as needed. I have reviewed and agree with the Assessment and Plan as documented by the Websphere Architect. Patient given the opportunity to ask questions. Our service contacted for an assessment of: URI symptoms As per above, patient with approximately 24 hours of increasing nasal congestion, low-grade temperature, feeling very nauseated. Patient also with dry nonproductive cough. Feeling generally speaking unwell with myalgias and arthralgias. Wanted to be tested for COVID and flu. Per rod and tube straightener on the scene, vital signs are stable [...] or recall this service. She can trial [id number] medications for the cold and flu-like symptoms. [...] th e field was performed by my rod and tube straightener colleague, as noted above, I provided real-time [...] assessment and plan as documented by the rod and tube straightener. I provided real time medical direction for this encounter and was immediately available to provide additional phone based assistance as needed. History as noted by rod and tube straightener. Pt with history of chronic pain, fibromyalgia, [...] will be sent via ambulance to the [facility] ED for further evaluation and fluid resuscitation. Websphere Architect arranges EMS transfer to the [facility] ED and I call an expect to the ED cement conveyor operator. [email or web address] Not available 09/29/2024 11:26:10 11/28/2024 11/28/2024 I provided real -time medical direction via phone for this encounter, and was available for additional phone based assistance as needed. I have reviewed and agree with the Assessment and Plan as documented by the Websphere Architect. We discussed the diagnostic uncertainty of home [...] be seen in ED. Patient verbalized understanding. [email or web address] Not available 11/28/2024 13:17:34 Plan of Treatment Reminders Order Date Submit Date Provider Last Modified By Organization Details Last Modified Time Details Appointments None recorded. Lab urinalysis, dipstick 2024 025 [facility], [address] [place] [address], [id number] 16:11:32 culture, urine 2024 025 [place] [facility] (Centralized Electronic Ordering - All Locations), Patient Can Go To The Location Of Their Choice, [id number] 5 06:05:33 BMP, serum or plasma [address], [id number] 5 12:00:20 rapid SARS CoV 2 Ag, QL IA, respiratory specimen [address], [id number] 5 12:00:21 rapid flu (A+B) [address] [place], [address] 5 12:00:21 rapid SARS CoV 2 Ag, QL IA, respiratory specimen [email or web address], [address] [place] [address], [id number] 4 15:12:46 rapid flu (A+B) [email or web address], [address] [place] [address], [id number] 4 15:12:46 Referral None recorded. Procedures None recorded. Surgeries None recorded. Imaging None recorded. Medication Orders Macrobid 100 mg capsule 2024 025 [facility] #[id number], [address] [place] [address], [id number], 5 10:57:21 Bactrim DS 800 mg-160 mg tablet 2024 025 [facility], [address] [place] [address], [id number], 5 12:24:37 metoclopram ladonna 5 mg/mL injection solution 2024 025 [facility], [address] [place] [address], [id number], 5 09:31:45 lactated Ringers intravenous solution 2024 025 [facility], [address] [place] [address], [id number], 5 09:31:45 lactated Ringers intravenous solution 2024 025 [facility], [address] [place] [address], [id number], 5 10:12:40 ketorolac 15 mg/mL injection solution 2024 025 [facility], [address] [place] [address], [id number], 5 11:27:00 albuterol sulfate 2.5 mg/3 mL (0.083 %) solution for nebulizatio n 2023 024 [email or web address] [facility]acy #[id number], [address] [place], [address], 4 20:31:38 levalbutero l 0.63 mg/3 mL solution for nebulizatio n 2023 024 [id number] [address] [place], [address], 4 20:33:44 lactated Ringers intravenous solution [address] [facility], [address] [place] [address], [id number], 4 15:12:46 Reglan 10 mg tablet 2023 024 [id number], [address] [place], [address], 4 15:12:47 Reglan 10 mg tablet [address] [facility], [address] [place] [address], [id number], 4 15:21:08 Patient TargetsNo targets recorded. Patient InstructionsNo instructions recorded. Reason for Referral None Reported. Results Created Date Observation Date Name Description Value Unit Range Abnormal Flag Note LastModifiedBy Organization Detail LastModifiedTime 05/10/20 24 05/10/2024 rapid flu (A+B) Flu negati ve Not Available [facility] ed [address] [place] [address], [id number] 05/10/2024 15:09:40 05/10/20 24 05/10/2024 rapid SARS CoV 2 Ag, QL IA, respi rator y speci men rapid SARS CoV 2 Ag, QL IA, respiratory specimen positi ve Not Available [facility] - [facility] ed [address] [place] [address], [id number] 05/10/2024 15:09:38 11/29/19 25 11/30/2024 URINE CULTU RE, ROUTI NE urine culture, routine Final report abnormal Not Available [facility] ([facility]) [address] [facility], [place], [address], 11/30/2024 16:06:00 11/29/19 25 11/30/2024 URINE CULTU RE, ROUTI NE result 1 Escher ichia coli abnormal Cefaz butch with an JEFFREY <=16 predi cts susce ptibi lity to the oral agent s cefac shay, cefdi jose, cefpo doxim e, cefpr ozil, cefur oxime , cepha lexin , and lorac arbef when used for thera py of uncom plica caron urina ry tract infec tions due to E. coli, Klebs iella pneum oniae , and Prote us mirab ilis. Great er than 100,0 00 colon y formi ng units per mL Not Available [facility] ([facility]) [address] [facility], [place], [address], 11/30/2024 16:06:00 11/29/19 25 11/30/2024 URINE CULTU RE, ROUTI NE antimicrobia l susceptibili ty Commen t S = Susce ptibl e; I = Inter media te; R = Resis tant P = Posit asya; N = Negat asya MICS are expre ssed in micro grams per mL Antib iotic RSLT# 1 RSLT# 2 RSLT# 3 RSLT# 4 Amoxi cilli n/Cla vulan ic Acid S Ampic illin S Cefaz butch S Cefep krunal S Cefox itin S Cefpo doxim e S Ceftr iaxon e S Cipro floxa rogelio S Ertap enem S Genta micin S Levof loxac in S Merop enem S Nitro furan toin S Piper acill in/Ta zobac browning S Tetra cycli ne S Tobra mycin S Trime thopr im/Pang lfa S Not Available [facility] ([facility]) [address] [facility], [place], [address], 11/30/2024 16:06:00 Result Notes None recorded. Medical Equipment None Reported. Allergies Allergen ID Allergen Name Allergen Category Reaction Reaction Severity Criticality Documentation Date Start Date Code Code System Note Provider Name and Address Organization Details Recorded Time 11512 acetamino phen medicatio n Not available Not available Not available 05/10/2024 161 RxNorm Not Available [facility] [employer] 4 10:53:36 89883 Tylenol medicatio n Not available Not available Not available 05/11/202434577 3 RxNorm Not Available [facility] - [employer] 4 12:59:50 1596 Product containin g penicilli n (product) medicatio n Not available Not available Not available 05/04/2022 20901 8001 SNOMED Not Available [facility] 4 03:41:04 1597 acetamino phen / oxycodone medicatio n Not available Not available Not available 05/04/2022 46892 3 RxNorm Not Available [facility] - production 4 12:59:50 1598 codeine medicatio n Not available Not available Not available 05/04/2022 2670 RxNorm Not Available [facility] - production 4 10:53:36 1599 morphine medicatio n Not available Not available Not available 05/04/2022 7052 RxNorm Not Available [facility] - production 4 03:41:04 1600 Sudafed medicatio n Not available Not available Not available 05/04/202226074 2 RxNorm Not Available [facility] - production 4 10:53:36 1601 acetamino phen / dextromet horphan / doxylamin e / pseudoeph edrine medicatio n Not available Not available Not available 05/04/[address] MD [address] [facility],[address], [place], [address] [place] [address] - [employer], [facility] 2 21:32:45 1602 MILK OF MAGNESIA medicatio n Not available Not available Not available 05/04/[address] MD [address] [facility],[address], [place], [address], [facility] - [employer] 2 21:33:01 7970 aspirin medicatio n Not [...] No t Available sucralfate 1 gram tablet TAKE 1 TABLET BY MOUTH AT BEDTIME active Not Available Not Available No t Available ondansetron HCl 4 mg tablet TAKE 1 TABLET ORALLY THREE TIMES A DAY NEEDED FOR NAUSEA 5 DAYS active Not Available Not Available No t Available famotidine 40 mg tablet TAKE 1 [...] 1 TABLET BY MOUTH EVERY 12 HOURS FOR 5 DAYS active Not Available Not Available N ot Available tramadol 50 mg tablet TAKE 1 [...] Available estradiol 0.01% (0.1 mg/gram) vaginal cream APPLY 1 GRAM TO VULVA/VAGIN A DAILY X2 WEEKS, THEN 3 TIMES WEEKLY active Not Available Not Available No [...] Not Available Not Available No t Available Laxative (bisacodyl) 5 mg tablet,delay ed release TAKE 2 TABLETS BY MOUTH EVERY DAY AT BEDTIME active Not Available Not Available No t Available Zwcur-Np-Amy Enema (mineral oil) active Not Available Not [...] active Not Available Not Available Not Available nitrofuranto in monohydrate/ macrocrystal s 100 mg capsule TAKE 1 CAPSULE BY MOUTH EVERY 12 HOURS FOR 5 DAYS active Not Available Not Available N ot Available Gas Relief Extra Strength 125 mg [...] active Not Available Not Available Not Available Konsyl (sugar) 3.4 gram oral powder [...] Available Not Available No t Available Zepbound 10 mg/0.5 mL subcutaneous pen injector INJECT 1 [...] rate Body temperature Heart rate Oxygen saturation Systolic And Diastolic Provider Name and Address Organization Details Last Updated DateTime 5 16 /min 98.2 [degF] 110 /min 99 % 90/60 mm[Hg] Not Available [employer] [employer] 5 09:20:39 Date Recorded Body temperature Oxygen saturation Respiratory rate Heart rate Systolic And Diastolic Provider Name and Address Organization Details Last Updated DateTime 5 97.7 [degF] 98 % 18 /min 79 /min 146/97 mm[Hg] Not Available [employer] 5 11:19:33 Date Recorded Body temperature Heart rate Oxygen saturation Respiratory rate Systolic And Diastolic Systolic And Diastolic Provider Name and Address Organization Details Last Updated DateTime 4 100.1 [degF] 93 /min 97 % 16 /min 120/74 mm[Hg] 117/80 mm[Hg] Not Available [employer] 4 13:26:47 Date Recorded Respiratory rate Body temperature Heart rate Oxygen saturation Systolic And Diastolic Provider Name and Address Organization Details Last Updated DateTime 4 16 /min 98 [degF] 84 /min 97 % 107/68 mm[Hg] Not Available [facility] - production 4 [...] ICD10 Code Diagnosis IMO Codes Diagnosis Note 1025 Mykel Armstrong MD Main - [facility] [address] [place] [phone] 08/26/2021 10:13:05 01/12/2022 14:53:52 Abdominal pain 15222307 R10.9 1650 Mykel Armstrong MD Main - [facility] [address] [place] [phone] 09/27/2021 16:35:43 01/12/2022 15:32:12 Malaise and fatigue 096160600 R53.81 8 Kishan Yin MD Main - [facility] [address] [place] [address] 10/19/2021 20:40:34 10/20/2021 17:52:41 2454 Anjel Roberts MD Main - [facility] [address] [place] [phone] 11/10/2021 10:39:03 02/13/2022 11:15:10 Nausea [id number] R11.0 Diarrhea 29447827 R19.7 2522 Mykel Armstrong MD Main - [facility] [address] [place] [phone] 11/14/2021 09:25:02 01/16/2022 12:16:38 Low blood pressure 85833961 I95.9 3310 Starr Gutierrez MD Main - [facility] [address] [place] [address] 12/22/2021 19:52:11 01/11/2022 12:05:12 Abdominal pain 54715048 R10.[address] MD Main - [facility] [address] [place] [address] 05/04/2022 19:11:29 05/07/2022 14:16:26 Nausea, vomiting and diarrhea 0989261 R19.7 R11.2 declined loperamide or any antidiarrh eal - does not want to be over constipate d- advised need to f/u with GI and PCP after Nirali- beginning next week [id number] KELSEA PURVIS MD Main - [facility] [address] [place] [phone] 03/04/2023 20:00:52 03/05/2023 09:44:33 Exposure to SARS-CoV-2 107112638 Z20.822 30431 Nga Escalona MD Main - [facility] [address] [place] [phone] 09/13/2023 18:45:46 09/15/2023 12:31:39 Edema of left lower limb 175498771 R60.0 86338 Yari Gonzalez MD Main - [facility] [address] [place] [phone] 05/10/2024 13:26:45 05/12/2024 21:02:20 COVID-19 [id number] U07.1 Nausea 864691483 R11.0 87518 Maribell Bernardo MD Main - [facility] [address] [place] [phone] 05/11/2024 20:24:22 05/12/2024 21:50:15 COVID-19 463266375 U07.1 20798 Anjel Roberts MD Main - [facility] [address] [place] [phone] 09/29/2024 09:20:36 09/29/2024 11:28:06 Nausea and vomiting 45223500 R11.2 [id number] [id number] DANIEL SARKAR NP, S [facility] ED Medical [address] [phone] 11/28/2024 11:19:28 11/28/2024 17:14:02 Acute urinary tract infection 455274337 N39.0 107189 12100 Spike Gallegos MD Main-[facility] ED Medical [address] [phone] 11/29/2024 10:56:08 11/29/2024 21:58:25 Urinary tract infectious disease 68259336 N39.0 076095 Sent Macrobid to the pharmacy Health Concerns Section Related Observation LastModified by Organization Detai ls LastModified Time None Recorded Concern Status LastModified by Organization Details LastModified Time None Recorded Advance Directives Directive None Recorded Payers Insurance Date Sequence Insurance Name Policy Number Policy Kahn Covered Member ID Kahn Member ID Guarantor Name 09/15/2023 1 [facility] - DOS PRIOR TO 2022 - DUAL ELIGIBLE (MEDICARE REPLACEMENT/ADV ANTAGE - HMO) Agnes Vilchis [id number] Agnes Milligan 11/29/2024 1 [facility] - DOS ON OR AFTER 2022 - DUAL ELIGIBLE - FDC OPTIONS AND ONE CARE (MEDICARE REPLACEMENT/ADV ANTAGE - HMO) Agnes Milligan [id number] Agnse Milligan Notes Date Note Type Note Provider [...] enough to wait a few hours for rod and tube straightener visit to assess her current clinical presentation and ability to be managed as an outpatient. [facility] request submitted for urgent in home assessment. ...................... ...................... ...................... ...................... ...................... ...................... ......... [facility] Nurse Triage Notes (Mark iHnojosa - CARLITOS): Chief Complaints: Cough, Earache, Vomiting PMH: Hypertension, COPD/Asthma Comments: Reviewed HPI ...................... ...................... ...................... ...................... ...................... ...................... ......... Websphere Architect Note From Edmund Blackwell: This 53-year-old female [...] and does not like to use any orxe-kyr-bksiehe's due to allergies.Patient presents awake and alert, [...] ...................... ......... Disposition: Julio Gonzalez MD [address] [facility],[address], [place], [address], [employer] 05/10/2024 15:22:05 05/11/2024 text/html ROS as noted in the HPI HPI: 53 year old female with chronic [...] ...................... ...................... ...................... ...................... ...................... ...................... ......... Websphere Architect Note From Edmund Blackwell: This 53-year-old female [...] morning and they sent a referral to [facility] to have us come out and prescribed [...] Fulfilled Maribell Bernardo MD [address] [facility],[address], [place], [address], [facility] - [employer] 05/11/2024 20:57:54 09/29/2024 text/html ROS as noted in the HPI This was a supervised home visit with rod and tube straightener Edmund Blackwell. HPI: spoke with member, she [...] Syndrome (IBS), Sleep Apnea PMH Reviewed at 09/29/2024:58 Allergies Reviewed at 09/29/2024:58 Comments: HPI reviewed Websphere Architect Organization Information for Edmund lBackwell Legal Name: [facility] Transportation Address: [address] [place] [address], FADI Delarosa, Account Consultant: Rodriguez Mejia MD CLIA No.: [id number] Websphere Architect POC Test Results from Edmund Blackwell epo (:15:37) pH: 7.38 pH units pCO2: 37.5 mmHg pO2: 27.3 mmHg Na: 143 mmol/L K: 4.2 mmol/L iCa: 1.10 mmol/L Cl: 110 mmol/L TCO2: 21.2 mEq/L Hct: 49 % Hb: 16.7 g/dL Glu: 116 mg/dL Lac: 1.43 mmol/L Cr: 0.91 mg/dL BUN: 20 mg/dL A mmol/L HCO3: 22.0 mmol/L Rapid COVID antigen (09:15:40) COVID: - Rapid influenza antigen (:15:40) Flu: - ...................... ...................... ...................... ...................... ...................... ...................... ......... Websphere Architect Note From Edmund Blackwell: This 54-year-old female [...] Patient is agreeable for ambulance transport to [facility] emergency department. 911 was initiated and SBAR was given to JUNG LEVINE. [facility] Lab Orders: BMP, serum or plasma: Performed rapid SARS CoV 2 Ag, QL IA, respiratory specimen: Performed rapid flu (A+B): Performed [facility] Medication Orders: metoclopramide 5 mg/mL injection solution: Administered lactated Ringers intravenous solution: Administered lactated Ringers intravenous solution: Administered ...................... ...................... ...................... ...................... ...................... ...................... ......... [facility] Consulted: Anjel Roberts ...................... ...................... ...................... ...................... ...................... ...................... ......... Disposition: Fulfilled Anjel Roberts MD [address] [facility],[address], [place], [address], [employer] 09/29/2024 11:27:32 11/28/2024 text/html ROS as noted in the HPI HPI: 54 y/o femaleCalled PCP office with [...] Syndrome (IBS), Sleep Apnea PMH Reviewed at 11/27/2024 - 15:50 Allergies Reviewed at 11/27/2024 - 15:50 Comments: HPI reviewed Websphere Architect Organization Information for Jose A Ley Business Legal Name: [facility] [employer] Transportation Address: [address] [place] [address], [place] [id number], Account Consultant: Rodriguez Mejia MD CLIA No.: [id number] Websphere Architect POC Test Results from Jose A Ley [...] ...................... ...................... ...................... ...................... ...................... ...................... ......... Websphere Architect Note From Jose A Ley: Arrived to find female in her apartment. Patient AOx4, GCS 15 skin pink warm and dry. Patient experiencing urinary symptoms x2 days. + burning with urination, does not feel like she is urinating completely. + back pain. -CVA tenderness. VS as noted. UA as noted. + for blood. Protein and leuk. Cultural drawn. [facility] contacted. [facility] advised she is going to send over a script for bactrim. Patient in agreement. No red flag symptoms. ...................... ...................... ...................... ...................... ...................... ...................... ......... [facility] Consulted: Daniel Sarkar ...................... ...................... ...................... ...................... ...................... ...................... ......... Disposition: Julio SARKAR NP, S [address] [place] [address],[address] [facility] [address], [place], [address], [employer] 11/28/2024 13:17:40 11/29/2024 text/html ROS as noted in the HPI Follow up on UTI. Recieved call from CRU that patient not tolerating Bactrim. Recent Director Report from visit 2 months prior normal. Will start on Macrobid. Spike Gallegos MD [address] [place] [address],[address], [place], [address], [employer] 11/29/2024 10:58:02 OBGyn Episode No OBEpisode recorded.
== END 2025-04-19 16:13 | disposition home or self-care (01) ==
LOC: HO.HGI 15:28
PROVIDERS: PCP Registered Nurse; Visit Provider Nurse Practitioner Family
DX: K22.4 Dyskinesia of esophagus (principal); K21.9 Gastro-esophageal reflux disease without esophagitis; K22.10 Ulcer of esophagus without bleeding; K59.04 Chronic idiopathic constipation; K44.9 Diaphragmatic hernia without obstruction or gangrene; R10.10 Upper abdominal pain, unspecified; R07.82 Intercostal pain
CPT/HCPCS: 99214; G2211

== ENCOUNTER → 2025-04-19 15:27 | Outpatient (BNVA) | payer OTHER, SELFPAY | PROVIDERS: PCP Registered Nurse; Visit Provider Nurse Practitioner Family | DX: K59.04 Chronic idiopathic constipation (principal); K22.4 Dyskinesia of esophagus; K21.9 Gastro-esophageal reflux disease without esophagitis; K22.10 Ulcer of esophagus without bleeding; K44.9 Diaphragmatic hernia without obstruction or gangrene; R10.11 Right upper quadrant pain; R19.7 Diarrhea, unspecified; R07.82 Intercostal pain | CPT/HCPCS: 99212 ==

== ENCOUNTER 2025-04-22 15:18 | Outpatient (AMB) | payer OTHER, SELFPAY ==
[2025-04-22 15:41] VITALS: BP 110/62; PULSE 80; BMI 34.0
--- NOTE | 2025-04-22 15:41 | A.OFFVIS_ITS ---
Vital Signs 04/22/25 15:41 Height 5 ft 7 in Weight 217 lb BMI 34.0 BMI Reason not done Patient refused/unable BP 110/62 Blood Pressure Location Lt brachial Position Sitting Pulse 80 Pulse Source Pulse Oximeter Intake Visit Reasons: 1 yr f/up Allergies acetaminophen (From Tylenol) Allergy (Severe, Verified 04/19/25 15:44) Anaphylaxis aspirin Allergy (Severe, Verified 04/19/25 15:44) Anaphylaxis codeine Allergy (Severe, Verified 04/19/25 15:44) Anaphylaxis dextromethorphan (From NyQuil) Allergy (Severe, Verified 04/19/25 15:44) Anaphylaxis doxylamine (From NyQuil) Allergy (Severe, Verified 04/19/25 15:44) Anaphylaxis magnesium hydroxide (From Milk of Magnesia) Allergy (Severe, Verified 04/19/25 15:44) Anaphylaxis morphine Allergy (Severe, Verified 04/19/25 15:44) Anaphylaxis oxycodone (From Percocet) Allergy (Severe, Verified 04/19/25 15:44) Anaphylaxis Penicillins Allergy (Severe, Verified 04/19/25 15:44) Anaphylaxis propoxyphene (From Darvocet-N 100) Allergy (Severe, Verified 04/19/25 15:44) Anaphylaxis pseudoephedrine (From Sudafed) Allergy (Severe, Verified 04/19/25 15:44) Anaphylaxis Medication List - Last Reconciled 04/22/25 by Mai Goins [employer] albuterol sulfate 90 mcg/actuation 2 inhalations inhalation bisacodyl (Dulcolax (bisacodyl)) 10 mg (2 x 5 mg) PO BEDTIME blood sugar diagnostic (FreeStyle Test strips) As directed bupropion HCl SR 150 mg PO DAILY cholecalciferol (vitamin D3) (Vitamin D3) 50 mcg PO DAILY cyclobenzaprine 10 mg PO BEDTIME diclofenac sodium 1% 4 grams topical QID epinephrine IM DIRECTED famotidine 40 mg PO BEDTIME fluoxetine 40 mg PO BID fluticasone propionate 50 mcg/actuation 1 spray intranasal BID gabapentin 800 mg PO TID lancets (Pure Comfort Safety Lancets) As directed levalbuterol HCl mg inhalation linaclotide (Linzess) 290 mcg PO QAM mometasone 50 mcg/actuation 2 sprays intranasal DAILY ondansetron HCl 4 mg PO TID PRN oxybutynin chloride ER mg PO pen needle, diabetic (Ultracare Pen Needle) As directed rosuvastatin mg PO DAILY simethicone (Gas Relief Extra Strength) 125 mg PO QID sodium phosphates 19-7 gram/118 mL (Enema Disposable) mL RI sucralfate 1 g PO BID tirzepatide (weight loss) (Zepbound) 12.5 mg subcut QWEEK topiramate (Topamax) 200 mg PO BEDTIME tramadol 50 mg PO TID PRN vonoprazan (Voquezna) 20 mg PO DAILY zaleplon 10 mg PO BEDTIME PRN HPI HPI 1 yr f/up: Details: Agnes is a 54-year-old female with past medical history obesity, sleep apnea, hyperlipidemia, CKD, atypical chest discomfort with CTA of the coronary arteries 2023 showing no significant coronary artery disease, mildly dilated ascending aorta who presents for follow-up. Today she reports that she is under very high stress levels. She tells me that her brother was shot and is in a coma. Her father had a heart attack and was in the ICU and is now doing well. She is having significant discomfort from her neuropathy. It makes it very difficult for her to sleep. She reports taking her gabapentin but does not get much relief from it. She is still having episodes of what she describes as esophageal spasm. She describes having hiatal hernia and difficulty swallowing at times. She has no chest discomfort brought on by physical activity. No shortness of breath, PND, orthopnea or edema. No lightheadedness, presyncope, syncope, falls. She has issues with knee pain and ambulates with a cane. She has right-sided back discomfort following exertional activities. She is compliant with her medications. 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 [facility] Medical History Mood disorder Dental infection Preop examination Hyperlipidemia Acute diarrhea Pancreatic insufficiency Chronic idiopathic constipation Chronic pain syndrome Drug allergy Kidney failure History of MRSA infection (~2010) Stress incontinence Psychosomatic pain Obstructive sleep apnea Anxiety disorder Morbid obesity Fibromyalgia Bipolar disorder Suicide attempt Depression Asthma Surgical History H/O lateral meniscus repair of left knee History of esophagogastroduodenoscopy (EGD) Hx of section H/O colonoscopy H/O abdominoplasty History of lumpectomy of left breast H/O bilateral oophorectomy H/O: hysterectomy H/O laparoscopy Family History Mother Stroke Social History Household Members Other:: parents Are you a primary resident care spec to a significant other at home: No Do you presently have visiting nurse or other home services: No Alcohol intake: never Patient Tobacco Use Status: Never used Tobacco Review of Systems Const Details: high sress levels All systems reviewed & are unremarkable except as noted in HPI and below Denies weakness ENT Denies dizziness Card Reports chest pain ( esophageal spasm ), Denies chest pain with activity, Denies syncope, Denies rapid heart rate, Denies pedal edema, Denies edema, Denies leg edema, Denies lightheadedness, Denies palpitations, Denies dyspnea, Denies dyspnea on exertion and Denies orthopnea Resp Denies cough, Denies dyspnea and Denies dyspnea on exertion GI Denies hematochezia and Denies change in stool character Musc Denies abnormal gait, Denies muscle cramps, Denies muscle weakness, Denies numbness, Denies radiating pain into limb and Denies tingling Neuro Denies abnormal gait, Denies dizziness, Denies syncope, Denies numbness, Denies tingling and Denies weakness Endo Denies palpitations Physical Exam Vital Signs: Last Vital Signs Pulse 80 04/22/25 15:41 BP 110/62 04/22/25 15:41 BMI result Body Mass Index 34.0 Const General: cooperative, healthy appearing, comfortable and no acute distress Orientation/consciousness: patient oriented x3 Neck Neck: Yes normal visual inspection and Yes no JVD Resp Effort & Inspection: normal respiratory effort Auscultation: clear to auscultation bilaterally, no rales, no rhonchi and no wheezes Cardio Rate: regular rate Rhythm: regular rhythm Heart sounds: S1 normal heart sound present, S2 normal heart sound present, no gallops, no murmurs and no rubs Peripheral pulses: Peripheral pulses 2+ throughout Neuro General: patient oriented x3 Extrem Other: Right trapezius muscle tenderness to firm palpation General: Yes normal to inspection and No no pedal edema Psych Appearance: grossly normal Mental Status: mental status grossly normal Speech and movement: Normal speech and movement present Assessment & Plan Assessment & Plan (1) Precordial chest pain: Code(s): R07.2 - Precordial pain Category: Medical Plan: Reports of nonexertional chest discomfort. Cardiac risk factors of obesity, hyperlipidemia, CKD. Nuclear stress test done at [facility] on 10/17/2023 shows a fixed defect, small in size, mild intensity in the anterior wall, likely secondary to artifact or scar. Echocardiogram done 02/05/2024 showed EF 59%, no valve abnormalities, ascending aorta 4.1 cm, no regional wall motion abnormalities. A CTA of the coronary arteries done on 03/05/2024 shows no evidence of hemodynamically significant coronary artery disease. Minimal proximal LAD stenosis, ascending aorta 4 cm. Test results reviewed with her in detail. She Believes her symptom is esophageal spasm and follows with GI. No evidence that her symptoms are cardiac in nature. Continue with risk factor modification. Continue with good cholesterol control and physical activity as tolerated. Signs and symptoms of true angina reviewed. (2) Ascending aorta dilation: Code(s): I77.810 - Thoracic aortic ectasia Category: Medical Plan: Echocardiogram and CTA of the coronaries do show dilated ascending aorta, 4.1 and 4.0 respectively. This finding was reviewed with her. Blood pressure controlled. Repeat echocardiogram is planned for next week. Will call her with results once available. (3) Hyperlipidemia: Code(s): E78.5 - Hyperlipidemia, unspecified Category: Medical Plan: [place] LDL goal less than 100. Continue rosuvastatin. Labs followed by PCP. (4) Morbid obesity: Code(s): E66.01 - Morbid (severe) obesity due to excess calories Category: Medical Plan: Weight down 21 lb since I saw her last year. Plan I reviewed the patient's multiple symptoms in the context of her significant recent life stressors. I explained that her chest pain symptoms are most likely non-cardiac esophageal spasms, and I provided reassurance based on her coronary CT scan from last year and overall good heart function. Regarding her severe foot pain, I clarified that this is peripheral neuropathy, a nerve issue, and advised her to continue managing it with her primary care physician. I assessed her exertional back pain and swelling as a musculoskeletal muscle spasm based on my examination and reassured her it is not related to her heart. We discussed her mildly dilated aorta, and I explained it is a minor, asymptomatic finding that is unlikely to cause future problems; however, we agreed she should proceed with her scheduled echocardiogram for reassurance. I recommended home care for the back spasm, urged stress reduction activities, and encouraged her to remain physically active. I advised her to go to the ER for any symptoms she believes could be a heart attack. The plan is to see her for follow-up in one year, pending stable echo results. Patient Instructions: - Keep your appointment for the echocardiogram (heart ultrasound) next week. This will give us an up-to-date look at your heart. - The chest pain you feel is likely from esophageal spasms, not your heart. However, if you ever think you are having a heart attack, you should go to the emergency room. - The severe pain in your feet is due to neuropathy (nerve pain) and is not a heart problem. You should continue to talk to your primary care doctor about the best way to manage this pain. - For the muscle spasm in your back, try using a hot pack or an ice pack, whichever feels better. You can also do gentle stretching. - Try to find ways to reduce stress and do things that help you relax and feel good. - Continue to stay as physically active as you comfortably can. - Plan to follow up in this office in one year. Patient was informed and verbally consented to the use of an ambient scribe for clinic note documentation during this visit. Visit time spent on chart review, interview, assessment, orders, documentation. Coding Level of Care Code Est Pt Level 4 (31974) Add On Problem Visit Only Diagnoses Precordial chest pain R07.2 Ascending aorta dilation I77.810 Hyperlipidemia E78.5 Morbid obesity E66.01 Time Spent (min) 28
--- OUTSIDE RECORDS SUMMARY | 2025-04-22 22:51 | XMS_ITS | Data Portability ---
Author Organization [facility], [facility] [facility] Address [address] [place] [phone] Care Team Providers Care International Controller Name Role Phone HIM CCA OTHER Assessment Encounter Date Assessment Date Assessment LastModified by Organization Details LastModified Time 05/10/2024 05/10/2024 I provided real -time medical direction via phone for this encounter and was available for additional phone-based assistance as needed. I have reviewed and agree with the Assessment and Plan as documented by the Public Housing Manager. Patient given the opportunity to ask questions. Our service contacted for an assessment of: URI symptoms As per above, patient with approximately 24 hours of increasing nasal congestion, low-grade temperature, feeling very nauseated. Patient also with dry nonproductive cough. Feeling generally speaking unwell with myalgias and arthralgias. Wanted to be tested for COVID and flu. Per access clerk on the scene, vital signs are stable [...] or recall this service. She can trial gubz-qaq-dibcxen medications for the cold and flu-like symptoms. [...] th e field was performed by my access clerk colleague, as noted above, I provided real-time [...] assessment and plan as documented by the access clerk. I provided real time medical direction for this encounter and was immediately available to provide additional phone based assistance as needed. History as noted by access clerk. Pt with history of chronic pain, fibromyalgia, [...] will be sent via ambulance to the [facility] ED for further evaluation and fluid resuscitation. Public Housing Manager arranges EMS transfer to the [facility] ED and I call an expect to the ED rn pool. [email or web address] Not available 09/29/2024 11:26:10 11/28/2024 11/28/2024 I provided real -time medical direction via phone for this encounter, and was available for additional phone based assistance as needed. I have reviewed and agree with the Assessment and Plan as documented by the Public Housing Manager. We discussed the diagnostic uncertainty of home [...] be seen in ED. Patient verbalized understanding. [email or web address] Not available 11/28/2024 13:17:34 Plan of Treatment Reminders Order Date Submit Date Provider Last Modified By Organization Details Last Modified Time Details Appointments None recorded. Lab urinalysis, dipstick 2024 025 [facility], [address] [place] [address], [id number] 16:11:32 culture, urine 2024 025 [place] (Centralized Electronic Ordering - All Locations), Patient Can Go To The Location Of Their Choice, [id number] 5 06:05:33 BMP, serum or plasma [address], [id number] 5 12:00:20 rapid SARS CoV 2 Ag, QL IA, respiratory specimen [address], [id number] 5 12:00:21 rapid flu (A+B) [address] [place], [address] 5 12:00:21 rapid SARS CoV 2 Ag, QL IA, respiratory specimen [email or web address], [address] [place] [address], [id number] 4 15:12:46 rapid flu (A+B) [email or web address], [address] [place] [address], [id number] 4 15:12:46 Referral None recorded. Procedures None recorded. Surgeries None recorded. Imaging None recorded. Medication Orders Macrobid 100 mg capsule 2024 025 [facility][id number], [address] [place] [address], [id number], 5 10:57:21 Bactrim DS 800 mg-160 mg tablet [address] [facility], [address] [place] [address], [id number], 5 12:24:37 metoclopram ladonna 5 mg/mL injection solution 2024 025 [facility], [address] [place] [address], [id number], 5 09:31:45 lactated Ringers intravenous solution 2024 025 [facility], [address] [place] [address], [id number], 5 09:31:45 lactated Ringers intravenous solution 2024 025 [facility], [address] [place] [address], [id number], 5 10:12:40 ketorolac 15 mg/mL injection solution 2024 025 [facility], [address] [place] [address], [id number], 5 11:27:00 albuterol sulfate 2.5 mg/3 mL (0.083 %) solution for nebulizatio n 2023 024 [email or web address] [facility]acy #[id number], [address] [place], [address], 4 20:31:38 levalbutero l 0.63 mg/3 mL solution for nebulizatio n 2023 024 [id number] [address] [place], [address], 4 20:33:44 lactated Ringers intravenous solution [address] [facility] [address] [facility], [address] [place] [address], [id number], 4 15:12:46 Reglan 10 mg tablet 2023 024 [id number] [address] [place], [address], 4 15:12:47 Reglan 10 mg tablet [address] [facility] [address] [facility], [address] [place] [address], [id number], 4 15:21:08 Patient TargetsNo targets recorded. Patient InstructionsNo instructions recorded. Reason for Referral None Reported. Results Created Date Observation Date Name Description Value Unit Range Abnormal Flag Note LastModifiedBy Organization Detail LastModifiedTime 05/10/20 24 05/10/2024 rapid flu (A+B) Flu negati ve Not Available [facility] ed [address] [place] [address], [id number] 05/10/2024 15:09:40 05/10/20 24 05/10/2024 rapid SARS CoV 2 Ag, QL IA, respi rator y speci men rapid SARS CoV 2 Ag, QL IA, respiratory specimen positi ve Not Available [facility] - [facility] ed [address] [place] [address], [id number] 05/10/2024 15:09:38 11/29/19 25 11/30/2024 URINE CULTU RE, ROUTI NE urine culture, routine Final report abnormal Not Available [facility] ([facility]) [address] [facility], [place], [address], 11/30/2024 16:06:00 11/29/19 25 11/30/2024 URINE CULTU [...] ng units per mL Not Available [facility] ([facility]) [address] [facility], [place], [address], 11/30/2024 16:06:00 11/29/19 25 11/30/2024 URINE CULTU [...] ic Acid S Ampic illin S Cefaz bucth S Cefep krunal S Cefox itin S Cefpo doxim e S Ceftr iaxon e S Cipro floxa rogeloi S Ertap enem S Genta micin S Levof loxac in S Merop enem S Nitro furan toin S Piper acill in/Ta zobac browning S Tetra cycli ne S Tobra mycin S Trime thopr im/Pang lfa S Not Available [facility] ([facility]) [address] [facility], [place], [address], 11/30/2024 16:06:00 Result Notes None recorded. Medical Equipment None Reported. Allergies Allergen ID Allergen Name Allergen Category Reaction Reaction Severity Criticality Documentation Date Start Date Code Code System Note Provider Name and Address Organization Details Recorded Time 48000 acetamino phen medicatio n Not available Not available Not available 05/10/2024 161 RxNorm Not Available [facility] - production 4 10:53:36 97441 Tylenol medicatio n Not available Not available Not available 05/11/202480297 3 RxNorm Not Available [facility] - production 4 12:59:50 1596 Product containin g penicilli n (product) medicatio n Not available Not available Not available 05/04/2022 92190 8001 SNOMED Not Available [facility] 4 03:41:04 1597 acetamino phen / oxycodone medicatio n Not available Not available Not available 05/04/2022 77324 3 RxNorm Not Available [facility] - production 4 12:59:50 1598 codeine medicatio n Not available Not available Not available 05/04/2022 2670 RxNorm Not Available [facility] - production 4 10:53:36 1599 morphine medicatio n Not available Not available Not available 05/04/2022 7052 RxNorm Not Available [facility] - production 4 03:41:04 1600 Sudafed medicatio n Not available Not available Not available 05/04/202296910 2 RxNorm Not Available [facility] - production 4 10:53:36 1601 acetamino phen / dextromet horphan / doxylamin e / pseudoeph edrine medicatio n Not available Not available Not available 05/04/[address] MD [address] [facility],[address], [place], [address] [place] [address] - [employer], [facility] 2 21:32:45 1602 MILK OF MAGNESIA medicatio n Not available Not available Not available 05/04/[address] MD [address] [facility],[address], [place], [phone], [facility] [place] 2 21:33:01 7970 aspirin medicatio n Not [...] Not Available Not Available No t Available Ioraj-Jt-Qlv Enema (mineral oil) active Not Available Not [...] /min 99 % 90/60 mm[Hg] Not Available [facility] [employer] 5 09:20:39 Date Recorded Body temperature Oxygen saturation Respiratory rate Heart rate Systolic And Diastolic Provider Name and Address Organization Details Last Updated DateTime 5 97.7 [degF] 98 % 18 /min 79 /min 146/97 mm[Hg] Not Available [facility] 5 11:19:33 Date Recorded Body temperature Heart rate Oxygen saturation Respiratory rate Systolic And Diastolic Systolic And Diastolic Provider Name and Address Organization Details Last Updated DateTime 4 100.1 [degF] 93 /min 97 % 16 /min 120/74 mm[Hg] 117/80 mm[Hg] Not Available [facility] [employer] 4 13:26:47 Date Recorded Respiratory rate Body [...] 1025 Mykel Armstrong MD Main - [facility] [address] [place] [phone] 08/26/2021 10:13:05 01/12/2022 14:53:52 Abdominal pain 83823718 R10.9 1650 Mykel Armstrong MD Main - [facility] [address] [place] [phone] 09/27/2021 16:35:43 01/12/2022 15:32:12 Malaise and fatigue [id number] R53.81 8 Kishan Yin MD Main - [facility] [address] [place] [phone] 10/19/2021 20:40:34 10/20/2021 17:52:41 2454 Anjel Roberts MD Main - [facility] [address] [place] [phone] 11/10/2021 10:39:03 02/13/2022 11:15:10 Nausea 486876199 R11.0 Diarrhea 57044590 R19.7 2522 Mykel Armstrong MD Main - [facility] [address] [place] [phone] 11/14/2021 09:25:02 01/16/2022 12:16:38 Low blood pressure 69495575 I95.9 3310 Starr Gutierrez MD Main - [facility] [address] [place] [phone] 12/22/2021 19:52:11 01/11/2022 12:05:12 Abdominal pain 57284214 R10.[address] MD Main - [facility] [address] [place] [phone] 05/04/2022 19:11:29 05/07/2022 14:16:26 Nausea, vomiting and diarrhea 3855974 R19.7 R11.2 declined loperamide or any antidiarrh eal - does not want to be over constipate d- advised need to f/u with GI and PCP after Nirali- beginning next week [id number] KELSEA PURVIS MD Main - [facility] [address] [place] [phone] 03/04/2023 20:00:52 03/05/2023 09:44:33 Exposure to SARS-CoV-2 330683346 Z20.822 85475 Nga Escalona MD Main - [facility] [address] [place] [phone] 09/13/2023 18:45:46 09/15/2023 12:31:39 Edema of left lower limb 131929683 R60.0 62140 Yari Gonzalez MD Main - [facility] [address] [place] [phone] 05/10/2024 13:26:45 05/12/2024 21:02:20 COVID-19 544152042 U07.1 Nausea 446214137 R11.0 43603 Maribell Bernardo MD Main - [facility] [address] [place] [phone] 05/11/2024 20:24:22 05/12/2024 21:50:15 COVID-19 377410927 U07.1 13000 Anjel Roberts MD Main - [facility] [address] [place] [phone] 09/29/2024 09:20:36 09/29/2024 11:28:06 Nausea and vomiting 77903329 R11.2 [id number] 59998 DANIEL SARKAR NP, S [facility] Medical [address] [phone] 11/28/2024 11:19:28 11/28/2024 17:14:02 Acute urinary tract infection 632846700 N39.0 487628 31449 Spike Gallegos MD [facility] Medical [address] [phone] 11/29/2024 10:56:08 11/29/2024 21:58:25 Urinary tract infectious disease 31696642 N39.0 654767 Sent Macrobid to the pharmacy Health Concerns Section Related Observation LastModified by Organization Detai ls LastModified Time None Recorded Concern Status LastModified by Organization Details LastModified Time None Recorded Advance Directives Directive None Recorded Payers Insurance Date Sequence Insurance Name Policy Number Policy Kahn Covered Member ID Kahn Member ID Guarantor Name 09/15/2023 1 [facility] - DOS PRIOR TO 2022 - DUAL ELIGIBLE (MEDICARE REPLACEMENT/ADV ANTAGE - HMO) Agnes Vilchis [id number] Agnes Milligan 11/29/2024 1 [facility] - DOS ON OR AFTER 2022 - DUAL ELIGIBLE - RESIDENTIAL OPTIONS AND ONE CARE (MEDICARE REPLACEMENT/ADV ANTAGE - HMO) Agnes Milligan [id number] Agnes Milligan Notes Date Note Type Note [...] enough to wait a few hours for access clerk visit to assess her current clinical presentation and ability to be managed as an outpatient. [facility] request submitted for urgent in home assessment. ...................... ...................... ...................... ...................... ...................... ...................... ......... [facility] Nurse Triage Notes (Mark Hinojosa - CARLITOS): Chief Complaints: Cough, Earache, Vomiting PMH: Hypertension, COPD/Asthma Comments: Reviewed HPI ...................... ...................... ...................... ...................... ...................... ...................... ......... Public Housing Manager Note From Edmund Blackwell: This 53-year-old [...] and does not like to use any jnou-dll-swmxtcs's due to allergies.Patient presents awake and alert, [...] ...................... ...................... ...................... ...................... ...................... ......... [facility] Consulted: Yari Gonzalez ...................... ...................... ...................... ...................... ...................... ...................... ......... Disposition: Julio Gonzalez MD [address] [facility],[address], [place], [address], [employer] 05/10/2024 15:22:05 05/11/2024 text/html ROS as noted [...] ...................... ...................... ...................... ...................... ...................... ...................... ......... Public Housing Manager Note From Edmund Blackwell: This 53-year-old [...] morning and [facility] come [facility] and prescribed [...] her with Toradol. I contacted the [facility] who will send nebulizer [...] ...................... ...................... ...................... ...................... ...................... ......... [facility] Consulted: Maribell Bernardo ...................... ...................... ...................... ...................... ...................... ...................... ......... Disposition: Fulfilled Maribell Bernardo MD [address] [facility],[address], [place], [address], [facility] [place] 05/11/2024 20:57:54 09/29/2024 text/html ROS as noted in the HPI This was a supervised home visit with access clerk Edmund Blackwell. HPI: spoke with member, she [...] Allergies Reviewed at 09/29/2024:58 Comments: HPI reviewed Public Housing Manager Organization Information for Edmund Blackwell Legal Name: [facility] Transportation Address: [address] [place] [address], FADI Delarosa, Nursing Scheduler: Rodriguez Mejia MD CLIA No.: [id number] Public Housing Manager POC Test Results from Edmund Blackwell epo [...] ...................... ...................... ...................... ...................... ...................... ...................... ......... Public Housing Manager Note From Edmund Blackwell: This 54-year-old female [...] Patient is agreeable for ambulance transport to [facility] emergency department. 911 was initiated and SBAR was given to JUNG LEVINE. [facility] Lab Orders: BMP, serum or plasma: Performed rapid SARS CoV 2 Ag, QL IA, respiratory specimen: Performed rapid flu (A+B): Performed [facility] Medication Orders: metoclopramide 5 mg/mL injection solution: Administered lactated Ringers intravenous solution: Administered lactated Ringers intravenous solution: Administered ...................... ...................... ...................... ...................... ...................... ...................... ......... [facility] Consulted: Anjel Roberts ...................... ...................... ...................... ...................... ...................... ...................... ......... Disposition: Fulfilled Anjel Roberts MD [address] [facility],[address], [place], [address], [employer] 09/29/2024 11:27:32 11/28/2024 text/html ROS as noted [...] at 11/27/2024 - 15:50 Comments: HPI reviewed Public Housing Manager Organization Information for Jose A [employer] Legal Name: [facility] [employer] Address: [address] [place] [address], [place] [address], Nursing Scheduler: Rodriguez Mejia MD CLIA No.: [id number] Public Housing Manager POC Test Results from Jose A Ley [...] ...................... ...................... ...................... ...................... ...................... ...................... ......... Public Housing Manager Note From Jose A Ley: Arrived to find female in her apartment. Patient AOx4, GCS 15 skin pink warm and dry. Patient experiencing urinary symptoms x2 days. + burning with urination, does not feel like she is urinating completely. + back pain. -CVA tenderness. VS as noted. UA as noted. + for blood. Protein and leuk. Cultural drawn. [facility] contacted. [facility] advised she is going to send over a script for bactrim. Patient in agreement. No red flag symptoms. ...................... ...................... ...................... ...................... ...................... ...................... ......... [facility] Consulted: Daniel Sarkar ...................... ...................... ...................... ...................... ...................... ...................... ......... Disposition: Julio SARKAR NP, S [address] [place] [address],[address] [facility], [place], [address], [employer] 11/28/2024 13:17:40 11/29/2024 text/html ROS as noted in the HPI Follow up on UTI. Recieved call from CRU that patient not tolerating Bactrim. Recent Jig Filler from visit 2 months prior normal. Will start on Macrobid. Spike Gallegos MD [address] [place] [address],[address], [place], [address], [employer] 11/29/2024 10:58:02 OBGyn Episode No OBEpisode recorded.
--- OUTSIDE RECORDS SUMMARY | 2025-04-22 22:52 | XMS_ITS | Continuity of Care Document ---
Author Name Jasiel Cadena Address [address] [place] [id number] Organization Unknown Address [address] [place] [address] Medications No known medications Problems No known problems
--- OUTSIDE RECORDS SUMMARY | 2025-04-22 22:52 | XMS_ITS | Data Portability ---
Author Organization [facility], [facility] Address [address] [place] [address] Care Team Providers Care Spud Sorter Name Role Phone KAISER BECERRA Primary Care [...] at your discre tion. 2024 025 semaj [facility] (Bassem Rolle), [address], [place], [address], 5 11:51:39 Procedures None record ed. Surgeries [...] Details Recorded Time Osteoarthri tis of knee 005195540 Active 2023 Mitul Montaan PA-C [address], [place], [address], [facility] 4 06:08:44 Acute tear of medial meniscus of left knee 1175011188968 9107 Active 2023 Mitul Montana PA-C [address], [place], [address], [facility] 4 09:03:24 Derangement of left knee 9508456504433 9108 Active 2023 Mitul Montana PA-C [address], [place], [address], [facility] 4 09:03:53 Acute meniscal tear, medial 966609213 Active 2024 Harrison Benton MD [address], [place], [address], [facility] 5 10:31:04 Pain of left knee joint 9240597899217 07 Active 2024 Kateryna Stover, DOCTOR OF AUDIOLOGY [address], [place], [address], [facility] 17:32:30 Postoperati ve pain 545259778 Active 2024 Kateryna Stover, DOCTOR OF AUDIOLOGY [address], [place], [address], [facility] 17:38:40 Problem Notes None recorded. Procedures Surgical History Date Name Laterality Status Provider Name and Address Organization Details Recorded Time 11/19/19 78027 Therapeutic Exercise (1:1) cancelled Viral Avery, PT [address], [place], [address], [facility] 11/17/2024 17:09:27 11/19/19 82548: Hot or Cold Pack cancelled Viral Avery, PT [address], [place], [address], [facility] 11/17/2024 17:09:27 11/19/19 54251: Manual therapy cancelled Viral Avery, PT [address], [place], [address], [facility] 11/17/2024 17:09:27 10/24/19 50940 Therapeutic Exercise (1:1) cancelled Chapo Bhatt, HEEL LAYER [address], [place], [address], [facility] 10/23/2024 14:03:25 10/24/19 25 66641: Hot or Cold Pack cancelled Chapo Bhatt, HEEL LAYER [address], [place], [address], [facility] 10/23/2024 14:03:25 10/24/19 11824: Manual therapy cancelled Chapo Bhatt, HEEL LAYER [address], [place], [address], [facility] 10/23/2024 14:03:25 10/03/19 52572 Therapeutic Exercise (1:1) completed Chapo Bhatt, HEEL LAYER [address], [place], [address], [facility] 10/02/2024 11:27:08 10/03/19 60653: Hot or Cold Pack completed Chapo Bhatt, HEEL LAYER [address], [place], [address], [facility] 10/03/2024 15:20:41 10/03/19 16504: Manual therapy completed Chapo Bhatt, HEEL LAYER [address], [place], [address], [facility] 10/02/2024 11:27:08 09/30/19 54633 Therapeutic Exercise (1:1) cancelled Viral Avery, PT [address], [place], [address], [facility] 09/29/2024 06:34:07 09/30/19 12744: Manual therapy cancelled Viral Avery, PT [address], [place], [address], [facility] 09/29/2024 06:34:07 09/25/19 87581 Therapeutic Exercise (1:1) completed Chapo Bhatt, HEEL LAYER [address], [place], [address], [facility] 09/27/2024 16:01:24 09/25/19 80240: Manual therapy completed Chapo Bhatt, HEEL LAYER [address], [place], [address], [facility] 09/27/2024 16:01:31 09/22/19 97897 Therapeutic Exercise (1:1) completed Viral Avery, PT [address], [place], [address], [facility] 09/21/2024 12:58:41 09/22/19 43271: Low complexity PT Eval completed Viral Avery, PT [address], [place], [address], [facility] 09/21/2024 12:58:45 07/15/19 25 Sports Knee 4&1 completed Harrison Benton MD [address], [place], [address], [facility] 07/14/2024 16:17:23 04/03/20 24 Carpal Tunnel Kenalog 1cc injection, L/R completed Fany Najera PA-C [address], [place], [address], [facility] 04/03/2024 10:31:37 03/09/20 24 Epicondylitis Celestone 1cc Injection, L/R completed DEBORAH Jang-Saeid [address], [place], [address], [facility] 03/09/2024 09:52:30 03/09/20 24 Carpal Tunnel Kenalog 1cc injection, L/R completed Fany Najera PA-C [address], [place], [address], [facility] 03/09/2024 09:52:17 11/08/19 24 Knee Kenalog 40 1cc Injection, Bilateral completed Mitul Montana PA-C [address], [place], [address], [facility] 11/08/2023 06:24:15 10/09/19 24 Knee Kenalog 40 1cc Injection, Bilateral completed Mitul Montana PA-C [address], [place], [address], [facility] 10/09/2023 06:08:38 Imaging Results None recorded. Procedure Notes None recorded. Medical Equipment None Reported. Allergies Allergen ID Allergen Name Allergen Category Reaction Reaction Severity Criticality Documentation Date Start Date Code Code System Note Provider Name and Address Organization Details Recorded Time 828979 codeine medicatio n Not available Not available Not available 10/28/2023 2670 RxNorm CYNTHIA nelson, [facility] 4 12:40:36 035402 aspirin medicatio n Not available Not available Not available 10/28/2023 1191 [facility] 4 12:40:45 355444 acetamino phen / oxycodone medicatio n Not available Not available Not available 10/28/2023 27639 3 [facility] 13:36:48 758104 Fioricet medicatio n Not available Not available Not available 10/28/2023 68569 4 [facility] 4 13:37:10 639126 ibuprofen medicatio n Not available Not available Not available 11/05/20232023 5640 RxNorm Not Available [facility] 4 09:08:04 74116 Tylenol medicatio n Not available Not available Not available 07/15/2023201943 3 RxNorm Not Available [facility] 4 11:09:28 43483 Product containin g penicilli n (product) medicatio n Not available Not available Not available 07/15/20232019 14928 8001 SNOMED Not Available [facility] 4 11:09:28 Medications Name Sig Start [...] Updated DateTime 2024 152.4 cm 49 kg/m2 442963.68 g NANCY MCFARLAND [place] [facility] 2024 10:15:01 Date Recorded Body height Body mass index (BMI) Body weight Body temperature Provider Name and Address Organization Details Last Updated DateTime 09/16/2024 152.4 cm 49 kg/m2 687705.68 g 98 [degF] Mitul Montana PA-C [address], [place], [address] , [place] - [facility] 09/16/2024 11:18:33 Social History None recorded. Functional Status Question Answer Note LastModified by Organizat ion Details LastModified Time What is your level of alcohol consumption? Occasional [email or web address] Information not available 2024 Mental Status None [...] ICD10 Code Diagnosis IMO Codes Diagnosis Note [id number] JOSE Gauthier [address] [place] [address] 10/09/2023 08:33:27 10/21/2023 09:24:41 Osteoarthritis of knee 709060915 M17.9 Acute tear of medial meniscus of left knee 9112930193 7460922 S83.242A Derangemen t of left knee 7233484657 8123492 M23.92 [id number] Mitul Montana PA-C [place] [address] [place] [address] 10/25/2023 09:56:50 11/15/2023 12:57:07 Acute tear of medial meniscus of left knee 6301479527 4354339 S83.242A [id number] JOSE Gauthier [address] [place] [address] 11/08/2023 10:06:38 11/28/2023 12:06:35 Osteoarthritis of knee 509649955 M17.9 Acute tear of medial meniscus of left knee 9530634635 6308348 S83.242A [id number] JOSE Gauthier [address] [place] [address] 12/31/2023 10:05:58 01/16/2024 15:45:13 Osteoarthritis of knee 661339565 M17.9 Acute tear of medial meniscus of left knee 7801916284 1972451 S83.242A [id number] Mitul Montana PA-C [place] [place] [address] 01/15/2024 08:41:49 01/29/2024 08:32:22 Osteoarthritis of knee 145702904 M17.9 Acute tear of medial meniscus of left knee 5345706919 9597430 S83.242A [id number] Fany Najera PA-C [place] [place] [address] 03/09/2024 09:07:19 03/25/2024 17:00:16 [id number] Fany Najera PA-C [place] [place] [address] 04/03/2024 09:16:49 04/23/2024 15:22:17 [id number] MD [facility]ERRANCE Balderrama - [place] [address] [place] [address] 07/14/2024 15:51:14 07/28/2024 08:29:52 Acute tear of medial meniscus of left knee 6371157455 0367803 S83.242A [id number] MD TERRANCE Balderrama - [place] [place] [address] 2024 10:02:08 08/26/2024 15:43:15 Acute meniscal tear, medial 908774501 S83.232D 0329095 [id number] Mitul Montana PA-C [facility] - [address] [place] [address] 09/16/2024 11:08:35 09/18/2024 11:51:38 History of arthroscopy of knee joint 719696758 Z98.890 779794 [id number] Viral Avery, PT [facility] [address] [place] [address] 09/21/2024 10:12:50 09/21/2024 10:45:52 Tear of medial meniscus of right knee joint 3836653109 7102 S83.241D [id number] [id number] Chapo Bhatt HEEL LAYER [facility] [address] [place] [address] 09/24/2024 13:37:26 09/24/2024 14:28:56 Tear of medial meniscus of right knee joint 9992657811 7102 S83.241D 74723988 [id number] Chapo Bhatt HEEL LAYER [facility] - [facility] [address] [place] [address] 10/02/2024 10:50:38 10/02/2024 13:04:31 Tear of medial meniscus of right knee joint 9676218240 7102 S83.241D [id number] Health Concerns Section Related Observation LastModified by Organization Detai ls LastModified Time None Recorded Concern Status LastModified by Organization Details LastModified Time None Recorded Advance Directives Directive None Recorded Payers Insurance Date Sequence Insurance Name Policy Number Policy Kahn Covered Member ID Kahn Member ID Guarantor Name 11/16/[address] [facility] - DOS ON OR AFTER 2022 - ONE CARE (MEDICARE REPLACEMENT/ADV ANTAGE - HMO) Agnes Milligan [id number] Agnes Milligan Notes Date Note Type Note [...] like proceed as outlined at this time. [facility] speech recognition can pusher software was used to create portions of this document. An attempt at proofreading has been made to minimize errors. Please call for corrections Harrison Benton MD [address] [place] [address] Suite [facility], [place], [address], [facility] 2024 10:44:07 5 text/htm l I [...] patient remains symptomatic. Mitul Montana PA-C [address], [place], [address], [facility] 09/16/2024 11:37:35 5 text/htm l Patient [...] climb stairs again. Viral Avery, PT [address], [place], [address], [facility] 09/21/2024 13:01:49 5 text/htm l Patient reports 5/10 pain, fatigued after walking distances. Chapo Bhatt PTA [address], [place], [address], [facility] 09/27/2024 16:15:30 5 text/htm l Patient reports 6/10 pain upon entering therapy. Pt reports increased pain and swelling last night due to rain. Chapo Bhatt PTA [address], [place], [address], [facility] 10/03/2024 15:21:14 OBGyn Episode No OBEpisode recorded.
--- OUTSIDE RECORDS SUMMARY | 2025-04-22 22:52 | XMS_ITS | Patient Health Record ---
Author Organization [employer] [facility] Address [address] [place] [address] Care Team Providers Care Commercial Real Estate Underwriter Name Role Phone KAISER GUZMAN MD Primary Care Provider Jessy MARIANA Reynaga Unavailable [phone] Allergies Allergen (clinical drug ingredient) Drug/Non Drug Allergy documented on EMR Reaction Allergy Type Onset Date Status aspirin Aspirin Unknown Drug Allergy Active acetaminophen / oxycodone Percocet Unknown Drug Allergy Active codeine Codeine Unknown Drug Allergy Active metformin metFORMIN Unknown Drug Allergy Active morphine Morphine Unknown Drug Allergy Active Penicillin Unknown Drug Allergy Active Reason For Referral No Information Medications Medication SIG (Take, Route, Frequency, Duration) Notes Start Date End Date Status Gabapentin 300 MG Capsule 1 cap(s) orally 3 times a day Active Flonase Allergy Relief 50 MCG/ACT Suspension 1 spray(s) intranasally once a day; Duration: 30 day(s) Active hydrOXYzine HCl 10 MG Tablet 2 tab(s) orally prn Active Ipratropium-Albuterol 0.5-2.5 (3) MG/3ML Solution 3 mL by nebulizer prn Active ZOFRAN 4 MG TABLET 1 TAB(S) ORALLY PRN *Please r melinda for potential replacement for e-prescription and drug interaction check* Active Atorvastatin Calcium 80 MG Tablet 1 tab(s) orally once a day; Duration: 30 day(s) Active PROzac 40 MG Capsule 1 cap(s) orally BID Active Topiramate 100 MG Tablet 1 tab(s) orally once a day Active Flovent HFA 110 MCG/ACT Aerosol 2 puff(s) inhaled 2 times a day; Duration: 30 day(s) Active Silver sulfADIAZINE 1 % Cream 1 marcus applied topically 2 times a day; Duration: 14 day(s) Active Ventolin HFA 108 (90 Base) MCG/ACT Aerosol Solution 2 puff(s) 108 mcg inhaled 4 times a day prn Active Albuterol Sulfate 4 MG TABLET, EXTENDED RELEASE INHALED ORALLY PRN NAME ONLY Conversion from Multum Review and pick correct strength-formulati on from [employer] options. If intended option is not shown, discontinue and re-order from Quick Search. Active Naproxen 500 MG Tablet 1 tab(s) orally TID PRN; Duration: 30 day(s) 04/29/2019 Active OXcarbazepine 300 MG Tablet 1 tab(s) orally 2 times a day; Duration: 30 day(s) Active Social History Tobacco Use: Social History Observation Description Date Details (start date - stop date) Former Smoker NA - NA Social History Drug/Alcohol: Social Info Question Answer Notes Alcohol Screen Did you have a drink containing alcohol in the past year? Yes How often did you have a drink containing alcohol in the past year? Monthly or less (1 point) How many drinks did you have on a tpical day when you were drinking in the past year? 1 or 2 (0 points) How often did you have six or more drinks on one occassion in the past year? Never (0 points) Points 1 Interpretation Negative Tobacco Use: Social Info Question Answer Notes Smoking Are you a: former smoker Additional Details Category Social Info Options Details General Occupation: disabled asbestos exposure: no alcohol use: yes rarely drug use: no Coffee/Tea/Soda: yes Coffee Marital Status single experience no Living with mother/father smokers in household no Problems Problem Type SNOMED Code ICD Code Onset Dates Problem Status W/U Status Risk Notes Problem Fibromyalgia (106015692) Fibromyalgia (M79.7) Active confirmed Problem Primary osteoarthritis (053155014) Primary osteoarthritis involving multiple joints (M15.0) Active confirmed Problem Inflammatory arthritis (0799071) Inflammatory arthritis (M19.90) Active confirmed Plan Of Treatment No Information Insurance Providers Payer Name Payer Address Payer Phone Subscriber Number Group Number Insured Name Patient Relationship to Insured Coverage Start Date Coverage End Date [facility] [address] C/O [facility] [place] [address] [id number] CHERYL BERRY Self - patient is the insured Medical (General) History Medical History History ICD Code Fibromyalgia Obstructive Sleep Apnea HLD Anxiety Depression Bipolar Asthma Psychomatic pain Surgical History Surgery Date(Month/Year) Lapraoscopy Abdominoplasty Hysterectomy 2010 [facility] [id number]
== END 2025-04-22 16:17 | disposition home or self-care (01) ==
LOC: HO.HCS 15:18
PROVIDERS: PCP Registered Nurse; Visit Provider Nurse Practitioner Family
DX: R07.2 Precordial pain (principal); I77.810 Thoracic aortic ectasia; E78.5 Hyperlipidemia, unspecified; E66.01 Morbid (severe) obesity due to excess calories
CPT/HCPCS: 99214; G2211

== ENCOUNTER → 2025-04-22 15:18 | Outpatient (BNVA) | payer OTHER, SELFPAY | PROVIDERS: PCP Registered Nurse; Visit Provider Nurse Practitioner Family | DX: R07.2 Precordial pain (principal); I77.810 Thoracic aortic ectasia; E66.01 Morbid (severe) obesity due to excess calories; E78.5 Hyperlipidemia, unspecified; Z79.899 Other long term (current) drug therapy; Z68.34 Body mass index [BMI] 34.0-34.9, adult | CPT/HCPCS: 99212 ==

== ENCOUNTER 2025-05-07 09:47 | Outpatient (REF) | payer OTHER, SELFPAY ==
--- NOTE | ~2025-05-07 | CT_ITS ---
EXAMINATION: CT CHEST WITHOUT CONTRAST CLINICAL INFORMATION: Chest pain COMPARISON: Chest x-ray 02/28/2024 TECHNIQUE: Multidetector volumetric CT imaging of the chest was done. Axial MIP volume rendering provided. Sagittal and coronal reformatted images were obtained. This CT examination was performed using dose optimization techniques as appropriate, variously including the following: *Automated exposure control *Adjustment of mA and/or kV according to patient size (this includes techniques or standardized protocols for targeted exams where dose is matched to indication/reason for exam; i.e. extremities or head) *Use of iterative reconstruction technique FINDINGS: LUNGS: Trachea and central airway are patent. Mild chronic appearing atelectasis/scarring in the medial aspect of the left lower lung, adjacent to the vertebral spine. No suspicious nodules or masses identified. MEDIASTINUM: No suspicious findings are visualized thyroid gland. No pathologically enlarged lymph nodes is seen in the mediastinum or [place]. Normal heart size. No pericardial effusion. Esophagus is nondistended. CORONARY ARTERY CALCIFICATION: Present PLEURA: There is no pleural effusion. No pleural mass or thickening. AXILLA: No lymphadenopathy. CHEST WALL: Unremarkable UPPER ABDOMEN: No acute findings seen. OSSEOUS STRUCTURES: No acute osseous findings. No suspicious bony lesion. Multilevel degenerative changes in the spine. CT/CT chest wo IV con IMPRESSION: 1. No evidence of focal consolidation. Mild atelectasis/scarring in the medial right lower lung. 2. No acute findings otherwise seen. Fleischner guidelines were followed. Electronically signed by: Alphonse Green MD 05/07/2025 01:[address] [facility]
--- OUTSIDE RECORDS SUMMARY | 2025-05-07 09:49 | XMS_ITS | Patient Health Record ---
Author Organization [facility] Address [address] [place] [address] Care Team Providers Care Business Analytics Faculty Member Name Role Phone KAISER GUZMAN MD Primary Care Provider Jessy MARIANA Reynaga Unavailable [phone] Allergies Allergen (clinical drug ingredient) Drug/Non Drug [...] Review and pick correct strength-formulati on from [employer] options. If intended option is not shown, [...] Status W/U Status Risk Notes Problem Fibromyalgia (282151342) Fibromyalgia (M79.7) Active confirmed Problem Primary osteoarthritis (851631714) Primary osteoarthritis involving multiple joints (M15.0) Active confirmed Problem Inflammatory arthritis (7602144) Inflammatory arthritis (M19.90) Active confirmed Plan Of Treatment No Information Insurance Providers Payer Name Payer Address Payer Phone Subscriber Number Group Number Insured Name Patient Relationship to Insured Coverage Start Date Coverage End Date [facility] [address] [place] [phone] [id number] CHERYL BERRY Self - patient is the insured Medical (General) History Medical History History ICD Code Fibromyalgia Obstructive Sleep Apnea HLD Anxiety Depression Bipolar Asthma Psychomatic pain Surgical History Surgery Date(Month/Year) Lapraoscopy Abdominoplasty Hysterectomy 2010 [facility] [place] [phone]
--- OUTSIDE RECORDS SUMMARY | 2025-05-07 09:50 | XMS_ITS | Data Portability ---
Author Organization [facility], [facility] [place] Address [address] [place] [address] Care Team Providers Care Edge Grinder Machine Name Role Phone Anupama Felix Primary Care Provider Assessment Encounter Date Assessment [...] Treatment Reminders Order Date Submit Date Provider Name Organization Details Last Modified By Last Modified Time Details Appointments None recor ded. Lab None recor ded. Referral physi lina holland refer ral 2024 11:33: 13 025 Mitul Montaan PA-C [facility] (Bassem Rolle) [address], [place], [address], JUSTINO MESSENGER 5 11:51:39 Procedures None recor ded. Surgeries None recor ded. Imaging None recor ded. MedicationOrder s None recor ded. VaccineOrders None recor ded. Patient TargetsNo targets recorded. Patient InstructionsNo instructions [...] Details Recorded Time Osteoarthri tis of knee [id number] Active 2023 Mitul Montana PA-C [address], [place], [address], [facility] 4 06:08:44 Acute tear of medial meniscus of left knee 7211804145405 9107 Active 2023 Mitul Montana PA-C [address], [place], [address], [facility] 4 09:03:24 Derangement of left knee 2117877586639 9108 Active 2023 Mitul Montana PA-C [address], [place], [address], [facility] 4 09:03:53 Acute meniscal tear, medial 050625706 Active 2024 Harrison Benton MD [address], [place], [address], [facility] 5 10:31:04 Pain of left knee joint 4605342073922 07 Active 2024 Kateryna Palaciosburn, CHANGE COORDINATOR [address], [facility] [place], [address], [facility] 17:32:30 Postoperati ve pain 838054696 Active 2024 Kateryna Stover, CHANGE COORDINATOR [address], [facility] [place], [address], [facility] 17:38:40 Problem Notes None recorded. Procedures Surgical History Date Name Laterality Status Provider Name and Address Organization Details Recorded Time 11/19/19 05875 Therapeutic Exercise (1:1) cancelled iVral Avery, PT [address], [place], [address], [facility] 11/17/2024 17:09:27 11/19/19 32597: Hot or Cold Pack cancelled Viral Avery, PT [address], [place], [address], [facility] 11/17/2024 17:09:27 11/19/19 29174: Manual therapy cancelled Viral Avery, PT [address], [place], [address], [facility] 11/17/2024 17:09:27 10/24/19 53456 Therapeutic Exercise (1:1) cancelled Chapo Bhatt, NUCLEAR MEDICINE TECHNOLOGIST [address], [place], [address], [facility] 10/23/2024 14:03:25 10/24/19 25 96274: Hot or Cold Pack cancelled Chapo Bhatt, NUCLEAR MEDICINE TECHNOLOGIST [address], [place], [address], [facility] 10/23/2024 14:03:25 10/24/19 25 72844: Manual therapy cancelled Chapo Bhatt, NUCLEAR MEDICINE TECHNOLOGIST [address], [place], [address], [facility] 10/23/2024 14:03:25 10/03/19 29146 Therapeutic Exercise (1:1) completed Chapo Bhatt, NUCLEAR MEDICINE TECHNOLOGIST [address], [place], [address], [facility] 10/02/2024 11:27:08 10/03/19 40114: Hot or Cold Pack completed Chapo Bhatt, NUCLEAR MEDICINE TECHNOLOGIST [address], [place], [address], [facility] 10/03/2024 15:20:41 10/03/19 06798: Manual therapy completed Chapo Bhatt, NUCLEAR MEDICINE TECHNOLOGIST [address], [place], [address], [facility] 10/02/2024 11:27:08 09/30/19 55863 Therapeutic Exercise (1:1) cancelled Viral Avery, PT [address], [place], [address], [facility] 09/29/2024 06:34:07 09/30/19 87833: Manual therapy cancelled Viral Avery, PT [address], [place], [address], [facility] 09/29/2024 06:34:07 09/25/19 34146 Therapeutic Exercise (1:1) completed Chapo Bhatt, NUCLEAR MEDICINE TECHNOLOGIST [address], [place], [address], [facility] 09/27/2024 16:01:24 09/25/19 15476: Manual therapy completed Chapo Bhatt, NUCLEAR MEDICINE TECHNOLOGIST [address], [place], [address], [facility] 09/27/2024 16:01:31 09/22/19 84580 Therapeutic Exercise (1:1) completed Viral Avery, PT [address], [place], [address], [facility] 09/21/2024 12:58:41 09/22/19 25 44979: Low complexity PT Eval completed Viral Avery, PT [address], [place], [address], [facility] 09/21/2024 12:58:45 07/15/19 25 Sports Knee 4&1 completed Harrison Benton MD [address], [place], [address], [facility] 07/14/2024 16:17:23 04/03/20 24 Carpal Tunnel Kenalog 1cc injection, L/R completed Fany Najera PA-C [address], [place], [address], [facility] 04/03/2024 10:31:37 03/09/20 24 Epicondylitis Celestone 1cc Injection, L/R completed DEBORAH Jang-Saeid [address], [place], [address], [facility] 03/09/2024 09:52:30 03/09/20 24 Carpal Tunnel Kenalog 1cc injection, L/R completed Fany Najera PA-C [address], [place], [address], [facility] 03/09/2024 09:52:17 11/08/19 24 Knee Kenalog 40 1cc Injection, Bilateral completed Mitul Montana PA-C [address], [place], [address], [facility] 11/08/2023 06:24:15 10/09/19 24 Knee Kenalog 40 1cc Injection, Bilateral completed Mitul Montana PA-C [address], [place], [address], [facility] 10/09/2023 06:08:38 Imaging Results None recorded. Procedure Notes None recorded. Medical Equipment None Reported. Allergies Allergen ID Allergen Name Allergen Category Reaction Reaction Severity Criticality Documentation Date Start Date Code Code System Note Provider Name and Address Organization Details Recorded Time [id number] codeine medicatio n Not available Not available Not available 10/28/2023 2670 RxNorm CYNTHIA nelson, [facility] 4 12:40:36 389014 aspirin medicatio n Not available Not available Not available 10/28/2023 1191 RxNorm CYNTHIA nelson, [facility] 4 12:40:45 334796 acetamino phen / oxycodone medicatio n Not available Not available Not available 10/28/2023 85178 3 RxNorm CYNTHIA nelson, [facility] 4 13:36:48 987685 Fioricet medicatio n Not available Not available Not available 10/28/2023 23681 4 RxNorm CYNTHIA nelson, [facility] 4 13:37:10 635474 ibuprofen medicatio n Not available Not available Not available 11/05/20232023 5640 RxNorm Not Available [facility] 4 09:08:04 31429 Tylenol medicatio n Not available Not available Not available 07/15/2023201943 3 RxNorm Not Available [facility] 4 11:09:28 12044 Product containin g penicilli n (product) medicatio n Not available Not available Not available 07/15/20232019 46902 8001 SNOMED Not Available [facility] 4 11:09:28 Medications Name Authored On Sig Start Date Stop Date Status Note Indication Fill Status Repeat Number Dispense Quantity LastModified by Organization Details LastModified Time baclo fen 10 mg table t 4 10:09:27 TAKE HALF OF A TABL ET (5 MG) BY MOUT H 2 TIME S PER DAY active Not Available Not availab le 0 Not Available Not Available [facility] 09/23/2023 10:09:27 Belbu ca 300 mcg bucca l film 4 10:09:27 active Not Available Not availab le 0 Not Available Not Available [facility] 09/23/2023 10:09:27 cetir izine 10 mg table t 4 10:09:27 active Not Available Not availab le 0 Not Available Not Available [facility] 09/23/2023 10:09:27 yasmine calci ferol (chava min D3) 50 mcg (2,00 0 unit) table t 4 10:09:27 active Not Available Not availab le 0 Not Available Not Available [facility] 09/23/2023 10:09:27 Creon 36,00 0 unit- 114,0 00 unit- 180,0 00 unit capsu le,de layed relea se 4 10:09:27 active Not Available Not availab le 0 Not Available Not Available [facility] 09/23/2023 10:09:27 diclo fenac 1 % topic al gel 4 10:09:27 active Not Available Not availab le 0 Not Available Not Available [facility] 09/23/2023 10:09:27 loraz epam 1 mg table t 4 10:09:27 active Not Available Not availab le 0 Not Available Not Available [facility] 09/23/2023 10:09:27 magne sium oxide 400 mg (241. 3 mg magne sium) table t 4 10:09:27 active Not Available Not availab le 0 Not Available Not Available [facility] 09/23/2023 10:09:27 mupir ocin 2 % topic al ointm ent 4 10:09:27 active Not Available Not availab le 0 Not Available Not Available [facility] 09/23/2023 10:09:27 nifed ipine ER 30 mg table t,ext ended relea se 4 10:09:27 active Not Available Not availab le 0 Not Available Not Available [facility] 09/23/2023 10:09:27 oxybu tynin chlor ladonna ER 15 mg table t,ext ended relea se 24 hr 4 10:09:27 active Not Available Not availab le 0 Not Available Not Available [facility] 09/23/2023 10:09:27 Ozemp ic 1 mg/do se (4 mg/3 mL) subcu taneo us pen injec tor 4 10:09:27 active Not Available Not availab le 0 Not Available Not Available [facility] 09/23/2023 10:09:27 rosuv astat in 10 mg table t 4 10:09:27 active Not Available Not availab le 0 Not Available Not Available [facility] 09/23/2023 10:09:27 Savel la 100 mg table t 4 10:09:27 active Not Available Not availab le 0 Not Available Not Available [facility] 09/23/2023 10:09:27 Savel la 25 mg table t 4 10:09:27 active Not Available Not availab le 0 Not Available Not Available [facility] 09/23/2023 10:09:27 simet hicon e 80 mg chewa ble table t 4 10:09:33 active Not Available Not availab le 0 Not Available Not Available [facility] 09/23/2023 10:09:33 hydro morph one 2 mg table t 4 13:24:06 TAKE 1-2 TABL ETS EVER Y 6 HOUR S NEED ED (3 DAY SCRI PT) active Not Available Not availab le 0 Not Available Not Available [facility] 02/16/2024 13:24:06 dicyc lomin e 20 mg table t 4 15:25:12 TAKE 2 TABL ETS BY MOUT H 4 TIME S A DAY active Not Available Not availab le 0 Not Available Not Available [facility] 02/23/2024 15:25:12 OneTo uch Ultra Soft 2 Tyshawn t 30 gauge 4 15:25:12 DIRE CTED TO SKIN ONCE ADAM Y NEED ED active Not Available Not availab le 0 Not Available Not Available [facility] 02/23/2024 15:25:12 OneTo uch Verio Flex Meter 4 15:25:12 DIRE CTED active Not Available Not availab le 0 Not Available Not Available [facility] 02/23/2024 15:25:12 sulfa metho xazol e 800 mg-tr imeth oprim 160 mg table t 4 15:25:12 TAKE 1 TABL ET BY MOUT H TWIC E A DAY FOR 3 DAYS active Not Available Not availab le 0 Not Available Not Available [facility] 02/23/2024 15:25:12 azith romyc in 250 mg table t 4 22:05:32 TAKE 2 TABL ETS ON THE T DAY THEN TAKE 1 TABL ET EVER Y DAY FOR 5 DAYS active Not Available Not availab le 0 Not Available Not Available [facility] 03/08/2024 22:05:32 rosuv astat in 20 mg table t 4 22:05:32 TAKE 1 TABL ET BY MOUT H EVER Y DAY active Not Available Not availab le 0 Not Available Not Available [facility] 03/08/2024 22:05:32 prome thazi ne 25 mg table t 4 22:07:20 TAKE 1 TABL ET BY MOUT H EVER Y 12 HOUR S NEED ED FOR 30 DAYS active Not Available Not availab le 0 Not Available Not Available [facility] 04/02/2024 22:07:20 trama dol 50 mg table t 4 05:49:25 active Not Available Not availab le 0 Not Available Not Available [facility] 05/04/2024 05:49:25 Belbu ca 150 mcg bucca l film 5 10:48:06 active Not Available Not availab le 0 Not Available Not Available [facility] 07/14/2024 10:48:06 Belbu ca 75 mcg bucca l film 5 10:48:06 active Not Available Not availab le 0 Not Available Not Available [facility] 07/14/2024 10:48:06 Duler a 100 mcg-5 mcg/a ctuat ion HFA aeros ol inhal er 5 10:48:06 active Not Available Not availab le 0 Not Available Not Available [facility] 07/14/2024 10:48:06 Flowf og COVID -19 Antig en Home Test kit 5 10:48:06 DIRE CTED IN VITR O EVER Y 48 HOUR S NEED ED 30 DAYS active Not Available Not availab le 0 Not Available Not Available [facility] 07/14/2024 10:48:06 FreeS tyle Lite Strip s 5 10:48:06 active Not Available Not availab le 0 Not Available Not Available [facility] 07/14/2024 10:48:06 leval buter ol 0.63 mg/3 mL solut ion for nebul izati on 5 10:48:06 INHA LE 3 ML BY CANDACE BOYCE EVER Y 4 HOUR S NEED ED FOR 30 DAYS active Not Available Not availab le 0 Not Available Not Available [facility] 07/14/2024 10:48:06 melox icam 15 mg table t 5 10:48:06 active Not Available Not availab le 0 Not Available Not Available [facility] 07/14/2024 10:48:06 Ozemp ic 2 mg/do se (8 mg/3 mL) subcu taneo us pen injec tor 5 10:48:[address] 2MG SUBC UTAN EOUS LY ONCE A WEEK 28 DAYS active Not Available Not availab le 0 Not Available Not Available [facility] 07/14/2024 10:48:06 panto prazo le 40 mg table t,del ayed relea se 5 10:48:06 active Not Available Not availab le 0 Not Available Not Available [facility] 07/14/2024 10:48:06 sucra lfate 1 gram table t 5 10:48:06 active Not Available Not availab le 0 Not Available Not Available [facility] 07/14/2024 10:48:06 sucra lfate 100 mg/mL oral suspe nsion 5 10:48:06 active Not Available Not availab le 0 Not Available Not Available [facility] 07/14/2024 10:48:06 Trula nce 3 mg table t 5 10:48:06 active Not Available Not availab le 0 Not Available Not Available [facility] 07/14/2024 10:48:06 Zepbo und 2.5 mg/0. 5 mL subcu taneo us pen injec tor 5 23:08:[address] 1 PEN SUBC UTAN EOUS LY ONCE WEEK LY ON THE SAME DAY active Not Available Not availab le 0 Not Available Not Available [facility] - External Data Service - prod 08/12/2024 23:08:14 hydro morph one 4 mg table t 13:47:37 TAKE 1/2- 1 TABL ET EVER Y 6 HOUR S NEED ED . 3 DAY RX. active Not Available Not availab le 0 Not Available Not Available [facility] - External Data Service - prod 09/13/2024 13:47:37 Linze ss 145 mcg capsu le 12:04:02 TAKE 1 CAPS ULE BY MOUT H [facility] active Not Available Not availab le 0 Not Available Not Available [facility] - External Data Service - prod 09/26/2024 12:04:02 bupro pion HCl SR 150 mg table t,12 hr susta ined- relea se 5 15:22:19 TAKE 1 TABL ET BY MOUT H EVER Y DAY IN THE [facility] active Not Available Not availab le 0 Not Available Not Available [facility] - External Data Service - prod 11/15/2024 15:22:19 bupro pion HCl XL 300 mg 24 hr table t, exten ded relea se 5 15:22:19 TAKE 1 TABL ET BY MOUT H EVER Y DAY IN THE [facility] ING active Not Available Not availab le 0 Not Available Not Available [facility] - External Data Service - prod 11/15/2024 15:22:19 cyclo benza miah 5 mg table t 5 15:22:19 TAKE 1 TABL ET BY MOUT H EVER Y DAY AT [facility] NEED ED active Not Available Not availab le 0 Not Available Not Available [facility] - External Data Service - prod 11/15/2024 15:22:19 famot idine 40 mg table t 5 15:22:19 TAKE 1 TABL ET BY MOUT H AT [facility] active Not Available Not availab le 0 Not Available Not Available [facility] - External Data Service - prod 11/15/2024 15:22:19 Gas Relie f Extra Stren gth 125 mg chewa ble table t 5 15:22:19 CHEW 1 TABL ET BY MOUT H 4 TIME S A DAY active Not Available Not availab le 0 Not Available Not Available [facility] - External Data Service - prod 11/15/2024 15:22:19 lanso prazo le 30 mg capsu le,de layed relea se 5 15:22:19 TAKE 1 CAPS ULE BY MOUT H EVER Y DAY active Not Available Not availab le 0 Not Available Not Available [facility] - External Data Service - prod 11/15/2024 15:22:19 Laxat asya (bisa codyl ) 5 mg table t,del ayed relea se 5 15:22:19 TAKE 2 TABL ETS BY MOUT H EVER Y DAY AT [facility] active Not Available Not availab le 0 Not Available Not Available [facility] - External Data Service - prod 11/15/2024 15:22:19 oxybu tynin chlor ladonna ER 10 mg table t,ext ended relea se 24 hr 5 15:22:19 TAKE 2 TABL ETS BY MOUT H EVER Y DAY active Not Available Not availab le 0 Not Available Not Available [facility] - External Data Service - prod 11/15/2024 15:22:19 oxybu tynin chlor ladonna ER 5 mg table t,ext ended relea se 24 hr 5 15:22:19 TAKE 1 TABL ET BY MOUT H TA KE ILIA G WITH 2 10MG FOR TOTA L ADAM Y DOSE OF 25MG ADAM Y active Not Available Not availab le 0 Not Available Not Available [facility] - External Data Service - prod 11/15/2024 15:22:19 rosuv astat in 40 mg table t 5 15:22:19 TAKE 1 TABL ET BY MOUT H EVER Y DAY FOR 30 DAYS active Not Available Not availab le 0 Not Available Not Available [facility] - External Data Service - prod 11/15/2024 15:22:19 albut daniela sulfa te HFA 90 mcg/a ctuat ion aeros ol inhal er 5 15:22:20 INHA LE 2 PUFF S BY MOUT H EVER Y 6 HOUR S NEED ED active Not Available Not availab le 0 Not Available Not Available [facility] - External Data Service - prod 11/15/2024 15:22:20 yasmine calci ferol (chava min D3) 50 mcg (2,00 0 unit) capsu le 5 15:22:20 TAKE 1 CAPS ULE BY MOUT H EVER Y DAY FOR 28 DAYS active Not Available Not availab le 0 Not Available Not Available [facility] - External Data Service - prod 11/15/2024 15:22:20 fluox etine 20 mg capsu le 5 15:22:20 TAKE 2 CAPS ULE (40 MG) BY MOUT H ADAM Y AFTE R MICHEL KFAS T active Not Available Not availab le 0 Not Available Not Available [facility] - External Data Service - prod 11/15/2024 15:22:20 fluti jesneia e propi fidel 50 mcg/a ctuat ion nasal spray ,susp ensio n 5 15:22:20 1 SPRA Y INTO INTO EACH NOST RIL TWIC E A DAY active Not Available Not availab le 0 Not Available Not Available [facility] - External Data Service - prod 11/15/2024 15:22:20 gabap entin 400 mg capsu le 5 15:22:20 TAKE 2 CAPS ULES BY MOUT H 3 TIME S A DAY active Not Available Not availab le 0 Not Available Not Available [facility] - External Data Service - prod 11/15/2024 15:22:20 topir amate 200 mg table t 5 15:22:20 TAKE 2 TABL ETS BY MOUT H EVER Y DAY AT [facility] active Not Available Not availab le 0 Not Available Not Available [facility] - External Data Service - prod 11/15/2024 15:22:20 Voque zna 20 mg table t 5 15:22:20 TAKE 1 TABL ET BY MOUT H EVER Y DAY active Not Available Not availab le 0 Not Available Not Available [facility] - External Data Service - prod 11/15/2024 15:22:20 zalep marcella 10 mg capsu le 5 15:22:20 TAKE 1 CAPS ULE (10 MG) BY MOUT H ADAM Y AT [facility] NEED ED active Not Available Not availab le 0 Not Available Not Available [facility] - External Data Service - prod 11/15/2024 15:22:20 Zepbo und 5 mg/0. 5 mL subcu taneo us pen injec tor 5 15:22:[address] 1 PEN SUBC UTAN EOUS LY ONCE WEEK LY active Not Available Not availab le 0 Not Available Not Available [facility] - External Data Service - prod 11/15/2024 15:22:20 Zepbo und 7.5 mg/0. 5 mL subcu taneo us pen injec tor 15:22:[address] 7.5 MG (0.5 ML) SUBC UTAN EOUS ONCE A WEEK 28 DAYS active Not Available Not availab le 0 Not Available Not Available [facility] - External Data Service - prod 11/15/2024 15:22:20 metoc lopra mide 10 mg table t 15:22:21 TAKE 1 TABL ET BY MOUT H 2 TIME S A DAY NEED ED FOR NAUS EA/V OMIT ING active Not Available Not availab le 0 Not Available Not Available [facility] External Data Service - prod 11/15/2024 15:22:21 Vitals Date Recorded Body height Body mass index (BMI) Body weight Provider Name and Address Organization Details Last Updated DateTime 2024 152.4 cm 49 kg/m2 100348.68 [facility] 2024 10:15:01 Date Recorded Body height Body mass index (BMI) Body weight Body temperature Provider Name and Address Organization Details Last Updated DateTime 09/16/2024 152.4 cm 49 kg/m2 438973.68 g 98 [degF] Mitul Montana PA-C [address], [place], [address] , [facility] 09/16/2024 11:18:33 Social History Question Answer Notes LastModified by Organizat ion Details LastModified Time Tobacco Smoking Status Never Smoker NANCY MCFARLAND [facility] 2024 10:16:12 What Is Your Level Of Alcohol Consumption? Occasional [facility] 2024 10:16:12 Social History Observation Description Date Observed Sex Unknown 04/08/2025 Legal Sex Female Status Not (finding) 05/07/20 25 No social history survey screeners recorded No social history SDOH screeners recorded Functional Status Question Answer Note LastModified by Organizat ion Details LastModified Time What is your level of alcohol consumption? Miguel Ángel vizcaino [facility] 2024 10:16:12 No Functional Screening assessment recorded No Functional SDOH screeners recorded Mental Status None recorded. No Mental Screening assessment recorded No Mental SDOH screeners recorded Family History Nothing Reported. Medical History Condition [...] ICD10 Code Diagnosis IMO Codes Diagnosis Note [id number] JOSE Gauthier [address] [place] [address] 10/09/2023 08:33:27 10/21/2023 09:24:41 Osteoarthritis of knee 836562357 M17.9 Acute tear of medial meniscus of left knee [id number] S83.242A Derangemen t of left knee 4300358147 9940542 M23.92 [id number] Mitul Montana PA-C [place] [address] [place] [address] 10/25/2023 09:56:50 11/15/2023 12:57:07 Acute tear of medial meniscus of left knee 6077865412 4691097 S83.242A [id number] JOSE Gauthier [address] [place] [address] 11/08/2023 10:06:38 11/28/2023 12:06:35 Osteoarthritis of knee 702662996 M17.9 Acute tear of medial meniscus of left knee 9401933057 [id number] S83.242A [id number] JOSE Gauthier [address] [place] [address] 12/31/2023 10:05:58 01/16/2024 15:45:13 Osteoarthritis of knee 042065386 M17.9 Acute tear of medial meniscus of left knee [id number] S83.242A [id number] Mitul Montana PA-C [facility] [address] [place] [address] 01/15/2024 08:41:49 01/29/2024 08:32:22 Osteoarthritis of knee [id number] M17.9 Acute tear of medial meniscus of left knee [id number] S83.242A [id number] Fany Najera PA-C [facility] [address] [place] [address] 03/09/2024 09:07:19 03/25/2024 17:00:16 [id number] Fany Najera PA-C [facility] [address] [place] [address] 04/03/2024 09:16:49 04/23/2024 15:22:17 [id number] MD [facility] Balderrama - [facility] [address] [place] [address] 07/14/2024 15:51:14 07/28/2024 08:29:52 Acute tear of medial meniscus of left knee [id number] S83.242A [id number] Harrison Benton MD [facility] - [facility] [address] [place] [address] 2024 10:02:08 08/26/2024 15:43:15 Acute meniscal tear, medial 343772729 S83.232D [id number] Mitul Montana PA-C [facility] - [facility] [address] [place] [address] 09/16/2024 11:08:35 09/18/2024 11:51:38 History of arthroscopy of knee joint [id number] Z98.890 [id number] Viral Avery, PT [facility] - [facility] [address] [place] [address] 09/21/2024 10:12:50 09/21/2024 10:45:52 Tear of medial meniscus of right knee joint [id number] 7102 S83.241D [id number] Chapo Bhatt, NUCLEAR MEDICINE TECHNOLOGIST [facility] - [facility] [address] [place] [address] 09/24/2024 13:37:26 09/24/2024 14:28:56 Tear of medial meniscus of right knee joint [id number] 7102 S83.241D [id number] Chapo Bhatt NUCLEAR MEDICINE TECHNOLOGIST [facility] - [facility] [address] [place] [address] 10/02/2024 10:50:38 10/02/2024 13:04:31 Tear of medial meniscus of right knee joint [id number] 7102 S83.241D [id number] Health Concerns Section Related Observation LastModified by Organization Detai ls LastModified Time None Recorded Concern Status LastModified by Organization Details LastModified Time None Recorded SDOH Concern Status LastModified by Organization Detai ls LastModified Time None Recorded Advance Directives Directive None Recorded Payers Insurance Date Sequence Insurance Name Policy Number Policy Kahn Covered Member ID Kahn Member ID Guarantor Name 11/16/2024 1 [facility] - DOS ON OR AFTER 2022 - ONE CARE (MEDICARE REPLACEMENT/ADV ANTAGE - HMO) Cheryl Crouch [id number] Cheryl Crouch Notes Date Note Type Note Provider Name [...] like proceed as outlined at this time. [facility] speech recognition portable power tool repairer software was used to create portions of this document. An attempt at proofreading has been made to minimize errors. Please call for corrections Harrison Benton MD [address] [place] [address] Suite [facility], [place], [address], [facility] 2024 10:44:07 5 text/htm l I am [...] patient remains symptomatic. Mitul Montana PA-C [address], [place], [address], [facility] 09/16/2024 11:37:35 5 text/htm l Patient [...] climb stairs again. Viral Avery, PT [address], [place], [address], [facility] 09/21/2024 13:01:49 5 text/htm l Patient reports 5/10 pain, fatigued after walking distances. Chapo Bhatt PTA [address], [place], [address], [facility] 09/27/2024 16:15:30 5 text/htm l Patient reports 6/10 pain upon entering therapy. Pt reports increased pain and swelling last night due to rain. Chapo Bhatt PTA [address], [place], [address], [facility] 10/03/2024 15:21:14 Care Team Name Role Member ID Specialty Address Phone ANUPAMA FELIX MD Primary Care Provider [id number] [phone], FADI Samano OBGyn Episode No OBEpisode recorded.
--- OUTSIDE RECORDS SUMMARY | 2025-05-07 09:50 | XMS_ITS | Data Portability ---
Author Organization [facility], [facility] [place] Address [address] [place] [address] Care Team Providers Care Shell Worker Name Role Phone HIM CCA OTHER Assessment Encounter Date Assessment Date Assessment LastModified by Organization Details LastModified Time 05/10/2024 05/10/2024 I provided real -time medical direction via phone for this encounter and was available for additional phone-based assistance as needed. I have reviewed and agree with the Assessment and Plan as documented by the Data Center Manager. Patient given the opportunity to ask questions. Our service contacted for an assessment of: URI symptoms As per above, patient with approximately 24 hours of increasing nasal congestion, low-grade temperature, feeling very nauseated. Patient also with dry nonproductive cough. Feeling generally speaking unwell with myalgias and arthralgias. Wanted to be tested for COVID and flu. Per hydrogenation operator on the scene, vital signs are [...] or recall this service. She can trial [id number]-oat-[id number] medications for the cold and flu-like symptoms. [...] th e field was performed by my hydrogenation operator colleague, as noted above, I provided [...] assessment and plan as documented by the hydrogenation operator. I provided real time medical direction for this encounter and was immediately available to provide additional phone based assistance as needed. History as noted by hydrogenation operator. Pt with history of chronic pain, [...] will be sent via ambulance to the [facility] ED for further evaluation and fluid resuscitation. Data Center Manager arranges EMS transfer to the [facility] ED and I call an expect to the ED pattern gater. [email or web address] Not available 09/29/2024 11:26:10 11/28/2024 11/28/2024 I provided real -time medical direction via phone for this encounter, and was available for additional phone based assistance as needed. I have reviewed and agree with the Assessment and Plan as documented by the Data Center Manager. We discussed the diagnostic uncertainty of [...] be seen in ED. Patient verbalized understanding. Not available 11/28/2024 13:17:34 Plan of Treatment Reminders Order Date Submit Date Provider Last Modified By Organization Details Last Modified Time Details Appointments None recorded. Lab urinalysis, dipstick 2024 025 [facility], [address] [place] [address], [id number] 16:11:32 culture, urine 2024 025 [facility] (Centralized Electronic Ordering - All Locations), Patient Can Go To The Location Of Their Choice, [id number] 5 06:05:33 BMP, serum or plasma [address], [address] 5 12:00:20 rapid SARS CoV 2 Ag, QL IA, respiratory specimen [address], [address] 5 12:00:21 rapid flu (A+B) [address] [place], [address] 5 12:00:21 rapid SARS CoV 2 Ag, QL IA, respiratory specimen [email or web address], [address] [place] [address], [address] 4 15:12:46 rapid flu (A+B) [email or web address], [address] [place] [address], [address] 4 15:12:46 Referral None recorded. Procedures None recorded. Surgeries None recorded. Imaging None recorded. Medication Orders Macrobid 100 mg capsule 2024 025 [facility] #[id number], [address] [place] [address], [address], 5 10:57:21 Bactrim DS 800 mg-160 mg tablet 2024 025 [facility], [address] [place] [address], [id number], 5 12:24:37 metoclopram ladonna 5 mg/mL injection solution 2024 025 [facility], [address] [place] [address], [id number], 5 09:31:45 lactated Ringers intravenous solution 2024 025 [facility], [address] [place] [address], [id number], 5 09:31:45 lactated Ringers intravenous solution 2024 025 [facility], [address] [place] [address], [id number], 5 10:12:40 ketorolac 15 mg/mL injection solution 2024 025 [facility], [address] [place] [address], [id number], 5 11:27:00 albuterol sulfate 2.5 mg/3 mL (0.083 %) solution for nebulizatio n 2023 024 [email or web address] [facility]armacy #[id number], [address] [place], [address], 4 20:31:38 levalbutero l 0.63 mg/3 mL solution for nebulizatio n 2023 024 [id number] [address] [place], [address], 4 20:33:44 lactated Ringers intravenous solution [address] [facility], [address] [place] [address], [id number], 4 15:12:46 Reglan 10 mg tablet 2023 024 [id number] [address] [place], [address], 4 15:12:47 Reglan 10 mg tablet [address] [facility], [address] [place] [address], [id number], 4 15:21:08 Patient TargetsNo targets recorded. Patient InstructionsNo instructions recorded. Reason for Referral None Reported. Results Created Date Observation Date Name Description Value Unit Range Abnormal Flag Note LastModifiedBy Organization Detail LastModifiedTime 05/10/20 24 05/10/2024 rapid flu (A+B) Flu negati ve Not Available [facility] ed [address] [place] [address], [phone] 05/10/2024 15:09:40 05/10/20 24 05/10/2024 rapid SARS CoV 2 Ag, QL IA, respi rator y speci men rapid SARS CoV 2 Ag, QL IA, respiratory specimen positi ve Not Available Main - [facility] ed [address] [place] [address], [address] 05/10/2024 15:09:38 11/29/19 25 11/30/2024 URINE CULTU RE, ROUTI NE urine culture, routine Final report abnormal Not Available [facility] ([facility]) [address] [facility], [place], [address], 11/30/2024 16:06:00 11/29/19 25 11/30/2024 URINE CULTU [...] ng units per mL Not Available [facility] ([facility]) [address] [facility], [place], [address], 11/30/2024 16:06:00 11/29/19 25 11/30/2024 URINE CULTU [...] thopr im/Pang lfa S Not Available [facility] ([facility]) [address] [facility], [place], [address], 11/30/2024 16:06:00 Result Notes None recorded. Medical Equipment None Reported. Allergies Allergen ID Allergen Name Allergen Category Reaction Reaction Severity Criticality Documentation Date Start Date Code Code System Note Provider Name and Address Organization Details Recorded Time 12485 acetamino phen medicatio n Not available Not available Not available 05/10/2024 161 RxNorm Not Available [facility] - [facility] 4 10:53:36 97221 Tylenol medicatio n Not available Not available Not available 05/11/202480471 3 RxNorm Not Available [facility] - production 4 12:59:50 1596 Product containin g penicilli n (product) medicatio n Not available Not available Not available 05/04/2022 26160 8001 SNOMED [facility] 4 03:41:04 1597 acetamino phen / oxycodone medicatio n Not available Not available Not available 05/04/2022 61237 3 RxNorm Not Available [facility] - production 4 12:59:50 1598 codeine medicatio n Not available Not available Not available 05/04/2022 2670 RxNorm Not Available [facility] - production 4 10:53:36 1599 morphine medicatio n Not available Not available Not available 05/04/2022 7052 RxNorm Not Available [facility] - production 4 03:41:04 1600 Sudafed medicatio n Not available Not available Not available 05/04/202212881 2 RxNorm Not Available [facility] - production 4 10:53:36 1601 acetamino phen / dextromet horphan / doxylamin e / pseudoeph edrine medicatio n Not available Not available Not available 05/04/[address] MD [address] [facility], [place], [address] [place] [address] - [employer], [facility] 2 21:32:45 1602 MILK OF MAGNESIA medicatio n Not available Not available Not available 05/04/[address] MD [address] [facility],[address], [place], [address], [facility] [employer] [facility] 2 21:33:01 7970 aspirin medicatio n Not [...] Not Available Not Available No t Available Xlbhv-Cu-Kbo Enema (mineral oil) active Not Available Not [...] /min 99 % 90/60 mm[Hg] Not Available [facility] 5 09:20:39 Date Recorded Body temperature Oxygen saturation Respiratory rate Heart rate Systolic And Diastolic Provider Name and Address Organization Details Last Updated DateTime 5 97.7 [degF] 98 % 18 /min 79 /min 146/97 mm[Hg] Not Available [facility] 5 11:19:33 Date Recorded Body temperature Heart rate Oxygen saturation Respiratory rate Systolic And Diastolic Systolic And Diastolic Provider Name and Address Organization Details Last Updated DateTime 4 100.1 [degF] 93 /min 97 % 16 /min 120/74 mm[Hg] 117/80 mm[Hg] Not Available [facility] 4 13:26:47 Date Recorded Respiratory rate Body [...] 1025 Mykel Armstrong MD Main - [facility] [address] [place] [address] 08/26/2021 10:13:05 01/12/2022 14:53:52 Abdominal pain 09022943 R10.9 1650 Mykel Armstrong MD Main - [facility] [address] [place] [address] 09/27/2021 16:35:43 01/12/2022 15:32:12 Malaise and fatigue 698443729 R53.81 8 Kishan Yin MD Main - [facility] [address] [place] [address] 10/19/2021 20:40:34 10/20/2021 17:52:41 2454 Anjel Roberts MD Main - [facility] [address] [place] [address] 11/10/2021 10:39:03 02/13/2022 11:15:10 Nausea 357862024 R11.0 Diarrhea 17665949 R19.7 2522 Mykel Armstrong MD Main - [facility] [address] [place] [address] 11/14/2021 09:25:02 01/16/2022 12:16:38 Low blood pressure 22779212 I95.9 3310 Starr Gutierrez MD Main - [facility] [address] [place] [address] 12/22/2021 19:52:11 01/11/2022 12:05:12 Abdominal pain 89730818 R10.[address] MD Main - [facility] [address] [place] [address] 05/04/2022 19:11:29 05/07/2022 14:16:26 Nausea, vomiting and diarrhea 9888657 R19.7 R11.2 declined loperamide or any antidiarrh eal - does not want to be over constipate d- advised need to f/u with GI and PCP after Nirali- beginning next week [id number] KELSEA PURVIS MD Main - [facility] [address] [place] [address] 03/04/2023 20:00:52 03/05/2023 09:44:33 Exposure to SARS-CoV-2 740974709 Z20.822 [id number] Nga Escalona MD Main - [facility] [address] [place] [address] 09/13/2023 18:45:46 09/15/2023 12:31:39 Edema of left lower limb 995543056 R60.0 [id number] Yari Gonzalez MD Main - [facility] [address] [place] [address] 05/10/2024 13:26:45 05/12/2024 21:02:20 COVID-19 748242998 U07.1 Nausea 232369210 R11.0 [id number] Maribell Bernardo MD Main - [facility] [address] [place] [address] 05/11/2024 20:24:22 05/12/2024 21:50:15 COVID-19 799608229 U07.1 79855 Anjel Roberts MD Main - [facility] [address] [place] [address] 09/29/2024 09:20:36 09/29/2024 11:28:06 Nausea and vomiting 56555517 R11.2 [id number] 38506 DANIEL SARKAR NP, S [facility] ED Medical [address] [address] 11/28/2024 11:19:28 11/28/2024 17:14:02 Acute urinary tract infection 931298448 N39.0 132779 [id number] Spike Gallegos MD Main-[facility] ED Medical [address] [address] 11/29/2024 10:56:08 11/29/2024 21:58:25 Urinary tract infectious disease 17856300 N39.0 587218 Sent Macrobid to the pharmacy Health Concerns Section Related Observation LastModified by Organization Detai ls LastModified Time None Recorded Concern Status LastModified by Organization Details LastModified Time None Recorded Advance Directives Directive None Recorded Payers Insurance Date Sequence Insurance Name Policy Number Policy Kahn Covered Member ID Kahn Member ID Guarantor Name 09/15/2023 1 [facility] - DOS PRIOR TO 2022 - DUAL ELIGIBLE (MEDICARE REPLACEMENT/ADV ANTAGE - HMO) Agnes Vilchis [id number] Agnes Milligan 11/29/2024 1 [facility] - DOS ON OR AFTER 2022 - DUAL ELIGIBLE - RESIDENTIAL OPTIONS AND ONE CARE (MEDICARE REPLACEMENT/ADV ANTAGE - HMO) Agnes Milligan [id number] Agnes Milligan Notes Date Note Type Note [...] enough to wait a few hours for hydrogenation operator visit to assess her current clinical presentation and ability to be managed as an outpatient. [facility] request submitted for urgent in home assessment. ...................... ...................... ...................... ...................... ...................... ...................... ......... [facility] Nurse Triage Notes (Mark Hinojosa - [facility]): Chief Complaints: Cough, Earache, Vomiting PMH: Hypertension, COPD/Asthma Comments: Reviewed HPI ...................... ...................... ...................... ...................... ...................... ...................... ......... Data Center Manager Note From Edmund Blackwell: This 53-year-old [...] and does not like to use any aurg-suy-mwwdnft's due to allergies.Patient presents awake and alert, [...] ...................... ...................... ...................... ...................... ...................... ...................... ......... [facility] Consulted: Yari Gonzalez ...................... ...................... ...................... ...................... ...................... ...................... ......... Disposition: Julio Gonzalez MD [address] [facility], [place], [address], [facility] 05/10/2024 15:22:05 05/11/2024 text/html ROS as noted [...] ...................... ...................... ...................... ...................... ...................... ...................... ......... Data Center Manager Note From Edmund Blackwell: This 53-year-old [...] they sent a referral to [facility] to have us come out and [...] treat her with Toradol. I contacted the [facility] who will send nebulizer solution to her [...] ...................... ...................... ...................... ...................... ...................... ...................... ......... [facility] Consulted: Maribell Bernardo ...................... ...................... ...................... ...................... ...................... ...................... ......... Disposition: Fulfilled Maribell Bernardo MD [address] [facility],[address], [place], [address], [facility] 05/11/2024 20:57:54 09/29/2024 text/html ROS as noted in the HPI This was a supervised home visit with hydrogenation operator Edmund Blackwell. HPI: spoke with member, [...] Allergies Reviewed at 09/29/2024:58 Comments: HPI reviewed Data Center Manager Organization Information for Edmund Blackwell Legal Name: [facility] Transportation Address: [address] [place] [address], FADI Delarosa, Freezer Laboratory Technician: Rodriguez Mejia MD CLIA No.: [id number] Data Center Manager POC Test Results from Edmund Blackwell [...] ...................... ...................... ...................... ...................... ...................... ...................... ......... Data Center Manager Note From Edmund Blackwell: This 54-year-old [...] Patient is agreeable for ambulance transport to [facility] emergency department. 911 was initiated and SBAR was given to JUNG LEVINE. [facility] Lab Orders: BMP, serum or plasma: Performed rapid SARS CoV 2 Ag, QL IA, respiratory specimen: Performed rapid flu (A+B): Performed [facility] Medication Orders: metoclopramide 5 mg/mL injection solution: Administered lactated Ringers intravenous solution: Administered lactated Ringers intravenous solution: Administered ...................... ...................... ...................... ...................... ...................... ...................... ......... [facility] Consulted: Anjel Roberts ...................... ...................... ...................... ...................... ...................... ...................... ......... Disposition: Fulfilled Anjel Roberts MD [address] [facility],[address], [place], [address], [employer] 09/29/2024 11:27:32 11/28/2024 text/html ROS as noted [...] at 11/27/2024 - 15:50 Comments: HPI reviewed Data Center Manager Organization Information for [employer] Legal Name: [facility] [employer] Transportation Address: [address] [place] [address], [place] [address], Freezer Laboratory Technician: Rodriguez Mejia MD CLIA No.: [id number] Data Center Manager POC Test Results from Jose A [...] ...................... ...................... ...................... ...................... ...................... ...................... ......... Data Center Manager Note From Jose A Ley: Arrived to find female in her apartment. Patient AOx4, GCS 15 skin pink warm and dry. Patient experiencing urinary symptoms x2 days. + burning with urination, does not feel like she is urinating completely. + back pain. -CVA tenderness. VS as noted. UA as noted. + for blood. Protein and leuk. Cultural drawn. [facility] contacted. [facility] advised she is going to send over a script for bactrim. Patient in agreement. No red flag symptoms. ...................... ...................... ...................... ...................... ...................... ...................... ......... [facility] Consulted: Daniel Sarkar ...................... ...................... ...................... ...................... ...................... ...................... ......... Disposition: Julio SARKAR NP, S [address] [place] [address],[address] [facility], [place], [address], [employer] 11/28/2024 13:17:40 11/29/2024 text/html ROS as noted in the HPI Follow up on UTI. Recieved call from [facility] that patient not tolerating Bactrim. Recent Aboriginal Ceremonial Celebrant from visit 2 months prior normal. Will start on Macrobid. Spike Gallegos MD [address] [place] [address],[address], [place], [address], [facility] 11/29/2024 10:58:02 OBGyn Episode No OBEpisode recorded.
== END 2025-05-07 09:48 | disposition home or self-care (01) ==
LOC: HO.CT 09:47
PROVIDERS: PCP Registered Nurse; Visit Provider Nurse Practitioner Family
DX: R07.9 Chest pain, unspecified (principal)
CPT/HCPCS: 71250

== ENCOUNTER → 2025-05-07 09:48 | Outpatient (BNV) | payer OTHER, SELFPAY | PROVIDERS: PCP Registered Nurse; Visit Provider Radiology Diagnostic Ultrasound | DX: R07.9 Chest pain, unspecified (principal) | CPT/HCPCS: 71250 ==